=== PATIENT | female | born 1960 | race Two or more races ===

== ENCOUNTER 2025-09-10 16:21 | Inpatient (IN) | payer MEDICAID, OTHER ==
[~2025-09-10] VITALS: Ht 170.2 cm; Wt 126.0 kg
[2025-09-10] MEDS: VANCOMYCIN 1GM/250ML KIT 250 ML IV SCH (01:55)
[2025-09-10] MEDS: SODIUM CHLORIDE 0.9% 1,000 ML IV ONE ×2 (16:45→17:25)
[2025-09-10 16:55] VITALS: PULSE 81; RESP 18; O2SAT 98
--- NOTE | 2025-09-10 17:12 | ED.PDOC ---
Altered Mental Status HPI Comments 64 y/o morbidly obese is F is [place] from private residence for c/c of ALOC. Per EMS personnel report, family called, endorsing on 1-2x day history of patient being altered from her usual baseline, characterized by confusion. She has recent history of proximal, left thigh surgery for cyst and has been bed-bound since. Patient also reported to have fallen out of bed, yesterday. On scene blood glucose of 78. Patient was A&Ox2 and had notable odorous urine smell. Chief Complaint: ALOC Time Seen by MD: 16:30 Reviewed Notes: Nurses Notes, Facilities Clerk Notes, Medications, Allergies Allergies: Coded Allergies: NO KNOWN ALLERGIES (Unverified , 09/10/25) Information Source: Patient, Emergency Med Personnel Mode of Arrival: EMS Severity: Moderate Timing: Hours Duration: Since onset Past Medical History PAST MEDICAL HISTORY: Unknown, Unobtainable Surgical History: Denies all surgeries [employer] History: No Pertinent [employer] History Family History Family History: Unknown Social History Smoker: Non-Smoker Alcohol: Denies ETOH Use Drugs: Denies Drug Use Lives In: Home All Other Systems: Reviewed and Negative (Comprehensive review of systems are negative unless stated in HPI) Physical Exam General Appearance: No Apparent Distress, Normal HEENT: Normal ENT Inspection, Pharynx Normal, TMs Normal Neck: Full Range of Motion, Non-Tender, Normal, Normal Inspection Respiratory: Chest Non-Tender, Lungs Clear, No Accessory Muscle Use, No Respiratory Distress, Normal Breath Sounds Cardiovascular: No Edema, No JVD, No Murmur, No Gallop, Normal Peripheral Pu lses, Regular Rate/Rhythm Breast Exam: Deferred Gastrointestinal: No Organomegaly, Non Tender, No Pulsatile Mass, Normal Bowel Sounds, Soft Genitalia: Deferred Pelvic: Deferred Rectal: Deferred Extremities: No calf tenderness Musculoskeletal : Apperance: Normal Neurologic: Disoriented Cerebellar Function: NOT DONE Reflexes: NOT DONE Skin: Pallor Peripheral Pulses: 3+ Radial (R), 3+ Radial (L) Lymphatic: No Adenopathy Was a procedure done? Was a procedure done?: No Differential Diagnosis (ALOC) Differential Diagnosis: Dehydration, Hypoglycemia, DKA, Encephalopathy, Sepsis, Hypoxemia, Closed Head Injury, CVA, Drug Overdose, ETOH Intoxication, Heart Failure, Renal Failure X-Ray, Labs, Meds, VS Vital Signs Date Time Temp Pulse Resp B/P (MAP) Pulse Ox O2 Delivery O2 Flow Rate FiO2 09/10/25 16:55 81 18 98 Room Air* 0 21 09/10/25 16:51 97.7 84 15 84/37 (53) 96 97.7 09/10/25 16:27 84 09/10/25 16:24 98.7 79 15 90/61 100 98.7 Current Medications Medications (Trade) Dose Ordered Sig/Elissa Route Start Time Stop Time Status Last Admin Cefepime HCl 50 ml @ 12.5 mls/hr ONCE ONCE IV 09/10/25 16:45 09/10/25 20:44 09/10/25 17:25 Sodium Chloride 1,000 ml @ 1,000 mls/hr Q1H ONCE IV 09/10/25 16:45 09/10/25 17:44 09/10/25 17:25 Sodium Chloride 1,000 ml @ 150 mls/hr Q6H40M ONCE IV 09/10/25 16:45 09/10/25 23:24 09/10/25 16:45 Patient confused. Sepsis. Hypotensive. Establish intravenous access. Was given fluids. Sepsis protocol. Saturation pristine on room air. Had a surgical procedure on the left thigh. Possibly infection from the site. Was given cefepime. Was given clindamycin. Continue monitoring. Time of 1ST Reevaluation: 17:00 Reevaluation 1ST: Unchanged Patient Education/Counseling: Diagnosis, Treatment Family Education/Counseling: No Family Present SEPSIS Sepsis Screen Date sepsis recognized/suspect: Sep 10, 2025 Time Sepsis recognized/suspect: 170 Recent Procedure: No On Antibiotic Therapy: No Respiratory Rate >20: Yes Heart Rate >90: Yes Temp<36 C (96.8 F) or >38.3 C: No SBP <90 or MAP <65 mmHG: Yes New Acute Mental Status Change: Yes Is the patient on CPAP, BIPAP,: No Physician Orders Complete Blood Count (09/10/25 16:39) Comprehensive Metabolic Panel (09/10/25 16:39) PTPTT (09/10/25 16:39) Urinalysis (09/10/25 16:39) Chest Portable (09/10/25 16:39) Accucheck (09/10/25 16:39) Blood Culture (09/10/25 16:39) Lactic Acid W/ Reflex Order (09/10/25 18:00) Cefepime 1gm/50ml (Maxipime 1gm/50ml) (09/10/25 16:45) Notify Md If Map <65 Or Bp<90 (09/10/25 16:39) If Map<65 Start Vasopressor (09/10/25 16:39) Sepsis Reassesment After Fluid (09/10/25 17:39) Sodium Chloride 0.9% (09/10/25 16:45) Sodium Chloride 0.9% (09/10/25 16:45) Electrocardigram (09/10/25 16:42) Insert/Manage Urinary Catheter QSHIFT (09/10/25 16:45) Dumont Catheters (09/10/25 ) Urine Bacterial Culture (09/10/25 16:45) Change Picc Dressing Q7 Days QWEEKLY (09/10/25 17:25) Ok To Use Existing Picc (09/10/25 17:25) Vital Signs Date Time Temp Pulse Resp B/P (MAP) Pulse Ox O2 Delivery O2 Flow Rate FiO2 09/10/25 16:55 81 18 98 Room Air* 0 21 09/10/25 16:51 97.7 84 15 84/37 (53) 96 97.7 09/10/25 16:27 84 09/10/25 16:24 98.7 79 15 90/61 100 98.7 Medications Medications Dose Ordered Sig/Elissa Route Start Time Stop Time Status Last Admin Dose Admin Cefepime HCl 50 ml @ 12.5 mls/hr ONCE ONCE IV 09/10/25 16:45 09/10/25 20:44 09/10/25 17:25 Sodium Chloride 1,000 ml @ 150 mls/hr Q6H40M ONCE IV 09/10/25 16:45 09/10/25 23:24 09/10/25 16:45 Sodium Chloride 1,000 ml @ 1,000 mls/hr Q1H ONCE IV 09/10/25 16:45 09/10/25 17:44 09/10/25 17:25 Departure 1 Departure Time of Disposition: 17:42 Impression: Primary Impression: Metabolic encephalopathy Additional Impression: Sepsis, unspecified organism Qualified Codes: A41.9 - Sepsis, unspecified organism Disposition: 09 ADMITTED INPATIENT Admit to: Med Surg Condition: Guarded Critical Care Note Critical Care Time?: Yes (90 min-critical care time only) Stability Stability form required: No Heart Score Heart Score: Heart Score Response (Comments) Value History Slightly Suspicious 0 EKG Normal 0 Age 45-64 1 Risk Factors >3 or Hx ASHD 2 Troponin N/A 0 Total 3 I personally scribed for WALLY ONEIL MD ([email or web address]) on 09/10/25 at 17:12. Electronically submitted by Desmond Sherman [email or web address]). WALLY ONEIL MD Sep 10, 2025 17:12
[2025-09-10] MEDS: CEFEPIME 1GM/50ML 50 ML IV ONE (17:25)
--- NOTE | 2025-09-10 17:27 | DVH ---
CHEST RADIOGRAPH Indication: sob Technique: Single frontal view of the chest was obtained Comparison: None FINDINGS: Lines and Tubes: PICC line in place from the left arm with the tip in the superior vena cava at the level of the aortic knob. Lungs: Prominent bilateral perihilar vascular markings. Pleura: No effusion. No pneumothorax. Cardiomediastinal contours: Mild cardiomegaly Bones: No acute osseous abnormality. IMPRESSION: 1. PICC line from left arm in place with the tip in the superior vena cava at the level of the aortic knob. 2. Findings may represent congestive failure correlate with the clinical setting.
[2025-09-10] MEDS: NOREPINEPHRINE 8 MG/250ML KIT 250 ML IV ONE (17:35)
[2025-09-10 18:02] LABS: Urine Budding Yeast LOADED /hpf (None Seen); Urine Protein, UAD 2+ (Negative); Urine WBC Clumps PRESENT /hpf (None Seen)
[2025-09-10] MEDS: NOREPINEPHRINE 8 MG/250ML KIT 250 ML IV SCH (18:17)
[2025-09-10 18:29] LABS: Hematocrit 22.7 % (36.0-46.0); Mean Corpuscular Hemoglobin 27.4 pg (28.0-32.0); Mean Corpuscular Volume 89.1 fL (80.0-100.0); Nucleated Red Blood Cells % 0.2 %
[2025-09-10 18:30] LABS: Hemoglobin 7.0 g/dL (12.2-16.2)
[2025-09-10 18:36] LABS: INR 0.98 (0.9-1.15); Partial Thromboplastin Time 28.1 SEC (24.5-34.5); Prothrombin Time 10.4 sec (9.3-11.8)
[2025-09-10 18:39] LABS: Alkaline Phosphatase 72 U/L (46-116); Anion Gap 12 (5-15); BUN/Creatinine Ratio 11.2 (10.0-20.0); Sodium 141 mmol/L (136-145)
[2025-09-10 18:42] LABS: Blood Urea Nitrogen 50 mg/dL (9-23); Carbon Dioxide 16 mmol/L (20-31); Chloride 113 mmol/L (98-107); Glucose 63 mg/dL (74-106); Potassium 5.2 mmol/L (3.5-5.1)
[2025-09-10 18:43] LABS: Alanine Aminotransferase < 9 U/L (7-40); Albumin 2.4 g/dL (3.2-4.8); Bilirubin, Total 0.2 mg/dL (0.2-1.0); Calcium 8.5 mg/dL (8.7-10.4); Total Protein 4.9 g/dL (5.7-8.2)
[2025-09-10 19:30] VITALS: PULSE 90; RESP 18; O2SAT 98
[2025-09-10] MEDS: DEXTROSE (50%) 50ML SYRG IV ONE (20:18)
[2025-09-10] MEDS ORDERED: DOCUSATE SOD 100 MG CAP PO PRN (20:30)
--- NOTE | 2025-09-10 20:58 | DVHHP2 ---
History of Present Illness Reason for Visit: Sepsis, unspecified organism History of Present Illness The patient is a 64-year-old female morbidly obese with past medical history of melanoma cancer, currently receiving treatment at [facility], hypothyroidism, hypertension, chronic kidney failure, and diabetes mellitus who presented to [facility] ED for evaluation of altered level of consciousness. As reported by daughter patient was experiencing confusion state, became altered from usual baseline, associated with generalized weakness, getting worse that EMS were called. When EMS arrived on the scene, the patient's blood glucose was 78 mg/dL, oriented x2, EN route to our facility ED. Patient was seen and evaluated in the ED with left thigh open wound from cysts removal, laboratory data shows WBC 9.4, hemoglobin 7.0, hematocrit 22.7, platelets 379, sodium 141, potassium 5.2, BUN 50, creatinine 4.45, GFR 11, glucose 63, calcium 8.5, albumin 2.4, BNP 62.07, blood pressure 79/61 trending up to 106/76, heart rate 90, temperature 98.3 F, O2 saturation 98% on room air. Urinalysis positive for urinary tract infection. Patient was started on IV antibiotic regimen vancomycin, please see medication orders section in the computer. On my assessment, daughter at bedside, patient remains altered, no diaphoresis, shortness of breaths, loss of consciousness, no diarrhea, nausea, vomiting, fever, no chills. Patient was admitted for further evaluation and medical management. Past Medical History Myeloma cancer, Hypothyroidism, HTN, DM, CKF Past Surgical History Proximal left thigh surgery/cyst removal Family History Reviewed, noncontributory to the management of this case. Past Social History The patient lives at home, denies smoking, alcohol or illicit drugs abuse. Review of Systems Constitutional: Yes: Weakness; No: Fever, Chills, Sweats, Malaise, Other Eyes: No: Pain, Vision change, Conjunctivae inflammation, Eyelid inflammation, Other, Redness ENT: No: Ear pain, Ear discharge, Nose pain, Nose discharge, Nose congestion, Mouth pain, Mouth swelling, Throat pain, Throat swelling, Other Respiratory: No: Cough, Dry, Shortness of breath, SOB with excertion, Wheezing, Hemoptysis, Pleuritic Pain, Sputum, Wheezing, Other Cardiovascular: No: Chest Pain, Palpitations, Orthopnea, Paroxysmal Noc. Dyspnea, Edema, Lt Headedness, Other Gastrointestinal: No: Nausea, Vomiting, Abdominal Pain, Diarrhea, Constipation, Melena, Hematochezia, Other Genitourinary: No Dysuria, No Frequency, No Incontinence, No Hematuria, No Retention, No Other Musculoskeletal: No: other, neck pain, shoulder pain, arm pain, back pain, hand pain, leg pain, foot pain Skin: No: Rash, Lesions, Jaundice, Bruising, Other Neurological: Confusion, Other (Altered level of consciousness); No: Weakness, Numbness, Incoordination, Change in speech, Seizures Allergies: Coded Allergies: NO KNOWN ALLERGIES (Unverified , 09/10/25) Medications Current Medications Medications Dose Ordered Sig/Elissa Route Start Time Stop Time Status Last Admin Dose Admin Norepinephrine Bitartrate 250 ml @ 3.75 mls/hr Q24H IV 09/10/25 18:00 09/10/25 18:17 3.75 MLS/HR Ceftriaxone Sodium 50 ml @ 100 mls/hr DAILY@09 IV 09/11/25 09:00 Levothyroxine Sodium 150 mcg QAM@0600 PO 09/11/25 06:00 Atorvastatin Calcium 10 mg HS PO 09/10/25 22:00 Gabapentin 300 mg TID PO 09/10/25 22:00 Acetaminophen/ Hydrocodone Bitart 1 tab Q4HP PRN PO 09/10/25 20:30 Ondansetron HCl 4 mg Q4HP PRN IV 09/10/25 20:30 Docusate Sodium 100 mg BIDPRN PRN PO 09/10/25 20:30 Multivitamins 1 tab DAILY PO 09/11/25 10:00 Acetaminophen 650 mg Q6HP PRN PO 09/10/25 20:30 Aspirin 81 mg DAILY PO 09/11/25 10:00 Exam Vital Signs Vital Signs Date Time Temp Pulse Resp B/P (MAP) Pulse Ox O2 Delivery O2 Flow Rate FiO2 09/10/25 20:15 78 11 109/57 (74) 98 09/10/25 19:30 Room Air* 0 21 09/10/25 19:30 98.3 98.3 General Appearance: Alert, Cooperative, No acute distress, Other (Oriented x2) HEENT: Atraumatic, PERRLA, EOMI, Mucous membr. moist/pink Respiratory: Normal air movement Cardiovascular: Regular rate, Normal S1, Normal S2, No murmurs Abdominal: Normal bowel sounds, Soft, No tenderness, No hepatospenomegaly, No masses Extremities: No clubbing, No cyanosis, No edema, Normal pulses, No t enderness/swelling Skin: No rashes, No significant lesion Neuro: Normal speech, Normal tone, Sensation intact, Cranial nerves 3-12 NL, Reflexes 2+, Other (Generalized weakness) Psych/Mental Status: Mood NL, Other (Altered mental status) Labs/Xrays Labs Test 09/10/25 18:05 09/10/25 17:50 Range/Units White Blood Count 9.4 4.4-10.8 10^3/uL Red Blood Count 2.54 L 4.0-5.20 10^6/uL Hemoglobin 7.0 *L 12.2-16.2 g/dL Hematocrit 22.7 L 36.0-46.0 % Mean Corpuscular Volume 89.1 80.0-100.0 fL Mean Corpuscular Hemoglobin 27.4 L 28.0-32.0 pg Mean Corpuscular Hemoglobin Concent 30.8 L 32.0-36.0 g/dL Red Cell Distribution Width 19.1 H 11.8-14.3 % Platelet Count 379 140-450 10^3/uL Mean Platelet Volume 7.8 6.9-10.8 fL Neutrophils (%) (Auto) 59.9 37.0-80.0 % Lymphocytes (%) (Auto) 27.9 10.0-50.0 % Monocytes (%) (Auto) 9.1 0.0-12.0 % Eosinophils (%) (Auto) 1.9 0.0-7.0 % Basophils (%) (Auto) 1.2 0.0-2.0 % Neutrophils # (Auto) 5.6 1.6-8.6 10 ^3/uL Lymphocytes # (Auto) 2.6 0.4-5.4 10 ^3/uL Monocytes # (Auto) 0.9 0-1.3 10 ^3/uL Eosinophils # (Auto) 0.2 0-0.8 10 ^3/uL Basophils # (Auto) 0.1 0-0.2 10 ^3/uL Nucleated Red Blood Cells 0.2 % Prothrombin Time 10.4 9.3-11.8 sec Prothrombin Time INR 0.98 0.9-1.15 Activated Partial Thromboplast Time 28.1 24.5-34.5 SEC Sodium Level 141 136-145 mmol/L Potassium Level 5.2 H 3.5-5.1 mmol/L Chloride Level 113 H 98-107 mmol/L Carbon Dioxide Level 16 L 20-31 mmol/L Anion Gap 12 5-15 Blood Urea Nitrogen 50 H 9-23 mg/dL Creatinine 4.45 H 0.550-1.02 mg/dL Glomerular Filtration Rate Calc 11 >90 mL/min BUN/Creatinine Ratio 11.2 10.0-20.0 Serum Glucose 63 L 74-106 mg/dL Lactic Acid Level 1.0 0.4-2.0 mmol/L Calcium Level 8.5 L 8.7-10.4 mg/dL Total Bilirubin 0.2 0.2-1.0 mg/dL Aspartate Amino Transferase (AST) 16 13-40 U/L Alanine Aminotransferase (ALT) < 9 7-40 U/L Alkaline Phosphatase 72 46-116 U/L Total Protein 4.9 L 5.7-8.2 g/dL Albumin 2.4 L 3.2-4.8 g/dL Urine Color Light-orange Yellow Urine Clarity Ex.turbid Clear Urine pH 7.5 5.0-9.0 Urine Specific [place] 1.017 1.001-1.035 Urine Protein 2+ H Negative Urine Ketones Negative Negative Urine Blood 1+ H Negative /uL Urine Nitrite Negative Negative Urine Bilirubin Negative Negative Urine Urobilinogen Normal Negative mg/dL Urine Leukocyte Esterase 2+ Negative /uL Urine RBC 202 0 - 4 /hpf Urine WBC Clumps Present None Seen /hpf Urine Microscopic WBC 2425 H 0-5 /HPF Urine Squamous Epithelial Cells Few <5 /hpf Urine Bacteria Mod H None Seen /hpf Urine Hyaline Casts Mod 0 - 2 /lpf Urine Mucus Few None Seen Urine Yeast (Budding) Loaded None Seen /hpf Urine Glucose Normal Normal mg/dL PATIENT: WILFRED INFANTECCT: [id number] UNIT: [id number] : 1960 LOC: ER ROOM / BED: / AGE / SEX: 64 / F ADM STATUS: REG ER SERVICE [id number] ORDERING PHYSICIAN: WALLY ONEIL MD PROCEDURE(s): CXRP - CHEST PORTABLE REASON: sob ORDER NUMBER(s): [id number], ACCESSION NUMBER(s): [id number] CHEST RADIOGRAPH Indication: sob Technique: Single frontal view of the chest was obtained Comparison: None FINDINGS: Lines and Tubes: PICC line in place from the left arm with the tip in the superior vena cava at the level of the aortic knob. Lungs: Prominent bilateral perihilar vascular markings. Pleura: No effusion. No pneumothorax. Cardiomediastinal contours: Mild cardiomegaly Bones: No acute osseous abnormality. IMPRESSION: 1. PICC line from left arm in place with the tip in the superior vena cava at the level of the aortic knob. 2. Findings may represent congestive failure correlate with the clinical setting. SEPSIS Sepsis Screen Date sepsis recognized/suspect: Sep 10, 2025 Time Sepsis recognized/suspect: 1699 Recent Procedure: No On Antibiotic Therapy: No Respiratory Rate >20: Yes Heart Rate >90: Yes Temp<36 C (96.8 F) or >38.3 C: No SBP <90 or MAP <65 mmHG: Yes New Acute Mental Status Change: Yes Is the patient on CPAP, BIPAP,: No Physician Orders Chest Portable (09/10/25 16:39) Accucheck (09/10/25 16:39) Blood Culture (09/10/25 16:39) Notify Md If Map <65 Or Bp<90 (09/10/25 16:39) If Map<65 Start Vasopressor (09/10/25 16:39) Sepsis Reassesment After Fluid (09/10/25 17:39) Sodium Chloride 0.9% (09/10/25 16:45) Electrocardigram (09/10/25 16:42) Insert/Manage Urinary Catheter QSHIFT (09/10/25 16:45) Dumont Catheters (09/10/25 ) Urine Bacterial Culture (09/10/25 16:45) Change Picc Dressing Q7 Days QWEEKLY (09/10/25 17:25) Ok To Use Existing Picc (09/10/25 17:25) Norepinephrine 8 Mg/250ml Kit (Levophed) (09/10/25 18:00) Type And Screen (09/10/25 18:34) Transfuse Blood (09/10/25 ) Obtain Consent For: (09/10/25 18:34) Packedcell-Noactive Bleeding (09/10/25 18:34) Ceftriaxone 1gm/50ml (Rocephin) (09/11/25 09:00) Thyroid Stimulating Hormone (09/10/25 20:20) Levothyroxine Tablet (Synthroid Tablet) (09/11/25 06:00) Atorvastatin (Lipitor) (09/10/25 22:00) *[facility] (09/10/25 20:20) Gabapentin Capsule (Neurontin Capsule) (09/10/25 22:00) Allergies (09/10/25 20:20) Code Status (09/10/25 20:20) Oxygen Per Hour (09/10/25 20:20) Hydrocodone-Acet 5/325mg Tab ([place] (09/10/25 20:30) Ondansetron Hcl (Zofran) (09/10/25 20:30) Docusate Sodium Capsule (Colace Capsule) (09/10/25 20:30) Multiple Vitamin Tablet (Mvi Tab) (09/11/25 10:00) Fall Risk Precautions In Place QSHIFT (09/10/25 20:20) Complete Blood Count (09/11/25 04:00) Comprehensive Metabolic Panel (09/11/25 04:00) Cardiac Diet-2gna,Lofat,Lochol (09/11/25 Breakfast) Condition: Serious (09/10/25 20:20) Acetaminophen Tablet (Tylenol Tablet) (09/10/25 20:30) Maintain Bed Rest (09/10/25 20:20) Sequential Compression Device (09/10/25 ) Hemoglobin A1c (09/10/25 20:20) Aspirin Chewable Tablet (09/11/25 10:00) Vital Signs Date Time Temp Pulse Resp B/P (MAP) Pulse Ox O2 Delivery O2 Flow Rate FiO2 09/10/25 20:15 78 11 109/57 (74) 98 09/10/25 20:00 114/63 09/10/25 20:00 74 12 114/63 (80) 98 09/10/25 19:45 75 14 108/60 (76) 98 09/10/25 19:45 108/60 09/10/25 19:30 90 18 98 Room Air* 0 21 09/10/25 19:30 98.3 90 18 106/76 (86) 98 98.3 09/10/25 19:15 83 15 97/59 (72) 96 09/10/25 19:15 97/59 09/10/25 19:00 82 15 101/72 (82) 96 09/10/25 19:00 101/72 09/10/25 18:45 99/72 09/10/25 18:45 72 15 99/72 (81) 96 09/10/25 18:30 103/62 09/10/25 18:30 77 15 103/62 (76) 96 09/10/25 18:17 99/43 09/10/25 18:15 75 15 97/58 (71) 96 09/10/25 18:00 77 15 99/43 (61) 96 09/10/25 17:45 80 15 90/46 (61) 96 09/10/25 17:30 89 15 59/29 (39) 96 09/10/25 17:15 85 15 79/61 (67) 96 09/10/25 17:00 84 15 87/47 (60) 96 09/10/25 16:55 81 18 98 Room Air* 0 21 09/10/25 16:51 97.7 84 15 84/37 (53) 96 97.7 09/10/25 16:27 84 09/10/25 16:24 98.7 79 15 90/61 100 98.7 Laboratory Tests Test 09/10/25 18:05 Lactic Acid Level 1.0 mmol/L (0.4-2.0) White Blood Count 9.4 10^3/uL (4.4-10.8) Medications Medications Dose Ordered Sig/Elissa Route Start Time Stop Time Status Last Admin Dose Admin Cefepime HCl 50 ml @ 12.5 mls/hr ONCE ONCE IV 09/10/25 16:45 09/10/25 20:44 DC 09/10/25 17:25 12.5 MLS/HR Dextrose 50 ml ONCE ONCE IV 09/10/25 20:15 09/10/25 20:16 DC 09/10/25 20:18 50 ML Norepinephrine Bitartrate 250 ml @ 3.75 mls/hr Q24H IV 09/10/25 18:00 09/10/25 18:17 3.75 MLS/HR Sodium Chloride 1,000 ml @ 150 mls/hr Q6H40M ONCE IV 09/10/25 16:45 09/10/25 23:24 09/10/25 16:45 150 MLS/HR Sodium Chloride 1,000 ml @ 1,000 mls/hr Q1H ONCE IV 09/10/25 16:45 09/10/25 17:44 DC 09/10/25 17:25 1,000 MLS/HR Assessment/Plan Assessment/Plan Sepsis, unspecified organism Metabolic encephalopathy Hypothyroidism Urinary tract infection Electrolyte imbalance Acute on chronic renal failure Symptomatic anemia Open wound of left thigh Generalized weakness Diabetes mellitus with hypoglycemia Plan 1. Admit to intensive care unit 2. Breathing treatment 3. Pain control management 4. IV antibiotic management 5. Management of fluids and electrolytes 6. Consultation for Hematology/Oncology/Nephrology/wound care 7. Diagnostic test chest x-ray 8. DVT prophylaxis-on aspirin 9. Repeat labs CBC, CMP in a.m. 10. Home medication reviewed and reconciled 11. Continue with current medical management 12. Treatment plan discussed with patient/daughter and RN. Patient/daughter verbalized understanding. Plan discussed with: Patient, Daughter (At bedside), Other (RN) My Orders Orders - BELINDA ANDREW DNP Procedure Category Date Status Time Ceftriaxone 1gm/50ml PHA 09/11/25 In Process (Rocephin) 09:00 Thyroid Stimulating LAB 09/10/25 In Process Hormone 20:20 Levothyroxine Tablet PHA 09/11/25 In Process (Synthroid Tablet) 06:00 Atorvastatin (Lipitor) PHA 09/10/25 In Process 22:00 *[facility] CONS 09/10/25 Transmitted -[place] 20:20 Gabapentin Capsule PHA 09/10/25 In Process (Neurontin Capsule) 22:00 Allergies GLORIA 09/10/25 In Process 20:20 Code Status CODE 09/10/25 Transmitted 20:20 Oxygen Per Hour RT 09/10/25 Transmitted 20:20 Hydrocodone-Acet PHA 09/10/25 In Process 5/325mg Tab ([place] 20:30 Ondansetron Hcl PHA 09/10/25 In Process (Zofran) 20:30 Docusate Sodium PHA 09/10/25 In Process Capsule (Colace 20:30 Multiple Vitamin PHA 09/11/25 In Process Tablet (Mvi Tab) 10:00 Fall Risk Precautions GLORIA 09/10/[address] 20:20 Complete Blood Count LAB 09/11/25 Verified 04:00 Comprehensive LAB 09/11/25 Verified Metabolic Panel 04:00 Cardiac DIET 09/11/25 Transmitted Diet-2gna,Lofat,Lochol Breakfast Condition: Serious GLORIA 09/10/25 In Process 20:20 Acetaminophen Tablet PHA 09/10/25 In Process (Tylenol Tablet) 20:30 Maintain Bed Rest GLORIA 09/10/25 In Process 20:20 Sequential GLORIA 09/10/25 In Process Compression Device Hemoglobin A1c LAB 09/10/25 In Process 20:20 Aspirin Chewable PHA 09/11/25 In Process Tablet 10:00 Problem List: (1) Sepsis, unspecified organism (2) Metabolic encephalopathy (3) Hypothyroidism (4) Urinary tract infection (5) Electrolyte imbalance (6) Acute on chronic renal failure (7) Symptomatic anemia (8) Open wound of left thigh (9) Generalized weakness (10) Diabetes mellitus with hypoglycemia Date of Service: Sep 10, 2025 Billing Provider: BELINDA ANDREW DNP Common Visit Codes: 51012-CGYOMRS INP/OBS CARE (HIGH) BELINDA NADREW DNP Sep 10, 2025 20:58
[2025-09-10] MEDS ORDERED: MORPHINE SULFATE INJ 2 MG/ml SYRG IV PRN (21:00)
[2025-09-10] MEDS ORDERED: NITROGLYCERIN 0.4 MG SL TAB SL PRN (21:00)
[2025-09-10] MEDS ORDERED: DEXTROSE (50%) 50ML SYRG IV PRN (22:45)
[2025-09-10] MEDS ORDERED: VANCOMYCIN PER PHARMACY 0 MG IV SCH (22:45)
[2025-09-10] MEDS: ATORVASTATIN 20 MG TAB PO SCH (22:50)
[2025-09-10] MEDS: GABAPENTIN 300 MG CAP PO SCH (22:50)
[2025-09-10] MEDS: SODIUM ZIRCONIUM CYCL 10 GM PAK PO ONE (22:50)
[2025-09-10 23:07] VITALS: BP 97/66; PULSE 79; RESP 18; TEMP 97.1
[2025-09-10 23:30] VITALS: BP 103/56; PULSE 79; RESP 12; TEMP 97.1
[2025-09-11] VITALS (32 sets, daily range): BP systolic 87–111; BP diastolic 50–67; PULSE 70–79; RESP 9–21; TEMP 97.1–98.7; O2SAT 96–100
[2025-09-11 03:31] LABS: Hematocrit 24.3 % (36.0-46.0); Hemoglobin 7.6 g/dL (12.2-16.2); Mean Corpuscular Hemoglobin 28.4 pg (28.0-32.0); Mean Corpuscular Volume 91.5 fL (80.0-100.0); Nucleated Red Blood Cells % 0.2 %
[2025-09-11 03:48] LABS: Alkaline Phosphatase 64 U/L (46-116); Anion Gap 12 (5-15); BUN/Creatinine Ratio 12.3 (10.0-20.0); Potassium 4.6 mmol/L (3.5-5.1)
[2025-09-11 03:49] LABS: Alanine Aminotransferase < 9 U/L (7-40); Albumin 2.1 g/dL (3.2-4.8); Bilirubin, Total 0.4 mg/dL (0.2-1.0); Blood Urea Nitrogen 48 mg/dL (9-23); Calcium 8.1 mg/dL (8.7-10.4); Carbon Dioxide 14 mmol/L (20-31); Chloride 110 mmol/L (98-107); Glucose 211 mg/dL (74-106); Sodium 136 mmol/L (136-145); Total Protein 4.4 g/dL (5.7-8.2)
[2025-09-11] MEDS: LEVOTHYROXINE SODIUM 50 MCG TAB PO SCH (05:46)
[2025-09-11] MEDS: InsuLIN REG 1unit/0.01ml Soln (100units/ml) SC SCH (06:21)
[2025-09-11] MEDS: ACCU-CHEK COMFORT CURVE STRIP VI SCH (06:21)
[2025-09-11] MEDS: MULTIPLE VITAMIN TAB PO SCH (09:47)
--- NOTE | 2025-09-11 10:22 | DVHINCON2 ---
Date of service: Sep 11, 2025 Referring Physician Hospitalist Reason for Consultation Acute kidney injury History of Present Illness 64-year-old morbidly obese female patient is confused and unable to provide history she is irritable refusing to answer questions states she wants to go home. Per nurse at bedside patient was sent in by family due to change in mental state. Her past medical history and medications are unknown She has a Dumont catheter presently that has cloudy urine, in the ER upon evaluation is noted that patient is on Levophed drip due to hypotension Allergies: Coded Allergies: NO KNOWN ALLERGIES (Unverified , 09/10/25) Current Medications Current Medications Medications (Trade) Dose Ordered Sig/Elissa Route PRN Reason Start Time Stop Time Status Last Admin Norepinephrine Bitartrate 250 ml @ 3.75 mls/hr Q24H IV 09/10/25 18:00 09/10/25 18:17 Ceftriaxone Sodium 50 ml @ 100 mls/hr DAILY@09 IV 09/11/25 09:00 09/11/25 09:47 Levothyroxine Sodium (Synthroid Tablet) 150 mcg QAM@0600 PO 09/11/25 06:00 Atorvastatin Calcium (Lipitor) 10 mg HS PO 09/10/25 22:00 Gabapentin (Neurontin Capsule) 300 mg TID PO 09/10/25 22:00 Acetaminophen/ Hydrocodone Bitart ([place] 5/325MG Tab) 1 tab Q4HP PRN PO MODERATE PAIN (4-6 PAIN SCALE) 09/10/25 20:30 Ondansetron HCl (Zofran) 4 mg Q4HP PRN IV NAUSEA / VOMITING 09/10/25 20:30 Docusate Sodium (Colace Capsule) 100 mg BIDPRN PRN PO FOR CONSTIPATION 09/10/25 20:30 Multivitamins (Mvi Tab) 1 tab DAILY PO 09/11/25 10:00 09/11/25 09:47 Acetaminophen (Tylenol Tablet) 650 mg Q6HP PRN PO PAIN SCALE 1-3 OR TEMP>100.4 09/10/25 20:30 Aspirin 81 mg DAILY PO 09/11/25 10:00 09/11/25 09:47 Nitroglycerin (Ntrostat Sublingual) 0.4 mg Q5MINP PRN SL FOR CHEST PAIN 09/10/25 21:00 Morphine Sulfate 2 mg Q30M PRN IV FOR CHEST PAIN 09/10/25 21:00 Diagnostic Test (Pha) (Accu-Chek Comfort Curve T) 1 strip ACHS 09/11/25 07:00 09/11/25 06:21 Insulin Human Regular (InsuLIN R) ACHS SC 09/11/25 07:00 Dextrose 50 ml UD PRN IV Blood Sugar LESS THAN 60 09/10/25 22:45 Vancomycin HCl 250 ml @ 125 mls/hr Q2H IV 09/10/25 23:00 09/11/25 02:59 DC 09/10/25 01:55 Vancomycin HCl 0 ml @ 0 mls/hr PER PHARMACY IV 09/10/25 22:45 Sodium Chloride 1,000 ml @ 100 mls/hr Q10H IV 09/11/25 10:00 Review of Systems Altered mental state H&P Exam Vital Signs/I&O Vital Sign Date Time Temp Pulse Resp B/P (MAP) Pulse Ox O2 Delivery O2 Flow Rate FiO2 09/11/25 09:32 69 09/11/25 07:15 10 105/62 (76) 96 09/11/25 06:00 Room Air* 0 21 09/11/25 04:30 98.7 98.7 Intake and Output 09/10/25 09/11/25 19:00 07:00 Intake Total 1080.00 ml 1255.3125 ml Output Total 300 ml Balance 1080.00 ml 955.3125 ml Intake IV Total 1080.00 ml 355.3125 ml Blood Product 600 ml Other 300 ml Output Urine Total 300 ml # Bowel Movements 1 Physical Exam Disheveled chronically ill morbidly obese white female Multiple bruises on bilateral upper extremities on both arms PICC line left arm No increased JVD abdomen is soft no pitting edema Dumont catheter has cloudy dark yellow urine minimal output Labs/Diagnostic Data Labs/Diagnostic Data Laboratory Tests Test 09/11/25 05:59 09/11/25 03:00 09/10/25 21:12 09/10/25 18:05 Range/Units POC Glucose 72 78 70-106 mg/dl White Blood Count 8.2 9.4 4.4-10.8 10^3/uL Red Blood Count 2.66 L 2.54 L 4.0-5.20 10^6/uL Hemoglobin 7.6 L 7.0 *L 12.2-16.2 g/dL Hematocrit 24.3 L 22.7 L 36.0-46.0 % Mean Corpuscular Volume 91.5 89.1 80.0-100.0 fL Mean Corpuscular Hemoglobin 28.4 27.4 L 28.0-32.0 pg Mean Corpuscular Hemoglobin Concent 31.0 L 30.8 L 32.0-36.0 g/dL Red Cell Distribution Width 18.3 H 19.1 H 11.8-14.3 % Platelet Count 348 379 140-450 10^3/uL Mean Platelet Volume 7.7 7.8 6.9-10.8 fL Neutrophils (%) (Auto) 63.2 59.9 37.0-80.0 % Lymphocytes (%) (Auto) 23.5 27.9 10.0-50.0 % Monocytes (%) (Auto) 10.8 9.1 0.0-12.0 % Eosinophils (%) (Auto) 1.5 1.9 0.0-7.0 % Basophils (%) (Auto) 1.0 1.2 0.0-2.0 % Neutrophils # (Auto) 5.2 5.6 1.6-8.6 10 ^3/uL Lymphocytes # (Auto) 1.9 2.6 0.4-5.4 10 ^3/uL Monocytes # (Auto) 0.9 0.9 0-1.3 10 ^3/uL Eosinophils # (Auto) 0.1 0.2 0-0.8 10 ^3/uL Basophils # (Auto) 0.1 0.1 0-0.2 10 ^3/uL Nucleated Red Blood Cells 0.2 0.2 % Sodium Level 136 # 141 136-145 mmol/L Potassium Level 4.6 5.2 H 3.5-5.1 mmol/L Chloride Level 110 H 113 H 98-107 mmol/L Carbon Dioxide Level 14 L 16 L 20-31 mmol/L Anion Gap 12 12 5-15 Blood Urea Nitrogen 48 H 50 H 9-23 mg/dL Creatinine 3.89 H 4.45 H 0.550-1.02 mg/dL Glomerular Filtration Rate Calc 12 11 >90 mL/min BUN/Creatinine Ratio 12.3 11.2 10.0-20.0 Serum Glucose 211 H 63 L 74-106 mg/dL Calcium Level 8.1 L 8.5 L 8.7-10.4 mg/dL Total Bilirubin 0.4 0.2 0.2-1.0 mg/dL Aspartate Amino Transferase (AST) 12 L 16 13-40 U/L Alanine Aminotransferase (ALT) < 9 < 9 7-40 U/L Alkaline Phosphatase 64 72 46-116 U/L Total Protein 4.4 L 4.9 L 5.7-8.2 g/dL Albumin 2.1 L 2.4 L 3.2-4.8 g/dL Prothrombin Time 10.4 9.3-11.8 sec Prothrombin Time INR 0.98 0.9-1.15 Activated Partial Thromboplast Time 28.1 24.5-34.5 SEC Hemoglobin A1c < 3.8 <5.7 % A1C Lactic Acid Level 1.0 0.4-2.0 mmol/L B-Type Natriuretic Peptide 62.07 0-100 pg/mL Thyroid Stimulating Hormone (TSH) 11.74 H 0.55-4.78 uIU/mL Test 09/10/25 17:50 Range/Units Urine Color Light-orange Yellow Urine Clarity Ex.turbid Clear Urine pH 7.5 5.0-9.0 Urine Specific [place] 1.017 1.001-1.035 Urine Protein 2+ H Negative Urine Ketones Negative Negative Urine Blood 1+ H Negative /uL Urine Nitrite Negative Negative Urine Bilirubin Negative Negative Urine Urobilinogen Normal Negative mg/dL Urine Leukocyte Esterase 2+ Negative /uL Urine RBC 202 0 - 4 /hpf Urine WBC Clumps Present None Seen /hpf Urine Microscopic WBC 2425 H 0-5 /HPF Urine Squamous Epithelial Cells Few <5 /hpf Urine Bacteria Mod H None Seen /hpf Urine Hyaline Casts Mod 0 - 2 /lpf Urine Mucus Few None Seen Urine Yeast (Budding) Loaded None Seen /hpf Urine Glucose Normal Normal mg/dL Assessment Acute kidney injury hemodynamically mediated in the setting of hypotension and sepsis CKD unspecified baseline is unknown Urinary tract infection Altered mental state Anemia IV fluid hydration Strict I&O monitoring urinary output Broad-spectrum antibiotics Currently on Levophed drip maintain mean arterial pressure greater than 65 Blood culture urine culture Anemia panel and recommend PRBC if hemoglobin decreases below 7.0 No indication for emergent dialysis at this time however patient require close renal follow-up Plan discussed with: Patient HOMAR BYRD MD Sep 11, 2025 10:22
[2025-09-11] MEDS: SODIUM CHLORIDE 0.9% 1,000 ML IV SCH (10:46)
--- NOTE | 2025-09-11 17:36 | DVHPNRES ---
Progress Note Date Seen: Sep 11, 2025 Resident Creating Document: AUGUSTA GONZALEZ RESIDENT Has the PT tested + for MRSA If YES, has PT been informed?: No Medical Necessity Reason Pt with a Central, PICC or Fol: Yes The following are medically ne: PICC Line, Dumont Catheter Subjective Review of Systems The patient is a 64-year-old female morbidly obese with past medical history of melanoma cancer, currently receiving treatment at [facility], hypothyroidism, hypertension, chronic kidney failure, and diabetes mellitus who presented to [facility] ED for evaluation of altered level of consciousness. As reported by daughter patient was experiencing confusion state, became altered from usual baseline, associated with generalized weakness, getting worse that EMS were called. When EMS arrived on the scene, the patient's blood glucose was 78 mg/dL, oriented x2, EN route to our facility ED. Patient was seen and evaluated in the ED with left thigh open wound from cysts removal, laboratory data shows WBC 9.4, hemoglobin 7.0, hematocrit 22.7, platelets 379, sodium 141, potassium 5.2, BUN 50, creatinine 4.45, GFR 11, glucose 63, calcium 8.5, albumin 2.4, BNP 62.07, blood pressure 79/61 trending up to 106/76, heart rate 90, temperature 98.3 F, O2 saturation 98% on room air. Urinalysis positive for urinary tract infection. Patient was started on IV antibiotic regimen vancomycin, please see medication orders section in the computer. On my assessment, daughter at bedside, patient remains altered, no diaphoresis, shortness of breaths, loss of consciousness, no diarrhea, nausea, vomiting, fever, no chills. Patient was admitted for further evaluation and medical management. PAST MEDICAL HISTORY * melanoma ([facility]) * Hypothyroidism * Diabetes mellitus type 2 * Chronic kidney disease (baseline unknown) * Hypertension * Morbid obesity * Recent surgical wounds (abdomen + left thigh) * Former smoker (quit Sep 2024) PAST SURGICAL HISTORY * Left abdominal melanoma excision * Left proximal thigh melanoma excision * Prior oncologic resections SOCIAL HISTORY * Quit smoking 2023 * No EtOH/drugs * Lives with family REVIEW OF SYSTEMS (limited due to confusion) * Constitutional: Fatigue, confusion; no fevers/chills overnight * Neuro: Confusion, disorientation; follows commands * Resp: No cough, wheezing, SOB * CV: No chest pain; soft BPs * GI: No abdominal pain, tolerating minimal PO * : Very low urine output * Skin: Drainage from left thigh wound; abdominal wound with jewell * Endo: Known hypothyroidism; glucose fluctuating * MSK: Generalized weakness 09/11/25 The patient is a 64-year-old female with melanoma (status post recent left abdominal and left proximal thigh excisions), morbid obesity, CKD, DM2, hypothyroidism, hypertension, and recent postoperative discharge on Eliquis, oxycodone, and cefadroxil, who remains admitted to the ICU for septic encephalopathy, acute kidney injury on CKD, symptomatic anemia, and open draining postoperative thigh wound. Overnight and Today: * Patient is awake, alert, following commands, but confused and poorly oriented. * Left thigh postoperative wound continues to drain moderately, dressing changed, and wound culture obtained. * Dumont catheter in place; urine output remains very low (UOP 0.11 mL/kg/hr) despite IV fluids. * Still requiring vasopressor support (norepinephrine 6 mcg/min) to maintain MAP > 65. * Hemodynamics stable but soft, BP fluctuating 68189 systolic. * No respiratory distress; oxygen saturation 9698% on room air. * She remains on NS at 100 mL/hr for hemodynamic support. * Nephrology evaluated: No emergent indication for dialysis at this time. * Open abdominal wound with jewell appears intact. * No sedation; remains able to follow simple commands. * Confusion improving slightly but still present. * Thyroid function abnormal requires adjustment. * Postoperative wound continues to drain; wound culture sent; ID coverage continued. * Cefadroxil (home ABX) NOT appropriate for current septic presentation ? continue broad-spectrum IV therapy. * No respiratory failure; stable on room air. * Requires continued ICU-level care. Objective vital signs Vital Sign Date Time Temp Pulse Resp B/P (MAP) Pulse Ox O2 Delivery O2 Flow Rate FiO2 09/11/25 17:15 68 10 99/65 (76) 95 09/11/25 16:00 98.8 98.8 09/11/25 06:00 Room Air* 0 21 Total Intake and Output 09/10/25 09/10/25 09/11/25 15:00 23:00 07:00 Intake Total 1409.0625 ml 926.25 ml Output Total 300 ml Balance 1409.0625 ml 626.25 ml medications Current Medications Medications Dose Ordered Sig/Elissa Route Start Time Stop Time Status Last Admin Dose Admin Norepinephrine Bitartrate 250 ml @ 3.75 mls/hr Q24H IV 09/10/25 18:00 09/10/25 18:17 3.75 MLS/HR Ceftriaxone Sodium 50 ml @ 100 mls/hr DAILY@09 IV 09/11/25 09:00 09/11/25 09:47 100 MLS/HR Levothyroxine Sodium 150 mcg QAM@0600 PO 09/11/25 06:00 Atorvastatin Calcium 10 mg HS PO 09/10/25 22:00 Gabapentin 300 mg TID PO 09/10/25 22:00 09/11/25 14:43 300 MG Acetaminophen/ Hydrocodone Bitart 1 tab Q4HP PRN PO 09/10/25 20:30 Ondansetron HCl 4 mg Q4HP PRN IV 09/10/25 20:30 Docusate Sodium 100 mg BIDPRN PRN PO 09/10/25 20:30 Multivitamins 1 tab DAILY PO 09/11/25 10:00 09/11/25 09:47 1 TAB Acetaminophen 650 mg Q6HP PRN PO 09/10/25 20:30 Aspirin 81 mg DAILY PO 09/11/25 10:00 09/11/25 09:47 81 MG Nitroglycerin 0.4 mg Q5MINP PRN SL 09/10/25 21:00 Morphine Sulfate 2 mg Q30M PRN IV 09/10/25 21:00 Diagnostic Test (Pha) 1 strip ACHS 09/11/25 07:00 09/11/25 16:08 1 STRIP Insulin Human Regular ACHS SC 09/11/25 07:00 Dextrose 50 ml UD PRN IV 09/10/25 22:45 Vancomycin HCl 0 ml @ 0 mls/hr PER PHARMACY IV 09/10/25 22:45 Sodium Chloride 1,000 ml @ 100 mls/hr Q10H IV 09/11/25 10:00 09/11/25 10:46 100 MLS/HR Examination General: Awake, alert, confused; appears ill. Neuro: Follows commands; disoriented 2; no focal deficits. HEENT: Dry mucosa. Pupils reactive. CV: NSR; no murmurs. 2+ pitting edema bilateral LE. Resp: Normal effort; lungs clear; on room air. GI: Soft, non-tender; abdominal surgical wound with jewell. : Dumont present; minimal clear urine. Skin/Wound: Left thigh postop wound draining; dressing saturated; wound culture obtained. Extremities: Pulses palpable; no DVT signs. Psych: Confused but cooperative. laboratory and microbiology Laboratory Tests 09/11/25 03:00 Test 09/11/25 03:00 Range/Units Serum Glucose 211 H 74-106 mg/dL Microbiology Date/Time Source Procedure Growth Status 09/10/25 17:50 Urine - Dumont [place] Urine Culture - Preliminary Resulted Problem List/Assessment/Plan Problem List/Assessment/Plan PLAN SYSTEMWISE 1. Neurology Acute metabolic encephalopathy Multifactorial: sepsis, uremia, hypothyroidism, anemia. * Mental status improving slowly but still confused. * No sedation onboard. * Neuro checks q2h. * Consider CT head if worsening or no improvement. * Treat metabolic contributors (TSH, acidosis, renal failure, infection). 2. Cardiovascular Septic shock CHF on chest X-ray Likely fluid-mediated; not in overt respiratory failure. * Continue norepinephrine drip at 6 mcg/min, titrate to maintain MAP > 65. * Continue NS 100 mL/hr, but reassess fluid given CHF findings. * Trend lactate (currently normal). * Continuous telemetry. * Order echocardiogram (already ordered) to evaluate EF and CHF contribution. 3. Respiratory (NOT mechanically ventilated) * On room air, saturating 9698%. * No respiratory distress. * Incentive spirometry. * Daily CXR PRN for volume status. 4. Gastrointestinal / Nutrition * Soft diet as tolerated once fully oriented. * Monitor albumin; nutritional support as needed. * Bowel regimen PRN. * Monitor abdominal wound with jewell. 5. / Renal (Nephrology following) Acute kidney injury on CKD due to VMN hemodynamically mediated SONDRA due to hypotension. Oliguric renal failure Metabolic acidosis * SONDRA on CKD; no emergent HD indication per nephrology. * Continue strict I/O, daily weights. * Continue IV NS cautiously; avoid fluid overload given CHF changes. * Monitor electrolytes q6h. * If UOP does not improve ? reassess need for dialysis. * Avoid nephrotoxins. * Dumont catheter remains necessary for strict I/O; ensure daily Dumont evaluation. 6. Infectious Disease Septic shock, unspecified organism AMS, hypotension requiring norepinephrine, UTI Complicated Postoperative open wound with significant drainage Possible early cellulitis or surgical site infection. * Continue IV ceftriaxone and vancomycin * Start antifungal therapy (fluconazole) for >100,000 yeast UTI if confirmed Frida. * Follow wound cultures, urine culture, blood cultures. * Wound care nurse to evaluate twice daily. 7. Endocrine Hypothyroidism TSH 11.7 undertreated. Type 2 diabetes with fluctuating glucose Morbid obesity Increases risk for wound complications, sepsis. * Hyper-TSH: Increase levothyroxine dose; * Glucose management with insulin sliding scale; avoid hypoglycemia. * Accu-checks q2h. 8. Hematology / Oncology Symptomatic anemia, acute on chronic * Hgb 7.6 monitor; transfuse PRBC if <7 or symptomatic. * Oncology consult ([facility] coordination). * Hold Eliquis temporarily due to anemia and ongoing wound drainage; reassess daily. 9. Psychiatry * Monitor for delirium; ensure sleepwake cycle. * Reorient frequently. * No antipsychotics unless agitation. 10. Lines / Drips / Devices * PICC line in left arm: tip in SVC, functioning. * Dumont catheter in place for strict I/O. * Norepinephrine drip ongoing. * IV NS at 100 mL/hr. * Limb restrictions on PICC arm. 11. Prophylaxis * DVT prophylaxis: SCD (temporarily hold Eliquis and lovenox due to anemia) * GI prophylaxis: IV pantoprazole daily. * Pressure ulcer prevention: Turn q2h. * Fall precautions: Bed alarm. 12. Nutrition * High-protein diet when safe. * If intake inadequate consider nutrition consult for supplements. 13. Physical / Occupational Therapy * PT/OT evaluation once hemodynamically stable. * Daily mobility as tolerated. 14. Social Work / Care Management * Engage social work for discharge planning and family support. * Provide updates to daughter. CRITICAL CARE TIME 83 minutes of critical care time spent today, excluding all procedures, directly managing hemodynamics, vasopressors, renal failure, encephalopathy, sepsis, and high-risk postoperative wound. CODE STATUS * Full code * Code status discussion >20 minutes conducted with patient and family. * Patient confused but able to express understanding; daughter agrees with full code. FINAL STATEMENT Case discussed in detail with the attending physician , including the clinical presentation, diagnostic workup, and comprehensive management plan. The patient was present for the discussion and demonstrated understanding of her condition and the proposed plan. PROGRESS NOTE. Plan discussed with: Patient, Daughter My Orders My Orders Orders - AUGUSTA GONZALEZ RESIDENT Procedure Category Date Status Time Apply Z-Guard GLORIA 11/30/25 In Process 09:24 * Dietary Consult CONS 09/11/25 Transmitted 17:24 Cleanse Wound With GLORIA 09/11/25 In Process Wound Clean 09:24 Apply: GLORIA 09/11/25 In Process 09:24 Wound Culture W/ Gs CRISTIANA 09/11/25 Logged 17:24 AUGUSTA GONZALEZ RESIDENT Sep 11, 2025 17:36
[2025-09-11] MEDS: HYDROcodone-ACET 5/325MG TAB PO PRN (21:48)
[2025-09-12] VITALS (21 sets, daily range): BP systolic 84–110; BP diastolic 41–89; PULSE 70–84; RESP 9–20; TEMP 98.3; O2SAT 96–100
[2025-09-12 05:12] LABS: Hematocrit 25.2 % (36.0-46.0); Hemoglobin 7.9 g/dL (12.2-16.2); Mean Corpuscular Hemoglobin 27.9 pg (28.0-32.0); Mean Corpuscular Volume 89.0 fL (80.0-100.0); Nucleated Red Blood Cells % 0.2 %
[2025-09-12 05:34] LABS: Iron 13.0 ug/dL (50-170); Total Iron Binding Capacity 161.0 ug/dL (250-425)
[2025-09-12 05:37] LABS: Alkaline Phosphatase 72 U/L (46-116); BUN/Creatinine Ratio 13.6 (10.0-20.0); Magnesium 2.0 mg/dL (1.6-2.6)
[2025-09-12 05:44] LABS: Anion Gap 11 (5-15); Potassium 4.6 mmol/L (3.5-5.1); Sodium 140 mmol/L (136-145)
[2025-09-12 05:45] LABS: Alanine Aminotransferase < 9 U/L (7-40); Albumin 2.4 g/dL (3.2-4.8); Bilirubin, Total 0.2 mg/dL (0.2-1.0); Blood Urea Nitrogen 53 mg/dL (9-23); Calcium 8.2 mg/dL (8.7-10.4); Carbon Dioxide 15 mmol/L (20-31); Chloride 114 mmol/L (98-107); Glucose 72 mg/dL (74-106); Total Protein 4.9 g/dL (5.7-8.2)
--- NOTE | 2025-09-12 06:53 | DVH ---
EXAM: CT HEAD WITHOUT CONTRAST INDICATION: To evaluate for head injury post fall TECHNIQUE: CT of the head without intravenous contrast. Coronal and sagittal reformatted images are submitted. Radiation Dose : 1. Head: CT Dose: CTDI volume is 57.65 mGy. Dose-length product is 1019.1 mGy*cm The dose indicators for CT are the volume Computed Tomography (CT) Dose Index (CTDIvol) and the Dose Length Product (DLP), and are measured in units of mGy and mGy-cm, respectively. These indicators are not patient dose, but values generated from the CT scanner acquisition factors. The report includes radiation exposure data for exposures received during this examination. All CT scans at this medical facility are performed using dose modulation techniques as appropriate to a performed exam including the following: Automated exposure control was utilized; adjustment of the MA and/or KV according to patient size; and use of iterative reconstruction technique. COMPARISON: None FINDINGS: There is no evidence of acute intracranial hemorrhage, extra-axial collection, mass effect, midline shift, herniation or hydrocephalus. The ventricles, sulci and cisterns are age appropriate. The beasley-white differentiation is intact. The visualized paranasal sinuses and mastoid air cells are clear. No depressed calvarial fracture. The surrounding soft tissues are unremarkable. IMPRESSION: 1. No evidence of acute intracranial abnormality.
--- NOTE | 2025-09-12 07:09 | DVH ---
CHEST RADIOGRAPH Indication: CHF Technique: Single frontal view of the chest was obtained Comparison: XY CHEST PORTABLE on DOS: 09/10/25 FINDINGS: Lines and Tubes: There is a left PICC with its tip terminating in the superior vena cava. Lungs: There are bilateral pulmonary opacities noted. Pleura: There is a right pleural effusion. No pneumothorax. Cardiomediastinal contours: Unremarkable Bones: No acute osseous abnormality. IMPRESSION: 1. Bilateral pulmonary opacities which may reflect pulmonary congestion, and right pleural effusion similar to prior study.
--- NOTE | 2025-09-12 07:35 | DVHSR ---
APPROVED REPORT EXAM: Two-dimensional and M-mode echocardiogram with Doppler and color Doppler. Blood Pressure: 105/62 mmHg INDICATION Evaluate for CHF RISK FACTORS Obesity: Height: 5'7", Weight: 239 DIMENSIONS LVDd 4.3 (3.8-5.7cm) LA (2D) 3.7 (1.9-4.0cm) Aortic Root 3.3 (2.0-3.7cm) LVDs 3.0 (2.5-4.0cm) LA (MM) (1.9-4.0cm) Aortic Cusp Exc 1.9 (1.5-2.0cm) EF (%) 60.0 (55-70%) Rt. Atrium 3.7 (1.9-4.0cm) Asc. Aorta cm IVSd 1.4 (0.7-1.1cm) RV (D) 4.6 (1.8-2.4cm) PWd 1.2 (0.7-1.1cm) Mitral Valve Mitral Mitral Stenosis E wave 0.62m/s MV Mean GR. mmHg A wave 0.95m/s MV Peak GR. mmHg E/A ratio 0.7 2D MVA cm2 DECEL Time 255ms PRESS 1/2 Time ms Aortic Valve Aortic Valve Aortic Stenosis V1 1.22m/s AO Mean GR. 6mmHg V2 1.74m/s AO Peak GR. 12mmHg LVOT Diameter 2.0 (1.8-2.4cm) Doppler STEVENSON 2.20cm2 Pulmonic Valve V2 1.04m/s Tricuspid Valve TR Velocity 2.56m/s RVSP 29mmHg Other Information Technically limited study due to body habitus, patient lying towards right side. Conclusion lvef 60% RV enlarged no severe valve abnormalities noted
--- NOTE | 2025-09-12 11:26 | DVHPN2 ---
Progress Note Date Seen: Sep 12, 2025 Has the PT tested + for MRSA If YES, has PT been informed?: No Medical Necessity Reason Pt with a Central, PICC or Fol: Yes The following are medically ne: PICC Line, Dumont Catheter Subjective Patient reports: No new complaints Other Systems: Patient seen and examined by myself today in follow-up Objective vital signs Vital Sign Date Time Temp Pulse Resp B/P (MAP) Pulse Ox O2 Delivery O2 Flow Rate FiO2 09/12/25 08:40 84 11 96 Room Air* 0 21 09/12/25 07:00 101/63 (76) 09/11/25 19:15 98.2 98.2 Total Intake and Output 09/11/25 09/11/25 09/12/25 15:00 23:00 07:00 Intake Total 610.0 ml 1360.0 ml 826.25 ml Output Total 400 ml Balance 610.0 ml 960.0 ml 826.25 ml medications Current Medications Medications Dose Ordered Sig/Elissa Route Start Time Stop Time Status Last Admin Dose Admin Norepinephrine Bitartrate 250 ml @ 3.75 mls/hr Q24H IV 09/10/25 18:00 09/12/25 02:12 3.75 MLS/HR Ceftriaxone Sodium 50 ml @ 100 mls/hr DAILY@09 IV 09/11/25 09:00 09/12/25 08:06 100 MLS/HR Levothyroxine Sodium 150 mcg QAM@0600 PO 09/11/25 06:00 09/12/25 06:52 150 MCG Atorvastatin Calcium 10 mg HS PO 09/10/25 22:00 09/11/25 21:46 10 MG Gabapentin 300 mg TID PO 09/10/25 22:00 09/12/25 06:52 300 MG Acetaminophen/ Hydrocodone Bitart 1 tab Q4HP PRN PO 09/10/25 20:30 09/11/25 21:48 1 TAB Ondansetron HCl 4 mg Q4HP PRN IV 09/10/25 20:30 Docusate Sodium 100 mg BIDPRN PRN PO 09/10/25 20:30 Multivitamins 1 tab DAILY PO 09/11/25 10:00 09/12/25 08:07 1 TAB Acetaminophen 650 mg Q6HP PRN PO 09/10/25 20:30 Aspirin 81 mg DAILY PO 09/11/25 10:00 09/12/25 08:06 81 MG Nitroglycerin 0.4 mg Q5MINP PRN SL 09/10/25 21:00 Morphine Sulfate 2 mg Q30M PRN IV 09/10/25 21:00 Diagnostic Test (Pha) 1 strip ACHS 09/11/25 07:00 09/12/25 07:06 1 STRIP Insulin Human Regular ACHS SC 09/11/25 07:00 Dextrose 50 ml UD PRN IV 09/10/25 22:45 Vancomycin HCl 0 ml @ 0 mls/hr PER PHARMACY IV 09/10/25 22:45 Sodium Chloride 1,000 ml @ 100 mls/hr Q10H IV 09/11/25 10:00 09/12/25 08:13 100 MLS/HR Examination: LUNGS:Normal, CVS:Normal, MSK:Normal laboratory and microbiology Laboratory Tests 09/12/25 04:48 Test 09/12/25 04:48 Range/Units Serum Glucose 72 L 74-106 mg/dL Microbiology Date/Time Source Procedure Growth Status 09/11/25 00:30 Nose MRSA Screen - Final Complete 09/10/25 19:28 Blood Blood Culture - Preliminary NO GROWTH AFTER 24 HOURS OF INCUBATION. Resulted 09/10/25 17:50 Urine - Dumont Port Urine Culture - Preliminary Presumptive Frida albicans Resulted Problem List/Assessment/Plan Problem List/Assessment/Plan Acute kidney injury superimposed Chronic Kidney Disease secondary hemodynamic mediated Vancomycin toxicity Urinary tract infection Metabolic acidosis Encephalopathy Anemia of chronic kidney disease Recommendations Kidney function slightly improving No urine output charted Dumont catheter Strict I&Os IVF D5 1/2 NS with 50 mEq/L sodium bicarb at 100 cc/hour Check urine electrolytes and protein excretion Check kidney ultrasound IV antibiotics Discontinue vancomycin We will continue to follow Plan discussed with: Patient My Orders My Orders Orders - MAURICE GRANGER MD Procedure Category Date Status Time D5w/Sod Chl 0.45% PHA 09/12/25 Verified (... W/Sodium Bicarb 5 11:30 Kidney US 09/12/25 Verified 11:21 Vitamin D, 25-Hydroxy LAB 09/12/25 Verified 11:21 Urine Sodium LAB 09/12/25 Verified 11:21 Urine LAB 09/12/25 Verified Protein/Creatinine Urine Creatinine LAB 09/12/25 Verified 11:21 Urinalysis LAB 09/12/25 Verified 11:21 Phosphorus LAB 09/12/25 Verified 11:21 Parathyroid Hormone LAB 09/12/25 Verified Intact 11:21 Magnesium LAB 09/12/25 Verified 11:21 Dumont Catheters ED NURSING 09/12/25 Verified Strict I&O ED NURSING 09/12/25 Verified MAURICE GRANGER MD Sep 12, 2025 11:26
--- NOTE | 2025-09-12 11:58 | DVH ---
CLINICAL HISTORY: tyler TECHNIQUE: Complete ultrasound exam of the kidneys and bladder was performed. COMPARISON: None FINDINGS: Evaluation is limited due to suboptimal ization of the right kidney due to patient body habitus. The right kidney has increased echogenicity and measures 11.3 cm. There is no focal parenchymal abnormality or evidence for stone. There is no hydronephrosis. The left kidney has normal echogenicity and measures 11.4 cm. There is no focal parenchymal abnormality or evidence for stone. There is no hydronephrosis. The bladder is not seen, likely due to decompression by Dumont catheter. IMPRESSION: Limited exam with echogenic right kidney, most compatible with medical renal disease.
[2025-09-12] MEDS: SODIUM BICARB 50mEq/50ml Vial 50 ML in D5W/SOD CHL 0.45% 1,000 ML IV SCH (12:31)
--- NOTE | 2025-09-12 13:26 | DVHPNRES ---
Progress Note Date Seen: Sep 12, 2025 Resident Creating Document: AUGUSTA GONZALEZ RESIDENT Has the PT tested + for MRSA If YES, has PT been informed?: No Medical Necessity Reason Pt with a Central, PICC or Fol: Yes The following are medically ne: PICC Line, Dumont Catheter Subjective Review of Systems The patient is a 64-year-old female morbidly obese with past medical history of melanoma cancer, currently receiving treatment at [facility], hypothyroidism, hypertension, chronic kidney failure, and diabetes mellitus who presented to [facility] ED for evaluation of altered level of consciousness. As reported by daughter patient was experiencing confusion state, became altered from usual baseline, associated with generalized weakness, getting worse that EMS were called. When EMS arrived on the scene, the patient's blood glucose was 78 mg/dL, oriented x2, EN route to our facility ED. Patient was seen and evaluated in the ED with left thigh open wound from cysts removal, laboratory data shows WBC 9.4, hemoglobin 7.0, hematocrit 22.7, platelets 379, sodium 141, potassium 5.2, BUN 50, creatinine 4.45, GFR 11, glucose 63, calcium 8.5, albumin 2.4, BNP 62.07, blood pressure 79/61 trending up to 106/76, heart rate 90, temperature 98.3 F, O2 saturation 98% on room air. Urinalysis positive for urinary tract infection. Patient was started on IV antibiotic regimen vancomycin, please see medication orders section in the computer. On my assessment, daughter at bedside, patient remains altered, no diaphoresis, shortness of breaths, loss of consciousness, no diarrhea, nausea, vomiting, fever, no chills. Patient was admitted for further evaluation and medical management. PAST MEDICAL HISTORY * * Metastatic melanoma (brain and lung metastases per family([facility]) * Hypothyroidism * Diabetes mellitus type 2 * Chronic kidney disease (baseline unknown) * Hypertension * Morbid obesity * Recent surgical wounds (abdomen + left thigh) * Former smoker (quit Sep 2024) PAST SURGICAL HISTORY * Left abdominal melanoma excision * Left proximal thigh melanoma excision * Prior oncologic resections SOCIAL HISTORY * Quit smoking 2023 * No EtOH/drugs * Lives with family REVIEW OF SYSTEMS (limited due to confusion) * Constitutional: Fatigue, confusion; no fevers/chills overnight * Neuro: Confusion, disorientation; follows commands * Resp: No cough, wheezing, SOB * CV: No chest pain; soft BPs * GI: No abdominal pain, tolerating minimal PO * : Very low urine output * Skin: Drainage from left thigh wound; abdominal wound with jewell * Endo: Known hypothyroidism; glucose fluctuating * MSK: Generalized weakness 09/11/25 The patient is a 64-year-old female with melanoma (status post recent left abdominal and left proximal thigh excisions), morbid obesity, CKD, DM2, hypothyroidism, hypertension, and recent postoperative discharge on Eliquis, oxycodone, and cefadroxil, who remains admitted to the ICU for septic encephalopathy, acute kidney injury on CKD, symptomatic anemia, and open draining postoperative thigh wound. Overnight and Today: * Patient is awake, alert, following commands, but confused and poorly oriented. * Left thigh postoperative wound continues to drain moderately, dressing changed, and wound culture obtained. * Dumont catheter in place; urine output remains very low (UOP 0.11 mL/kg/hr) despite IV fluids. * Still requiring vasopressor support (norepinephrine 6 mcg/min) to maintain MAP > 65. * Hemodynamics stable but soft, BP fluctuating 02710 systolic. * No respiratory distress; oxygen saturation 9698% on room air. * She remains on NS at 100 mL/hr for hemodynamic support. * Nephrology evaluated: No emergent indication for dialysis at this time. * Open abdominal wound with jewell appears intact. * No sedation; remains able to follow simple commands. * Confusion improving slightly but still present. * Thyroid function abnormal requires adjustment. * Postoperative wound continues to drain; wound culture sent; ID coverage continued. * Cefadroxil (home ABX) NOT appropriate for current septic presentation ? continue broad-spectrum IV therapy. * No respiratory failure; stable on room air. * Requires continued ICU-level care. 09/12/25 The patient is a 64-year-old female with metastatic melanoma (recent left abdominal and left proximal thigh resections), history of brain metastasis treated with radiation, possible untreated pulmonary metastases, CKD, DM2, hypothyroidism, hypertension, anemia of chronic disease, and recent sepsis with metabolic encephalopathy. She remains in the ICU for persistent altered mental status, hypotension requiring vasopressors, SONDRA on CKD with oliguria, metabolic acidosis, complicated UTI with yeast, postoperative draining wound, and nutritional decline. Todays Interval Events * Patient remains alert but confused, disoriented, intermittently agitated, weak, with poor appetite. * continues on norepinephrine infusion at 2 mcg/min.UOP 0.15 mL/kg/hr via Dumont. oliguric. * Wound culture: Gram-positive cocci in pairs; gram-negative rods. * Urine culture: >100,000 yeast. * Blood cultures negative. * CT head: no acute findings. * CXR: bilateral pulmonary opacities, pulmonary vascular congestion, stable right pleural effusion. * Echo: LVEF 60%; RV enlarged. * Kidney ultrasound: increased echogenicity consistent with medical renal disease. * Vancomycin discontinued due to SONDRA and toxicity risk. * Started D5 NS + 50 mEq sodium bicarb at 100 mL/hr for metabolic acidosis. * 1 unit PRBC transfused yesterday; Hgb up to 7.9 * Daughter now reports brain metastases previously treated and lung metastases untreated.Records requested. Objective vital signs Vital Sign Date Time Temp Pulse Resp B/P (MAP) Pulse Ox O2 Delivery O2 Flow Rate FiO2 09/12/25 08:40 84 11 96 Room Air* 0 21 09/12/25 07:30 98.1 106/53 (70) 98.1 Total Intake and Output 09/11/25 09/11/25 09/12/25 15:00 23:00 07:00 Intake Total 610.0 ml 1360.0 ml 826.25 ml Output Total 400 ml Balance 610.0 ml 960.0 ml 826.25 ml medications Current Medications Medications Dose Ordered Sig/Elissa Route Start Time Stop Time Status Last Admin Dose Admin Norepinephrine Bitartrate 250 ml @ 3.75 mls/hr Q24H IV 09/10/25 18:00 09/12/25 02:12 3.75 MLS/HR Ceftriaxone Sodium 50 ml @ 100 mls/hr DAILY@09 IV 09/11/25 09:00 09/12/25 08:06 100 MLS/HR Levothyroxine Sodium 150 mcg QAM@0600 PO 09/11/25 06:00 09/12/25 06:52 150 MCG Atorvastatin Calcium 10 mg HS PO 09/10/25 22:00 09/11/25 21:46 10 MG Gabapentin 300 mg TID PO 09/10/25 22:00 09/12/25 06:52 300 MG Acetaminophen/ Hydrocodone Bitart 1 tab Q4HP PRN PO 09/10/25 20:30 09/11/25 21:48 1 TAB Ondansetron HCl 4 mg Q4HP PRN IV 09/10/25 20:30 Docusate Sodium 100 mg BIDPRN PRN PO 09/10/25 20:30 Multivitamins 1 tab DAILY PO 09/11/25 10:00 09/12/25 08:07 1 TAB Acetaminophen 650 mg Q6HP PRN PO 09/10/25 20:30 Aspirin 81 mg DAILY PO 09/11/25 10:00 09/12/25 08:06 81 MG Nitroglycerin 0.4 mg Q5MINP PRN SL 09/10/25 21:00 Morphine Sulfate 2 mg Q30M PRN IV 09/10/25 21:00 Diagnostic Test (Pha) 1 strip ACHS 09/11/25 07:00 09/12/25 12:32 1 STRIP Insulin Human Regular ACHS SC 09/11/25 07:00 Dextrose 50 ml UD PRN IV 09/10/25 22:45 Vancomycin HCl 0 ml @ 0 mls/hr PER PHARMACY IV 09/10/25 22:45 Sodium Bicarbonate 50 ml/ Dextrose/Sodium Chloride 1,050 ml @ 100 mls/hr [id number] IV 09/12/25 11:30 09/12/25 12:31 100 MLS/HR Fluconazole 200 mg DAILY PO 09/12/25 13:15 09/25/25 13:15 Examination General: Awake, alert, confused; appears ill. Neuro: Follows commands; disoriented 2; no focal deficits. HEENT: Dry mucosa. Pupils reactive. CV: NSR; no murmurs. 2+ pitting edema bilateral LE. Resp: Normal effort; lungs clear; on room air. GI: Soft, non-tender; abdominal surgical wound with jewell. : Dumont present; minimal clear urine. Skin/Wound: Left thigh postop wound draining; dressing saturated; wound culture obtained. Extremities: Pulses palpable; no DVT signs. Psych: Confused but cooperative. laboratory and microbiology Laboratory Tests 09/12/25 04:48 Test 09/12/25 04:48 Range/Units Serum Glucose 72 L 74-106 mg/dL Microbiology Date/Time Source Procedure Growth Status 09/11/25 19:11 Abdomen Gram Stain - Final Resulted 09/11/25 19:11 Abdomen Wound Culture - Preliminary Resulted 09/10/25 19:28 Blood Blood Culture - Preliminary NO GROWTH AFTER 24 HOURS OF INCUBATION. Resulted 09/10/25 17:50 Urine - Dumont Port Urine Culture - Preliminary Presumptive Frida albicans Resulted Problem List/Assessment/Plan Problem List/Assessment/Plan PLAN SYSTEMWISE 1. Neurology Acute metabolic encephalopathy Multifactorial: sepsis, uremia, hypothyroidism, anemia. * Mental status improving slowly but still confused. * No sedation onboard. * Neuro checks q2h. * * CT head negative. * Treat metabolic contributors (TSH, acidosis, renal failure, infection). 2. Cardiovascular Septic shock CHF on chest X-ray Likely fluid-mediated; not in overt respiratory failure. * Continue norepinephrine drip at 6 mcg/min, titrate to maintain MAP > 65. Avoid excess fluids due to CHF on CXR. * ECHO: LVEF 60%, RV enlarged. monitor for RV failure. * Continuous telemetry. * Order echocardiogram (already ordered) to evaluate EF and CHF contribution. 3. Respiratory (NOT mechanically ventilated) * On room air, saturating 9698%. * No respiratory distress. * Incentive spirometry. * Daily CXR PRN for volume status. 4. Gastrointestinal / Nutrition * Soft diet as tolerated once fully oriented. * Monitor albumin; nutritional support as needed. * Bowel regimen PRN. * Monitor abdominal wound with jewell. 5. / Renal (Nephrology following) Acute kidney injury on CKD due to VMN hemodynamically mediated SONDRA due to hypotension. Oliguric renal failure Metabolic acidosis Complicated UTI with Yeast >100,000 * SONDRA on CKD; no emergent HD indication per nephrology. * Continue strict I/O, daily weights. * Continue D5 NS + 50 mEq NaHCO3 at 100 mL/hr. * Nephrology following * Monitor electrolytes q6h. * If UOP does not improve reassess need for dialysis. * Avoid nephrotoxins. * Dumont catheter remains necessary for strict I/O; ensure daily Dumont evaluation. 6. Infectious Disease Septic shock, unspecified organism AMS, hypotension requiring norepinephrine, Complicated UTI with Yeast >100,000 Postoperative open wound with significant drainage Possible early cellulitis or surgical site infection. * Continue IV ceftriaxone * Follow wound cultures, urine culture, blood cultures. * Wound care nurse to evaluate twice daily. * Wound culture: gram-positive cocci in pairs (likely Strep), gram-negative rods (likely Enterobacterales). * MRSA screen NEGATIVE. * Urine culture: >100,000 yeast (Frida species likely). * Blood cultures: negative. Because wound infection shows mixed gram-positive + gram-negative organisms, and UTI shows yeast, coverage must include: . Ceftriaxone 1g daily Good for gram-negative rods and many streptococci. Add Metronidazole 500 mg IV q8h For anaerobic coverage (postoperative wound, thigh area). Add Fluconazole 200 mg IV daily Treats Frida UTI (>100,000 yeast). NO VANCOMYCIN MRSA negative + SONDRA avoid. Consider piperacillintazobactam if patient deteriorates (Zosyn preferred if worsening sepsis or polymicrobial infection suspected). 7. Endocrine Hypothyroidism TSH 11.7 undertreated. Type 2 diabetes with fluctuating glucose Morbid obesity Increases risk for wound complications, sepsis. * Hyper-TSH: Increase levothyroxine dose; * Glucose management with insulin sliding scale; avoid hypoglycemia. * Accu-checks q2h. 8. Hematology / Oncology Symptomatic anemia, acute on chronic Iron deficiency Anemia of chronic disease + acute blood loss monitor; transfuse PRBC if Hgb<7 or symptomatic. * Iron deficiency: patient is NPO intermittently, poor PO intake * IV iron sucrose 200 mg daily 3 doses. * Oncology consult needed (brain mets, lung mets). * Hold Eliquis temporarily due to anemia and ongoing wound drainage; reassess daily. 9. Psychiatry * Monitor for delirium; ensure sleepwake cycle. * Reorient frequently. * No antipsychotics unless agitation. 10. Lines / Drips / Devices * PICC line in left arm: tip in SVC, functioning. * Dumont catheter in place for strict I/O. * Limb restrictions on PICC arm. 11. Prophylaxis * DVT prophylaxis: SCD (temporarily hold Eliquis and lovenox due to anemia) * GI prophylaxis: IV pantoprazole daily. * Pressure ulcer prevention: Turn q2h. * Fall precautions: Bed alarm. 12. Nutrition Malnutrition/Hypoalbuminemia * High-protein diet when safe. * If intake inadequate consider nutrition consult for supplements. 13. Physical / Occupational Therapy * PT/OT evaluation once hemodynamically stable. * Daily mobility as tolerated. 14. Social Work / Care Management * Engage social work for discharge planning and family support. * Provide updates to daughter. CRITICAL CARE TIME 83 minutes of critical care time spent today, excluding all procedures, directly managing hemodynamics, vasopressors, renal failure, encephalopathy, sepsis, and high-risk postoperative wound. CODE STATUS * Full code * Code status discussion >20 minutes conducted with patient and family. * Patient confused but able to express understanding; daughter agrees with full code. FINAL STATEMENT Case discussed in detail with the attending physician , including the clinical presentation, diagnostic workup, and comprehensive management plan. The patient was present for the discussion and demonstrated understanding of her condition and the proposed plan. PROGRESS NOTE. Plan discussed with: Daughter, Other (RN) My Orders My Orders Orders - AUGUSTA GONZALEZ RESIDENT Procedure Category Date Status Time Apply Z-Guard GLORIA 09/11/25 In Process 09:24 * Dietary Consult CONS 09/11/25 Transmitted 17:24 Cleanse Wound With GLORIA 09/11/25 In Process Wound Clean 09:24 Apply: GLORIA 09/11/25 In Process 09:24 Wound Culture W/ Gs CRISTIANA 09/11/25 In Process 17:24 Strict I & O GLORIA 09/11/25 In Process 17:36 Daily Weight [facility] 09/11/25 In Process 17:36 Chest Xray 1 View XY 09/12/25 Resulted 04:00 Obtain Mr From Other ORDERS 09/11/25 Transmitted Facility 22:39 Stool Occult Blood LAB 09/12/25 Logged 04:[address] 09/12/25 Resulted 07:00 Parathyroid Hormone LAB 09/12/25 In Process Intact 12:55 Fluconazole Tablet PHA 09/12/25 In Process (Diflucan Tablet) 13:15 AUGUSTA GONZALEZ RESIDENT Sep 12, 2025 13:26
[2025-09-12 13:36] LABS: Magnesium 1.9 mg/dL (1.6-2.6)
[2025-09-12 14:20] LABS: Urine Budding Yeast MANY /hpf (None Seen); Urine Protein, UAD 2+ (Negative); Urine WBC Clumps PRESENT /hpf (None Seen)
[2025-09-12 14:28] LABS: Protein, Urine 353.5 mg/dL (1-14)
[2025-09-12] MEDS: FLUCONAZOLE 100 MG TAB PO SCH (15:07)
[2025-09-13] VITALS (92 sets, daily range): BP systolic 76–128; BP diastolic 37–82; PULSE 53–83; RESP 8–19; TEMP 97.9–98.2; O2SAT 94–100
[2025-09-13 03:06] LABS: Nucleated Red Blood Cells % 0.2 %
[2025-09-13 03:08] LABS: Hematocrit 26.4 % (36.0-46.0); Hemoglobin 8.1 g/dL (12.2-16.2); Mean Corpuscular Hemoglobin 27.5 pg (28.0-32.0); Mean Corpuscular Volume 89.6 fL (80.0-100.0)
[2025-09-13 03:23] LABS: Alkaline Phosphatase 76 U/L (46-116); Anion Gap 10 (5-15); BUN/Creatinine Ratio 12.2 (10.0-20.0); Glucose 89 mg/dL (74-106); Magnesium 1.8 mg/dL (1.6-2.6); Potassium 4.5 mmol/L (3.5-5.1); Sodium 138 mmol/L (136-145)
[2025-09-13 03:38] LABS: Alanine Aminotransferase < 9 U/L (7-40); Albumin 2.3 g/dL (3.2-4.8); Bilirubin, Total 0.2 mg/dL (0.2-1.0); Blood Urea Nitrogen 46 mg/dL (9-23); Calcium 8.2 mg/dL (8.7-10.4); Carbon Dioxide 15 mmol/L (20-31); Chloride 113 mmol/L (98-107); Total Protein 5.0 g/dL (5.7-8.2)
[2025-09-13] MEDS: NOREPINEPHRINE 8 MG/250ML KIT 250 ML IV ONE (05:33)
[2025-09-13] MEDS ORDERED: FLUCONAZOLE 200MG/100ML 100 ML IV SCH (10:00)
[2025-09-13] MEDS ORDERED: FLUCONAZOLE 200 MG/100 ML IV SCH (10:33)
[2025-09-13] MEDS: FLUCONAZOLE 200MG/100ML 100 ML IV SCH (10:44)
[2025-09-13 10:47] LABS: Base Excess -9.6 mmol/L (-2.0-3.0)
[2025-09-13] MEDS: D5 IV SCH (11:30)
[2025-09-13] MEDS: SOD CHL IV SCH (11:30)
[2025-09-13] MEDS: SODIUM BICARB IV SCH (11:30)
--- NOTE | 2025-09-13 11:48 | DVH ---
CHEST RADIOGRAPH Indication: Evaluate for pneumonia Technique: Single frontal view of the chest was obtained Comparison: XY CHEST XRAY 1 VIEW on DOS: 09/12/25, XY CHEST PORTABLE on DOS: 09/10/25, XY CHEST XRAY 1 VIEW on DOS: 09/12/25 FINDINGS: Lines and Tubes: There is a left PICC with its tip terminating in the superior vena cava. Lungs: There are bilateral pulmonary opacities noted. Pleura: There is a right pleural effusion. No pneumothorax. Cardiomediastinal contours: Unremarkable Bones: No acute osseous abnormality. IMPRESSION: 1. Bilateral pulmonary opacities which may reflect pulmonary congestion, and right pleural effusion similar to prior study.
[2025-09-13] MEDS: IRON SUCROSE COMPLEX 110 ML IV SCH (11:54)
--- NOTE | 2025-09-13 12:14 | DVHPN2 ---
Progress Note Date Seen: Sep 13, 2025 Has the PT tested + for MRSA If YES, has PT been informed?: No Medical Necessity Reason Pt with a Central, PICC or Fol: Yes The following are medically ne: PICC Line, Dumont Catheter Subjective Other Systems: Patient seen and examined by myself today in follow-up Objective vital signs Vital Sign Date Time Temp Pulse Resp B/P (MAP) Pulse Ox O2 Delivery O2 Flow Rate FiO2 09/13/25 10:45 67 12 107/71 (83) 98 09/13/25 08:01 98.2 98.2 09/13/25 08:00 Room Air* 0 21 Total Intake and Output 09/12/25 09/12/25 09/13/25 15:00 23:00 07:00 Intake Total 806.25 ml 1690.00 ml 952.50 ml Output Total 200 ml 125 ml Balance 806.25 ml 1490.00 ml 827.50 ml medications Current Medications Medications Dose Ordered Sig/Elissa Route Start Time Stop Time Status Last Admin Dose Admin Norepinephrine Bitartrate 250 ml @ 3.75 mls/hr Q24H IV 09/10/25 18:00 09/13/25 05:33 3.75 MLS/HR Ceftriaxone Sodium 50 ml @ 100 mls/hr DAILY@09 IV 09/11/25 09:00 09/13/25 09:35 100 MLS/HR Levothyroxine Sodium 150 mcg QAM@0600 PO 09/11/25 06:00 09/13/25 05:33 150 MCG Atorvastatin Calcium 10 mg HS PO 09/10/25 22:00 09/11/25 21:46 10 MG Gabapentin 300 mg TID PO 09/10/25 22:00 09/13/25 05:33 300 MG Acetaminophen/ Hydrocodone Bitart 1 tab Q4HP PRN PO 09/10/25 20:30 09/11/25 21:48 1 TAB Ondansetron HCl 4 mg Q4HP PRN IV 09/10/25 20:30 Docusate Sodium 100 mg BIDPRN PRN PO 09/10/25 20:30 Multivitamins 1 tab DAILY PO 09/11/25 10:00 09/13/25 10:43 1 TAB Acetaminophen 650 mg Q6HP PRN PO 09/10/25 20:30 Aspirin 81 mg DAILY PO 09/11/25 10:00 12/2/25 10:43 81 MG Nitroglycerin 0.4 mg Q5MINP PRN SL 09/10/25 21:00 Morphine Sulfate 2 mg Q30M PRN IV 09/10/25 21:00 Diagnostic Test (Pha) 1 strip ACHS 09/11/25 07:00 09/13/25 11:44 1 STRIP Insulin Human Regular ACHS SC 09/11/25 07:00 Dextrose 50 ml UD PRN IV 09/10/25 22:45 Metronidazole 100 ml @ 100 mls/hr Q8HR IV 09/12/25 22:00 09/13/25 05:30 100 MLS/HR Iron Sucrose 110 ml @ 110 mls/hr DAILY@1200 IV 09/13/25 12:00 09/17/25 11:59 09/13/25 11:54 110 MLS/HR Furosemide 40 mg BIDD IV 09/13/25 18:00 Hydrocortisone Sodium Succinate 100 mg Q8HR IV 09/13/25 14:00 Fluconazole 100 ml @ 100 mls/hr DAILY IV 09/13/25 10:35 09/13/25 10:44 100 MLS/HR Sodium Bicarbonate 100 ml/Dextrose/ Sodium Chloride 1,100 ml @ 100 mls/hr Q11H IV 09/13/25 11:30 Examination: LUNGS:Normal, CVS:Normal, MSK:Abnormal laboratory and microbiology Laboratory Tests 09/13/25 02:46 Test 09/13/25 02:46 Range/Units Serum Glucose 89 74-106 mg/dL Microbiology Date/Time Source Procedure Growth Status 09/11/25 19:11 Abdomen Gram Stain - Final Resulted 09/11/25 19:11 Abdomen Wound Culture - Preliminary Resulted 09/10/25 19:28 Blood Blood Culture - Preliminary NO GROWTH AFTER 48 HOURS OF INCUBATION. Resulted 09/10/25 17:50 Urine - Dumont Port Urine Culture - Final Presumptive Frida albicans Complete Problem List/Assessment/Plan Problem List/Assessment/Plan Acute kidney injury superimposed Chronic Kidney Disease secondary hemodynamic mediated, FeNa < 1% Vancomycin toxicity Urinary tract infection Metabolic acidosis Encephalopathy Anemia of chronic kidney disease Recommendations Kidney function slightly improving No urine output charted Dumont catheter Strict I&Os IVF D5 1/2 NS with 50 mEq/L sodium bicarb at 100 cc/hour I agree with diuresis. Low-dose dopamine kidney ultrasound reported echogenic kidney IV antibiotics Discontinue vancomycin We will continue to follow Plan discussed with: Patient My Orders My Orders Orders - MAURICE GRANGER MD Procedure Category Date Status Time Furosemide Injection PHA 09/13/25 In Process (Lasix Injection) 18:00 Fluconazole PHA 09/13/25 In Process 200mg/100ml (Diflucan 10:35 D5w/Sod Chl 0.45% PHA 09/13/25 In Process (... W/Sodium Bicarb 5 11:30 Dietary Evaluation Review Comments: Nutrition Recommendation: 1) Avinash 1 pk daily, Nephro-issac 1 tab daily 2) Discontinue MVI 3) Ergocalciferol 50,000IU weekly 4) Monitor PO intake, lab values, weight trend, and I/O Expected Outcomes/Goals: Wound to improve Intake to meet >75% estimated needs Lab values to improve FU 3-5 days MAURICE GRANGER MD Sep 13, 2025 12:14
--- NOTE | 2025-09-13 12:36 | DVHPNRES ---
Progress Note Date Seen: Sep 13, 2025 Resident Creating Document: MARITZA MAYO RESIDENT Has the PT tested + for MRSA If YES, has PT been informed?: No Medical Necessity Reason Pt with a Central, PICC or Fol: Yes The following are medically ne: PICC Line, Dumont Catheter Subjective Review of Systems The patient is a 64-year-old female morbidly obese with past medical history of melanoma cancer, currently receiving treatment at [facility], hypothyroidism, hypertension, chronic kidney failure, and diabetes mellitus who presented to [facility] ED for evaluation of altered level of consciousness. As reported by daughter patient was experiencing confusion state, became altered from usual baseline, associated with generalized weakness, getting worse that EMS were called. When EMS arrived on the scene, the patient's blood glucose was 78 mg/dL, oriented x2, EN route to our facility ED. Patient was seen and evaluated in the ED with left thigh open wound from cysts removal, laboratory data shows WBC 9.4, hemoglobin 7.0, hematocrit 22.7, platelets 379, sodium 141, potassium 5.2, BUN 50, creatinine 4.45, GFR 11, glucose 63, calcium 8.5, albumin 2.4, BNP 62.07, blood pressure 79/61 trending up to 106/76, heart rate 90, temperature 98.3 F, O2 saturation 98% on room air. Urinalysis positive for urinary tract infection. Patient was started on IV antibiotic regimen vancomycin, please see medication orders section in the computer. On my assessment, daughter at bedside, patient remains altered, no diaphoresis, shortness of breaths, loss of consciousness, no diarrhea, nausea, vomiting, fever, no chills. Patient was admitted for further evaluation and medical management. PAST MEDICAL HISTORY * * Metastatic melanoma (brain and lung metastases per family([facility]) * Hypothyroidism * Diabetes mellitus type 2 * Chronic kidney disease (baseline unknown) * Hypertension * Morbid obesity * Recent surgical wounds (abdomen + left thigh) * Former smoker (quit Sep 2024) PAST SURGICAL HISTORY * Left abdominal melanoma excision * Left proximal thigh melanoma excision * Prior oncologic resections SOCIAL HISTORY * Quit smoking 2023 * No EtOH/drugs * Lives with family REVIEW OF SYSTEMS (limited due to confusion) * Constitutional: Fatigue, confusion; no fevers/chills overnight * Neuro: Confusion, disorientation; follows commands * Resp: No cough, wheezing, SOB * CV: No chest pain; soft BPs * GI: No abdominal pain, tolerating minimal PO * : Very low urine output * Skin: Drainage from left thigh wound; abdominal wound with jewell * Endo: Known hypothyroidism; glucose fluctuating * MSK: Generalized weakness 09/11/25 The patient is a 64-year-old female with melanoma (status post recent left abdominal and left proximal thigh excisions), morbid obesity, CKD, DM2, hypothyroidism, hypertension, and recent postoperative discharge on Eliquis, oxycodone, and cefadroxil, who remains admitted to the ICU for septic encephalopathy, acute kidney injury on CKD, symptomatic anemia, and open draining postoperative thigh wound. Overnight and Today: * Patient is awake, alert, following commands, but confused and poorly oriented. * Left thigh postoperative wound continues to drain moderately, dressing changed, and wound culture obtained. * Dumont catheter in place; urine output remains very low (UOP 0.11 mL/kg/hr) despite IV fluids. * Still requiring vasopressor support (norepinephrine 6 mcg/min) to maintain MAP > 65. * Hemodynamics stable but soft, BP fluctuating 78370 systolic. * No respiratory distress; oxygen saturation 9698% on room air. * She remains on NS at 100 mL/hr for hemodynamic support. * Nephrology evaluated: No emergent indication for dialysis at this time. * Open abdominal wound with jewell appears intact. * No sedation; remains able to follow simple commands. * Confusion improving slightly but still present. * Thyroid function abnormal requires adjustment. * Postoperative wound continues to drain; wound culture sent; ID coverage continued. * Cefadroxil (home ABX) NOT appropriate for current septic presentation ? continue broad-spectrum IV therapy. * No respiratory failure; stable on room air. * Requires continued ICU-level care. 09/12/25 The patient is a 64-year-old female with metastatic melanoma (recent left abdominal and left proximal thigh resections), history of brain metastasis treated with radiation, possible untreated pulmonary metastases, CKD, DM2, hypothyroidism, hypertension, anemia of chronic disease, and recent sepsis with metabolic encephalopathy. She remains in the ICU for persistent altered mental status, hypotension requiring vasopressors, SONDRA on CKD with oliguria, metabolic acidosis, complicated UTI with yeast, postoperative draining wound, and nutritional decline. Todays Interval Events * Patient remains alert but confused, disoriented, intermittently agitated, weak, with poor appetite. * continues on norepinephrine infusion at 2 mcg/min.UOP 0.15 mL/kg/hr via Dumont. oliguric. * Wound culture: Gram-positive cocci in pairs; gram-negative rods. * Urine culture: >100,000 yeast. * Blood cultures negative. * CT head: no acute findings. * CXR: bilateral pulmonary opacities, pulmonary vascular congestion, stable right pleural effusion. * Echo: LVEF 60%; RV enlarged. * Kidney ultrasound: increased echogenicity consistent with medical renal disease. * Vancomycin discontinued due to SONDRA and toxicity risk. * Started D5 NS + 50 mEq sodium bicarb at 100 mL/hr for metabolic acidosis. * 1 unit PRBC transfused yesterday; Hgb up to 7.9 * Daughter now reports brain metastases previously treated and lung metastases untreated.Records requested. 09/12/25: Patient seen and examined at bedside, patient was on Levophed drip 10 mcg/min, nephrology on board, started bicarbonate drip, we ordered chest CT without contrast, reviewed chest x-ray. Objective vital signs Vital Sign Date Time Temp Pulse Resp B/P (MAP) Pulse Ox O2 Delivery O2 Flow Rate FiO2 09/13/25 12:16 98.2 59 12 106/62 (77) 99 98.2 09/13/25 08:00 Room Air* 0 21 Total Intake and Output 09/12/25 09/12/25 09/13/25 15:00 23:00 07:00 Intake Total 806.25 ml 1690.00 ml 952.50 ml Output Total 200 ml 125 ml Balance 806.25 ml 1490.00 ml 827.50 ml medications Current Medications Medications Dose Ordered Sig/Elissa Route Start Time Stop Time Status Last Admin Dose Admin Norepinephrine Bitartrate 250 ml @ 3.75 mls/hr Q24H IV 09/10/25 18:00 09/13/25 05:33 3.75 MLS/HR Ceftriaxone Sodium 50 ml @ 100 mls/hr DAILY@09 IV 09/11/25 09:00 09/13/25 09:35 100 MLS/HR Levothyroxine Sodium 150 mcg QAM@0600 PO 09/11/25 06:00 09/13/25 05:33 150 MCG Atorvastatin Calcium 10 mg HS PO 09/10/25 22:00 09/11/25 21:46 10 MG Gabapentin 300 mg TID PO 09/10/25 22:00 09/13/25 05:33 300 MG Acetaminophen/ Hydrocodone Bitart 1 tab Q4HP PRN PO 09/10/25 20:30 09/11/25 21:48 1 TAB Ondansetron HCl 4 mg Q4HP PRN IV 09/10/25 20:30 Docusate Sodium 100 mg BIDPRN PRN PO 09/10/25 20:30 Multivitamins 1 tab DAILY PO 09/11/25 10:00 09/13/25 10:43 1 TAB Acetaminophen 650 mg Q6HP PRN PO 09/10/25 20:30 Aspirin 81 mg DAILY PO 09/11/25 10:00 09/13/25 10:43 81 MG Nitroglycerin 0.4 mg Q5MINP PRN SL 09/10/25 21:00 Morphine Sulfate 2 mg Q30M PRN IV 09/10/25 21:00 Diagnostic Test (Pha) 1 strip ACHS 09/11/25 07:00 09/13/25 11:44 1 STRIP Insulin Human Regular ACHS SC 09/11/25 07:00 Dextrose 50 ml UD PRN IV 09/10/25 22:45 Metronidazole 100 ml @ 100 mls/hr Q8HR IV 09/12/25 22:00 09/13/25 05:30 100 MLS/HR Iron Sucrose 110 ml @ 110 mls/hr DAILY@1200 IV 09/13/25 12:00 09/17/25 11:59 09/13/25 11:54 110 MLS/HR Furosemide 40 mg BIDD IV 09/13/25 18:00 Hydrocortisone Sodium Succinate 100 mg Q8HR IV 09/13/25 14:00 Fluconazole 100 ml @ 100 mls/hr DAILY IV 09/13/25 10:35 09/13/25 10:44 100 MLS/HR Sodium Bicarbonate 100 ml/Dextrose/ Sodium Chloride 1,100 ml @ 100 mls/hr Q11H IV 09/13/25 11:30 Dopamine HCl/ Dextrose 250 ml @ 8.738 mls/ hr Q24H IV 09/13/25 12:15 UNV Examination 1. Neurology Acute metabolic encephalopathy Multifactorial: sepsis, uremia, hypothyroidism, anemia. * Mental status improving slowly but still confused. * No sedation onboard. * Neuro checks q2h. * * CT head negative. 2. Cardiovascular Septic shock CHF on chest X-ray Likely fluid-mediated; not in overt respiratory failure. * Continue norepinephrine drip at 6 mcg/min, titrate to maintain MAP > 65. Avoid excess fluids due to CHF on CXR. * ECHO: LVEF 60%, RV enlarged. monitor for RV failure. * Continuous telemetry. EF: 3. Respiratory (NOT mechanically ventilated) * On room air, saturating 9698%. * No respiratory distress. * Incentive spirometry. * Daily CXR PRN for volume status. 4. Gastrointestinal / Nutrition * Soft diet as tolerated once fully oriented. * Monitor albumin; nutritional support as needed. * Bowel regimen PRN. * Monitor abdominal wound with jewell. 5. / Renal (Nephrology following) Acute kidney injury on CKD due to VMN hemodynamically mediated SONDRA due to hypotension. Oliguric renal failure Metabolic acidosis Complicated UTI with Yeast >100,000 * SONDRA on CKD; no emergent HD indication per nephrology. * Continue strict I/O, daily weights. * Continue D5 NS + 50 mEq NaHCO3 at 100 mL/hr. * Nephrology following * Monitor electrolytes q6h. * If UOP does not improve reassess need for dialysis. * Avoid nephrotoxins. * Dumont catheter remains necessary for strict I/O; ensure daily Dumont evaluation. 6. Infectious Disease Septic shock, unspecified organism AMS, hypotension requiring norepinephrine, Complicated UTI with Yeast >100,000 Postoperative open wound with significant drainage Possible early cellulitis or surgical site infection. * Continue IV ceftriaxone * Follow wound cultures, urine culture, blood cultures. * Wound care nurse to evaluate twice daily. * Wound culture: gram-positive cocci in pairs (likely Strep), gram-negative rods (likely Enterobacterales). * MRSA screen NEGATIVE. * Urine culture: >100,000 yeast (Frida species likely). * Blood cultures: negative. Because wound infection shows mixed gram-positive + gram-negative organisms, and UTI shows yeast, coverage must include: . Ceftriaxone 1g daily Good for gram-negative rods and many streptococci. Add Metronidazole 500 mg IV q8h For anaerobic coverage (postoperative wound, thigh area). Add Fluconazole 200 mg IV daily Treats Frida UTI (>100,000 yeast). NO VANCOMYCIN MRSA negative + SONDRA avoid. Consider piperacillintazobactam if patient deteriorates (Zosyn preferred if worsening sepsis or polymicrobial infection suspected). 7. Endocrine Hypothyroidism TSH 11.7 undertreated. Type 2 diabetes with fluctuating glucose Morbid obesity Increases risk for wound complications, sepsis. * Hyper-TSH: Increase levothyroxine dose; * Glucose management with insulin sliding scale; avoid hypoglycemia. * Accu-checks q2h. 8. Hematology / Oncology Symptomatic anemia, acute on chronic Iron deficiency Anemia of chronic disease + acute blood loss monitor; transfuse PRBC if Hgb<7 or symptomatic. * Iron deficiency: patient is NPO intermittently, poor PO intake * IV iron sucrose 200 mg daily 3 doses. * Oncology consult needed (brain mets, lung mets). * Hold Eliquis temporarily due to anemia and ongoing wound drainage; reassess daily. 9. Psychiatry * Monitor for delirium; ensure sleepwake cycle. * Reorient frequently. * No antipsychotics unless agitation. 10. Lines / Drips / Devices * PICC line in left arm: tip in SVC, functioning. * Dumont catheter in place for strict I/O. * Limb restrictions on PICC arm. 11. Prophylaxis * DVT prophylaxis: SCD (temporarily hold Eliquis and lovenox due to anemia) * GI prophylaxis: IV pantoprazole daily. * Pressure ulcer prevention: Turn q2h. * Fall precautions: Bed alarm. 12. Nutrition Malnutrition/Hypoalbuminemia * High-protein diet when safe. * If intake inadequate consider nutrition consult for supplements. 13. Physical / Occupational Therapy * PT/OT evaluation once hemodynamically stable. * Daily mobility as tolerated. 14. Social Work / Care Management * Engage social work for discharge planning and family support. * Provide updates to daughter. CODE STATUS * Full code Critical Care time spent 41 minutes including patient care, chart review and updating family, excluding procedure. Plan discussed with Dr. Menjivar laboratory and microbiology Laboratory Tests 09/13/25 02:46 Test 09/13/25 02:46 Range/Units Serum Glucose 89 74-106 mg/dL Microbiology Date/Time Source Procedure Growth Status 09/11/25 19:11 Abdomen Gram Stain - Final Resulted 09/11/25 19:11 Abdomen Wound Culture - Preliminary Resulted 09/10/25 19:28 Blood Blood Culture - Preliminary NO GROWTH AFTER 48 HOURS OF INCUBATION. Resulted 09/10/25 17:50 Urine - Dumont [place] Urine Culture - Final Presumptive Frida albicans Complete Problem List/Assessment/Plan Problem List/Assessment/Plan 1. Neurology Acute metabolic encephalopathy Multifactorial: sepsis, uremia, hypothyroidism, anemia. * Mental status improving slowly but still confused. * No sedation onboard. * Neuro checks q2h. * * CT head negative. * Treat metabolic contributors (TSH, acidosis, renal failure, infection). 2. Cardiovascular Septic shock CHF on chest X-ray Likely fluid-mediated; not in overt respiratory failure. * Continue norepinephrine drip at 6 mcg/min, titrate to maintain MAP > 65. Avoid excess fluids due to CHF on CXR. * ECHO: LVEF 60%, RV enlarged. monitor for RV failure. * Continuous telemetry. * Order echocardiogram (already ordered) to evaluate EF and CHF contribution. 3. Respiratory (NOT mechanically ventilated) * On room air, saturating 9698%. * No respiratory distress. * Incentive spirometry. * Daily CXR PRN for volume status. 4. Gastrointestinal / Nutrition * Soft diet as tolerated once fully oriented. * Monitor albumin; nutritional support as needed. * Bowel regimen PRN. * Monitor abdominal wound with jewell. 5. / Renal (Nephrology following) Acute kidney injury on CKD due to VMN hemodynamically mediated SONDRA due to hypotension. Oliguric renal failure Metabolic acidosis Complicated UTI with Yeast >100,000 * SONDRA on CKD; no emergent HD indication per nephrology. * Continue strict I/O, daily weights. * Continue D5 NS + 50 mEq NaHCO3 at 100 mL/hr. * Nephrology following * Monitor electrolytes q6h. * If UOP does not improve reassess need for dialysis. * Avoid nephrotoxins. * Dumont catheter remains necessary for strict I/O; ensure daily Dumont evaluation. 6. Infectious Disease Septic shock, unspecified organism AMS, hypotension requiring norepinephrine, Complicated UTI with Yeast >100,000 Postoperative open wound with significant drainage Possible early cellulitis or surgical site infection. * Continue IV ceftriaxone * Follow wound cultures, urine culture, blood cultures. * Wound care nurse to evaluate twice daily. * Wound culture: gram-positive cocci in pairs (likely Strep), gram-negative rods (likely Enterobacterales). * MRSA screen NEGATIVE. * Urine culture: >100,000 yeast (Frida species likely). * Blood cultures: negative. Because wound infection shows mixed gram-positive + gram-negative organisms, and UTI shows yeast, coverage must include: . Ceftriaxone 1g daily Good for gram-negative rods and many streptococci. Add Metronidazole 500 mg IV q8h For anaerobic coverage (postoperative wound, thigh area). Add Fluconazole 200 mg IV daily Treats Frida UTI (>100,000 yeast). NO VANCOMYCIN MRSA negative + SONDRA avoid. Consider piperacillintazobactam if patient deteriorates (Zosyn preferred if worsening sepsis or polymicrobial infection suspected). 7. Endocrine Hypothyroidism TSH 11.7 undertreated. Type 2 diabetes with fluctuating glucose Morbid obesity Increases risk for wound complications, sepsis. * Hyper-TSH: Increase levothyroxine dose; * Glucose management with insulin sliding scale; avoid hypoglycemia. * Accu-checks q2h. 8. Hematology / Oncology Symptomatic anemia, acute on chronic Iron deficiency Anemia of chronic disease + acute blood loss monitor; transfuse PRBC if Hgb<7 or symptomatic. * Iron deficiency: patient is NPO intermittently, poor PO intake * IV iron sucrose 200 mg daily 3 doses. * Oncology consult needed (brain mets, lung mets). * Hold Eliquis temporarily due to anemia and ongoing wound drainage; reassess daily. 9. Psychiatry * Monitor for delirium; ensure sleepwake cycle. * Reorient frequently. * No antipsychotics unless agitation. 10. Lines / Drips / Devices * PICC line in left arm: tip in SVC, functioning. * Dumont catheter in place for strict I/O. * Limb restrictions on PICC arm. 11. Prophylaxis * DVT prophylaxis: SCD (temporarily hold Eliquis and lovenox due to anemia) * GI prophylaxis: IV pantoprazole daily. * Pressure ulcer prevention: Turn q2h. * Fall precautions: Bed alarm. 12. Nutrition Malnutrition/Hypoalbuminemia * High-protein diet when safe. * If intake inadequate consider nutrition consult for supplements. 13. Physical / Occupational Therapy * PT/OT evaluation once hemodynamically stable. * Daily mobility as tolerated. 14. Social Work / Care Management * Engage social work for discharge planning and family support. * Provide updates to daughter. CODE STATUS * Full code Critical Care time spent 41 minutes including patient care, chart review and updating family, excluding procedure. Plan discussed with Dr. Menjivar Plan discussed with: Patient, Other (RN) Dietary Evaluation Review Comments: Nutrition Recommendation: 1) Avinash 1 pk daily, Nephro-issac 1 tab daily 2) Discontinue MVI 3) Ergocalciferol 50,000IU weekly 4) Monitor PO intake, lab values, weight trend, and I/O Expected Outcomes/Goals: Wound to improve Intake to meet >75% estimated needs Lab values to improve FU 3-5 days MARITZA MAYO RESIDENT Sep 13, 2025 12:36
--- NOTE | 2025-09-13 12:40 | DVH ---
EXAM: CT CHEST WITHOUT CONTRAST INDICATION: Evalute for mestasis and pulmonary nodules TECHNIQUE: Noncontrast axial images of the chest have been obtained along with coronal and sagittal reformatted images. All CT scans at this facility use dose modulation, iterative reconstruction, and/or weight based dosing when appropriate to reduce radiation dose to as low as reasonably achievable. COMPARISON: XY CHEST XRAY 1 VIEW on DOS: 09/13/25 FINDINGS: LOWER NECK: Peripherally calcified nodule in the thyroid lobe LYMPH NODES/MEDIASTINUM: No abnormal lymph nodes by CT size criteria CARDIOVASCULAR: Normal cardiac size. No pericardial effusion. No aneurysmal dilatation of the great vessels. Coronary artery calcifications. UPPER ABDOMEN: Significant peritoneal carcinomatosis with the areas of nodularity primarily overlying the perihepatic space. Small right adrenal gland mass/ nodule measuring 1.7 cm likely compatible with metastatic disease. Trace possible sliding hiatal hernia. MUSCULOSKELETAL: Prior healed fractures of the right anterolateral ribcage. Multilevel degenerative change of the visualized spine. CHEST WALL: Unremarkable. LUNG PARENCHYMA/PLEURAL SPACE: Small to medium right-sided pleural effusion. Multiple oval-shaped cannonball lesions with primarily lower lobe / inferior thoracic distribution compatible with metastatic disease. Index cannonball lesions located within the left lower lobe of the left hemidiaphragm measures up to 2.7 cm and right middle lobe measuring 2 cm. IMPRESSION: 1. Multiple oval-shaped cannonball lesions with primarily lower lobe / inferior thoracic distribution compatible with metastatic disease. 2. Small to medium right-sided pleural effusion. 3. Significant peritoneal carcinomatosis with the areas of nodularity primarily overlying the perihepatic space. 4. Small right adrenal gland mass/ nodule measuring 1.7 cm likely compatible with metastatic disease.
[2025-09-13] MEDS: HYDROCORTISONE SOD SUCC 100 MG/2ML INJ VIAL IV SCH (14:19)
[2025-09-13] MEDS: DOPamine 1600MCG/ML D5W 250 ML IV SCH (14:20)
[2025-09-13] MEDS: FUROSEMIDE 40 MG/4 ML VIAL IV SCH (18:01)
[2025-09-14] VITALS (97 sets, daily range): BP systolic 82–138; BP diastolic 29–86; PULSE 48–75; RESP 7–21; TEMP 97.4–97.7; O2SAT 94–100
[2025-09-14 04:00] LABS: Hematocrit 25.9 % (36.0-46.0); Hemoglobin 8.3 g/dL (12.2-16.2)
[2025-09-14 04:03] LABS: Mean Corpuscular Hemoglobin 27.6 pg (28.0-32.0); Mean Corpuscular Volume 85.7 fL (80.0-100.0); Nucleated Red Blood Cells % 0.0 %
[2025-09-14 04:23] LABS: Alkaline Phosphatase 79 U/L (46-116); Anion Gap 11 (5-15); BUN/Creatinine Ratio 15.5 (10.0-20.0); Potassium 4.1 mmol/L (3.5-5.1); Sodium 138 mmol/L (136-145)
[2025-09-14 04:27] LABS: Alanine Aminotransferase < 9 U/L (7-40); Albumin 2.3 g/dL (3.2-4.8); Bilirubin, Total 0.2 mg/dL (0.2-1.0); Blood Urea Nitrogen 52 mg/dL (9-23); Calcium 8.3 mg/dL (8.7-10.4); Carbon Dioxide 17 mmol/L (20-31); Chloride 110 mmol/L (98-107); Glucose 159 mg/dL (74-106); Total Protein 5.0 g/dL (5.7-8.2)
--- NOTE | 2025-09-14 08:45 | DVHPNRES ---
Progress Note Date Seen: Sep 14, 2025 Resident Creating Document: MARITZA MAYO RESIDENT Has the PT tested + for MRSA If YES, has PT been informed?: No Medical Necessity Reason Pt with a Central, PICC or Fol: Yes The following are medically ne: PICC Line, Dumont Catheter Subjective Review of Systems The patient is a 64-year-old female morbidly obese with past medical history of melanoma cancer, currently receiving treatment at [facility], hypothyroidism, hypertension, chronic kidney failure, and diabetes mellitus who presented to [facility] ED for evaluation of altered level of consciousness. As reported by daughter patient was experiencing confusion state, became altered from usual baseline, associated with generalized weakness, getting worse that EMS were called. When EMS arrived on the scene, the patient's blood glucose was 78 mg/dL, oriented x2, EN route to our facility ED. Patient was seen and evaluated in the ED with left thigh open wound from cysts removal, laboratory data shows WBC 9.4, hemoglobin 7.0, hematocrit 22.7, platelets 379, sodium 141, potassium 5.2, BUN 50, creatinine 4.45, GFR 11, glucose 63, calcium 8.5, albumin 2.4, BNP 62.07, blood pressure 79/61 trending up to 106/76, heart rate 90, temperature 98.3 F, O2 saturation 98% on room air. Urinalysis positive for urinary tract infection. Patient was started on IV antibiotic regimen vancomycin, please see medication orders section in the computer. On my assessment, daughter at bedside, patient remains altered, no diaphoresis, shortness of breaths, loss of consciousness, no diarrhea, nausea, vomiting, fever, no chills. Patient was admitted for further evaluation and medical management. PAST MEDICAL HISTORY * * Metastatic melanoma (brain and lung metastases per family([facility]) * Hypothyroidism * Diabetes mellitus type 2 * Chronic kidney disease (baseline unknown) * Hypertension * Morbid obesity * Recent surgical wounds (abdomen + left thigh) * Former smoker (quit Sep 2024) PAST SURGICAL HISTORY * Left abdominal melanoma excision * Left proximal thigh melanoma excision * Prior oncologic resections SOCIAL HISTORY * Quit smoking 2023 * No EtOH/drugs * Lives with family REVIEW OF SYSTEMS (limited due to confusion) * Constitutional: Fatigue, confusion; no fevers/chills overnight * Neuro: Confusion, disorientation; follows commands * Resp: No cough, wheezing, SOB * CV: No chest pain; soft BPs * GI: No abdominal pain, tolerating minimal PO * : Very low urine output * Skin: Drainage from left thigh wound; abdominal wound with jewell * Endo: Known hypothyroidism; glucose fluctuating * MSK: Generalized weakness 09/11/25 * Patient is awake, alert, following commands, but confused and poorly oriented. * Left thigh postoperative wound continues to drain moderately, dressing changed, and wound culture obtained. * Dumont catheter in place; urine output remains very low (UOP 0.11 mL/kg/hr) despite IV fluids. * Still requiring vasopressor support (norepinephrine 6 mcg/min) to maintain MAP > 65. * Hemodynamics stable but soft, BP fluctuating 24187 systolic. * No respiratory distress; oxygen saturation 9698% on room air. * She remains on NS at 100 mL/hr for hemodynamic support. * Nephrology evaluated: No emergent indication for dialysis at this time. * Open abdominal wound with jewell appears intact. * No sedation; remains able to follow simple commands. * Confusion improving slightly but still present. * Thyroid function abnormal requires adjustment. * Postoperative wound continues to drain; wound culture sent; ID coverage continued. * Cefadroxil (home ABX) NOT appropriate for current septic presentation ? continue broad-spectrum IV therapy. * No respiratory failure; stable on room air. * Requires continued ICU-level care. 09/12/25 * Patient remains alert but confused, disoriented, intermittently agitated, weak, with poor appetite. * continues on norepinephrine infusion at 2 mcg/min.UOP 0.15 mL/kg/hr via Dumont. oliguric. * Wound culture: Gram-positive cocci in pairs; gram-negative rods. * Urine culture: >100,000 yeast. * Blood cultures negative. * CT head: no acute findings. * CXR: bilateral pulmonary opacities, pulmonary vascular congestion, stable right pleural effusion. * Echo: LVEF 60%; RV enlarged. * Kidney ultrasound: increased echogenicity consistent with medical renal disease. * Vancomycin discontinued due to SONDRA and toxicity risk. * Started D5 NS + 50 mEq sodium bicarb at 100 mL/hr for metabolic acidosis. * 1 unit PRBC transfused yesterday; Hgb up to 7.9 * Daughter now reports brain metastases previously treated and lung metastases untreated.Records requested. 09/12/25: Patient seen and examined at bedside, patient was on Levophed drip 10 mcg/min, nephrology on board, started bicarbonate drip, we ordered chest CT without contrast, reviewed chest x-ray. 09/13/25: Patient seen and examined at bedside, patient was on Levophed drip 10 mcg/min, nephrology on board, started Lasix 40 mg IV b.i.d., dopamine, changed antibiotic to fluconazole. Patient has started to metronidazole and hydrocortisone. 09/14/25: Patient seen and examined at bedside, patient was on Levophed drip 10 mcg/min, nephrology on board, started Lasix 40 mg IV b.i.d., dopamine, changed antibiotic to fluconazole. Patient has started to metronidazole and hydrocortisone. Objective vital signs Vital Sign Date Time Temp Pulse Resp B/P (MAP) Pulse Ox O2 Delivery O2 Flow Rate FiO2 09/14/25 06:45 54 14 109/67 (81) 99 09/14/25 06:00 Room Air* 0 21 09/14/25 04:01 97.7 97.7 Total Intake and Output 09/13/25 09/13/25 09/14/25 15:00 23:00 07:00 Intake Total 718.8738 ml 672.404 ml 1658.654 ml Output Total 60 ml 500 ml Balance 718.8738 ml 612.404 ml 1158.654 ml medications Current Medications Medications Dose Ordered Sig/Elissa Route Start Time Stop Time Status Last Admin Dose Admin Norepinephrine Bitartrate 250 ml @ 3.75 mls/hr Q24H IV 09/10/25 18:00 09/13/25 20:02 18.75 MLS/HR Ceftriaxone Sodium 50 ml @ 100 mls/hr DAILY@09 IV 09/11/25 09:00 09/13/25 09:35 100 MLS/HR Levothyroxine Sodium 150 mcg QAM@0600 PO 09/11/25 06:00 09/14/25 05:55 150 MCG Atorvastatin Calcium 10 mg HS PO 09/10/25 22:00 09/13/25 22:05 10 MG Gabapentin 300 mg TID PO 09/10/25 22:00 09/14/25 05:55 300 MG Acetaminophen/ Hydrocodone Bitart 1 tab Q4HP PRN PO 09/10/25 20:30 09/11/25 21:48 1 TAB Ondansetron HCl 4 mg Q4HP PRN IV 09/10/25 20:30 Docusate Sodium 100 mg BIDPRN PRN PO 09/10/25 20:30 Multivitamins 1 tab DAILY PO 09/11/25 10:00 09/13/25 10:43 1 TAB Acetaminophen 650 mg Q6HP PRN PO 09/10/25 20:30 Aspirin 81 mg DAILY PO 09/11/25 10:00 09/13/25 10:43 81 MG Nitroglycerin 0.4 mg Q5MINP PRN SL 09/10/25 21:00 Morphine Sulfate 2 mg Q30M PRN IV 09/10/25 21:00 Diagnostic Test (Pha) 1 strip ACHS 09/11/25 07:00 09/14/25 05:57 1 STRIP Insulin Human Regular ACHS SC 09/11/25 07:00 09/14/25 05:59 2 UNITS Dextrose 50 ml UD PRN IV 09/10/25 22:45 Metronidazole 100 ml @ 100 mls/hr Q8HR IV 09/12/25 22:00 09/14/25 05:54 100 MLS/HR Iron Sucrose 110 ml @ 110 mls/hr DAILY@1200 IV 09/13/25 12:00 09/17/25 11:59 09/13/25 11:54 110 MLS/HR Furosemide 40 mg BIDD IV 09/13/25 18:00 09/14/25 05:54 40 MG Hydrocortisone Sodium Succinate 100 mg Q8HR IV 09/13/25 14:00 09/14/25 05:54 100 MG Fluconazole 100 ml @ 100 mls/hr DAILY IV 09/13/25 10:35 09/13/25 10:44 100 MLS/HR Sodium Bicarbonate 100 ml/Dextrose/ Sodium Chloride 1,100 ml @ 100 mls/hr Q11H IV 09/13/25 11:30 09/14/25 07:34 100 MLS/HR Dopamine HCl/ Dextrose 250 ml @ 8.738 mls/ hr Q24H IV 09/13/25 12:15 09/13/25 14:20 8.738 MLS/HR Examination General: Awake, alert, confused; appears ill. Neuro: Follows commands; disoriented 2; no focal deficits. HEENT: Dry mucosa. Pupils reactive. CV: NSR; no murmurs. 2+ pitting edema bilateral LE. Resp: Normal effort; lungs clear; on room air. GI: Soft, non-tender; abdominal surgical wound with jewell. : Dumont present; minimal clear urine. Skin/Wound: Left thigh postop wound draining; dressing saturated; wound culture obtained. Extremities: Pulses palpable; no DVT signs. Psych: Confused but cooperative. laboratory and microbiology Laboratory Tests 09/14/25 03:45 Test 09/14/25 03:45 Range/Units Serum Glucose 159 H 74-106 mg/dL Microbiology Date/Time Source Procedure Growth Status 09/11/25 19:11 Abdomen Gram Stain - Final Resulted 09/11/25 19:11 Abdomen Wound Culture - Preliminary Resulted 09/10/25 19:28 Blood Blood Culture - Preliminary NO GROWTH AFTER 72 HOURS OF INCUBATION. Resulted 09/10/25 17:50 Urine - Dumont Port Urine Culture - Final Presumptive Firda albicans Complete Problem List/Assessment/Plan Problem List/Assessment/Plan 1. Neurology Acute metabolic encephalopathy Multifactorial: sepsis, uremia, hypothyroidism, anemia. * Mental status improving slowly but still confused. * No sedation onboard. * Neuro checks q2h. * * CT head negative. * Treat metabolic contributors (TSH, acidosis, renal failure, infection). 2. Cardiovascular Septic shock CHF on chest X-ray Likely fluid-mediated; not in overt respiratory failure. * Continue norepinephrine drip at 6 mcg/min, titrate to maintain MAP > 65. Avoid excess fluids due to CHF on CXR. * ECHO: LVEF 60%, RV enlarged. monitor for RV failure. * Continuous telemetry. * Order echocardiogram (already ordered) to evaluate EF and CHF contribution. 3. Respiratory (NOT mechanically ventilated) * On room air, saturating 9698%. * No respiratory distress. * Incentive spirometry. * Daily CXR PRN for volume status. 4. Gastrointestinal / Nutrition * Soft diet as tolerated once fully oriented. * Monitor albumin; nutritional support as needed. * Bowel regimen PRN. * Monitor abdominal wound with jewell. 5. / Renal (Nephrology following) Acute kidney injury on CKD due to VMN hemodynamically mediated SONDRA due to hypotension. Oliguric renal failure Metabolic acidosis Complicated UTI with Yeast >100,000 * SONDRA on CKD; no emergent HD indication per nephrology. * Continue strict I/O, daily weights. * Nephrology following * Avoid nephrotoxins. 6. Infectious Disease Septic shock, unspecified organism AMS, hypotension requiring norepinephrine, Complicated UTI Postoperative open wound with significant drainage Possible early cellulitis or surgical site infection. * Continue IV ceftriaxone * Follow wound cultures, urine culture, blood cultures. * Wound care nurse to evaluate twice daily. * Wound culture: gram-positive cocci in pairs (likely Strep), gram-negative rods (likely Enterobacterales). * MRSA screen NEGATIVE. * Urine culture: >100,000 yeast (Frida species likely). * Blood cultures: negative. Because wound infection shows mixed gram-positive + gram-negative organisms, and UTI shows yeast, coverage must include: . Ceftriaxone 1g daily Good for gram-negative rods and many streptococci. Add Metronidazole 500 mg IV q8h For anaerobic coverage (postoperative wound, thigh area). Add Fluconazole 200 mg IV daily Treats Frida UTI (>100,000 yeast). NO VANCOMYCIN MRSA negative + SONDRA avoid. Consider piperacillintazobactam if patient deteriorates (Zosyn preferred if worsening sepsis or polymicrobial infection suspected). 7. Endocrine Hypothyroidism TSH 11.7 undertreated. Type 2 diabetes with fluctuating glucose Morbid obesity Increases risk for wound complications, sepsis. * Hyper-TSH: Increase levothyroxine dose; * Glucose management with insulin sliding scale; avoid hypoglycemia. * Accu-checks q2h. 8. Hematology / Oncology Symptomatic anemia, acute on chronic Iron deficiency Anemia of chronic disease + acute blood loss monitor; transfuse PRBC if Hgb<7 or symptomatic. * Iron deficiency: patient is NPO intermittently, poor PO intake * IV iron sucrose 200 mg daily 3 doses. * Oncology consult needed (brain mets, lung mets). * Hold Eliquis temporarily due to anemia and ongoing wound drainage; reassess daily. 9. Psychiatry * Monitor for delirium; ensure sleepwake cycle. * Reorient frequently. * No antipsychotics unless agitation. 10. Lines / Drips / Devices * PICC line in left arm: tip in SVC, functioning. * Dumont catheter in place for strict I/O. * Limb restrictions on PICC arm. 11. Prophylaxis * DVT prophylaxis: SCD (temporarily hold Eliquis and lovenox due to anemia) * GI prophylaxis: IV pantoprazole daily. * Pressure ulcer prevention: Turn q2h. * Fall precautions: Bed alarm. 12. Nutrition Malnutrition/Hypoalbuminemia * High-protein diet when safe. * If intake inadequate consider nutrition consult for supplements. 13. Physical / Occupational Therapy * PT/OT evaluation once hemodynamically stable. * Daily mobility as tolerated. 14. Social Work / Care Management * Engage social work for discharge planning and family support. * Provide updates to daughter. CODE STATUS * Full code Critical Care time spent 41 minutes including patient care, chart review and updating family, excluding procedure. Plan discussed with Dr. Menjivar Plan discussed with: Patient Dietary Evaluation Review Comments: Nutrition Recommendation: 1) Avinash 1 pk daily, Nephro-issac 1 tab daily 2) Discontinue MVI 3) Ergocalciferol 50,000IU weekly 4) Monitor PO intake, lab values, weight trend, and I/O Expected Outcomes/Goals: Wound to improve Intake to meet >75% estimated needs Lab values to improve FU 3-5 days MARITZA MAYO RESIDENT Sep 14, 2025 08:45
--- NOTE | 2025-09-14 12:03 | ECG ---
[facility] Test Date: 2025-09-10 Test Time: 16:27:20 Pat Name: CANDI INFANTE Department: [facility] ED Patient ID: [facility]-[id number] Room: 0263 A Gender: F [employer] Up: bobby : 1960 Requested By: WALLY ONEIL Order Number: [id number] Reading MD: Kurtis Vuong Measurements Intervals Castine Rate: 84 P: 0 PA: 60 QRS: -33 QRSD: 99 T: 59 QT: 356 QTc: 421 Interpretive Statements Sinus rhythm Short PA interval Left axis deviation Anteroseptal infarct, age indeterminate Baseline wander in lead(s) III Electronically Signed On 09-15-2025 16:55:11 PST by Kurtis Vuong Please click the below link to view image of tracing.
--- NOTE | 2025-09-14 13:24 | DVHPN2 ---
Progress Note Date Seen: Sep 14, 2025 Has the PT tested + for MRSA If YES, has PT been informed?: No Medical Necessity Reason Pt with a Central, PICC or Fol: Yes The following are medically ne: PICC Line, Dumont Catheter Subjective Patient reports: No new complaints Other Systems: Patient seen and examined by myself today in follow-up Objective vital signs Vital Sign Date Time Temp Pulse Resp B/P (MAP) Pulse Ox O2 Delivery O2 Flow Rate FiO2 09/14/25 12:31 56 11 98/60 (73) 98 09/14/25 12:01 97.6 97.6 09/14/25 10:00 Room Air* 0 21 Total Intake and Output 09/13/25 09/13/25 09/14/25 15:00 23:00 07:00 Intake Total 718.8738 ml 672.404 ml 1658.654 ml Output Total 60 ml 500 ml Balance 718.8738 ml 612.404 ml 1158.654 ml medications Current Medications Medications Dose Ordered Sig/Elissa Route Start Time Stop Time Status Last Admin Dose Admin Norepinephrine Bitartrate 250 ml @ 3.75 mls/hr Q24H IV 09/10/25 18:00 09/13/25 20:02 18.75 MLS/HR Ceftriaxone Sodium 50 ml @ 100 mls/hr DAILY@09 IV 09/11/25 09:00 09/14/25 09:51 100 MLS/HR Levothyroxine Sodium 150 mcg QAM@0600 PO 09/11/25 06:00 09/14/25 05:55 150 MCG Atorvastatin Calcium 10 mg HS PO 09/10/25 22:00 09/13/25 22:05 10 MG Gabapentin 300 mg TID PO 09/10/25 22:00 09/14/25 05:55 300 MG Acetaminophen/ Hydrocodone Bitart 1 tab Q4HP PRN PO 09/10/25 20:30 09/11/25 21:48 1 TAB Ondansetron HCl 4 mg Q4HP PRN IV 09/10/25 20:30 Docusate Sodium 100 mg BIDPRN PRN PO 09/10/25 20:30 Multivitamins 1 tab DAILY PO 09/11/25 10:00 09/14/25 09:51 1 TAB Acetaminophen 650 mg Q6HP PRN PO 09/10/25 20:30 Aspirin 81 mg DAILY PO 09/11/25 10:00 09/14/25 09:51 81 MG Nitroglycerin 0.4 mg Q5MINP PRN SL 09/10/25 21:00 Morphine Sulfate 2 mg Q30M PRN IV 09/10/25 21:00 Diagnostic Test (Pha) 1 strip ACHS 09/11/25 07:00 09/14/25 11:55 1 STRIP Insulin Human Regular ACHS SC 09/11/25 07:00 09/14/25 11:56 2 UNITS Dextrose 50 ml UD PRN IV 09/10/25 22:45 Metronidazole 100 ml @ 100 mls/hr Q8HR IV 09/12/25 22:00 09/14/25 05:54 100 MLS/HR Iron Sucrose 110 ml @ 110 mls/hr DAILY@1200 IV 09/13/25 12:00 09/17/25 11:59 09/14/25 11:59 110 MLS/HR Furosemide 40 mg BIDD IV 09/13/25 18:00 09/14/25 05:54 40 MG Hydrocortisone Sodium Succinate 100 mg Q8HR IV 09/13/25 14:00 09/14/25 05:54 100 MG Fluconazole 100 ml @ 100 mls/hr DAILY IV 09/13/25 10:35 09/14/25 10:35 100 MLS/HR Sodium Bicarbonate 100 ml/Dextrose/ Sodium Chloride 1,100 ml @ 100 mls/hr Q11H IV 09/13/25 11:30 09/14/25 07:34 100 MLS/HR Dopamine HCl/ Dextrose 250 ml @ 8.738 mls/ hr Q24H IV 09/13/25 12:15 09/13/25 14:20 8.738 MLS/HR Examination: LUNGS:Normal, CVS:Normal, MSK:Normal laboratory and microbiology Laboratory Tests 09/14/25 03:45 Test 09/14/25 03:45 Range/Units Serum Glucose 159 H 74-106 mg/dL Microbiology Date/Time Source Procedure Growth Status 09/11/25 19:11 Abdomen Gram Stain - Final Complete 09/11/25 19:11 Wound Culture - Final Acinetobacter baumannii Proteus mirabilis Complete 09/10/25 19:28 Blood Blood Culture - Preliminary NO GROWTH AFTER 72 HOURS OF INCUBATION. Resulted 11/29/25 17:50 Urine - Dumont Port Urine Culture - Final Presumptive Frida albicans Complete Problem List/Assessment/Plan Problem List/Assessment/Plan Acute kidney injury superimposed Chronic Kidney Disease secondary hemodynamic mediated, FeNa < 1% Vancomycin toxicity Urinary tract infection Metabolic acidosis Encephalopathy Anemia of chronic kidney disease Recommendations Kidney function slightly improving No urine output charted Dumont catheter Strict I&Os IVF D5 1/2 NS with 100 mEq/L sodium bicarb at 120 cc/hour KCL replacement Low-dose dopamine kidney ultrasound reported echogenic kidney IV antibiotics Discontinue vancomycin We will continue to follow Plan discussed with: Patient Dietary Evaluation Review Comments: Nutrition Recommendation: 1) Avinash 1 pk daily, Nephro-issac 1 tab daily 2) Discontinue MVI 3) Ergocalciferol 50,000IU weekly 4) Monitor PO intake, lab values, weight trend, and I/O Expected Outcomes/Goals: Wound to improve Intake to meet >75% estimated needs Lab values to improve FU 3-5 days MAURICE GRANGER MD Sep 14, 2025 13:24
[2025-09-14] MEDS: SOD CHL IV SCH (18:04)
[2025-09-14] MEDS: SODIUM BICARB IV SCH (18:04)
[2025-09-14] MEDS: D5 IV SCH (18:04)
[2025-09-15] VITALS (86 sets, daily range): BP systolic 85–145; BP diastolic 37–74; PULSE 45–76; RESP 7–26; TEMP 97.6–98.2; O2SAT 92–100
[2025-09-15 04:24] LABS: Alkaline Phosphatase 75 U/L (46-116); Anion Gap 12 (5-15); BUN/Creatinine Ratio 14.7 (10.0-20.0); Potassium 4.0 mmol/L (3.5-5.1); Sodium 138 mmol/L (136-145)
[2025-09-15 04:34] LABS: Alanine Aminotransferase < 9 U/L (7-40); Albumin 2.3 g/dL (3.2-4.8); Bilirubin, Total < 0.2 mg/dL (0.2-1.0); Blood Urea Nitrogen 50 mg/dL (9-23); Calcium 8.1 mg/dL (8.7-10.4); Carbon Dioxide 19 mmol/L (20-31); Chloride 107 mmol/L (98-107); Glucose 132 mg/dL (74-106); Total Protein 4.8 g/dL (5.7-8.2)
[2025-09-15 04:52] LABS: Mean Corpuscular Volume 87.2 fL (80.0-100.0); Nucleated Red Blood Cells % 0.1 %
[2025-09-15 04:53] LABS: Hematocrit 25.7 % (36.0-46.0); Hemoglobin 8.0 g/dL (12.2-16.2); Mean Corpuscular Hemoglobin 27.2 pg (28.0-32.0)
--- NOTE | 2025-09-15 09:33 | MEDREC ---
[facility] Intervention Section I [facility] Intervention: Review courses of therapy (RECOMMEND ADD MEROPENEM TO COVER ACINETOBACTER IN WOUND CX) BALTA CERON PHARMACIST Sep 15, 2025 09:33
--- NOTE | 2025-09-15 10:17 | DVHPN2 ---
Progress Note Date Seen: Sep 15, 2025 Has the PT tested + for MRSA If YES, has PT been informed?: No Medical Necessity Reason Pt with a Central, PICC or Fol: Yes The following are medically ne: PICC Line, Dumont Catheter Subjective Patient reports: No new complaints Other Systems: Patient seen and examined by myself today in f/u Objective vital signs Vital Sign Date Time Temp Pulse Resp B/P (MAP) Pulse Ox O2 Delivery O2 Flow Rate FiO2 09/15/25 08:46 61 14 96/69 (78) 98 09/15/25 08:01 97.6 97.6 09/15/25 08:00 Room Air* 0 21 Total Intake and Output 09/14/25 09/14/25 09/15/25 15:00 23:00 07:00 Intake Total 1306.154 ml 1014.904 ml 989.904 ml Output Total 400 ml 390 ml Balance 1306.154 ml 614.904 ml 599.904 ml medications Current Medications Medications Dose Ordered Sig/Elissa Route Start Time Stop Time Status Last Admin Dose Admin Norepinephrine Bitartrate 250 ml @ 3.75 mls/hr Q24H IV 09/10/25 18:00 09/14/25 21:32 3.75 MLS/HR Levothyroxine Sodium 150 mcg QAM@0600 PO 09/11/25 06:00 09/15/25 06:19 150 MCG Atorvastatin Calcium 10 mg HS PO 09/10/25 22:00 09/14/25 21:33 10 MG Gabapentin 300 mg TID PO 09/10/25 22:00 09/15/25 06:19 300 MG Acetaminophen/ Hydrocodone Bitart 1 tab Q4HP PRN PO 09/10/25 20:30 09/11/25 21:48 1 TAB Ondansetron HCl 4 mg Q4HP PRN IV 09/10/25 20:30 Docusate Sodium 100 mg BIDPRN PRN PO 09/10/25 20:30 Multivitamins 1 tab DAILY PO 09/11/25 10:00 09/14/25 09:51 1 TAB Acetaminophen 650 mg Q6HP PRN PO 09/10/25 20:30 Aspirin 81 mg DAILY PO 09/11/25 10:00 09/14/25 09:51 81 MG Nitroglycerin 0.4 mg Q5MINP PRN SL 09/10/25 21:00 Morphine Sulfate 2 mg Q30M PRN IV 09/10/25 21:00 Diagnostic Test (Pha) 1 strip ACHS 09/11/25 07:00 09/15/25 06:20 1 STRIP Insulin Human Regular ACHS SC 09/11/25 07:00 09/14/25 11:56 2 UNITS Dextrose 50 ml UD PRN IV 09/10/25 22:45 Iron Sucrose 110 ml @ 110 mls/hr DAILY@1200 IV 09/13/25 12:00 09/17/25 11:59 09/14/25 11:59 110 MLS/HR Furosemide 40 mg BIDD IV 09/13/25 18:00 09/15/25 06:19 40 MG Hydrocortisone Sodium Succinate 100 mg Q8HR IV 09/13/25 14:00 09/15/25 06:19 100 MG Fluconazole 100 ml @ 100 mls/hr DAILY IV 09/13/25 10:35 09/14/25 10:35 100 MLS/HR Dopamine HCl/ Dextrose 250 ml @ 8.738 mls/ hr Q24H IV 09/13/25 12:15 09/14/25 14:37 8.738 MLS/HR Sodium Bicarbonate 100 ml/Dextrose/ Sodium Chloride 1,100 ml @ 120 mls/hr Q9H10M IV 09/14/25 13:30 09/15/25 03:05 120 MLS/HR Meropenem 50 ml @ 17 mls/hr Q8HR IV 09/15/25 14:00 UNV Examination: LUNGS:Normal, CVS:Normal, MSK:Abnormal laboratory and microbiology Laboratory Tests 09/15/25 04:15 09/15/25 02:52 Test 09/15/25 02:52 Range/Units Serum Glucose 132 H 74-106 mg/dL Microbiology Date/Time Source Procedure Growth Status 09/11/25 19:11 Abdomen Gram Stain - Final Complete 09/11/25 19:11 Wound Culture - Final Acinetobacter baumannii Proteus mirabilis Complete 09/10/25 19:28 Blood Blood Culture - Preliminary NO GROWTH AFTER 72 HOURS OF INCUBATION. Resulted 09/10/25 17:50 Urine - Dumont Port Urine Culture - Final Presumptive Frida albicans Complete Problem List/Assessment/Plan Problem List/Assessment/Plan Acute kidney injury superimposed Chronic Kidney Disease secondary hemodynamic mediated, FeNa < 1% Bsaeline creatinine is unknown Vancomycin toxicity Urinary tract infection Metabolic acidosis Encephalopathy h/o melanoma on treatment at [facility] Anemia of chronic kidney disease Vitamin D deficiency Recommendations Kidney function stable CKD 5 Increase UOP Dumont catheter Strict I&Os IVF D5 1/2 NS with 100 mEq/L sodium bicarb at 120 cc/hour KCL replacement Low-dose dopamine Ergocalciferol 50,000 po q week kidney ultrasound reported echogenic kidney IV antibiotics Discontinue vancomycin We will continue to follow Plan discussed with: Patient My Orders My Orders Orders - MAURICE GRANGER MD Procedure Category Date Status Time D5w/Sod Chl 0.45% PHA 09/14/25 In Process (... W/Sodium Bicarb 5 13:30 Dietary Evaluation Review Comments: Nutrition Recommendation: 1) Avinash 1 pk daily, Nephro-issac 1 tab daily 2) Discontinue MVI 3) Ergocalciferol 50,000IU weekly 4) Monitor PO intake, lab values, weight trend, and I/O Expected Outcomes/Goals: Wound to improve Intake to meet >75% estimated needs Lab values to improve FU 3-5 days MAURICE GRANGER MD Sep 15, 2025 10:17
[2025-09-15] MEDS: ACETAMINOPHEN 325 MG TAB PO PRN (11:29)
[2025-09-15] MEDS: ONDANSETRON HCL 4 MG/2 ML VIAL IV PRN (11:30)
[2025-09-15] MEDS: ERGOCALCIFEROL 50,000 UNIT(1.25MG) CAP PO SCH (11:30)
--- NOTE | 2025-09-15 12:52 | DVHPNRES ---
Progress Note Date Seen: Sep 15, 2025 Resident Creating Document: MARITZA MAYO RESIDENT Has the PT tested + for MRSA If YES, has PT been informed?: No Medical Necessity Reason Pt with a Central, PICC or Fol: Yes The following are medically ne: PICC Line, Dumont Catheter Subjective Review of Systems The patient is a 64-year-old female morbidly obese with past medical history of melanoma cancer, currently receiving treatment at [facility] [place], hypothyroidism, hypertension, chronic kidney failure, and diabetes mellitus who presented to [facility] ED for evaluation of altered level of consciousness. As reported by daughter patient was experiencing confusion state, became altered from usual baseline, associated with generalized weakness, getting worse that EMS were called. When EMS arrived on the scene, the patient's blood glucose was 78 mg/dL, oriented x2, EN route to our facility ED. Patient was seen and evaluated in the ED with left thigh open wound from cysts removal, laboratory data shows WBC 9.4, hemoglobin 7.0, hematocrit 22.7, platelets 379, sodium 141, potassium 5.2, BUN 50, creatinine 4.45, GFR 11, glucose 63, calcium 8.5, albumin 2.4, BNP 62.07, blood pressure 79/61 trending up to 106/76, heart rate 90, temperature 98.3 F, O2 saturation 98% on room air. Urinalysis positive for urinary tract infection. Patient was started on IV antibiotic regimen vancomycin, please see medication orders section in the computer. On my assessment, daughter at bedside, patient remains altered, no diaphoresis, shortness of breaths, loss of consciousness, no diarrhea, nausea, vomiting, fever, no chills. Patient was admitted for further evaluation and medical management. PAST MEDICAL HISTORY * * Metastatic melanoma (brain and lung metastases per family([facility] [place]) * Hypothyroidism * Diabetes mellitus type 2 * Chronic kidney disease (baseline unknown) * Hypertension * Morbid obesity * Recent surgical wounds (abdomen + left thigh) * Former smoker (quit Sep 2024) PAST SURGICAL HISTORY * Left abdominal melanoma excision * Left proximal thigh melanoma excision * Prior oncologic resections SOCIAL HISTORY * Quit smoking 2023 * No EtOH/drugs * Lives with family REVIEW OF SYSTEMS (limited due to confusion) * Constitutional: Fatigue, confusion; no fevers/chills overnight * Neuro: Confusion, disorientation; follows commands * Resp: No cough, wheezing, SOB * CV: No chest pain; soft BPs * GI: No abdominal pain, tolerating minimal PO * : Very low urine output * Skin: Drainage from left thigh wound; abdominal wound with jewell * Endo: Known hypothyroidism; glucose fluctuating * MSK: Generalized weakness 09/11/25 * Patient is awake, alert, following commands, but confused and poorly oriented. * Left thigh postoperative wound continues to drain moderately, dressing changed, and wound culture obtained. * Dumont catheter in place; urine output remains very low (UOP 0.11 mL/kg/hr) despite IV fluids. * Still requiring vasopressor support (norepinephrine 6 mcg/min) to maintain MAP > 65. * Hemodynamics stable but soft, BP fluctuating 53113 systolic. * No respiratory distress; oxygen saturation 9698% on room air. * She remains on NS at 100 mL/hr for hemodynamic support. * Nephrology evaluated: No emergent indication for dialysis at this time. * Open abdominal wound with jewell appears intact. * No sedation; remains able to follow simple commands. * Confusion improving slightly but still present. * Thyroid function abnormal requires adjustment. * Postoperative wound continues to drain; wound culture sent; ID coverage continued. * Cefadroxil (home ABX) NOT appropriate for current septic presentation ? continue broad-spectrum IV therapy. * No respiratory failure; stable on room air. * Requires continued ICU-level care. 09/12/25 * Patient remains alert but confused, disoriented, intermittently agitated, weak, with poor appetite. * continues on norepinephrine infusion at 2 mcg/min.UOP 0.15 mL/kg/hr via Dumont. oliguric. * Wound culture: Gram-positive cocci in pairs; gram-negative rods. * Urine culture: >100,000 yeast. * Blood cultures negative. * CT head: no acute findings. * CXR: bilateral pulmonary opacities, pulmonary vascular congestion, stable right pleural effusion. * Echo: LVEF 60%; RV enlarged. * Kidney ultrasound: increased echogenicity consistent with medical renal disease. * Vancomycin discontinued due to SONDRA and toxicity risk. * Started D5 NS + 50 mEq sodium bicarb at 100 mL/hr for metabolic acidosis. * 1 unit PRBC transfused yesterday; Hgb up to 7.9 * Daughter now reports brain metastases previously treated and lung metastases untreated.Records requested. 09/12/25: Patient seen and examined at bedside, patient was on Levophed drip 10 mcg/min, nephrology on board, started bicarbonate drip, we ordered chest CT without contrast, reviewed chest x-ray. 09/13/25: Patient seen and examined at bedside, patient was on Levophed drip 10 mcg/min, nephrology on board, started Lasix 40 mg IV b.i.d., dopamine, changed antibiotic to fluconazole. Patient has started to metronidazole and hydrocortisone. 09/14/25: Patient seen and examined at bedside, patient was on Levophed drip 10 mcg/min, nephrology on board, started Lasix 40 mg IV b.i.d., dopamine, changed antibiotic to fluconazole. Patient has started to metronidazole and hydrocortisone. 09/15/25: Patient seen and examined at bedside, patient was on Levophed drip 10 mcg/min, nephrology on board, cont. Lasix 40 mg IV b.i.d., dopamine, continue fluconazole and start Meropenem as wound culture is Positive for Acinebacter Baumanni and Proteous Mirabilis Patient has started to metronidazole and hydrocortisone. Objective vital signs Vital Sign Date Time Temp Pulse Resp B/P (MAP) Pulse Ox O2 Delivery O2 Flow Rate FiO2 09/15/25 08:46 61 14 96/69 (78) 98 09/15/25 08:01 97.6 97.6 09/15/25 08:00 Room Air* 0 21 Total Intake and Output 09/14/25 09/14/25 09/15/25 15:00 23:00 07:00 Intake Total 1306.154 ml 1014.904 ml 989.904 ml Output Total 400 ml 390 ml Balance 1306.154 ml 614.904 ml 599.904 ml medications Current Medications Medications Dose Ordered Sig/Elissa Route Start Time Stop Time Status Last Admin Dose Admin Norepinephrine Bitartrate 250 ml @ 3.75 mls/hr Q24H IV 09/10/25 18:00 09/14/25 21:32 3.75 MLS/HR Levothyroxine Sodium 150 mcg QAM@0600 PO 09/11/25 06:00 09/15/25 06:19 150 MCG Atorvastatin Calcium 10 mg HS PO 09/10/25 22:00 09/14/25 21:33 10 MG Gabapentin 300 mg TID PO 09/10/25 22:00 09/15/25 06:19 300 MG Acetaminophen/ Hydrocodone Bitart 1 tab Q4HP PRN PO 09/10/25 20:30 09/11/25 21:48 1 TAB Ondansetron HCl 4 mg Q4HP PRN IV 09/10/25 20:30 09/15/25 11:30 4 MG Docusate Sodium 100 mg BIDPRN PRN PO 09/10/25 20:30 Multivitamins 1 tab DAILY PO 09/11/25 10:00 09/15/25 10:19 1 TAB Acetaminophen 650 mg Q6HP PRN PO 09/10/25 20:30 09/15/25 11:29 650 MG Aspirin 81 mg DAILY PO 09/11/25 10:00 09/15/25 10:20 81 MG Nitroglycerin 0.4 mg Q5MINP PRN SL 09/10/25 21:00 Morphine Sulfate 2 mg Q30M PRN IV 09/10/25 21:00 Diagnostic Test (Pha) 1 strip ACHS 09/11/25 07:00 09/15/25 11:30 1 STRIP Insulin Human Regular ACHS SC 09/11/25 07:00 09/14/25 11:56 2 UNITS Dextrose 50 ml UD PRN IV 09/10/25 22:45 Iron Sucrose 110 ml @ 110 mls/hr DAILY@1200 IV 09/13/25 12:00 09/17/25 11:59 09/15/25 11:42 110 MLS/HR Furosemide 40 mg BIDD IV 09/13/25 18:00 09/15/25 06:19 40 MG Hydrocortisone Sodium Succinate 100 mg Q8HR IV 09/13/25 14:00 09/15/25 06:19 100 MG Fluconazole 100 ml @ 100 mls/hr DAILY IV 09/13/25 10:35 09/15/25 10:18 100 MLS/HR Dopamine HCl/ Dextrose 250 ml @ 8.738 mls/ hr Q24H IV 09/13/25 12:15 09/14/25 14:37 8.738 MLS/HR Sodium Bicarbonate 100 ml/Dextrose/ Sodium Chloride 1,100 ml @ 120 mls/hr Q9H10M IV 09/14/25 13:30 09/15/25 11:30 120 MLS/HR Meropenem 50 ml @ 17 mls/hr Q8H IV 09/15/25 14:00 Ergocalciferol 50,000 unit Q7D PO 09/15/25 10:15 09/15/25 11:30 50,000 UNIT Examination General: Awake, alert, confused; appears ill. Neuro: Follows commands; disoriented 2; no focal deficits. HEENT: Dry mucosa. Pupils reactive. CV: NSR; no murmurs. 2+ pitting edema bilateral LE. Resp: Normal effort; lungs clear; on room air. GI: Soft, non-tender; abdominal surgical wound with jewell. : Dumont present; minimal clear urine. Skin/Wound: Left thigh postop wound draining; dressing saturated; wound culture obtained. Extremities: Pulses palpable; no DVT signs. Psych: Confused but cooperative. laboratory and microbiology Laboratory Tests 09/15/25 04:15 09/15/25 02:52 Test 09/15/25 02:52 Range/Units Serum Glucose 132 H 74-106 mg/dL Microbiology Date/Time Source Procedure Growth Status 09/11/25 19:11 Abdomen Gram Stain - Final Complete 09/11/25 19:11 Wound Culture - Final Acinetobacter baumannii Proteus mirabilis Complete 09/10/25 19:28 Blood Blood Culture - Preliminary NO GROWTH AFTER 72 HOURS OF INCUBATION. Resulted 09/10/25 17:50 Urine - Dumont Port Urine Culture - Final Presumptive Frida albicans Complete Problem List/Assessment/Plan Problem List/Assessment/Plan 1. Neurology Acute metabolic encephalopathy Multifactorial: sepsis, uremia, hypothyroidism, anemia. * Mental status improving slowly but still confused. * No sedation onboard. * Neuro checks q2h. * * CT head negative. * Treat metabolic contributors (TSH, acidosis, renal failure, infection). 2. Cardiovascular Septic shock CHF on chest X-ray Likely fluid-mediated; not in overt respiratory failure. * Continue norepinephrine drip at 6 mcg/min, titrate to maintain MAP > 65. Avoid excess fluids due to CHF on CXR. * ECHO: LVEF 60%, RV enlarged. monitor for RV failure. * Continuous telemetry. * Order echocardiogram (already ordered) to evaluate EF and CHF contribution. 3. Respiratory (NOT mechanically ventilated) * On room air, saturating 96% - 98%. * No respiratory distress. * Incentive spirometry. * Daily CXR PRN for volume status. 4. Gastrointestinal / Nutrition * Soft diet as tolerated once fully oriented. * Monitor albumin; nutritional support as needed. * Bowel regimen PRN. * Monitor abdominal wound with jewell. 5. / Renal (Nephrology following) Acute kidney injury on CKD due to VMN hemodynamically mediated SONDRA due to hypotension. Oliguric renal failure Metabolic acidosis Complicated UTI with Yeast >100,000 * SONDRA on CKD; no emergent HD indication per nephrology. * Continue strict I/O, daily weights. * Nephrology following * Avoid nephrotoxins. 6. Infectious Disease Septic shock, unspecified organism AMS, hypotension requiring norepinephrine, Complicated UTI Postoperative open wound with significant drainage Possible early cellulitis or surgical site infection. Wound Infection * Continue IV ceftriaxone * Follow wound cultures, urine culture, blood cultures. * Wound care nurse to evaluate twice daily. * Wound culture: Positive for Acinebacter Baumanni and Proteous Mirabilis * MRSA screen NEGATIVE. * Urine culture: >100,000 yeast (Frida species likely). * Blood cultures: negative. * Start Meropenem 7. Endocrine Hypothyroidism TSH 11.7 undertreated. Type 2 diabetes with fluctuating glucose Morbid obesity Increases risk for wound complications, sepsis. * Hyper-TSH: Increase levothyroxine dose; * Glucose management with insulin sliding scale; avoid hypoglycemia. * Accu-checks q2h. 8. Hematology / Oncology Symptomatic anemia, acute on chronic Iron deficiency Anemia of chronic disease + acute blood loss monitor; transfuse PRBC if Hgb<7 or symptomatic. * Iron deficiency: patient is NPO intermittently, poor PO intake * IV iron sucrose 200 mg daily 3 doses. * Oncology consult needed (brain mets, lung mets). * Hold Eliquis temporarily due to anemia and ongoing wound drainage; reassess daily. 9. Psychiatry * Monitor for delirium; ensure sleepwake cycle. * Reorient frequently. * No antipsychotics unless agitation. 10. Lines / Drips / Devices * PICC line in left arm: tip in SVC, functioning. * Dumont catheter in place for strict I/O. * Limb restrictions on PICC arm. 11. Prophylaxis * DVT prophylaxis: SCD (temporarily hold Eliquis and lovenox due to anemia) * GI prophylaxis: IV pantoprazole daily. * Pressure ulcer prevention: Turn q2h. * Fall precautions: Bed alarm. 12. Nutrition Malnutrition/Hypoalbuminemia * High-protein diet when safe. * If intake inadequate consider nutrition consult for supplements. 13. Physical / Occupational Therapy * PT/OT evaluation once hemodynamically stable. * Daily mobility as tolerated. 14. Social Work / Care Management * Engage social work for discharge planning and family support. * Provide updates to daughter. CODE STATUS * Full code Critical Care time spent 47 minutes including patient care, chart review and updating family, excluding procedure. Plan discussed with Dr. Raman Plan discussed with: Patient My Orders My Orders Orders - MARITZA MAYO RESIDENT Procedure Category Date Status Time Meropenem 1gm Ivpb PHA 09/15/25 In Process (Merrem 1gm/50ml) 14:00 Dietary Evaluation Review Comments: Nutrition Recommendation: 1) Avinash 1 pk daily, Nephro-issac 1 tab daily 2) Discontinue MVI 3) Ergocalciferol 50,000IU weekly 4) Monitor PO intake, lab values, weight trend, and I/O Expected Outcomes/Goals: Wound to improve Intake to meet >75% estimated needs Lab values to improve FU 3-5 days MARITZA MAYO RESIDENT Sep 15, 2025 12:52
[2025-09-15] MEDS: MEROPENEM 1GM IVPB 50 ML IV SCH (14:15)
--- NOTE | 2025-09-15 20:57 | DVHPN2 ---
Subjective DOS: 09/15/2025 Patient seen and examined at bedside. Breathing comfortably on room air. Overnight events reviewed. Changes from previous H/P or p: No Changes Eyes: No Pain, No Vision change, No Conjunctivae inflammation, No Eyelid inflammation, No Other, No Redness ENT: No Ear pain, No Ear discharge, No Nose pain, No Nose discharge, No Nose congestion, No Mouth pain, No Mouth swelling, No Throat pain, No Throat swelling, No Other Cardiovascular: No Chest Pain, No Palpitations, No Orthopnea, No Paroxysmal Noc. Dyspnea, No Edema, No Lt Headedness, No Other Respiratory: No Cough, No Dry, No Shortness of breath, No SOB with excertion, No Wheezing, No Hemoptysis, No Pleuritic Pain, No Sputum, No Other Gastrointestinal: No Nausea, No Vomiting, No Abdominal Pain, No Diarrhea, No Constipation, No Melena, No Hematochezia, No Other Genitourinary: No Dysuria, No Frequency, No Incontinence, No Hematuria, No Retention, No Other Musculoskeletal: No other, No neck pain, No shoulder pain, No arm pain, No back pain, No hand pain, No leg pain, No foot pain Skin: No Rash, No Lesions, No Jaundice, No Bruising, No Other Objective Vitals Vital Signs Date Time Temp Pulse Resp B/P (MAP) Pulse Ox O2 Delivery O2 Flow Rate FiO2 09/15/25 19:01 65 13 98/59 (72) 95 09/15/25 18:00 Room Air* 0 21 09/15/25 16:00 97.9 97.9 Intake/Output Intake and Output 09/15/25 06:59 Intake Total 3430.950 ml Output Total 790 ml Balance 2640.950 ml Intake Oral 430 ml IV Total 3000.950 ml Output Urine Total 790 ml # Bowel Movements 1 Exam Gen.: Patient lying in bed in no apparent distress. Breathing on room air. Head: Normocephalic, atraumatic. Eyes: EOMI/PERRLA. Ears: Normal hearing. Normal anatomy. Neck/trachea: Trachea midline, supple. Nose: Normal external anatomy. Mouth: Moist mucous membranes. Chest: Decreased air entry bilaterally. No wheezing or rhonchi. Cardiovascular: Positive S1, positive S2. Regular rate and rhythm. Abdomen: Positive bowel sounds in all 4 quadrants. Soft, non-tender, non- distended. : Deferred. Rectal: Deferred. Skin: Warm, dry. Intact. Extremities: 2+ radial pulses bilaterally. No lower extremity edema. Neuro: Awake, alert, oriented x3. No gross motor or sensory deficits. Cranial nerves II through XII intact. Gait not assessed. Medications Current Medications Medications Dose Ordered Sig/Elissa Route Start Time Stop Time Status Last Admin Dose Admin Norepinephrine Bitartrate 250 ml @ 3.75 mls/hr Q24H IV 09/10/25 18:00 09/14/25 21:32 3.75 MLS/HR Levothyroxine Sodium 150 mcg QAM@0600 PO 09/11/25 06:00 09/15/25 06:19 150 MCG Atorvastatin Calcium 10 mg HS PO 09/10/25 22:00 09/14/25 21:33 10 MG Gabapentin 300 mg TID PO 09/10/25 22:00 09/15/25 14:15 300 MG Acetaminophen/ Hydrocodone Bitart 1 tab Q4HP PRN PO 09/10/25 20:30 09/11/25 21:48 1 TAB Ondansetron HCl 4 mg Q4HP PRN IV 09/10/25 20:30 09/15/25 18:58 4 MG Docusate Sodium 100 mg BIDPRN PRN PO 09/10/25 20:30 Multivitamins 1 tab DAILY PO 09/11/25 10:00 09/15/25 10:19 1 TAB Acetaminophen 650 mg Q6HP PRN PO 09/10/25 20:30 09/15/25 11:29 650 MG Aspirin 81 mg DAILY PO 09/11/25 10:00 09/15/25 10:20 81 MG Nitroglycerin 0.4 mg Q5MINP PRN SL 09/10/25 21:00 Morphine Sulfate 2 mg Q30M PRN IV 09/10/25 21:00 Diagnostic Test (Pha) 1 strip ACHS 09/11/25 07:00 09/15/25 17:07 1 STRIP Insulin Human Regular ACHS SC 09/11/25 07:00 09/14/25 11:56 2 UNITS Dextrose 50 ml UD PRN IV 09/10/25 22:45 Iron Sucrose 110 ml @ 110 mls/hr DAILY@1200 IV 09/13/25 12:00 09/17/25 11:59 09/15/25 11:42 110 MLS/HR Furosemide 40 mg BIDD IV 09/13/25 18:00 09/15/25 18:48 40 MG Hydrocortisone Sodium Succinate 100 mg Q8HR IV 09/13/25 14:00 09/15/25 14:14 100 MG Fluconazole 100 ml @ 100 mls/hr DAILY IV 09/13/25 10:35 09/15/25 10:18 100 MLS/HR Dopamine HCl/ Dextrose 250 ml @ 8.738 mls/ hr Q24H IV 09/13/25 12:15 09/15/25 16:00 8.738 MLS/HR Sodium Bicarbonate 100 ml/Dextrose/ Sodium Chloride 1,100 ml @ 120 mls/hr Q9H10M IV 09/14/25 13:30 09/15/25 11:30 120 MLS/HR Meropenem 50 ml @ 17 mls/hr Q8H IV 09/15/25 14:00 09/15/25 14:15 17 MLS/HR Ergocalciferol 50,000 unit Q7D PO 09/15/25 10:15 09/15/25 11:30 50,000 UNIT Laboratory Results Laboratory Tests 09/15/25 02:52 09/15/25 04:15 Chemistry Test 09/15/25 02:52 Albumin 2.3 g/dL (3.2-4.8) L Calcium Level 8.1 mg/dL (8.7-10.4) L Total Protein 4.8 g/dL (5.7-8.2) L LFT Test 09/15/25 02:52 Alanine Aminotransferase (ALT) < 9 U/L (7-40) Alkaline Phosphatase 75 U/L (46-116) Aspartate Amino Transferase (AST) 13 U/L (13-40) Total Bilirubin < 0.2 mg/dL (0.2-1.0) L Urinalysis Test 09/10/25 17:50 09/12/25 11:47 Urine Hyaline Casts Mod /lpf (0 - 2) Urine Mucus Few (None Seen) Urine Color Light-orange (Yellow) Urine Clarity Ex.turbid (Clear) Urine pH 7.0 (5.0-9.0) Urine Specific Bowie 1.019 (1.001-1.035) Urine Protein 2+ (Negative) H Urine Ketones Negative (Negative) Urine Blood 1+ /uL (Negative) H Urine Nitrite Negative (Negative) Urine Bilirubin Negative (Negative) Urine Urobilinogen Normal mg/dL (Negative) Urine Leukocyte Esterase 3+ /uL (Negative) Urine RBC 68 /hpf (0 - 4) Urine WBC Clumps Present /hpf (None Seen) Urine Microscopic WBC 2862 /HPF (0-5) H Urine Squamous Epithelial Cells Few /hpf (<5) Urine Transitional Epithelial Cells Mod /hpf (<2) Urine Bacteria Mod /hpf (None Seen) H Urine Yeast (Budding) Many /hpf (None Seen) Urine Creatinine 228.66 mg/dL (30.0-125.0) H Urine Protein/Creatinine Ratio 1.55 Urine Sodium 17 mmol/L (40-220) L Urine Glucose Normal mg/dL (Normal) Urine Total Protein 353.5 mg/dL (1-14) H Microbiology Microbiology Date/Time Source Procedure Growth Status 09/11/25 19:11 Abdomen Gram Stain - Final Complete 09/11/25 19:11 Wound Culture - Final Acinetobacter baumannii Proteus mirabilis Complete 09/10/25 19:28 Blood Blood Culture - Final NO GROWTH AFTER 5 DAYS OF INCUBATION. Complete 09/10/25 17:50 Urine - Dumont Port Urine Culture - Final Presumptive Frida albicans Complete Assessment/Plan Assessment/Plan Impression: Acute metabolic encephalopathy Septic shock Acute kidney injury on chronic kidney disease Complicated UTI Anemia Morbid obesity Plan: Supplemental oxygen PRN Titrate to keep O2 sats above 92%. Off Levophed, hemodynamically stable. Continue antibiotics -started meropenem after culture review. Incentive spirometry Stress dose steroids - taper to hydrocortisone 50 mg q.8 hours. Monitor renal function. Monitor electrolytes. Supplement as necessary. Monitor ins and outs. Monitor hemoglobin Transfuse if less than 7.0 g/dL. Wound care Recommend diet and lifestyle modifications for weight reduction Obesity complicates all care DVT prophylaxis. Prognosis: Poor given patient's multiple co-morbidities. Condition: Critical Rest of plan per hospitalist and other consultants. A total of 35 minutes of critical care time was spent reviewing the patient record, examining the patient, making a diagnostic and therapeutic plan, discussing this plan with the medical personnel, following up on diagnostic studies and following the patient for clinical stability excluding any and all procedures. At least 50% of this time was spent in direct, [id number] contact. Thank you, Dr. Stewart, for allowing me to participate in this patient's care. Further recommendations will depend on the patient's clinical course. Please do not hesitate to contact me if you have any questions or concerns. This medical document was created using an electronic medical record system with [employer] dictation system. Although these documentations are being carefully reviewed, there may still be some phonetic and typographical changes. The errors are purely typographical, due to imperfection on the software program, and do not reflect any compromise in the patient's medical care. Plan discussed with: Other (GUERA Love) Visit Coding Pulmonary Billing Provider: AYSE MARTE MD Date of Service if different f: Sep 15, 2025 Common Visit Codes: 86642-[id number] INP/OBS CARE(HIGH), 30085-[id number] CARE 30-74 MIN AYSE MARTE MD Sep 15, 2025 20:57
[2025-09-16] VITALS (100 sets, daily range): BP systolic 75–118; BP diastolic 33–76; PULSE 48–99; RESP 7–18; TEMP 97.4–98.8; O2SAT 90–98
[2025-09-16] MEDS: SODIUM BICARB 8.4% 50Meq/50ml SYR INJ ONE (00:01)
[2025-09-16 03:29] LABS: Hematocrit 26.1 % (36.0-46.0); Hemoglobin 8.4 g/dL (12.2-16.2); Mean Corpuscular Hemoglobin 27.3 pg (28.0-32.0); Mean Corpuscular Volume 85.4 fL (80.0-100.0); Nucleated Red Blood Cells % 0.1 %
[2025-09-16 03:42] LABS: Alkaline Phosphatase 69 U/L (46-116); Anion Gap 12 (5-15); BUN/Creatinine Ratio 17.0 (10.0-20.0); Carbon Dioxide 21 mmol/L (20-31); Chloride 105 mmol/L (98-107); Potassium 3.9 mmol/L (3.5-5.1); Sodium 138 mmol/L (136-145)
[2025-09-16 03:58] LABS: Alanine Aminotransferase < 9 U/L (7-40); Albumin 2.1 g/dL (3.2-4.8); Bilirubin, Total < 0.2 mg/dL (0.2-1.0); Blood Urea Nitrogen 55 mg/dL (9-23); Calcium 8.0 mg/dL (8.7-10.4); Glucose 108 mg/dL (74-106); Total Protein 4.2 g/dL (5.7-8.2)
[2025-09-16] MEDS: LACTULOSE 20Gm/30ML SOLN PO ONE (05:31)
--- NOTE | 2025-09-16 09:01 | DVHPNRES ---
Progress Note Date Seen: Sep 16, 2025 Resident Creating Document: AMRITZA MAYO RESIDENT Has the PT tested + for MRSA If YES, has PT been informed?: No Medical Necessity Reason Pt with a Central, PICC or Fol: Yes The following are medically ne: PICC Line, Dumont Catheter Subjective Review of Systems The patient is a 64-year-old female morbidly obese with past medical history of melanoma cancer, currently receiving treatment at [facility], hypothyroidism, hypertension, chronic kidney failure, and diabetes mellitus who presented to [facility] ED for evaluation of altered level of consciousness. As reported by daughter patient was experiencing confusion state, became altered from usual baseline, associated with generalized weakness, getting worse that EMS were called. When EMS arrived on the scene, the patient's blood glucose was 78 mg/dL, oriented x2, EN route to our facility ED. Patient was seen and evaluated in the ED with left thigh open wound from cysts removal, laboratory data shows WBC 9.4, hemoglobin 7.0, hematocrit 22.7, platelets 379, sodium 141, potassium 5.2, BUN 50, creatinine 4.45, GFR 11, glucose 63, calcium 8.5, albumin 2.4, BNP 62.07, blood pressure 79/61 trending up to 106/76, heart rate 90, temperature 98.3 F, O2 saturation 98% on room air. Urinalysis positive for urinary tract infection. Patient was started on IV antibiotic regimen vancomycin, please see medication orders section in the computer. On my assessment, daughter at bedside, patient remains altered, no diaphoresis, shortness of breaths, loss of consciousness, no diarrhea, nausea, vomiting, fever, no chills. Patient was admitted for further evaluation and medical management. PAST MEDICAL HISTORY * * Metastatic melanoma (brain and lung metastases per family([facility]) * Hypothyroidism * Diabetes mellitus type 2 * Chronic kidney disease (baseline unknown) * Hypertension * Morbid obesity * Recent surgical wounds (abdomen + left thigh) * Former smoker (quit Sep 2024) PAST SURGICAL HISTORY * Left abdominal melanoma excision * Left proximal thigh melanoma excision * Prior oncologic resections SOCIAL HISTORY * Quit smoking 2023 * No EtOH/drugs * Lives with family REVIEW OF SYSTEMS (limited due to confusion) * Constitutional: Fatigue, confusion; no fevers/chills overnight * Neuro: Confusion, disorientation; follows commands * Resp: No cough, wheezing, SOB * CV: No chest pain; soft BPs * GI: No abdominal pain, tolerating minimal PO * : Very low urine output * Skin: Drainage from left thigh wound; abdominal wound with jewell * Endo: Known hypothyroidism; glucose fluctuating * MSK: Generalized weakness 09/11/25 * Patient is awake, alert, following commands, but confused and poorly oriented. * Left thigh postoperative wound continues to drain moderately, dressing changed, and wound culture obtained. * Dumont catheter in place; urine output remains very low (UOP 0.11 mL/kg/hr) despite IV fluids. * Still requiring vasopressor support (norepinephrine 6 mcg/min) to maintain MAP > 65. * Hemodynamics stable but soft, BP fluctuating 60874 systolic. * No respiratory distress; oxygen saturation 9698% on room air. * She remains on NS at 100 mL/hr for hemodynamic support. * Nephrology evaluated: No emergent indication for dialysis at this time. * Open abdominal wound with jewell appears intact. * No sedation; remains able to follow simple commands. * Confusion improving slightly but still present. * Thyroid function abnormal requires adjustment. * Postoperative wound continues to drain; wound culture sent; ID coverage continued. * Cefadroxil (home ABX) NOT appropriate for current septic presentation ? continue broad-spectrum IV therapy. * No respiratory failure; stable on room air. * Requires continued ICU-level care. 09/12/25 * Patient remains alert but confused, disoriented, intermittently agitated, weak, with poor appetite. * continues on norepinephrine infusion at 2 mcg/min.UOP 0.15 mL/kg/hr via Dumont. oliguric. * Wound culture: Gram-positive cocci in pairs; gram-negative rods. * Urine culture: >100,000 yeast. * Blood cultures negative. * CT head: no acute findings. * CXR: bilateral pulmonary opacities, pulmonary vascular congestion, stable right pleural effusion. * Echo: LVEF 60%; RV enlarged. * Kidney ultrasound: increased echogenicity consistent with medical renal disease. * Vancomycin discontinued due to SONDRA and toxicity risk. * Started D5 NS + 50 mEq sodium bicarb at 100 mL/hr for metabolic acidosis. * 1 unit PRBC transfused yesterday; Hgb up to 7.9 * Daughter now reports brain metastases previously treated and lung metastases untreated.Records requested. 09/12/25: Patient seen and examined at bedside, patient was on Levophed drip 10 mcg/min, nephrology on board, started bicarbonate drip, we ordered chest CT without contrast, reviewed chest x-ray. 09/13/25: Patient seen and examined at bedside, patient was on Levophed drip 10 mcg/min, nephrology on board, started Lasix 40 mg IV b.i.d., dopamine, changed antibiotic to fluconazole. Patient has started to metronidazole and hydrocortisone. 09/14/25: Patient seen and examined at bedside, patient was on Levophed drip 10 mcg/min, nephrology on board, started Lasix 40 mg IV b.i.d., dopamine, changed antibiotic to fluconazole. Patient has started to metronidazole and hydrocortisone. 09/15/25: Patient seen and examined at bedside, patient was on Levophed drip 10 mcg/min, nephrology on board, cont. Lasix 40 mg IV b.i.d., dopamine, continue fluconazole and start Meropenem as wound culture is Positive for Acinebacter Baumanni and Proteous Mirabilis Patient has started to metronidazole and hydrocortisone. 09/16/25: Patient seen and examined at bedside, patient was on Levophed drip 10 mcg/min, nephrology on board, cont. Lasix 40 mg IV b.i.d., dopamine, continue fluconazole and start Meropenem as wound culture is Positive for Acinebacter Baumanni and Proteous Mirabilis Patient has started to metronidazole and hydrocortisone - Decrease Hydrocortison to 50 mg BID. Objective vital signs Vital Sign Date Time Temp Pulse Resp B/P (MAP) Pulse Ox O2 Delivery O2 Flow Rate FiO2 09/16/25 08:15 58 9 95/59 (71) 96 09/16/25 08:00 Room Air* 0 21 09/16/25 06:00 97.4 97.4 Total Intake and Output 09/15/25 09/15/25 09/16/25 15:00 23:00 07:00 Intake Total 1404.904 ml 1345.166 ml 1316.404 ml Output Total 250 ml 200 ml Balance 1404.904 ml 1095.166 ml 1116.404 ml medications Current Medications Medications Dose Ordered Sig/Elissa Route Start Time Stop Time Status Last Admin Dose Admin Norepinephrine Bitartrate 250 ml @ 3.75 mls/hr Q24H IV 09/10/25 18:00 09/14/25 21:32 3.75 MLS/HR Levothyroxine Sodium 150 mcg QAM@0600 PO 09/11/25 06:00 09/16/25 05:29 150 MCG Atorvastatin Calcium 10 mg HS PO 09/10/25 22:00 09/15/25 21:58 10 MG Gabapentin 300 mg TID PO 09/10/25 22:00 09/16/25 05:29 300 MG Acetaminophen/ Hydrocodone Bitart 1 tab Q4HP PRN PO 09/10/25 20:30 09/11/25 21:48 1 TAB Ondansetron HCl 4 mg Q4HP PRN IV 09/10/25 20:30 09/15/25 18:58 4 MG Docusate Sodium 100 mg BIDPRN PRN PO 09/10/25 20:30 Multivitamins 1 tab DAILY PO 09/11/25 10:00 09/16/25 07:59 1 TAB Acetaminophen 650 mg Q6HP PRN PO 09/10/25 20:30 09/15/25 11:29 650 MG Aspirin 81 mg DAILY PO 09/11/25 10:00 09/16/25 07:59 81 MG Nitroglycerin 0.4 mg Q5MINP PRN SL 09/10/25 21:00 Morphine Sulfate 2 mg Q30M PRN IV 09/10/25 21:00 Diagnostic Test (Pha) 1 strip ACHS 09/11/25 07:00 09/16/25 07:00 1 STRIP Insulin Human Regular ACHS SC 09/11/25 07:00 09/15/25 22:00 2 UNITS Dextrose 50 ml UD PRN IV 09/10/25 22:45 Iron Sucrose 110 ml @ 110 mls/hr DAILY@1200 IV 09/13/25 12:00 09/17/25 11:59 09/15/25 11:42 110 MLS/HR Furosemide 40 mg BIDD IV 09/13/25 18:00 09/16/25 05:29 40 MG Hydrocortisone Sodium Succinate 100 mg Q8HR IV 09/13/25 14:00 09/16/25 05:29 100 MG Fluconazole 100 ml @ 100 mls/hr DAILY IV 09/13/25 10:35 09/16/25 07:59 100 MLS/HR Dopamine HCl/ Dextrose 250 ml @ 8.738 mls/ hr Q24H IV 09/13/25 12:15 09/15/25 16:00 8.738 MLS/HR Sodium Bicarbonate 100 ml/Dextrose/ Sodium Chloride 1,100 ml @ 120 mls/hr Q9H10M IV 09/14/25 13:30 09/16/25 08:48 120 MLS/HR Meropenem 50 ml @ 17 mls/hr Q8H IV 09/15/25 14:00 09/16/25 05:28 17 MLS/HR Ergocalciferol 50,000 unit Q7D PO 09/15/25 10:15 09/15/25 11:30 50,000 UNIT Lactulose 15 ml DAILY PO 09/17/25 10:00 Examination General: Awake, alert, confused; appears ill. Neuro: Follows commands; disoriented 2; no focal deficits. HEENT: Dry mucosa. Pupils reactive. CV: NSR; no murmurs. 2+ pitting edema bilateral LE. Resp: Normal effort; lungs clear; on room air. GI: Soft, non-tender; abdominal surgical wound with jewell. : Dumont present; minimal clear urine. Skin/Wound: Left thigh postop wound draining; dressing saturated; wound culture obtained. Extremities: Pulses palpable; no DVT signs. Psych: Confused but cooperative. laboratory and microbiology Laboratory Tests 09/16/25 02:51 Test 09/16/25 02:51 Range/Units Serum Glucose 108 H 74-106 mg/dL Microbiology Date/Time Source Procedure Growth Status 09/11/25 19:11 Abdomen Gram Stain - Final Complete 09/11/25 19:11 Wound Culture - Final Acinetobacter baumannii Proteus mirabilis Complete 09/10/25 19:28 Blood Blood Culture - Final NO GROWTH AFTER 5 DAYS OF INCUBATION. Complete 09/10/25 17:50 Urine - Dumont Port Urine Culture - Final Presumptive Frida albicans Complete Problem List/Assessment/Plan Problem List/Assessment/Plan 1. Neurology Acute metabolic encephalopathy Multifactorial: sepsis, uremia, hypothyroidism, anemia. * Mental status improving slowly but still confused. * No sedation onboard. * Neuro checks q2h. * * CT head negative. * Treat metabolic contributors (TSH, acidosis, renal failure, infection). 2. Cardiovascular Septic shock CHF on chest X-ray Likely fluid-mediated; not in overt respiratory failure. * Continue norepinephrine drip at 6 mcg/min, titrate to maintain MAP > 65. Avoid excess fluids due to CHF on CXR. * ECHO: LVEF 60%, RV enlarged. monitor for RV failure. * Continuous telemetry. * Order echocardiogram (already ordered) to evaluate EF and CHF contribution. 3. Respiratory (NOT mechanically ventilated) * On room air, saturating 96% - 98%. * No respiratory distress. * Incentive spirometry. * Daily CXR PRN for volume status. 4. Gastrointestinal / Nutrition * Soft diet as tolerated once fully oriented. * Monitor albumin; nutritional support as needed. * Bowel regimen PRN. * Monitor abdominal wound with jewell. 5. / Renal (Nephrology following) Acute kidney injury on CKD due to VMN hemodynamically mediated SONDRA due to hypotension. Oliguric renal failure Metabolic acidosis Complicated UTI with Yeast >100,000 * SONDRA on CKD; no emergent HD indication per nephrology. * Continue strict I/O, daily weights. * Nephrology following * Avoid nephrotoxins. 6. Infectious Disease Septic shock, unspecified organism AMS, hypotension requiring norepinephrine, Complicated UTI Postoperative open wound with significant drainage Possible early cellulitis or surgical site infection. Wound Infection * Continue IV ceftriaxone * Follow wound cultures, urine culture, blood cultures. * Wound care nurse to evaluate twice daily. * Wound culture: Positive for Acinebacter Baumanni and Proteous Mirabilis * MRSA screen NEGATIVE. * Urine culture: >100,000 yeast (Frida species likely). * Blood cultures: negative. * Start Meropenem 7. Endocrine Hypothyroidism TSH 11.7 undertreated. Type 2 diabetes with fluctuating glucose Morbid obesity Increases risk for wound complications, sepsis. * Hyper-TSH: Increase levothyroxine dose; * Glucose management with insulin sliding scale; avoid hypoglycemia. * Accu-checks q2h. 8. Hematology / Oncology Symptomatic anemia, acute on chronic Iron deficiency Anemia of chronic disease + acute blood loss monitor; transfuse PRBC if Hgb<7 or symptomatic. * Iron deficiency: patient is NPO intermittently, poor PO intake * IV iron sucrose 200 mg daily 3 doses. * Oncology consult needed (brain mets, lung mets). * Hold Eliquis temporarily due to anemia and ongoing wound drainage; reassess daily. 9. Psychiatry * Monitor for delirium; ensure sleepwake cycle. * Reorient frequently. * No antipsychotics unless agitation. 10. Lines / Drips / Devices * PICC line in left arm: tip in SVC, functioning. * Dumont catheter in place for strict I/O. * Limb restrictions on PICC arm. 11. Prophylaxis * DVT prophylaxis: SCD (temporarily hold Eliquis and lovenox due to anemia) * GI prophylaxis: IV pantoprazole daily. * Pressure ulcer prevention: Turn q2h. * Fall precautions: Bed alarm. 12. Nutrition Malnutrition/Hypoalbuminemia * High-protein diet when safe. * If intake inadequate consider nutrition consult for supplements. 13. Physical / Occupational Therapy * PT/OT evaluation once hemodynamically stable. * Daily mobility as tolerated. 14. Social Work / Care Management * Engage social work for discharge planning and family support. * Provide updates to daughter. CODE STATUS * Full code Critical Care time spent 47 minutes including patient care, chart review and updating family, excluding procedure. Plan discussed with Dr. Raman Plan discussed with: Patient My Orders My Orders Orders - MARITZA MAYO RESIDENT Procedure Category Date Status Time Meropenem 1gm Ivpb PHA 09/15/25 In Process (Merrem 1gm/50ml) 14:00 Dietary Evaluation Review Comments: Nutrition Recommendation: 1) Avinash 1 pk daily, Nephro-issac 1 tab daily 2) Discontinue MVI 3) Ergocalciferol 50,000IU weekly 4) Monitor PO intake, lab values, weight trend, and I/O Expected Outcomes/Goals: Wound to improve Intake to meet >75% estimated needs Lab values to improve FU 3-5 days MARITZA MAYO RESIDENT Sep 16, 2025 09:01
--- NOTE | 2025-09-16 11:03 | DVHPN2 ---
Progress Note Date Seen: Sep 16, 2025 Has the PT tested + for MRSA If YES, has PT been informed?: No Medical Necessity Reason Pt with a Central, PICC or Fol: Yes The following are medically ne: PICC Line, Dumont Catheter Subjective Patient reports: No new complaints Other Systems: Patient seen and examined by myself today in follow-up Objective vital signs Vital Sign Date Time Temp Pulse Resp B/P (MAP) Pulse Ox O2 Delivery O2 Flow Rate FiO2 09/16/25 10:15 83/44 09/16/25 10:00 78 17 96 09/16/25 09:41 Room Air* 0 21 09/16/25 09:00 98.5 98.5 Total Intake and Output 09/15/25 09/15/25 09/16/25 14:59 22:59 06:59 Intake Total 1408.654 ml 1328.166 ml 1329.654 ml Output Total 250 ml 200 ml Balance 1408.654 ml 1078.166 ml 1129.654 ml medications Current Medications Medications Dose Ordered Sig/Elissa Route Start Time Stop Time Status Last Admin Dose Admin Norepinephrine Bitartrate 250 ml @ 3.75 mls/hr Q24H IV 09/10/25 18:00 09/14/25 21:32 3.75 MLS/HR Levothyroxine Sodium 150 mcg QAM@0600 PO 09/11/25 06:00 09/16/25 05:29 150 MCG Atorvastatin Calcium 10 mg HS PO 09/10/25 22:00 09/15/25 21:58 10 MG Gabapentin 300 mg TID PO 09/10/25 22:00 09/16/25 05:29 300 MG Acetaminophen/ Hydrocodone Bitart 1 tab Q4HP PRN PO 09/10/25 20:30 09/11/25 21:48 1 TAB Ondansetron HCl 4 mg Q4HP PRN IV 09/10/25 20:30 09/15/25 18:58 4 MG Docusate Sodium 100 mg BIDPRN PRN PO 09/10/25 20:30 Multivitamins 1 tab DAILY PO 09/11/25 10:00 09/16/25 07:59 1 TAB Acetaminophen 650 mg Q6HP PRN PO 09/10/25 20:30 09/15/25 11:29 650 MG Aspirin 81 mg DAILY PO 09/11/25 10:00 12/5/25 07:59 81 MG Nitroglycerin 0.4 mg Q5MINP PRN SL 09/10/25 21:00 Morphine Sulfate 2 mg Q30M PRN IV 09/10/25 21:00 Diagnostic Test (Pha) 1 strip ACHS 09/11/25 07:00 09/16/25 10:53 1 STRIP Insulin Human Regular ACHS SC 09/11/25 07:00 09/15/25 22:00 2 UNITS Dextrose 50 ml UD PRN IV 09/10/25 22:45 Iron Sucrose 110 ml @ 110 mls/hr DAILY@1200 IV 09/13/25 12:00 09/17/25 11:59 09/16/25 10:57 110 MLS/HR Furosemide 40 mg BIDD IV 09/13/25 18:00 09/16/25 05:29 40 MG Hydrocortisone Sodium Succinate 100 mg Q8HR IV 09/13/25 14:00 09/16/25 05:29 100 MG Fluconazole 100 ml @ 100 mls/hr DAILY IV 09/13/25 10:35 09/16/25 07:59 100 MLS/HR Dopamine HCl/ Dextrose 250 ml @ 8.738 mls/ hr Q24H IV 09/13/25 12:15 09/15/25 16:00 8.738 MLS/HR Sodium Bicarbonate 100 ml/Dextrose/ Sodium Chloride 1,100 ml @ 120 mls/hr Q9H10M IV 09/14/25 13:30 09/16/25 08:48 120 MLS/HR Meropenem 50 ml @ 17 mls/hr Q8H IV 09/15/25 14:00 09/16/25 05:28 17 MLS/HR Ergocalciferol 50,000 unit Q7D PO 09/15/25 10:15 09/15/25 11:30 50,000 UNIT Lactulose 15 ml DAILY PO 09/17/25 10:00 Examination: LUNGS:Normal, CVS:Normal, MSK:Normal laboratory and microbiology Laboratory Tests 09/16/25 02:51 Test 09/16/25 02:51 Range/Units Serum Glucose 108 H 74-106 mg/dL Microbiology Date/Time Source Procedure Growth Status 09/11/25 19:11 Abdomen Gram Stain - Final Complete 09/11/25 19:11 Wound Culture - Final Acinetobacter baumannii Proteus mirabilis Complete 09/10/25 19:28 Blood Blood Culture - Final NO GROWTH AFTER 5 DAYS OF INCUBATION. Complete 09/10/25 17:50 Urine - Dumont Port Urine Culture - Final Presumptive Frida albicans Complete Problem List/Assessment/Plan Problem List/Assessment/Plan Acute kidney injury superimposed Chronic Kidney Disease secondary hemodynamic mediated, FeNa < 1% Baselined creatinine is unknown Vancomycin toxicity Urinary tract infection Metabolic acidosis Encephalopathy h/o melanoma on treatment at [facility] Anemia of chronic kidney disease Vitamin D deficiency Hypoalbuminemia Recommendations Kidney function slightly improving Patient remained oliguric Dumont catheter Strict I&Os IVF D5 1/2 NS with 100 mEq/L sodium bicarb at 100 cc/hour KCL replacement Low-dose dopamine Furosemide 80 mg IV b.i.d. Albumin 25% IV piggyback Ergocalciferol 50,000 po q week kidney ultrasound reported echogenic kidney IV antibiotics Discontinue vancomycin We will continue to follow Plan discussed with: Patient Dietary Evaluation Review Comments: Nutrition Recommendation: 1) Avinash 1 pk daily, Nephro-issac 1 tab daily 2) Discontinue MVI 3) Ergocalciferol 50,000IU weekly 4) Monitor PO intake, lab values, weight trend, and I/O Expected Outcomes/Goals: Wound to improve Intake to meet >75% estimated needs Lab values to improve FU 3-5 days MAURICE GRANGER MD Sep 16, 2025 11:03
[2025-09-16] MEDS: FUROSEMIDE 40 MG/4 ML VIAL IV ONE (12:24)
[2025-09-16] MEDS: SOD CHL IV SCH (12:24)
[2025-09-16] MEDS: ALBUMIN 25% 100 ML IV SCH (12:24)
[2025-09-16] MEDS: D5 IV SCH (12:24)
[2025-09-16] MEDS: SODIUM BICARB IV SCH (12:24)
[2025-09-16] MEDS: HYDROCORTISONE SOD SUCC 100 MG/2ML INJ VIAL IV SCH (12:25)
[2025-09-16] MEDS: MIDODRINE HCL 10 MG TAB PO SCH (17:06)
[2025-09-16] MEDS: FUROSEMIDE 40 MG/4 ML VIAL IV SCH (17:06)
--- NOTE | 2025-09-16 23:16 | DVHPN2 ---
Subjective DOS: 09/16/2025 Patient seen and examined at bedside. Breathing comfortably on room air. Overnight events reviewed. Changes from previous H/P or p: No Changes Eyes: No Pain, No Vision change, No Conjunctivae inflammation, No Eyelid inflammation, No Other, No Redness ENT: No Ear pain, No Ear discharge, No Nose pain, No Nose discharge, No Nose congestion, No Mouth pain, No Mouth swelling, No Throat pain, No Throat swelling, No Other Cardiovascular: No Chest Pain, No Palpitations, No Orthopnea, No Paroxysmal Noc. Dyspnea, No Edema, No Lt Headedness, No Other Respiratory: No Cough, No Dry, No Shortness of breath, No SOB with excertion, No Wheezing, No Hemoptysis, No Pleuritic Pain, No Sputum, No Other Gastrointestinal: No Nausea, No Vomiting, No Abdominal Pain, No Diarrhea, No Constipation, No Melena, No Hematochezia, No Other Genitourinary: No Dysuria, No Frequency, No Incontinence, No Hematuria, No Retention, No Other Musculoskeletal: No other, No neck pain, No shoulder pain, No arm pain, No back pain, No hand pain, No leg pain, No foot pain Skin: No Rash, No Lesions, No Jaundice, No Bruising, No Other Objective Vitals Vital Signs Date Time Temp Pulse Resp B/P (MAP) Pulse Ox O2 Delivery O2 Flow Rate FiO2 09/16/25 22:26 100/47 09/16/25 19:00 55 12 92 09/16/25 17:43 Room Air* 0 21 09/16/25 15:45 98.8 98.8 Intake/Output Intake and Output 09/16/25 07:00 Intake Total 4066.474 ml Output Total 450 ml Balance 3616.474 ml Intake Oral 440 ml IV Total 3626.474 ml Output Urine Total 450 ml Exam Gen.: Patient lying in bed in no apparent distress. Breathing on room air. Head: Normocephalic, atraumatic. Eyes: EOMI/PERRLA. Ears: Normal hearing. Normal anatomy. Neck/trachea: Trachea midline, supple. Nose: Normal external anatomy. Mouth: Moist mucous membranes. Chest: Decreased air entry bilaterally. No wheezing or rhonchi. Cardiovascular: Positive S1, positive S2. Regular rate and rhythm. Abdomen: Positive bowel sounds in all 4 quadrants. Soft, non-tender, non- distended. : Deferred. Rectal: Deferred. Skin: Warm, dry. Intact. Extremities: 2+ radial pulses bilaterally. No lower extremity edema. Neuro: Awake, alert, oriented x3. No gross motor or sensory deficits. Cranial nerves II through XII intact. Gait not assessed. Medications Current Medications Medications Dose Ordered Sig/Elissa Route Start Time Stop Time Status Last Admin Dose Admin Norepinephrine Bitartrate 250 ml @ 3.75 mls/hr Q24H IV 09/10/25 18:00 09/14/25 21:32 3.75 MLS/HR Levothyroxine Sodium 150 mcg QAM@0600 PO 09/11/25 06:00 09/16/25 05:29 150 MCG Atorvastatin Calcium 10 mg HS PO 09/10/25 22:00 09/16/25 21:49 10 MG Gabapentin 300 mg TID PO 09/10/25 22:00 09/16/25 21:49 300 MG Acetaminophen/ Hydrocodone Bitart 1 tab Q4HP PRN PO 09/10/25 20:30 09/16/25 21:50 1 TAB Ondansetron HCl 4 mg Q4HP PRN IV 09/10/25 20:30 09/15/25 18:58 4 MG Docusate Sodium 100 mg BIDPRN PRN PO 09/10/25 20:30 Multivitamins 1 tab DAILY PO 09/11/25 10:00 09/16/25 07:59 1 TAB Acetaminophen 650 mg Q6HP PRN PO 09/10/25 20:30 09/15/25 11:29 650 MG Aspirin 81 mg DAILY PO 09/11/25 10:00 09/16/25 07:59 81 MG Nitroglycerin 0.4 mg Q5MINP PRN SL 09/10/25 21:00 Diagnostic Test (Pha) 1 strip ACHS 09/11/25 07:00 09/16/25 21:50 1 STRIP Insulin Human Regular ACHS SC 09/11/25 07:00 09/15/25 22:00 2 UNITS Dextrose 50 ml UD PRN IV 09/10/25 22:45 Iron Sucrose 110 ml @ 110 mls/hr DAILY@1200 IV 09/13/25 12:00 09/17/25 11:59 09/16/25 10:57 110 MLS/HR Fluconazole 100 ml @ 100 mls/hr DAILY IV 09/13/25 10:35 09/16/25 07:59 100 MLS/HR Dopamine HCl/ Dextrose 250 ml @ 8.738 mls/ hr Q24H IV 09/13/25 12:15 09/16/25 22:02 8.738 MLS/HR Meropenem 50 ml @ 17 mls/hr Q8H IV 09/15/25 14:00 09/16/25 21:48 17 MLS/HR Ergocalciferol 50,000 unit Q7D PO 09/15/25 10:15 09/15/25 11:30 50,000 UNIT Lactulose 15 ml DAILY PO 09/17/25 10:00 Sodium Bicarbonate 100 ml/Dextrose/ Sodium Chloride 1,100 ml @ 100 mls/hr Q11H IV 09/16/25 11:00 09/16/25 21:48 100 MLS/HR Furosemide 80 mg BIDD IV 09/16/25 18:00 09/16/25 17:06 80 MG Albumin Human 100 ml @ 100 mls/hr Q8H IV 09/16/25 11:00 09/17/25 03:59 09/16/25 17:06 100 MLS/HR Hydrocortisone Sodium Succinate 50 mg Q8HR IV 09/16/25 14:00 09/16/25 21:48 50 MG Midodrine 10 mg TID@0600,1200,1800 PO 09/16/25 18:00 09/16/25 17:06 10 MG Morphine Sulfate 2 mg Q30M PRN IV 09/16/25 12:45 Laboratory Results Laboratory Tests 09/16/25 02:51 Chemistry Test 09/16/25 02:51 Albumin 2.1 g/dL (3.2-4.8) L Calcium Level 8.0 mg/dL (8.7-10.4) L Total Protein 4.2 g/dL (5.7-8.2) L LFT Test 09/16/25 02:51 Alanine Aminotransferase (ALT) < 9 U/L (7-40) Alkaline Phosphatase 69 U/L (46-116) Aspartate Amino Transferase (AST) 13 U/L (13-40) Total Bilirubin < 0.2 mg/dL (0.2-1.0) L Urinalysis Test 09/10/25 17:50 09/12/25 11:47 Urine Hyaline Casts Mod /lpf (0 - 2) Urine Mucus Few (None Seen) Urine Color Light-orange (Yellow) Urine Clarity Ex.turbid (Clear) Urine pH 7.0 (5.0-9.0) Urine Specific [place] 1.019 (1.001-1.035) Urine Protein 2+ (Negative) H Urine Ketones Negative (Negative) Urine Blood 1+ /uL (Negative) H Urine Nitrite Negative (Negative) Urine Bilirubin Negative (Negative) Urine Urobilinogen Normal mg/dL (Negative) Urine Leukocyte Esterase 3+ /uL (Negative) Urine RBC 68 /hpf (0 - 4) Urine WBC Clumps Present /hpf (None Seen) Urine Microscopic WBC 2862 /HPF (0-5) H Urine Squamous Epithelial Cells Few /hpf (<5) Urine Transitional Epithelial Cells Mod /hpf (<2) Urine Bacteria Mod /hpf (None Seen) H Urine Yeast (Budding) Many /hpf (None Seen) Urine Creatinine 228.66 mg/dL (30.0-125.0) H Urine Protein/Creatinine Ratio 1.55 Urine Sodium 17 mmol/L (40-220) L Urine Glucose Normal mg/dL (Normal) Urine Total Protein 353.5 mg/dL (1-14) H Microbiology Microbiology Date/Time Source Procedure Growth Status 09/11/25 19:11 Abdomen Gram Stain - Final Complete 09/11/25 19:11 Wound Culture - Final Acinetobacter baumannii Proteus mirabilis Complete 09/10/25 19:28 Blood Blood Culture - Final NO GROWTH AFTER 5 DAYS OF INCUBATION. Complete 09/10/25 17:50 Urine - [place] Urine Culture - Final Presumptive Frida albicans Complete Assessment/Plan Assessment/Plan Impression: Acute metabolic encephalopathy Septic shock Acute kidney injury on chronic kidney disease Complicated UTI Anemia Morbid obesity Events: Remains on room air No distress. Supplemental oxygen PRN Pressors for hemodynamic support Levophed 2 mcg/min Titrate to keep mean arterial pressure greater than 65 mmHg Patient received albumin. Tapered hydrocortisone Start midodrine for BP support Continue antibiotics Lactulose was started due to constipation. On Bicarbonate drip. Nephrology recs appreciated Labs and imaging reviewed. Rest of plan as noted below. Plan: Supplemental oxygen PRN Titrate to keep O2 sats above 92%. Pressors for hemodynamic support Titrate to keep mean arterial pressure greater than 65 mmHg Continue antibiotics -started meropenem after culture review. Incentive spirometry Stress dose steroids - tapered. Monitor renal function. Monitor electrolytes. Supplement as necessary. Monitor ins and outs. Monitor hemoglobin Transfuse if less than 7.0 g/dL. Wound care Recommend diet and lifestyle modifications for weight reduction Obesity complicates all care DVT prophylaxis. Prognosis: Poor given patient's multiple co-morbidities. Condition: Critical Rest of plan per hospitalist and other consultants. A total of 35 minutes of critical care time was spent reviewing the patient record, examining the patient, making a diagnostic and therapeutic plan, discussing this plan with the medical personnel, following up on diagnostic studies and following the patient for clinical stability excluding any and all procedures. At least 50% of this time was spent in direct, [id number] contact. Thank you, Dr. Stewart, for allowing me to participate in this patient's care. Further recommendations will depend on the patient's clinical course. Please do not hesitate to contact me if you have any questions or concerns. This medical document was created using an electronic medical record system with [employer] dictation system. Although these documentations are being carefully reviewed, there may still be some phonetic and typographical changes. The errors are purely typographical, due to imperfection on the software program, and do not reflect any compromise in the patient's medical care. Plan discussed with: Other (GUERA Crouch) My Orders Orders - AYSE MARTE MD Procedure Category Date Status Time Magnesium LAB 09/17/25 Verified 04:00 Phosphorus LAB 09/17/25 Verified 04:00 Visit Coding Pulmonary Billing Provider: AYSE MARTE MD Date of Service if different f: Sep 16, 2025 Common Visit Codes: [id number] INP/OBS CARE(HIGH), 39806-[id number] CARE 30-74 MIN AYSE MARTE MD Sep 16, 2025 23:16
[2025-09-17] VITALS (97 sets, daily range): BP systolic 78–128; BP diastolic 36–69; PULSE 48–71; RESP 6–17; TEMP 97.7–98.9; O2SAT 93–98
[2025-09-17 02:55] LABS: Hematocrit 23.1 % (36.0-46.0); Hemoglobin 7.6 g/dL (12.2-16.2); Mean Corpuscular Hemoglobin 27.6 pg (28.0-32.0); Mean Corpuscular Volume 84.2 fL (80.0-100.0); Nucleated Red Blood Cells % 0.1 %
[2025-09-17 03:14] LABS: Alkaline Phosphatase 55 U/L (46-116); Anion Gap 12 (5-15); BUN/Creatinine Ratio 18.2 (10.0-20.0); Carbon Dioxide 23 mmol/L (20-31); Chloride 104 mmol/L (98-107); Glucose 101 mg/dL (74-106); Sodium 139 mmol/L (136-145)
[2025-09-17 03:21] LABS: Alanine Aminotransferase < 9 U/L (7-40); Albumin 2.5 g/dL (3.2-4.8); Bilirubin, Total 0.2 mg/dL (0.2-1.0); Blood Urea Nitrogen 52 mg/dL (9-23); Calcium 8.3 mg/dL (8.7-10.4); Magnesium 1.4 mg/dL (1.6-2.6); Potassium 3.2 mmol/L (3.5-5.1); Total Protein 4.5 g/dL (5.7-8.2)
[2025-09-17] MEDS: MAGNESIUM SULFATE 1GM/100ML 100 ML IV SCH (06:42)
[2025-09-17] MEDS: POTASSIUM EFFERVESENT TAB 25 MEQ GT ONE (06:42)
[2025-09-17] MEDS: LACTULOSE 20Gm/30ML SOLN PO SCH (07:32)
[2025-09-17] MEDS: SOD CHL 0.45% 1,000 ML IV SCH (10:00)
--- NOTE | 2025-09-17 10:01 | DVHPN2 ---
Progress Note Date Seen: Sep 17, 2025 Has the PT tested + for MRSA If YES, has PT been informed?: No Medical Necessity Reason Pt with a Central, PICC or Fol: Yes The following are medically ne: PICC Line, [place] Catheter Subjective Review of Systems: RESPIRATORY:Abnormal Other Systems: Patient seen and examined by myself today in follow-up Objective vital signs Vital Sign Date Time Temp Pulse Resp B/P (MAP) Pulse Ox O2 Delivery O2 Flow Rate FiO2 09/17/25 09:36 13 97 Room Air* 0 21 09/17/25 09:36 60 09/17/25 09:00 91/60 09/17/25 08:00 97.9 97.9 Total Intake and Output 09/16/25 09/16/25 09/17/25 15:00 23:00 07:00 Intake Total 975.654 ml 1333.904 ml 1289.666 ml Output Total 350 ml 750 ml Balance 975.654 ml 983.904 ml 539.666 ml medications Current Medications Medications Dose Ordered Sig/Elissa Route Start Time Stop Time Status Last Admin Dose Admin Norepinephrine Bitartrate 250 ml @ 3.75 mls/hr Q24H IV 09/10/25 18:00 09/17/25 05:36 7.5 MLS/HR Levothyroxine Sodium 150 mcg QAM@0600 PO 09/11/25 06:00 09/17/25 05:37 150 MCG Atorvastatin Calcium 10 mg HS PO 09/10/25 22:00 09/16/25 21:49 10 MG Gabapentin 300 mg TID PO 09/10/25 22:00 09/17/25 05:37 300 MG Acetaminophen/ Hydrocodone Bitart 1 tab Q4HP PRN PO 09/10/25 20:30 09/17/25 02:07 1 TAB Ondansetron HCl 4 mg Q4HP PRN IV 09/10/25 20:30 09/15/25 18:58 4 MG Docusate Sodium 100 mg BIDPRN PRN PO 09/10/25 20:30 Multivitamins 1 tab DAILY PO 09/11/25 10:00 09/17/25 07:32 1 TAB Acetaminophen 650 mg Q6HP PRN PO 09/10/25 20:30 09/15/25 11:29 650 MG Aspirin 81 mg DAILY PO 09/11/25 10:00 09/17/25 07:32 81 MG Nitroglycerin 0.4 mg Q5MINP PRN SL 09/10/25 21:00 Diagnostic Test (Pha) 1 strip ACHS 09/11/25 07:00 09/17/25 05:37 1 STRIP Insulin Human Regular ACHS SC 09/11/25 07:00 09/15/25 22:00 2 UNITS Dextrose 50 ml UD PRN IV 09/10/25 22:45 Iron Sucrose 110 ml @ 110 mls/hr DAILY@1200 IV 09/13/25 12:00 09/17/25 11:59 09/16/25 10:57 110 MLS/HR Fluconazole 100 ml @ 100 mls/hr DAILY IV 09/13/25 10:35 09/17/25 07:32 100 MLS/HR Dopamine HCl/ Dextrose 250 ml @ 8.738 mls/ hr Q24H IV 09/13/25 12:15 09/16/25 22:02 8.738 MLS/HR Meropenem 50 ml @ 17 mls/hr Q8H IV 09/15/25 14:00 09/17/25 05:37 17 MLS/HR Ergocalciferol 50,000 unit Q7D PO 09/15/25 10:15 09/15/25 11:30 50,000 UNIT Lactulose 15 ml DAILY PO 09/17/25 10:00 09/17/25 07:32 15 ML Sodium Bicarbonate 100 ml/Dextrose/ Sodium Chloride 1,100 ml @ 100 mls/hr Q11H IV 09/16/25 11:00 09/16/25 21:48 100 MLS/HR Furosemide 80 mg BIDD IV 09/16/25 18:00 09/17/25 05:36 80 MG Hydrocortisone Sodium Succinate 50 mg Q8HR IV 09/16/25 14:00 09/17/25 05:36 50 MG Midodrine 10 mg TID@0600,1200,1800 PO 09/16/25 18:00 09/17/25 05:37 10 MG Morphine Sulfate 2 mg Q30M PRN IV 09/16/25 12:45 Examination: LUNGS:Abnormal, CVS:Normal, MSK:Normal laboratory and microbiology Laboratory Tests 09/17/25 02:31 Test 09/17/25 02:31 Range/Units Serum Glucose 101 74-106 mg/dL Microbiology Date/Time Source Procedure Growth Status 09/11/25 19:11 Abdomen Gram Stain - Final Complete 09/11/25 19:11 Wound Culture - Final Acinetobacter baumannii Proteus mirabilis Complete 09/10/25 19:28 Blood Blood Culture - Final NO GROWTH AFTER 5 DAYS OF INCUBATION. Complete 09/10/25 17:50 Urine - [place] Urine Culture - Final Presumptive Frida albicans Complete Problem List/Assessment/Plan Problem List/Assessment/Plan Acute kidney injury superimposed Chronic Kidney Disease secondary hemodynamic mediated, FeNa < 1% Baselined creatinine is unknown Vancomycin toxicity Urinary tract infection Metabolic acidosis Encephalopathy h/o melanoma on treatment at [facility] Anemia of chronic kidney disease Vitamin D deficiency Hypoalbuminemia Hypokalemia Recommendations Kidney function continues to improve Increased urine output [place] catheter Strict I&Os IVF 1/2 NS at 100 cc/hour KCL replacement Low-dose dopamine Furosemide 80 mg IV b.i.d. Albumin 25% IV piggyback Ergocalciferol 50,000 po q week kidney ultrasound reported echogenic kidney IV antibiotics Discontinue vancomycin We will continue to follow Plan discussed with: Patient My Orders My Orders Orders - MAURICE GRANGER MD Procedure Category Date Status Time D5w/Sod Chl 0.45% PHA 09/16/25 In Process (... W/Sodium Bicarb 5 11:00 Furosemide Injection PHA 09/16/25 In Process (Lasix Injection) 18:00 Dietary Evaluation Review Comments: Nutrition Recommendation: 1) Avinash 1 pk daily, Nephro-issac 1 tab daily 2) Discontinue MVI 3) Ergocalciferol 50,000IU weekly 4) Monitor PO intake, lab values, weight trend, and I/O Expected Outcomes/Goals: Wound to improve Intake to meet >75% estimated needs Lab values to improve FU 3-5 days MAURICE GRANGER MD Sep 17, 2025 10:01
--- NOTE | 2025-09-17 14:15 | DVHPNRES ---
Progress Note Date Seen: Sep 17, 2025 Resident Creating Document: MARITZA MAYO RESIDENT Has the PT tested + for MRSA If YES, has PT been informed?: No Medical Necessity Reason Pt with a Central, PICC or Fol: Yes The following are medically ne: PICC Line, Dumont Catheter Subjective Review of Systems The patient is a 64-year-old female morbidly obese with past medical history of melanoma cancer, currently receiving treatment at [facility], hypothyroidism, hypertension, chronic kidney failure, and diabetes mellitus who presented to [facility] ED for evaluation of altered level of consciousness. As reported by daughter patient was experiencing confusion state, became altered from usual baseline, associated with generalized weakness, getting worse that EMS were called. When EMS arrived on the scene, the patient's blood glucose was 78 mg/dL, oriented x2, EN route to our facility ED. Patient was seen and evaluated in the ED with left thigh open wound from cysts removal, laboratory data shows WBC 9.4, hemoglobin 7.0, hematocrit 22.7, platelets 379, sodium 141, potassium 5.2, BUN 50, creatinine 4.45, GFR 11, glucose 63, calcium 8.5, albumin 2.4, BNP 62.07, blood pressure 79/61 trending up to 106/76, heart rate 90, temperature 98.3 F, O2 saturation 98% on room air. Urinalysis positive for urinary tract infection. Patient was started on IV antibiotic regimen vancomycin, please see medication orders section in the computer. On my assessment, daughter at bedside, patient remains altered, no diaphoresis, shortness of breaths, loss of consciousness, no diarrhea, nausea, vomiting, fever, no chills. Patient was admitted for further evaluation and medical management. PAST MEDICAL HISTORY * * Metastatic melanoma (brain and lung metastases per family([facility]) * Hypothyroidism * Diabetes mellitus type 2 * Chronic kidney disease (baseline unknown) * Hypertension * Morbid obesity * Recent surgical wounds (abdomen + left thigh) * Former smoker (quit Sep 2024) PAST SURGICAL HISTORY * Left abdominal melanoma excision * Left proximal thigh melanoma excision * Prior oncologic resections SOCIAL HISTORY * Quit smoking 2023 * No EtOH/drugs * Lives with family REVIEW OF SYSTEMS (limited due to confusion) * Constitutional: Fatigue, confusion; no fevers/chills overnight * Neuro: Confusion, disorientation; follows commands * Resp: No cough, wheezing, SOB * CV: No chest pain; soft BPs * GI: No abdominal pain, tolerating minimal PO * : Very low urine output * Skin: Drainage from left thigh wound; abdominal wound with jewell * Endo: Known hypothyroidism; glucose fluctuating * MSK: Generalized weakness 09/11/25 * Patient is awake, alert, following commands, but confused and poorly oriented. * Left thigh postoperative wound continues to drain moderately, dressing changed, and wound culture obtained. * Dumont catheter in place; urine output remains very low (UOP 0.11 mL/kg/hr) despite IV fluids. * Still requiring vasopressor support (norepinephrine 6 mcg/min) to maintain MAP > 65. * Hemodynamics stable but soft, BP fluctuating 96518 systolic. * No respiratory distress; oxygen saturation 9698% on room air. * She remains on NS at 100 mL/hr for hemodynamic support. * Nephrology evaluated: No emergent indication for dialysis at this time. * Open abdominal wound with jewell appears intact. * No sedation; remains able to follow simple commands. * Confusion improving slightly but still present. * Thyroid function abnormal requires adjustment. * Postoperative wound continues to drain; wound culture sent; ID coverage continued. * Cefadroxil (home ABX) NOT appropriate for current septic presentation ? continue broad-spectrum IV therapy. * No respiratory failure; stable on room air. * Requires continued ICU-level care. 09/12/25 * Patient remains alert but confused, disoriented, intermittently agitated, weak, with poor appetite. * continues on norepinephrine infusion at 2 mcg/min.UOP 0.15 mL/kg/hr via Dumont. oliguric. * Wound culture: Gram-positive cocci in pairs; gram-negative rods. * Urine culture: >100,000 yeast. * Blood cultures negative. * CT head: no acute findings. * CXR: bilateral pulmonary opacities, pulmonary vascular congestion, stable right pleural effusion. * Echo: LVEF 60%; RV enlarged. * Kidney ultrasound: increased echogenicity consistent with medical renal disease. * Vancomycin discontinued due to SONDRA and toxicity risk. * Started D5 NS + 50 mEq sodium bicarb at 100 mL/hr for metabolic acidosis. * 1 unit PRBC transfused yesterday; Hgb up to 7.9 * Daughter now reports brain metastases previously treated and lung metastases untreated.Records requested. 09/12/25: Patient seen and examined at bedside, patient was on Levophed drip 10 mcg/min, nephrology on board, started bicarbonate drip, we ordered chest CT without contrast, reviewed chest x-ray. 09/13/25: Patient seen and examined at bedside, patient was on Levophed drip 10 mcg/min, nephrology on board, started Lasix 40 mg IV b.i.d., dopamine, changed antibiotic to fluconazole. Patient has started to metronidazole and hydrocortisone. 09/14/25: Patient seen and examined at bedside, patient was on Levophed drip 10 mcg/min, nephrology on board, started Lasix 40 mg IV b.i.d., dopamine, changed antibiotic to fluconazole. Patient has started to metronidazole and hydrocortisone. 09/15/25: Patient seen and examined at bedside, patient was on Levophed drip 10 mcg/min, nephrology on board, cont. Lasix 40 mg IV b.i.d., dopamine, continue fluconazole and start Meropenem as wound culture is Positive for Acinebacter Baumanni and Proteous Mirabilis Patient has started to metronidazole and hydrocortisone. 09/16/25: Patient seen and examined at bedside, patient was on Levophed drip 10 mcg/min, nephrology on board, cont. Lasix 40 mg IV b.i.d., dopamine, continue fluconazole and start Meropenem as wound culture is Positive for Acinebacter Baumanni and Proteous Mirabilis Patient has started to metronidazole and hydrocortisone - Decrease Hydrocortison to 50 mg BID. 09/17/25: Patient seen and examined at bedside, patient was on Levophed drip 10 mcg/min, nephrology on board, cont. Lasix 40 mg IV b.i.d., dopamine, continue fluconazole and start Meropenem as wound culture is Positive for Acinebacter Baumanni and Proteous Mirabilis. Objective vital signs Vital Sign Date Time Temp Pulse Resp B/P (MAP) Pulse Ox O2 Delivery O2 Flow Rate FiO2 09/17/25 13:44 54 09/17/25 13:44 8 95 Room Air* 0 21 09/17/25 13:15 78/36 (50) 09/17/25 12:00 98.3 98.3 Total Intake and Output 09/16/25 09/16/25 09/17/25 15:00 23:00 07:00 Intake Total 975.654 ml 1333.904 ml 1289.666 ml Output Total 350 ml 750 ml Balance 975.654 ml 983.904 ml 539.666 ml medications Current Medications Medications Dose Ordered Sig/Elissa Route Start Time Stop Time Status Last Admin Dose Admin Norepinephrine Bitartrate 250 ml @ 3.75 mls/hr Q24H IV 09/10/25 18:00 09/17/25 05:36 7.5 MLS/HR Levothyroxine Sodium 150 mcg QAM@0600 PO 09/11/25 06:00 09/17/25 05:37 150 MCG Atorvastatin Calcium 10 mg HS PO 09/10/25 22:00 09/16/25 21:49 10 MG Gabapentin 300 mg TID PO 09/10/25 22:00 09/17/25 12:13 300 MG Acetaminophen/ Hydrocodone Bitart 1 tab Q4HP PRN PO 09/10/25 20:30 09/17/25 02:07 1 TAB Ondansetron HCl 4 mg Q4HP PRN IV 09/10/25 20:30 09/15/25 18:58 4 MG Docusate Sodium 100 mg BIDPRN PRN PO 09/10/25 20:30 Multivitamins 1 tab DAILY PO 09/11/25 10:00 09/17/25 07:32 1 TAB Acetaminophen 650 mg Q6HP PRN PO 09/10/25 20:30 09/15/25 11:29 650 MG Aspirin 81 mg DAILY PO 09/11/25 10:00 09/17/25 07:32 81 MG Nitroglycerin 0.4 mg Q5MINP PRN SL 09/10/25 21:00 Diagnostic Test (Pha) 1 strip ACHS 09/11/25 07:00 09/17/25 10:32 1 STRIP Insulin Human Regular ACHS SC 09/11/25 07:00 09/15/25 22:00 2 UNITS Dextrose 50 ml UD PRN IV 09/10/25 22:45 Fluconazole 100 ml @ 100 mls/hr DAILY IV 09/13/25 10:35 09/17/25 07:32 100 MLS/HR Dopamine HCl/ Dextrose 250 ml @ 8.738 mls/ hr Q24H IV 09/13/25 12:15 09/16/25 22:02 8.738 MLS/HR Meropenem 50 ml @ 17 mls/hr Q8H IV 09/15/25 14:00 09/17/25 12:13 17 MLS/HR Ergocalciferol 50,000 unit Q7D PO 09/15/25 10:15 09/15/25 11:30 50,000 UNIT Lactulose 15 ml DAILY PO 09/17/25 10:00 09/17/25 07:32 15 ML Furosemide 80 mg BIDD IV 09/16/25 18:00 09/17/25 05:36 80 MG Hydrocortisone Sodium Succinate 50 mg Q8HR IV 09/16/25 14:00 09/17/25 12:12 50 MG Midodrine 10 mg TID@0600,1200,1800 PO 09/16/25 18:00 09/17/25 12:13 10 MG Morphine Sulfate 2 mg Q30M PRN IV 09/16/25 12:45 Sodium Chloride 1,000 ml @ 100 mls/hr Q10H IV 09/17/25 10:00 09/17/25 10:00 100 MLS/HR Examination General: Awake, alert, confused; appears ill. Neuro: Follows commands; disoriented 2; no focal deficits. HEENT: Dry mucosa. Pupils reactive. CV: NSR; no murmurs. 2+ pitting edema bilateral LE. Resp: Normal effort; lungs clear; on room air. GI: Soft, non-tender; abdominal surgical wound with jewell. : Dumont present; minimal clear urine. Skin/Wound: Left thigh postop wound draining; dressing saturated; wound culture obtained. Extremities: Pulses palpable; no DVT signs. Psych: Confused but cooperative. laboratory and microbiology Laboratory Tests 09/17/25 02:31 Test 09/17/25 02:31 Range/Units Serum Glucose 101 74-106 mg/dL Microbiology Date/Time Source Procedure Growth Status 09/11/25 19:11 Abdomen Gram Stain - Final Complete 09/11/25 19:11 Wound Culture - Final Acinetobacter baumannii Proteus mirabilis Complete 09/10/25 19:28 Blood Blood Culture - Final NO GROWTH AFTER 5 DAYS OF INCUBATION. Complete 09/10/25 17:50 Urine - Dumont Port Urine Culture - Final Presumptive Frida albicans Complete Problem List/Assessment/Plan Problem List/Assessment/Plan 1. Neurology Acute metabolic encephalopathy Multifactorial: sepsis, uremia, hypothyroidism, anemia. * Mental status improving slowly but still confused. * No sedation onboard. * Neuro checks q2h. * * CT head negative. * Treat metabolic contributors (TSH, acidosis, renal failure, infection). 2. Cardiovascular Septic shock CHF on chest X-ray Likely fluid-mediated; not in overt respiratory failure. * Continue norepinephrine drip at 6 mcg/min, titrate to maintain MAP > 65. Avoid excess fluids due to CHF on CXR. * ECHO: LVEF 60%, RV enlarged. monitor for RV failure. * Continuous telemetry. * Order echocardiogram (already ordered) to evaluate EF and CHF contribution. 3. Respiratory (NOT mechanically ventilated) * On room air, saturating 96% - 98%. * No respiratory distress. * Incentive spirometry. * Daily CXR PRN for volume status. 4. Gastrointestinal / Nutrition * Soft diet as tolerated once fully oriented. * Monitor albumin; nutritional support as needed. * Bowel regimen PRN. * Monitor abdominal wound with jewell. 5. / Renal (Nephrology following) Acute kidney injury on CKD due to VMN hemodynamically mediated SONDRA due to hypotension. Oliguric renal failure Metabolic acidosis Complicated UTI with Yeast >100,000 * SONDRA on CKD; no emergent HD indication per nephrology. * Continue strict I/O, daily weights. * Nephrology following * Avoid nephrotoxins. 6. Infectious Disease Septic shock, unspecified organism AMS, hypotension requiring norepinephrine, Complicated UTI Postoperative open wound with significant drainage Possible early cellulitis or surgical site infection. Wound Infection * Continue IV ceftriaxone * Follow wound cultures, urine culture, blood cultures. * Wound care nurse to evaluate twice daily. * Wound culture: Positive for Acinebacter Baumanni and Proteous Mirabilis * MRSA screen NEGATIVE. * Urine culture: >100,000 yeast (Frida species likely). * Blood cultures: negative. * Start Meropenem 7. Endocrine Hypothyroidism TSH 11.7 undertreated. Type 2 diabetes with fluctuating glucose Morbid obesity Increases risk for wound complications, sepsis. * Hyper-TSH: Increase levothyroxine dose; * Glucose management with insulin sliding scale; avoid hypoglycemia. * Accu-checks q2h. 8. Hematology / Oncology Symptomatic anemia, acute on chronic Iron deficiency Anemia of chronic disease + acute blood loss monitor; transfuse PRBC if Hgb<7 or symptomatic. * Iron deficiency: patient is NPO intermittently, poor PO intake * IV iron sucrose 200 mg daily 3 doses. * Oncology consult needed (brain mets, lung mets). * Hold Eliquis temporarily due to anemia and ongoing wound drainage; reassess daily. 9. Psychiatry * Monitor for delirium; ensure sleepwake cycle. * Reorient frequently. * No antipsychotics unless agitation. 10. Lines / Drips / Devices * PICC line in left arm: tip in SVC, functioning. * Dumont catheter in place for strict I/O. * Limb restrictions on PICC arm. 11. Prophylaxis * DVT prophylaxis: SCD (temporarily hold Eliquis and lovenox due to anemia) * GI prophylaxis: IV pantoprazole daily. * Pressure ulcer prevention: Turn q2h. * Fall precautions: Bed alarm. 12. Nutrition Malnutrition/Hypoalbuminemia * High-protein diet when safe. * If intake inadequate consider nutrition consult for supplements. 13. Physical / Occupational Therapy * PT/OT evaluation once hemodynamically stable. * Daily mobility as tolerated. 14. Social Work / Care Management * Engage social work for discharge planning and family support. * Provide updates to daughter. Patient is off pressor from this morning, plan to downgrade [place]. CODE STATUS * Full code Critical Care time spent 47 minutes including patient care, chart review and updating family, excluding procedure. Plan discussed with Dr. Raman Plan discussed with: Patient Dietary Evaluation Review Comments: Nutrition Recommendation: 1) Avinash 1 pk daily, Nephro-issac 1 tab daily 2) Discontinue MVI 3) Ergocalciferol 50,000IU weekly 4) Monitor PO intake, lab values, weight trend, and I/O Expected Outcomes/Goals: Wound to improve Intake to meet >75% estimated needs Lab values to improve FU 3-5 days MARITZA MAYO RESIDENT Sep 17, 2025 14:15
[2025-09-17] MEDS: MEROPENEM 1GM IVPB 50 ML IV SCH (21:03)
--- NOTE | 2025-09-17 23:55 | DVHPN2 ---
Subjective DOS: 09/17/2025 Patient seen and examined at bedside. Breathing comfortably on room air. Overnight events reviewed. Changes from previous H/P or p: No Changes Eyes: No Pain, No Vision change, No Conjunctivae inflammation, No Eyelid inflammation, No Other, No Redness ENT: No Ear pain, No Ear discharge, No Nose pain, No Nose discharge, No Nose congestion, No Mouth pain, No Mouth swelling, No Throat pain, No Throat swelling, No Other Cardiovascular: No Chest Pain, No Palpitations, No Orthopnea, No Paroxysmal Noc. Dyspnea, No Edema, No Lt Headedness, No Other Respiratory: No Cough, No Dry, No Shortness of breath, No SOB with excertion, No Wheezing, No Hemoptysis, No Pleuritic Pain, No Sputum, No Other Gastrointestinal: No Nausea, No Vomiting, No Abdominal Pain, No Diarrhea, No Constipation, No Melena, No Hematochezia, No Other Genitourinary: No Dysuria, No Frequency, No Incontinence, No Hematuria, No Retention, No Other Musculoskeletal: No other, No neck pain, No shoulder pain, No arm pain, No back pain, No hand pain, No leg pain, No foot pain Skin: No Rash, No Lesions, No Jaundice, No Bruising, No Other Objective Vitals Vital Signs Date Time Temp Pulse Resp B/P (MAP) Pulse Ox O2 Delivery O2 Flow Rate FiO2 09/17/25 23:46 59 8 92/46 (61) 94 09/17/25 22:00 Room Air* 0 21 09/17/25 20:00 98.9 98.9 Intake/Output Intake and Output 09/17/25 07:00 Intake Total 3599.224 ml Output Total 1100 ml Balance 2499.224 ml Intake Oral 725 ml IV Total 2874.224 ml Output Urine Total 1100 ml # Bowel Movements 1 Exam Gen.: Patient lying in bed in no apparent distress. Breathing on room air. Head: Normocephalic, atraumatic. Eyes: EOMI/PERRLA. Ears: Normal hearing. Normal anatomy. Neck/trachea: Trachea midline, supple. Nose: Normal external anatomy. Mouth: Moist mucous membranes. Chest: Decreased air entry bilaterally. No wheezing or rhonchi. Cardiovascular: Positive S1, positive S2. Regular rate and rhythm. Abdomen: Positive bowel sounds in all 4 quadrants. Soft, non-tender, non- distended. : Deferred. Rectal: Deferred. Skin: Warm, dry. Intact. Extremities: 2+ radial pulses bilaterally. No lower extremity edema. Neuro: Awake, alert, oriented x3. No gross motor or sensory deficits. Cranial nerves II through XII intact. Gait not assessed. Medications Current Medications Medications Dose Ordered Sig/Elissa Route Start Time Stop Time Status Last Admin Dose Admin Norepinephrine Bitartrate 250 ml @ 3.75 mls/hr Q24H IV 09/10/25 18:00 09/17/25 21:26 3.75 MLS/HR Levothyroxine Sodium 150 mcg QAM@0600 PO 09/11/25 06:00 09/17/25 05:37 150 MCG Atorvastatin Calcium 10 mg HS PO 09/10/25 22:00 09/17/25 21:03 10 MG Gabapentin 300 mg TID PO 09/10/25 22:00 09/17/25 21:03 300 MG Acetaminophen/ Hydrocodone Bitart 1 tab Q4HP PRN PO 09/10/25 20:30 09/17/25 21:03 1 TAB Ondansetron HCl 4 mg Q4HP PRN IV 09/10/25 20:30 09/15/25 18:58 4 MG Docusate Sodium 100 mg BIDPRN PRN PO 09/10/25 20:30 Multivitamins 1 tab DAILY PO 09/11/25 10:00 09/17/25 07:32 1 TAB Acetaminophen 650 mg Q6HP PRN PO 09/10/25 20:30 09/15/25 11:29 650 MG Aspirin 81 mg DAILY PO 09/11/25 10:00 09/17/25 07:32 81 MG Nitroglycerin 0.4 mg Q5MINP PRN SL 09/10/25 21:00 Diagnostic Test (Pha) 1 strip ACHS 09/11/25 07:00 09/17/25 21:04 1 STRIP Insulin Human Regular ACHS SC 09/11/25 07:00 09/15/25 22:00 2 UNITS Dextrose 50 ml UD PRN IV 09/10/25 22:45 Fluconazole 100 ml @ 100 mls/hr DAILY IV 09/13/25 10:35 09/17/25 07:32 100 MLS/HR Dopamine HCl/ Dextrose 250 ml @ 8.738 mls/ hr Q24H IV 09/13/25 12:15 09/16/25 22:02 8.738 MLS/HR Ergocalciferol 50,000 unit Q7D PO 09/15/25 10:15 09/15/25 11:30 50,000 UNIT Lactulose 15 ml DAILY PO 09/17/25 10:00 09/17/25 07:32 15 ML Furosemide 80 mg BIDD IV 09/16/25 18:00 09/17/25 16:39 80 MG Hydrocortisone Sodium Succinate 50 mg Q8HR IV 09/16/25 14:00 09/17/25 21:02 50 MG Midodrine 10 mg TID@0600,1200,1800 PO 09/16/25 18:00 09/17/25 16:39 10 MG Morphine Sulfate 2 mg Q30M PRN IV 09/16/25 12:45 Sodium Chloride 1,000 ml @ 100 mls/hr Q10H IV 09/17/25 10:00 09/17/25 21:02 100 MLS/HR Meropenem 50 ml @ 17 mls/hr Q12HR IV 09/17/25 22:00 09/17/25 21:03 17 MLS/HR Laboratory Results Laboratory Tests 09/17/25 02:31 Chemistry Test 09/17/25 02:31 Albumin 2.5 g/dL (3.2-4.8) L Calcium Level 8.3 mg/dL (8.7-10.4) L Magnesium Level 1.4 mg/dL (1.6-2.6) L Phosphorus Level 3.6 mg/dL (2.4-5.1) Total Protein 4.5 g/dL (5.7-8.2) L LFT Test 09/17/25 02:31 Alanine Aminotransferase (ALT) < 9 U/L (7-40) Alkaline Phosphatase 55 U/L (46-116) Aspartate Amino Transferase (AST) 9 U/L (13-40) L Total Bilirubin 0.2 mg/dL (0.2-1.0) Urinalysis Test 09/10/25 17:50 09/12/25 11:47 Urine Hyaline Casts Mod /lpf (0 - 2) Urine Mucus Few (None Seen) Urine Color Light-orange (Yellow) Urine Clarity Ex.turbid (Clear) Urine pH 7.0 (5.0-9.0) Urine Specific [place] 1.019 (1.001-1.035) Urine Protein 2+ (Negative) H Urine Ketones Negative (Negative) Urine Blood 1+ /uL (Negative) H Urine Nitrite Negative (Negative) Urine Bilirubin Negative (Negative) Urine Urobilinogen Normal mg/dL (Negative) Urine Leukocyte Esterase 3+ /uL (Negative) Urine RBC 68 /hpf (0 - 4) Urine WBC Clumps Present /hpf (None Seen) Urine Microscopic WBC 2862 /HPF (0-5) H Urine Squamous Epithelial Cells Few /hpf (<5) Urine Transitional Epithelial Cells Mod /hpf (<2) Urine Bacteria Mod /hpf (None Seen) H Urine Yeast (Budding) Many /hpf (None Seen) Urine Creatinine 228.66 mg/dL (30.0-125.0) H Urine Protein/Creatinine Ratio 1.55 Urine Sodium 17 mmol/L (40-220) L Urine Glucose Normal mg/dL (Normal) Urine Total Protein 353.5 mg/dL (1-14) H Microbiology Microbiology Date/Time Source Procedure Growth Status 09/11/25 19:11 Abdomen Gram Stain - Final Complete 09/11/25 19:11 Wound Culture - Final Acinetobacter baumannii Proteus mirabilis Complete 09/10/25 19:28 Blood Blood Culture - Final NO GROWTH AFTER 5 DAYS OF INCUBATION. Complete 09/10/25 17:50 Urine - Dumont Port Urine Culture - Final Presumptive Frida albicans Complete Assessment/Plan Assessment/Plan Impression: Acute metabolic encephalopathy Septic shock Acute kidney injury on chronic kidney disease Complicated UTI Anemia Morbid obesity Events: Remains on room air No distress. Supplemental oxygen PRN Off Levophed since 9 AM Monitor hemodynamics On dopamine 2 mcg/min Midodrine for BP support Continue antibiotics Lactulose for constipation. Off Bicarbonate drip. Nephrology recs appreciated Monitor renal function. Monitor electrolytes. Supplement as necessary. K, mag supplementation Labs and imaging reviewed. Rest of plan as noted below. Plan: Supplemental oxygen PRN Titrate to keep O2 sats above 92%. Pressors as necessary for hemodynamic support Titrate to keep mean arterial pressure greater than 65 mmHg Continue antibiotics -started meropenem after culture review. Incentive spirometry Stress dose steroids - tapered. Monitor renal function. Monitor electrolytes. Supplement as necessary. Monitor ins and outs. Monitor hemoglobin Transfuse if less than 7.0 g/dL. Wound care Recommend diet and lifestyle modifications for weight reduction Obesity complicates all care DVT prophylaxis. Prognosis: Poor given patient's multiple co-morbidities. Condition: Critical Rest of plan per hospitalist and other consultants. A total of 35 minutes of critical care time was spent reviewing the patient record, examining the patient, making a diagnostic and therapeutic plan, discussing this plan with the medical personnel, following up on diagnostic studies and following the patient for clinical stability excluding any and all procedures. At least 50% of this time was spent in direct, [id number] contact. Thank you, Dr. Stewart, for allowing me to participate in this patient's care. Further recommendations will depend on the patient's clinical course. Please do not hesitate to contact me if you have any questions or concerns. This medical document was created using an electronic medical record system with [employer] dictation system. Although these documentations are being carefully reviewed, there may still be some phonetic and typographical changes. The errors are purely typographical, due to imperfection on the software program, and do not reflect any compromise in the patient's medical care. Plan discussed with: Patient, Other (GUERA Crouch) Visit Coding Pulmonary Billing Provider: AYSE MARTE MD Date of Service if different f: Sep 17, 2025 Common Visit Codes: [id number] INP/OBS CARE(HIGH), [id number] CARE 30-74 MIN AYSE MARTE MD Sep 17, 2025 23:55
[2025-09-18] VITALS (97 sets, daily range): BP systolic 78–124; BP diastolic 38–73; PULSE 56–112; RESP 7–22; TEMP 97.5–98.8; O2SAT 91–97
[2025-09-18 04:09] LABS: Hematocrit 23.6 % (36.0-46.0); Nucleated Red Blood Cells % 0.0 %
[2025-09-18 04:12] LABS: Hemoglobin 7.5 g/dL (12.2-16.2); Mean Corpuscular Hemoglobin 27.0 pg (28.0-32.0); Mean Corpuscular Volume 84.5 fL (80.0-100.0)
[2025-09-18 04:27] LABS: Alkaline Phosphatase 56 U/L (46-116); Anion Gap 12 (5-15); BUN/Creatinine Ratio 21.1 (10.0-20.0); Carbon Dioxide 25 mmol/L (20-31); Chloride 102 mmol/L (98-107); Glucose 81 mg/dL (74-106); Sodium 139 mmol/L (136-145)
[2025-09-18 05:07] LABS: Alanine Aminotransferase < 9 U/L (7-40); Albumin 2.5 g/dL (3.2-4.8); Bilirubin, Total 0.2 mg/dL (0.2-1.0); Blood Urea Nitrogen 52 mg/dL (9-23); Calcium 8.2 mg/dL (8.7-10.4); Magnesium 1.6 mg/dL (1.6-2.6); Potassium 3.2 mmol/L (3.5-5.1); Total Protein 4.3 g/dL (5.7-8.2)
[2025-09-18] MEDS: POTASSIUM CHL 20MEQ/100ML 100 ML IV ONE (06:04)
--- NOTE | 2025-09-18 11:16 | DVHPN2 ---
Progress Note Date Seen: Sep 18, 2025 Has the PT tested + for MRSA If YES, has PT been informed?: No Medical Necessity Reason Pt with a Central, PICC or Fol: Yes The following are medically ne: PICC Line, Dumont Catheter Subjective Patient reports: No new complaints Other Systems: Patient seen and examined by myself today in follow-up Objective vital signs Vital Sign Date Time Temp Pulse Resp B/P (MAP) Pulse Ox O2 Delivery O2 Flow Rate FiO2 09/18/25 10:45 64 9 109/63 (78) 93 09/18/25 10:00 Room Air* 0 21 09/18/25 08:00 98.0 98.0 Total Intake and Output 09/17/25 09/17/25 09/18/25 15:00 23:00 07:00 Intake Total 1007.654 ml 1115.154 ml 1076.904 ml Output Total 650 ml 500 ml Balance 1007.654 ml 465.154 ml 576.904 ml medications Current Medications Medications Dose Ordered Sig/Elissa Route Start Time Stop Time Status Last Admin Dose Admin Norepinephrine Bitartrate 250 ml @ 3.75 mls/hr Q24H IV 09/10/25 18:00 09/17/25 21:26 3.75 MLS/HR Levothyroxine Sodium 150 mcg QAM@0600 PO 09/11/25 06:00 09/18/25 06:03 150 MCG Atorvastatin Calcium 10 mg HS PO 09/10/25 22:00 09/17/25 21:03 10 MG Gabapentin 300 mg TID PO 09/10/25 22:00 09/18/25 06:03 300 MG Acetaminophen/ Hydrocodone Bitart 1 tab Q4HP PRN PO 09/10/25 20:30 09/17/25 21:03 1 TAB Ondansetron HCl 4 mg Q4HP PRN IV 09/10/25 20:30 09/15/25 18:58 4 MG Docusate Sodium 100 mg BIDPRN PRN PO 09/10/25 20:30 Multivitamins 1 tab DAILY PO 09/11/25 10:00 09/18/25 10:31 1 TAB Acetaminophen 650 mg Q6HP PRN PO 09/10/25 20:30 09/15/25 11:29 650 MG Aspirin 81 mg DAILY PO 09/11/25 10:00 09/18/25 10:31 81 MG Nitroglycerin 0.4 mg Q5MINP PRN SL 09/10/25 21:00 Diagnostic Test (Pha) 1 strip ACHS 09/11/25 07:00 09/18/25 06:04 1 STRIP Insulin Human Regular ACHS SC 09/11/25 07:00 09/15/25 22:00 2 UNITS Dextrose 50 ml UD PRN IV 09/10/25 22:45 Fluconazole 100 ml @ 100 mls/hr DAILY IV 09/13/25 10:35 09/18/25 10:30 100 MLS/HR Dopamine HCl/ Dextrose 250 ml @ 8.738 mls/ hr Q24H IV 09/13/25 12:15 09/18/25 02:04 8.738 MLS/HR Ergocalciferol 50,000 unit Q7D PO 09/15/25 10:15 09/15/25 11:30 50,000 UNIT Lactulose 15 ml DAILY PO 09/17/25 10:00 09/18/25 10:31 15 ML Furosemide 80 mg BIDD IV 09/16/25 18:00 09/18/25 06:04 80 MG Hydrocortisone Sodium Succinate 50 mg Q8HR IV 09/16/25 14:00 09/18/25 06:03 50 MG Midodrine 10 mg TID@0600,1200,1800 PO 09/16/25 18:00 09/18/25 06:03 10 MG Morphine Sulfate 2 mg Q30M PRN IV 09/16/25 12:45 Sodium Chloride 1,000 ml @ 100 mls/hr Q10H IV 09/17/25 10:00 09/18/25 06:10 100 MLS/HR Meropenem 50 ml @ 17 mls/hr Q12HR IV 09/17/25 22:00 09/17/25 21:03 17 MLS/HR laboratory and microbiology Laboratory Tests 09/18/25 03:35 Test 09/18/25 03:35 Range/Units Serum Glucose 81 74-106 mg/dL Microbiology Date/Time Source Procedure Growth Status 09/11/25 19:11 Abdomen Gram Stain - Final Complete 09/11/25 19:11 Wound Culture - Final Acinetobacter baumannii Proteus mirabilis Complete 09/10/25 19:28 Blood Blood Culture - Final NO GROWTH AFTER 5 DAYS OF INCUBATION. Complete 09/10/25 17:50 Urine - Dumont [place] Urine Culture - Final Presumptive Frida albicans Complete Problem List/Assessment/Plan Problem List/Assessment/Plan Acute kidney injury superimposed Chronic Kidney Disease secondary hemodynamic mediated, FeNa < 1% Baselined creatinine is unknown Vancomycin toxicity Urinary tract infection Metabolic acidosis Encephalopathy h/o melanoma on treatment at [facility] Anemia of chronic kidney disease Vitamin D deficiency Hypoalbuminemia Hypokalemia Recommendations Kidney function continues to improve Increased urine output Dumont catheter Strict I&Os IVF 1/2 NS at 100 cc/hour KCL replacement d/c Low-dose dopamine Albumin 25% IV piggyback Ergocalciferol 50,000 po q week kidney ultrasound reported echogenic kidney IV antibiotics Discontinue vancomycin We will continue to follow Plan discussed with: Patient Dietary Evaluation Review Comments: Nutrition Recommendation: 1) Avinash 1 pk daily, Nephro-issac 1 tab daily 2) Discontinue MVI 3) Ergocalciferol 50,000IU weekly 4) Monitor PO intake, lab values, weight trend, and I/O Expected Outcomes/Goals: Wound to improve Intake to meet >75% estimated needs Lab values to improve FU 3-5 days MAURICE GRANGER MD Sep 18, 2025 11:16
[2025-09-18] MEDS: POTASSIUM CHL 20MEQ/100ML 100 ML IV SCH (11:45)
[2025-09-18] MEDS: MAGNESIUM SULFATE 1GM/100ML 100 ML IV SCH (11:46)
--- NOTE | 2025-09-18 13:00 | DVHPNRES ---
Progress Note Date Seen: Sep 18, 2025 Resident Creating Document: KETAN KERR RESIDENT Has the PT tested + for MRSA If YES, has PT been informed?: No Medical Necessity Reason Pt with a Central, PICC or Fol: Yes The following are medically ne: PICC Line, Dumont Catheter Subjective Review of Systems The patient is a 64-year-old female morbidly obese with past medical history of melanoma cancer, currently receiving treatment at [facility], hypothyroidism, hypertension, chronic kidney failure, and diabetes mellitus who presented to [facility] ED for evaluation of altered level of consciousness. As reported by daughter patient was experiencing confusion state, became altered from usual baseline, associated with generalized weakness, getting worse that EMS were called. When EMS arrived on the scene, the patient's blood glucose was 78 mg/dL, oriented x2, EN route to our facility ED. Patient was seen and evaluated in the ED with left thigh open wound from cysts removal, laboratory data shows WBC 9.4, hemoglobin 7.0, hematocrit 22.7, platelets 379, sodium 141, potassium 5.2, BUN 50, creatinine 4.45, GFR 11, glucose 63, calcium 8.5, albumin 2.4, BNP 62.07, blood pressure 79/61 trending up to 106/76, heart rate 90, temperature 98.3 F, O2 saturation 98% on room air. Urinalysis positive for urinary tract infection. Patient was started on IV antibiotic regimen vancomycin, please see medication orders section in the computer. On my assessment, daughter at bedside, patient remains altered, no diaphoresis, shortness of breaths, loss of consciousness, no diarrhea, nausea, vomiting, fever, no chills. Patient was admitted for further evaluation and medical management. PAST MEDICAL HISTORY * * Metastatic melanoma (brain and lung metastases per family([facility]) * Hypothyroidism * Diabetes mellitus type 2 * Chronic kidney disease (baseline unknown) * Hypertension * Morbid obesity * Recent surgical wounds (abdomen + left thigh) * Former smoker (quit Sep 2024) PAST SURGICAL HISTORY * Left abdominal melanoma excision * Left proximal thigh melanoma excision * Prior oncologic resections SOCIAL HISTORY * Quit smoking 2023 * No EtOH/drugs * Lives with family REVIEW OF SYSTEMS (limited due to confusion) * Constitutional: Patient is oriented in self, when asked further questions to determine mentation she replies she just wanted to be with her family * Neuro: Confusion, ; follows commands * Resp: No cough, wheezing, SOB * CV: No chest pain; soft BPs * GI: No abdominal pain, tolerating minimal PO * : Very low urine output * Skin: Denies any symptoms * Endo: Denies symptoms * MSK: States she feels weak 09/11/25 * Patient is awake, alert, following commands, but confused and poorly oriented. * Left thigh postoperative wound continues to drain moderately, dressing changed, and wound culture obtained. * Dumont catheter in place; urine output remains very low (UOP 0.11 mL/kg/hr) despite IV fluids. * Still requiring vasopressor support (norepinephrine 6 mcg/min) to maintain MAP > 65. * Hemodynamics stable but soft, BP fluctuating 68992 systolic. * No respiratory distress; oxygen saturation 9698% on room air. * She remains on NS at 100 mL/hr for hemodynamic support. * Nephrology evaluated: No emergent indication for dialysis at this time. * Open abdominal wound with jewell appears intact. * No sedation; remains able to follow simple commands. * Confusion improving slightly but still present. * Thyroid function abnormal requires adjustment. * Postoperative wound continues to drain; wound culture sent; ID coverage continued. * Cefadroxil (home ABX) NOT appropriate for current septic presentation ? continue broad-spectrum IV therapy. * No respiratory failure; stable on room air. * Requires continued ICU-level care. 09/12/25 * Patient remains alert but confused, disoriented, intermittently agitated, weak, with poor appetite. * continues on norepinephrine infusion at 2 mcg/min.UOP 0.15 mL/kg/hr via Dumont. oliguric. * Wound culture: Gram-positive cocci in pairs; gram-negative rods. * Urine culture: >100,000 yeast. * Blood cultures negative. * CT head: no acute findings. * CXR: bilateral pulmonary opacities, pulmonary vascular congestion, stable right pleural effusion. * Echo: LVEF 60%; RV enlarged. * Kidney ultrasound: increased echogenicity consistent with medical renal disease. * Vancomycin discontinued due to SONDRA and toxicity risk. * Started D5 NS + 50 mEq sodium bicarb at 100 mL/hr for metabolic acidosis. * 1 unit PRBC transfused yesterday; Hgb up to 7.9 * Daughter now reports brain metastases previously treated and lung metastases untreated.Records requested. 09/12/25: Patient seen and examined at bedside, patient was on Levophed drip 10 mcg/min, nephrology on board, started bicarbonate drip, we ordered chest CT without contrast, reviewed chest x-ray. 09/13/25: Patient seen and examined at bedside, patient was on Levophed drip 10 mcg/min, nephrology on board, started Lasix 40 mg IV b.i.d., dopamine, changed antibiotic to fluconazole. Patient has started to metronidazole and hydrocortisone. 09/14/25: Patient seen and examined at bedside, patient was on Levophed drip 10 mcg/min, nephrology on board, started Lasix 40 mg IV b.i.d., dopamine, changed antibiotic to fluconazole. Patient has started to metronidazole and hydrocortisone. 09/15/25: Patient seen and examined at bedside, patient was on Levophed drip 10 mcg/min, nephrology on board, cont. Lasix 40 mg IV b.i.d., dopamine, continue fluconazole and start Meropenem as wound culture is Positive for Acinebacter Baumanni and Proteous Mirabilis Patient has started to metronidazole and hydrocortisone. 09/16/25: Patient seen and examined at bedside, patient was on Levophed drip 10 mcg/min, nephrology on board, cont. Lasix 40 mg IV b.i.d., dopamine, continue fluconazole and start Meropenem as wound culture is Positive for Acinebacter Baumanni and Proteous Mirabilis Patient has started to metronidazole and hydrocortisone - Decrease Hydrocortison to 50 mg BID. 09/17/25: Patient seen and examined at bedside, patient was on Levophed drip 10 mcg/min, nephrology on board, cont. Lasix 40 mg IV b.i.d., dopamine, continue fluconazole and start Meropenem as wound culture is Positive for Acinebacter Baumanni and Proteous Mirabilis. 09/18/2025: Patient seen in the ICU, patient is currently off vasopressors, nephrology is on board and recommending continuation of dopamine. Labs show an increase in WBCs, renal function with minor improvement. Patient will continue on meropenem and fluconazole due to results of cultures. Due to progressively decrease Hb, stool occult blood test has been ordered. Objective vital signs Vital Sign Date Time Temp Pulse Resp B/P (MAP) Pulse Ox O2 Delivery O2 Flow Rate FiO2 09/18/25 10:45 64 9 109/63 (78) 93 09/18/25 10:00 Room Air* 0 21 09/18/25 08:00 98.0 98.0 Total Intake and Output 09/17/25 09/17/25 09/18/25 15:00 23:00 07:00 Intake Total 1007.654 ml 1115.154 ml 1076.904 ml Output Total 650 ml 500 ml Balance 1007.654 ml 465.154 ml 576.904 ml medications Current Medications Medications Dose Ordered Sig/Elissa Route Start Time Stop Time Status Last Admin Dose Admin Norepinephrine Bitartrate 250 ml @ 3.75 mls/hr Q24H IV 09/10/25 18:00 09/17/25 21:26 3.75 MLS/HR Levothyroxine Sodium 150 mcg QAM@0600 PO 09/11/25 06:00 09/18/25 06:03 150 MCG Atorvastatin Calcium 10 mg HS PO 09/10/25 22:00 09/17/25 21:03 10 MG Gabapentin 300 mg TID PO 09/10/25 22:00 09/18/25 06:03 300 MG Acetaminophen/ Hydrocodone Bitart 1 tab Q4HP PRN PO 09/10/25 20:30 09/17/25 21:03 1 TAB Ondansetron HCl 4 mg Q4HP PRN IV 09/10/25 20:30 09/15/25 18:58 4 MG Docusate Sodium 100 mg BIDPRN PRN PO 09/10/25 20:30 Multivitamins 1 tab DAILY PO 09/11/25 10:00 09/18/25 10:31 1 TAB Acetaminophen 650 mg Q6HP PRN PO 09/10/25 20:30 09/15/25 11:29 650 MG Aspirin 81 mg DAILY PO 09/11/25 10:00 09/18/25 10:31 81 MG Nitroglycerin 0.4 mg Q5MINP PRN SL 09/10/25 21:00 Diagnostic Test (Pha) 1 strip ACHS 09/11/25 07:00 09/18/25 11:29 1 STRIP Insulin Human Regular ACHS SC 09/11/25 07:00 09/15/25 22:00 2 UNITS Dextrose 50 ml UD PRN IV 09/10/25 22:45 Fluconazole 100 ml @ 100 mls/hr DAILY IV 09/13/25 10:35 09/18/25 10:30 100 MLS/HR Ergocalciferol 50,000 unit Q7D PO 09/15/25 10:15 09/15/25 11:30 50,000 UNIT Lactulose 15 ml DAILY PO 09/17/25 10:00 09/18/25 10:31 15 ML Furosemide 80 mg BIDD IV 09/16/25 18:00 09/18/25 06:04 80 MG Hydrocortisone Sodium Succinate 50 mg Q8HR IV 09/16/25 14:00 09/18/25 06:03 50 MG Midodrine 10 mg TID@0600,1200,1800 PO 09/16/25 18:00 09/18/25 11:29 10 MG Morphine Sulfate 2 mg Q30M PRN IV 09/16/25 12:45 Sodium Chloride 1,000 ml @ 100 mls/hr Q10H IV 09/17/25 10:00 09/18/25 06:10 100 MLS/HR Meropenem 50 ml @ 17 mls/hr Q12HR IV 09/17/25 22:00 09/18/25 11:28 17 MLS/HR Magnesium Sulfate/ Dextrose 100 ml @ 100 mls/hr Q1HR IV 09/18/25 12:00 09/18/25 13:59 09/18/25 11:46 100 MLS/HR Potassium Chloride 100 ml @ 50 mls/hr Q2H IV 09/18/25 11:15 09/18/25 15:14 09/18/25 11:45 50 MLS/HR Examination General: The patient awake, follows commands, only respond her name when asked and otherwise states she wants to be with her family. Patient following commands HEENT: Normocephalic, atraumatic, normal reactive pupils, EOM intact, pink conjunctiva, pink moist mucous membrane Respiratory/pulmonary: Bilateral chest expansion, no pain on palpation of chest wall, clear lungs bilaterally, vesicular murmurs present in almost all lung lynn, no associated crackles or wheezes. Cardiovascular: Normal RRR, normal S1 and S2, no murmurs, pitting edema 2+ mainly in left ankle region Abdomen: Abdomen nondistended, normal bowel sounds, soft, there is no pain to palpation in any of the abdominal quadrants, no palpable masses. Extremities: No deformities, there is no peripheral edema present at the lower extremities, normal pulses Skin: No rashes or pruritus, there is no sacral edema present at this time. Neurological: Intact cranial nerves with no focal neurologic deficits laboratory and microbiology Laboratory Tests 09/18/25 03:35 Test 09/18/25 03:35 Range/Units Serum Glucose 81 74-106 mg/dL Microbiology Date/Time Source Procedure Growth Status 09/11/25 19:11 Abdomen Gram Stain - Final Complete 09/11/25 19:11 Wound Culture - Final Acinetobacter baumannii Proteus mirabilis Complete 09/10/25 19:28 Blood Blood Culture - Final NO GROWTH AFTER 5 DAYS OF INCUBATION. Complete 09/10/25 17:50 Urine - [place] Urine Culture - Final Presumptive Frida albicans Complete Problem List/Assessment/Plan Problem List/Assessment/Plan 1. Neurology Acute metabolic encephalopathy Multifactorial: sepsis, uremia, hypothyroidism, anemia. * Mental status improving slowly but still confused. * No sedation onboard. * Neuro checks q2h. * * CT head negative. * Treat metabolic contributors (TSH, acidosis, renal failure, infection). 2. Cardiovascular Septic shock CHF on chest X-ray Likely fluid-mediated; not in overt respiratory failure. * Continue norepinephrine drip at 6 mcg/min, titrate to maintain MAP > 65. Avoid excess fluids due to CHF on CXR. * ECHO: LVEF 60%, RV enlarged. monitor for RV failure. * Continuous telemetry. * Order echocardiogram (already ordered) to evaluate EF and CHF contribution. 3. Respiratory (NOT mechanically ventilated) * On room air, saturating 96% - 98%. * No respiratory distress. * Incentive spirometry. * Daily CXR PRN for volume status. 4. Gastrointestinal / Nutrition * Soft diet as tolerated once fully oriented. * Monitor albumin; nutritional support as needed. * Bowel regimen PRN. * Monitor abdominal wound with jewell. 5. / Renal (Nephrology following) Acute kidney injury on CKD due to VMN hemodynamically mediated SONDRA due to hypotension. Oliguric renal failure Metabolic acidosis Complicated UTI with Yeast >100,000 * SONDRA on CKD; no emergent HD indication per nephrology. * Continue strict I/O, daily weights. * Nephrology following * Avoid nephrotoxins. 6. Infectious Disease Septic shock, unspecified organism AMS, hypotension requiring norepinephrine, Complicated UTI Postoperative open wound with significant drainage Possible early cellulitis or surgical site infection. Wound Infection * Continue IV ceftriaxone * Follow wound cultures, urine culture, blood cultures. * Wound care nurse to evaluate twice daily. * Wound culture: Positive for Acinebacter Baumanni and Proteous Mirabilis * MRSA screen NEGATIVE. * Urine culture: >100,000 yeast (Frida species likely). * Blood cultures: negative. * Start Meropenem 7. Endocrine Hypothyroidism TSH 11.7 undertreated. Type 2 diabetes with fluctuating glucose Morbid obesity Increases risk for wound complications, sepsis. * Hyper-TSH: Increase levothyroxine dose; * Glucose management with insulin sliding scale; avoid hypoglycemia. * Accu-checks q2h. 8. Hematology / Oncology Symptomatic anemia, acute on chronic Iron deficiency Anemia of chronic disease + acute blood loss monitor; transfuse PRBC if Hgb<7 or symptomatic. * Iron deficiency: patient is NPO intermittently, poor PO intake * IV iron sucrose 200 mg daily 3 doses. * Oncology consult needed (brain mets, lung mets). * Hold Eliquis temporarily due to anemia and ongoing wound drainage; reassess daily. 9. Psychiatry * Monitor for delirium; ensure sleepwake cycle. * Reorient frequently. * No antipsychotics unless agitation. 10. Lines / Drips / Devices * PICC line in left arm: tip in SVC, functioning. * Dumont catheter in place for strict I/O. * Limb restrictions on PICC arm. 11. Prophylaxis * DVT prophylaxis: SCD (temporarily hold Eliquis and lovenox due to anemia) * GI prophylaxis: IV pantoprazole daily. * Pressure ulcer prevention: Turn q2h. * Fall precautions: Bed alarm. 12. Nutrition Malnutrition/Hypoalbuminemia * High-protein diet when safe. * If intake inadequate consider nutrition consult for supplements. 13. Physical / Occupational Therapy * PT/OT evaluation once hemodynamically stable. * Daily mobility as tolerated. 14. Social Work / Care Management * Engage social work for discharge planning and family support. * Provide updates to daughter. CODE STATUS * Full code Critical Care time spent 54 minutes including patient care, chart review and updating family, excluding procedure. Plan discussed with Dr. Raman Plan discussed with: Patient, Other (Nurse (Johnna)) Dietary Evaluation Review Comments: Nutrition Recommendation: 1) Avinash 1 pk daily, Nephro-issac 1 tab daily 2) Discontinue MVI 3) Ergocalciferol 50,000IU weekly 4) Monitor PO intake, lab values, weight trend, and I/O Expected Outcomes/Goals: Wound to improve Intake to meet >75% estimated needs Lab values to improve FU 3-5 days Visit Coding STANDARD RES Billing Provider: AYSE RAMAN MD Date of Service if different f: Sep 18, 2025 KETAN KERR RESIDENT Sep 18, 2025 13:00
--- NOTE | 2025-09-18 23:39 | DVHPN2 ---
Subjective DOS: 09/18/2025 Patient seen and examined at bedside. Breathing comfortably on room air. Overnight events reviewed. Changes from previous H/P or p: No Changes Eyes: No Pain, No Vision change, No Conjunctivae inflammation, No Eyelid inflammation, No Other, No Redness ENT: No Ear pain, No Ear discharge, No Nose pain, No Nose discharge, No Nose congestion, No Mouth pain, No Mouth swelling, No Throat pain, No Throat swelling, No Other Cardiovascular: No Chest Pain, No Palpitations, No Orthopnea, No Paroxysmal Noc. Dyspnea, No Edema, No Lt Headedness, No Other Respiratory: No Cough, No Dry, No Shortness of breath, No SOB with excertion, No Wheezing, No Hemoptysis, No Pleuritic Pain, No Sputum, No Other Gastrointestinal: No Nausea, No Vomiting, No Abdominal Pain, No Diarrhea, No Constipation, No Melena, No Hematochezia, No Other Genitourinary: No Dysuria, No Frequency, No Incontinence, No Hematuria, No Retention, No Other Musculoskeletal: No other, No neck pain, No shoulder pain, No arm pain, No back pain, No hand pain, No leg pain, No foot pain Skin: No Rash, No Lesions, No Jaundice, No Bruising, No Other Objective Vitals Vital Signs Date Time Temp Pulse Resp B/P (MAP) Pulse Ox O2 Delivery O2 Flow Rate FiO2 09/18/25 18:45 58 9 113/51 (71) 94 09/18/25 18:00 Room Air* 0 21 09/18/25 16:00 98.0 98.0 Intake/Output Intake and Output 09/18/25 07:00 Intake Total 3199.712 ml Output Total 1150 ml Balance 2049.712 ml Intake Oral 280 ml IV Total 2919.712 ml Output Urine Total 1150 ml # Bowel Movements 2 Exam Gen.: Patient lying in bed in no apparent distress. Breathing on room air. Head: Normocephalic, atraumatic. Eyes: EOMI/PERRLA. Ears: Normal hearing. Normal anatomy. Neck/trachea: Trachea midline, supple. Nose: Normal external anatomy. Mouth: Moist mucous membranes. Chest: Decreased air entry bilaterally. No wheezing or rhonchi. Cardiovascular: Positive S1, positive S2. Regular rate and rhythm. Abdomen: Positive bowel sounds in all 4 quadrants. Soft, non-tender, non- distended. : Deferred. Rectal: Deferred. Skin: Warm, dry. Intact. Extremities: 2+ radial pulses bilaterally. No lower extremity edema. Neuro: Awake, alert, oriented x3. No gross motor or sensory deficits. Cranial nerves II through XII intact. Gait not assessed. Medications Current Medications Medications Dose Ordered Sig/Elissa Route Start Time Stop Time Status Last Admin Dose Admin Norepinephrine Bitartrate 250 ml @ 3.75 mls/hr Q24H IV 09/10/25 18:00 09/17/25 21:26 3.75 MLS/HR Levothyroxine Sodium 150 mcg QAM@0600 PO 09/11/25 06:00 09/18/25 06:03 150 MCG Atorvastatin Calcium 10 mg HS PO 09/10/25 22:00 09/18/25 21:53 10 MG Gabapentin 300 mg TID PO 09/10/25 22:00 09/18/25 21:53 300 MG Acetaminophen/ Hydrocodone Bitart 1 tab Q4HP PRN PO 09/10/25 20:30 09/17/25 21:03 1 TAB Ondansetron HCl 4 mg Q4HP PRN IV 09/10/25 20:30 09/15/25 18:58 4 MG Docusate Sodium 100 mg BIDPRN PRN PO 09/10/25 20:30 Multivitamins 1 tab DAILY PO 09/11/25 10:00 09/18/25 10:31 1 TAB Acetaminophen 650 mg Q6HP PRN PO 09/10/25 20:30 09/15/25 11:29 650 MG Aspirin 81 mg DAILY PO 09/11/25 10:00 09/18/25 10:31 81 MG Nitroglycerin 0.4 mg Q5MINP PRN SL 09/10/25 21:00 Diagnostic Test (Pha) 1 strip ACHS 09/11/25 07:00 09/18/25 21:54 1 STRIP Insulin Human Regular ACHS SC 09/11/25 07:00 09/15/25 22:00 2 UNITS Dextrose 50 ml UD PRN IV 09/10/25 22:45 Fluconazole 100 ml @ 100 mls/hr DAILY IV 09/13/25 10:35 09/18/25 10:30 100 MLS/HR Ergocalciferol 50,000 unit Q7D PO 09/15/25 10:15 09/15/25 11:30 50,000 UNIT Lactulose 15 ml DAILY PO 09/17/25 10:00 09/18/25 10:31 15 ML Furosemide 80 mg BIDD IV 09/16/25 18:00 09/18/25 17:31 80 MG Hydrocortisone Sodium Succinate 50 mg Q8HR IV 09/16/25 14:00 09/18/25 21:53 50 MG Midodrine 10 mg TID@0600,1200,1800 PO 09/16/25 18:00 09/18/25 17:30 10 MG Morphine Sulfate 2 mg Q30M PRN IV 09/16/25 12:45 Sodium Chloride 1,000 ml @ 100 mls/hr Q10H IV 09/17/25 10:00 09/18/25 17:35 100 MLS/HR Meropenem 50 ml @ 17 mls/hr Q12HR IV 09/17/25 22:00 09/18/25 21:54 17 MLS/HR Laboratory Results Laboratory Tests 09/18/25 03:35 Chemistry Test 09/18/25 03:35 Albumin 2.5 g/dL (3.2-4.8) L Calcium Level 8.2 mg/dL (8.7-10.4) L Magnesium Level 1.6 mg/dL (1.6-2.6) Total Protein 4.3 g/dL (5.7-8.2) L LFT Test 09/18/25 03:35 Alanine Aminotransferase (ALT) < 9 U/L (7-40) Alkaline Phosphatase 56 U/L (46-116) Aspartate Amino Transferase (AST) 11 U/L (13-40) L Total Bilirubin 0.2 mg/dL (0.2-1.0) Urinalysis Test 09/10/25 17:50 09/12/25 11:47 Urine Hyaline Casts Mod /lpf (0 - 2) Urine Mucus Few (None Seen) Urine Color Light-orange (Yellow) Urine Clarity Ex.turbid (Clear) Urine pH 7.0 (5.0-9.0) Urine Specific [place] 1.019 (1.001-1.035) Urine Protein 2+ (Negative) H Urine Ketones Negative (Negative) Urine Blood 1+ /uL (Negative) H Urine Nitrite Negative (Negative) Urine Bilirubin Negative (Negative) Urine Urobilinogen Normal mg/dL (Negative) Urine Leukocyte Esterase 3+ /uL (Negative) Urine RBC 68 /hpf (0 - 4) Urine WBC Clumps Present /hpf (None Seen) Urine Microscopic WBC 2862 /HPF (0-5) H Urine Squamous Epithelial Cells Few /hpf (<5) Urine Transitional Epithelial Cells Mod /hpf (<2) Urine Bacteria Mod /hpf (None Seen) H Urine Yeast (Budding) Many /hpf (None Seen) Urine Creatinine 228.66 mg/dL (30.0-125.0) H Urine Protein/Creatinine Ratio 1.55 Urine Sodium 17 mmol/L (40-220) L Urine Glucose Normal mg/dL (Normal) Urine Total Protein 353.5 mg/dL (1-14) H Microbiology Microbiology Date/Time Source Procedure Growth Status 09/11/25 19:11 Abdomen Gram Stain - Final Complete 09/11/25 19:11 Wound Culture - Final Acinetobacter baumannii Proteus mirabilis Complete 09/10/25 19:28 Blood Blood Culture - Final NO GROWTH AFTER 5 DAYS OF INCUBATION. Complete 09/10/25 17:50 Urine - [place] Urine Culture - Final Presumptive Frida albicans Complete Assessment/Plan Assessment/Plan Impression: Acute metabolic encephalopathy Septic shock Acute kidney injury on chronic kidney disease Complicated UTI Anemia Morbid obesity Events: Remains on room air No distress. Supplemental oxygen PRN Patient is awake, alert. Off Levophed since AM Monitor hemodynamics On dopamine 2 mcg/min Midodrine for BP support Continue antibiotics Steroids - taper hydrocortisone 25 mg IVP q.8 hours Continue antifungal Incentive spirometry Lactulose for constipation. Nephrology recs appreciated Diurese with Lasix BID Monitor renal function. Monitor electrolytes. Supplement as necessary. Potassium supplementation Wound care Labs and imaging reviewed. Rest of plan as noted below. Plan: Supplemental oxygen PRN Titrate to keep O2 sats above 92%. Pressors as necessary for hemodynamic support Titrate to keep mean arterial pressure greater than 65 mmHg Continue antibiotics -started meropenem after culture review. Incentive spirometry Stress dose steroids - tapered. Monitor renal function. Monitor electrolytes. Supplement as necessary. Monitor ins and outs. Monitor hemoglobin Transfuse if less than 7.0 g/dL. Wound care Recommend diet and lifestyle modifications for weight reduction Obesity complicates all care DVT prophylaxis. Prognosis: Poor given patient's multiple co-morbidities. Condition: Critical Rest of plan per hospitalist and other consultants. A total of 35 minutes of critical care time was spent reviewing the patient record, examining the patient, making a diagnostic and therapeutic plan, discussing this plan with the medical personnel, following up on diagnostic studies and following the patient for clinical stability excluding any and all procedures. At least 50% of this time was spent in direct, [id number] contact. Thank you, Dr. Stewart, for allowing me to participate in this patient's care. Further recommendations will depend on the patient's clinical course. Please do not hesitate to contact me if you have any questions or concerns. This medical document was created using an electronic medical record system with [employer] dictation system. Although these documentations are being carefully reviewed, there may still be some phonetic and typographical changes. The errors are purely typographical, due to imperfection on the software program, and do not reflect any compromise in the patient's medical care. Plan discussed with: Patient, Other (GUERA Oropeza) Visit Coding Pulmonary Billing Provider: AYSE MARTE MD Date of Service if different f: Sep 18, 2025 Common Visit Codes: [id number] INP/OBS CARE(HIGH), [id number] CARE 30-74 MIN AYSE MARTE MD Sep 18, 2025 23:39
[2025-09-19] VITALS (77 sets, daily range): BP systolic 79–130; BP diastolic 39–69; PULSE 58–100; RESP 8–25; TEMP 97.4–98.3; O2SAT 92–98
[2025-09-19 03:44] LABS: Hemoglobin 7.4 g/dL (12.2-16.2)
[2025-09-19 03:48] LABS: Chloride 102 mmol/L (98-107); Hematocrit 22.9 % (36.0-46.0); Mean Corpuscular Hemoglobin 27.7 pg (28.0-32.0); Mean Corpuscular Volume 85.8 fL (80.0-100.0); Nucleated Red Blood Cells % 0.1 %; Potassium 3.8 mmol/L (3.5-5.1); Sodium 138 mmol/L (136-145)
[2025-09-19 03:49] LABS: Anion Gap 11 (5-15); Carbon Dioxide 25 mmol/L (20-31)
[2025-09-19 03:54] LABS: BUN/Creatinine Ratio 22.4 (10.0-20.0)
[2025-09-19 03:55] LABS: Magnesium 1.8 mg/dL (1.6-2.6)
[2025-09-19 04:01] LABS: Blood Urea Nitrogen 51 mg/dL (9-23); Calcium 8.1 mg/dL (8.7-10.4); Glucose 64 mg/dL (74-106)
[2025-09-19] MEDS: D5W/SOD CHL 0.45% 1,000 ML IV SCH ×2 (05:12→17:32)
--- NOTE | 2025-09-19 09:30 | DVHPNRES ---
Progress Note Date Seen: Sep 19, 2025 Resident Creating Document: MARITZA MAYO RESIDENT Has the PT tested + for MRSA If YES, has PT been informed?: No Medical Necessity Reason Pt with a Central, PICC or Fol: Yes The following are medically ne: PICC Line, Dumont Catheter Subjective Review of Systems The patient is a 64-year-old female morbidly obese with past medical history of melanoma cancer, currently receiving treatment at [facility], hypothyroidism, hypertension, chronic kidney failure, and diabetes mellitus who presented to [facility] ED for evaluation of altered level of consciousness. As reported by daughter patient was experiencing confusion state, became altered from usual baseline, associated with generalized weakness, getting worse that EMS were called. When EMS arrived on the scene, the patient's blood glucose was 78 mg/dL, oriented x2, EN route to our facility ED. Patient was seen and evaluated in the ED with left thigh open wound from cysts removal, laboratory data shows WBC 9.4, hemoglobin 7.0, hematocrit 22.7, platelets 379, sodium 141, potassium 5.2, BUN 50, creatinine 4.45, GFR 11, glucose 63, calcium 8.5, albumin 2.4, BNP 62.07, blood pressure 79/61 trending up to 106/76, heart rate 90, temperature 98.3 F, O2 saturation 98% on room air. Urinalysis positive for urinary tract infection. Patient was started on IV antibiotic regimen vancomycin, please see medication orders section in the computer. On my assessment, daughter at bedside, patient remains altered, no diaphoresis, shortness of breaths, loss of consciousness, no diarrhea, nausea, vomiting, fever, no chills. Patient was admitted for further evaluation and medical management. PAST MEDICAL HISTORY * * Metastatic melanoma (brain and lung metastases per family([facility]) * Hypothyroidism * Diabetes mellitus type 2 * Chronic kidney disease (baseline unknown) * Hypertension * Morbid obesity * Recent surgical wounds (abdomen + left thigh) * Former smoker (quit Sep 2024) PAST SURGICAL HISTORY * Left abdominal melanoma excision * Left proximal thigh melanoma excision * Prior oncologic resections SOCIAL HISTORY * Quit smoking 2023 * No EtOH/drugs * Lives with family REVIEW OF SYSTEMS (limited due to confusion) * Constitutional: Patient is oriented in self, when asked further questions to determine mentation she replies she just wanted to be with her family * Neuro: Confusion, ; follows commands * Resp: No cough, wheezing, SOB * CV: No chest pain; soft BPs * GI: No abdominal pain, tolerating minimal PO * : Very low urine output * Skin: Denies any symptoms * Endo: Denies symptoms * MSK: States she feels weak 09/11/25 * Patient is awake, alert, following commands, but confused and poorly oriented. * Left thigh postoperative wound continues to drain moderately, dressing changed, and wound culture obtained. * Dumont catheter in place; urine output remains very low (UOP 0.11 mL/kg/hr) despite IV fluids. * Still requiring vasopressor support (norepinephrine 6 mcg/min) to maintain MAP > 65. * Hemodynamics stable but soft, BP fluctuating 08515 systolic. * No respiratory distress; oxygen saturation 9698% on room air. * She remains on NS at 100 mL/hr for hemodynamic support. * Nephrology evaluated: No emergent indication for dialysis at this time. * Open abdominal wound with jewell appears intact. * No sedation; remains able to follow simple commands. * Confusion improving slightly but still present. * Thyroid function abnormal requires adjustment. * Postoperative wound continues to drain; wound culture sent; ID coverage continued. * Cefadroxil (home ABX) NOT appropriate for current septic presentation ? continue broad-spectrum IV therapy. * No respiratory failure; stable on room air. * Requires continued ICU-level care. 09/12/25 * Patient remains alert but confused, disoriented, intermittently agitated, weak, with poor appetite. * continues on norepinephrine infusion at 2 mcg/min.UOP 0.15 mL/kg/hr via Dumont. oliguric. * Wound culture: Gram-positive cocci in pairs; gram-negative rods. * Urine culture: >100,000 yeast. * Blood cultures negative. * CT head: no acute findings. * CXR: bilateral pulmonary opacities, pulmonary vascular congestion, stable right pleural effusion. * Echo: LVEF 60%; RV enlarged. * Kidney ultrasound: increased echogenicity consistent with medical renal disease. * Vancomycin discontinued due to SONDRA and toxicity risk. * Started D5 NS + 50 mEq sodium bicarb at 100 mL/hr for metabolic acidosis. * 1 unit PRBC transfused yesterday; Hgb up to 7.9 * Daughter now reports brain metastases previously treated and lung metastases untreated.Records requested. 09/12/25: Patient seen and examined at bedside, patient was on Levophed drip 10 mcg/min, nephrology on board, started bicarbonate drip, we ordered chest CT without contrast, reviewed chest x-ray. 09/13/25: Patient seen and examined at bedside, patient was on Levophed drip 10 mcg/min, nephrology on board, started Lasix 40 mg IV b.i.d., dopamine, changed antibiotic to fluconazole. Patient has started to metronidazole and hydrocortisone. 09/14/25: Patient seen and examined at bedside, patient was on Levophed drip 10 mcg/min, nephrology on board, started Lasix 40 mg IV b.i.d., dopamine, changed antibiotic to fluconazole. Patient has started to metronidazole and hydrocortisone. 09/15/25: Patient seen and examined at bedside, patient was on Levophed drip 10 mcg/min, nephrology on board, cont. Lasix 40 mg IV b.i.d., dopamine, continue fluconazole and start Meropenem as wound culture is Positive for Acinebacter Baumanni and Proteous Mirabilis Patient has started to metronidazole and hydrocortisone. 09/16/25: Patient seen and examined at bedside, patient was on Levophed drip 10 mcg/min, nephrology on board, cont. Lasix 40 mg IV b.i.d., dopamine, continue fluconazole and start Meropenem as wound culture is Positive for Acinebacter Baumanni and Proteous Mirabilis Patient has started to metronidazole and hydrocortisone - Decrease Hydrocortison to 50 mg BID. 09/17/25: Patient seen and examined at bedside, patient was on Levophed drip 10 mcg/min, nephrology on board, cont. Lasix 40 mg IV b.i.d., dopamine, continue fluconazole and start Meropenem as wound culture is Positive for Acinebacter Baumanni and Proteous Mirabilis. 09/18/2025: Patient seen in the ICU, patient is currently off vasopressors, nephrology is on board and recommending continuation of dopamine. Labs show an increase in WBCs, renal function with minor improvement. Patient will continue on meropenem and fluconazole due to results of cultures. Due to progressively decrease Hb, stool occult blood test has been ordered. Objective vital signs Vital Sign Date Time Temp Pulse Resp B/P (MAP) Pulse Ox O2 Delivery O2 Flow Rate FiO2 09/19/25 07:00 68 11 103/64 (77) 94 09/19/25 06:00 Room Air* 0 21 09/19/25 04:00 98.3 98.3 Total Intake and Output 09/18/25 09/18/25 09/19/25 15:00 23:00 07:00 Intake Total 1138.702 ml 920 ml 910 ml Output Total 325 ml 300 ml Balance 1138.702 ml 595 ml 610 ml medications Current Medications Medications Dose Ordered Sig/Elissa Route Start Time Stop Time Status Last Admin Dose Admin Norepinephrine Bitartrate 250 ml @ 3.75 mls/hr Q24H IV 09/10/25 18:00 09/17/25 21:26 3.75 MLS/HR Levothyroxine Sodium 150 mcg QAM@0600 PO 09/11/25 06:00 09/19/25 06:02 150 MCG Atorvastatin Calcium 10 mg HS PO 09/10/25 22:00 09/18/25 21:53 10 MG Gabapentin 300 mg TID PO 09/10/25 22:00 09/19/25 06:02 300 MG Acetaminophen/ Hydrocodone Bitart 1 tab Q4HP PRN PO 09/10/25 20:30 09/17/25 21:03 1 TAB Ondansetron HCl 4 mg Q4HP PRN IV 09/10/25 20:30 09/19/25 09:25 4 MG Docusate Sodium 100 mg BIDPRN PRN PO 09/10/25 20:30 Multivitamins 1 tab DAILY PO 09/11/25 10:00 09/19/25 09:13 1 TAB Acetaminophen 650 mg Q6HP PRN PO 09/10/25 20:30 09/19/25 06:05 650 MG Aspirin 81 mg DAILY PO 09/11/25 10:00 09/19/25 09:13 81 MG Nitroglycerin 0.4 mg Q5MINP PRN SL 09/10/25 21:00 Diagnostic Test (Pha) 1 strip ACHS 09/11/25 07:00 09/19/25 06:02 1 STRIP Insulin Human Regular ACHS SC 09/11/25 07:00 09/15/25 22:00 2 UNITS Dextrose 50 ml UD PRN IV 09/10/25 22:45 Fluconazole 100 ml @ 100 mls/hr DAILY IV 09/13/25 10:35 09/19/25 09:12 100 MLS/HR Ergocalciferol 50,000 unit Q7D PO 09/15/25 10:15 09/15/25 11:30 50,000 UNIT Lactulose 15 ml DAILY PO 09/17/25 10:00 09/18/25 10:31 15 ML Furosemide 80 mg BIDD IV 09/16/25 18:00 09/19/25 06:01 80 MG Hydrocortisone Sodium Succinate 50 mg Q8HR IV 09/16/25 14:00 09/19/25 06:01 50 MG Midodrine 10 mg TID@0600,1200,1800 PO 09/16/25 18:00 09/19/25 06:01 10 MG Morphine Sulfate 2 mg Q30M PRN IV 09/16/25 12:45 Meropenem 50 ml @ 17 mls/hr Q12HR IV 09/17/25 22:00 09/18/25 21:54 17 MLS/HR Dextrose/Sodium Chloride 1,000 ml @ 100 mls/hr Q10H IV 09/19/25 05:00 09/19/25 05:12 100 MLS/HR Sodium Chloride 1,000 ml @ 100 mls/hr Q10H IV 09/19/25 15:00 Examination General: The patient awake, follows commands, only respond her name when asked and otherwise states she wants to be with her family. Patient following commands HEENT: Normocephalic, atraumatic, normal reactive pupils, EOM intact, pink conjunctiva, pink moist mucous membrane Respiratory/pulmonary: Bilateral chest expansion, no pain on palpation of chest wall, clear lungs bilaterally, vesicular murmurs present in almost all lung lynn, no associated crackles or wheezes. Cardiovascular: Normal RRR, normal S1 and S2, no murmurs, pitting edema 2+ mainly in left ankle region Abdomen: Abdomen nondistended, normal bowel sounds, soft, there is no pain to palpation in any of the abdominal quadrants, no palpable masses. Extremities: No deformities, there is no peripheral edema present at the lower extremities, normal pulses Skin: No rashes or pruritus, there is no sacral edema present at this time. Neurological: Intact cranial nerves with no focal neurologic deficits laboratory and microbiology Laboratory Tests 09/19/25 03:19 Test 09/19/25 03:19 Range/Units Serum Glucose 64 L 74-106 mg/dL Microbiology Date/Time Source Procedure Growth Status 09/11/25 19:11 Abdomen Gram Stain - Final Complete 09/11/25 19:11 Wound Culture - Final Acinetobacter baumannii Proteus mirabilis Complete 09/10/25 19:28 Blood Blood Culture - Final NO GROWTH AFTER 5 DAYS OF INCUBATION. Complete 09/10/25 17:50 Urine - [place] Urine Culture - Final Presumptive Frida albicans Complete Problem List/Assessment/Plan Problem List/Assessment/Plan Neurology # Acute metabolic encephalopathy secondary to sepsis # Metastasis CA to Brain - ordered MRI brain - Mental status improving slowly but still confused. - Neuro checks q2h. - CT head negative. Cardiovascular # Septic shock due to UTI and Wound Infection # HFpEF, EF 60 % - Continue norepinephrine drip , titrate to maintain MAP > 65. - Avoid excess fluids due to CHF on CXR. -ECHO: LVEF 60%, RV enlarged. monitor for RV failure. Respiratory - On room air, saturating 96% - 98%. - No respiratory distress. - Incentive spirometry. Gastrointestinal # Post sx Abdomina Wound - Monitor albumin; nutritional support as needed. - Bowel regimen PRN. - Monitor abdominal wound with jewell. # Complicated UTI # Acute kidney injury on CKD due to VMN hemodynamically mediated SONDRA due to hypotension. # Oliguric renal failure due to septic shock # Metabolic acidosis due to sepsis/septic shock # Complicated UTI with Yeast >100,000 - no emergent HD indication per nephrology. - Continue strict I/O, daily weights. - Nephrology following - Avoid nephrotoxins. # Infectious Disease - Septic shock, - AMS, hypotension requiring norepinephrine, - Complicated UTI - Postoperative open wound with significant drainage - Possible early cellulitis or surgical site infection. - Wound Infection - Continue IV Meropenem - Wound care - Wound culture: Positive for Acinebacter Baumanni and Proteous Mirabilis - MRSA screen NEGATIVE. - Urine culture: >100,000 yeast (Frida species likely). - started micafungin - Blood cultures: negative. Endocrine # Hypothyroidism - TSH 11.7 undertreated. # Type 2 diabetes with fluctuating glucose # Morbid obesity - Increases risk for wound complications, sepsis. - Hyper-TSH: Increase levothyroxine dose; - Glucose management with insulin sliding scale; avoid hypoglycemia. Hematology / Oncology # Metastatic melanoma lungs, adrenal gland and brain., peritoneum # Symptomatic anemia, acute on chronic # Iron deficiency # Anemia of chronic disease + acute blood loss - monitor; transfuse PRBC if Hgb<7 or symptomatic. - Iron deficiency: patient is NPO intermittently, poor PO intake - IV iron sucrose 200 mg daily 3 doses. - Hold Eliquis temporarily due to anemia and ongoing wound drainage; reassess daily. 10. Lines / Drips / Devices * PICC line in left arm Prophylaxis * DVT prophylaxis: SCD * GI prophylaxis: IV pantoprazole daily. * Pressure ulcer prevention: Turn q2h. Nutrition # Malnutrition/Hypoalbuminemia * High-protein diet when safe. 14. Social Work / Care Management * Engage social work for discharge planning and family support. CODE STATUS * Full code Critical Care time spent 54 minutes including patient care, chart review and updating family, excluding procedure. Plan discussed with Dr. Ahmadi Plan discussed with: Patient, RN Plan discussed with: Patient Dietary Evaluation Review Comments: Nutrition Recommendation: 1) Avinash 1 pk daily, Nephro-issac 1 tab daily 2) Discontinue MVI 3) Ergocalciferol 50,000IU weekly 4) Monitor PO intake, lab values, weight trend, and I/O Expected Outcomes/Goals: Wound to improve Intake to meet >75% estimated needs Lab values to improve FU 3-5 days Date of Service: Sep 19, 2025 Billing Provider: JESU AHMADI MD Common Visit Codes: [id number] CARE 30-74 MIN MARITZA MAYO RESIDENT Sep 19, 2025 09:30 JESU AHMADI MD Sep 20, 2025 12:48
[2025-09-19] MEDS ORDERED: D5W/SOD CHL 0.45% 1,000 ML IV SCH (10:45)
[2025-09-19] MEDS: MAGNESIUM SULFATE 1GM/100ML 100 ML IV ONE (12:15)
--- NOTE | 2025-09-19 13:52 | DVHINCON2 ---
GI Consult Consult Note GI consult note Date of Consultation: 09/19/2025 Chief Complaint: Positive stool occult, nausea, vomiting Referring Physician: Dr. Stewart H&P: 64-year-old female with past medical history of melanoma with Mets to brain and lung per chart, receiving treatment at [facility], hypothyroidism, hypertension, chronic kidney disease, diabetes mellitus admitted with altered level of consciousness. Patient is awake but not a good historian. History from chart and RN. Patient has left thigh open wound Patient is complaining of generalized abdominal pain. Also has complains of nausea and vomiting, but mostly is only spitting up. No hematochezia. Patient having multiple episodes of loose stool which is black in color. Patient was on lactulose which is being held at this time Patient has poor appetite and is refusing to have even clear liquid diet per RN Past Medical History: * * Metastatic melanoma (brain and lung metastases per family([facility]) * Hypothyroidism * Diabetes mellitus type 2 * Chronic kidney disease (baseline unknown) * Hypertension * Morbid obesity * Recent surgical wounds (abdomen + left thigh) * Former smoker (quit Sep 2024) Past Surgical History: * Left abdominal melanoma excision * Left proximal thigh melanoma excision * Prior oncologic resections Social History: * Quit smoking 2023 * No EtOH/drugs * Lives with family Family History: Noncontributory Review of Systems: As above Physical exam: General: Patient is awake, and mildly agitated Chest: lung lynn clear to auscultation Heart: RRR, no murmur Abdomen: Mild generalized abdominal tenderness to palpation, +BS Labs: Labs Test 09/19/25 11:14 09/19/25 03:19 09/18/25 23:05 09/18/25 03:35 Range/Units POC Glucose 84 70-106 mg/dl White Blood Count 17.4 H 4.4-10.8 10^3/uL Red Blood Count 2.66 L 4.0-5.20 10^6/uL Hemoglobin 7.4 L 12.2-16.2 g/dL Hematocrit 22.9 L 36.0-46.0 % Mean Corpuscular Volume 85.8 80.0-100.0 fL Mean Corpuscular Hemoglobin 27.7 L 28.0-32.0 pg Mean Corpuscular Hemoglobin Concent 32.2 32.0-36.0 g/dL Red Cell Distribution Width 17.9 H 11.8-14.3 % Platelet Count 356 140-450 10^3/uL Mean Platelet Volume 7.8 6.9-10.8 fL Neutrophils (%) (Auto) 89.7 H 37.0-80.0 % Lymphocytes (%) (Auto) 7.6 L 10.0-50.0 % Monocytes (%) (Auto) 2.6 0.0-12.0 % Eosinophils (%) (Auto) 0.0 0.0-7.0 % Basophils (%) (Auto) 0.1 0.0-2.0 % Neutrophils # (Auto) 15.6 H 1.6-8.6 10 ^3/uL Lymphocytes # (Auto) 1.3 0.4-5.4 10 ^3/uL Monocytes # (Auto) 0.5 0-1.3 10 ^3/uL Eosinophils # (Auto) 0 0-0.8 10 ^3/uL Basophils # (Auto) 0 0-0.2 10 ^3/uL Nucleated Red Blood Cells 0.1 % Sodium Level 138 136-145 mmol/L Potassium Level 3.8 3.5-5.1 mmol/L Chloride Level 102 98-107 mmol/L Carbon Dioxide Level 25 20-31 mmol/L Anion Gap 11 5-15 Blood Urea Nitrogen 51 H 9-23 mg/dL Creatinine 2.28 H 0.550-1.02 mg/dL Glomerular Filtration Rate Calc 24 >90 mL/min BUN/Creatinine Ratio 22.4 H 10.0-20.0 Serum Glucose 64 L 74-106 mg/dL Calcium Level 8.1 L 8.7-10.4 mg/dL Magnesium Level 1.8 1.6-2.6 mg/dL Stool Occult Blood Positive Negative Stool Occult Blood Sample #3 Negative Total Bilirubin 0.2 0.2-1.0 mg/dL Aspartate Amino Transferase (AST) 11 L 13-40 U/L Alanine Aminotransferase (ALT) < 9 7-40 U/L Alkaline Phosphatase 56 46-116 U/L Ammonia 29 11-32 umol/L Total Protein 4.3 L 5.7-8.2 g/dL Albumin 2.5 L 3.2-4.8 g/dL Test 09/17/25 02:31 09/13/25 10:37 09/12/25 12:23 09/12/25 11:47 Range/Units Phosphorus Level 3.6 2.4-5.1 mg/dL Blood Gas Specimen Type Arterial Blood Gas Sample Site Left radial Blood Gas Patient Temperature 37.0 Arterial Blood Date Drawn Arterial Blood pH 7.397 7.350-7.450 Arterial Blood Partial Pressure CO2 23.0 L 32.0-45.0 mmHg Arterial Blood Partial Pressure O2 82.9 L 83.0-108.0 mmHg Arterial Blood HCO3 13.8 L 21.0-28.0 mmol/L Arterial Blood Oxygen Saturation 95.6 94.0-98.0 % Arterial Blood Base Excess -9.6 L -2.0-3.0 mmol/L Arterial Blood Oxyhemoglobin 94.5 94.0-98.0 % Arterial Blood Carboxyhemoglobin 0.4 L 0.5-1.5 % Arterial Blood Methemoglobin 0.8 0.0-1.5 % Arterial Blood Deoxyhemoglobin 4.3 0.0-5.0 % Juan Jose Test Yes Blood Gas Total Hemoglobin 9.10 L 12.0-16.0 g/dL Blood Gas Liter Flow 0.00 Blood Gas Modality Room air FiO2 % 21.0 Parathyroid Hormone (Intact) 57.0 18.4-80.1 pg/mL Urine Color Light-orange Yellow Urine Clarity Ex.turbid Clear Urine pH 7.0 5.0-9.0 Urine Specific [place] 1.019 1.001-1.035 Urine Protein 2+ H Negative Urine Ketones Negative Negative Urine Blood 1+ H Negative /uL Urine Nitrite Negative Negative Urine Bilirubin Negative Negative Urine Urobilinogen Normal Negative mg/dL Urine Leukocyte Esterase 3+ Negative /uL Urine RBC 68 0 - 4 /hpf Urine WBC Clumps Present None Seen /hpf Urine Microscopic WBC 2862 H 0-5 /HPF Urine Squamous Epithelial Cells Few <5 /hpf Urine Transitional Epithelial Cells Mod <2 /hpf Urine Bacteria Mod H None Seen /hpf Urine Yeast (Budding) Many None Seen /hpf Urine Creatinine 228.66 H 30.0-125.0 mg/dL Urine Protein/Creatinine Ratio 1.55 Urine Sodium 17 L 40-220 mmol/L Urine Glucose Normal Normal mg/dL Urine Total Protein 353.5 H 1-14 mg/dL Test 09/12/25 04:48 09/10/25 18:05 09/10/25 17:50 Range/Units Iron Level 13 L 50-170 ug/dL Total Iron Binding Capacity 161 L 250-425 ug/dL Percent Iron Saturation 8.1 L 15-50 % Ferritin 89.7 10-291 ng/mL Vitamin D 25-Hydroxy 17.0 L 30.0-100 ng/mL Random Vancomycin Level 23.0 H 5-10 ug/mL Prothrombin Time 10.4 9.3-11.8 sec Prothrombin Time INR 0.98 0.9-1.15 Activated Partial Thromboplast Time 28.1 24.5-34.5 SEC Hemoglobin A1c < 3.8 <5.7 % A1C Lactic Acid Level 1.0 0.4-2.0 mmol/L B-Type Natriuretic Peptide 62.07 0-100 pg/mL Thyroid Stimulating Hormone (TSH) 11.74 H 0.55-4.78 uIU/mL Urine Hyaline Casts Mod 0 - 2 /lpf Urine Mucus Few None Seen Microbiology Date/Time Source Procedure Growth Status 09/11/25 19:11 Abdomen Gram Stain - Final Complete 09/11/25 19:11 Wound Culture - Final Acinetobacter baumannii Proteus mirabilis Complete 09/10/25 19:28 Blood Blood Culture - Final NO GROWTH AFTER 5 DAYS OF INCUBATION. Complete 09/10/25 17:50 Urine - [place] Urine Culture - Final Presumptive Frida albicans Complete Imaging: Assessment: Possible GI bleed Anemia Metabolic encephalopathy Metastatic melanoma Abdominal pain Persistent nausea vomiting Plan: Discussed with Dr. Kem Choudhury - Pt will be scheduled for an EGD with biopsy for 09/20/2025 if patient is stable for procedure. Zofran and Protonix Monitor lab NPO after midnight Discussed plan with RN Thank you for this consult Date of Service: Sep 19, 2025 Billing Provider: RYAN NI Common Visit Codes: CONSULT ONLY Consultation Codes: [id number] CONSULT <60MIN RYAN NI Sep 19, 2025 13:52
[2025-09-19] MEDS: MORPHINE SULFATE INJ 2 MG/ml SYRG IV PRN (14:21)
[2025-09-19] MEDS ORDERED: SOD CHL 0.45% 1,000 ML IV SCH (15:00)
[2025-09-19] MEDS: PANTOPRAZOLE 40 MG/10 ML VIAL INJ IV SCH (23:41)
[2025-09-20] VITALS (79 sets, daily range): BP systolic 99–132; BP diastolic 46–70; PULSE 59–94; RESP 8–22; TEMP 97.5–98.1; O2SAT 90–98
--- NOTE | 2025-09-20 05:03 | DVH ---
CHEST RADIOGRAPH Indication: PNA Technique: Single frontal view of the chest was obtained COMPARISON: XY CHEST XRAY 1 VIEW on DOS: 09/13/25, XY CHEST XRAY 1 VIEW on DOS: 09/12/25, XY CHEST PORTABLE on DOS: 09/10/25 FINDINGS: Lines and Tubes: None Lungs: Clear Pleura: No effusion. No pneumothorax. Cardiomediastinal contours: Unremarkable Bones: Unremarkable IMPRESSION: 1. No acute disease.
--- NOTE | 2025-09-20 06:57 | DVHPN2 ---
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 vital signs Vital Sign Date Time Temp Pulse Resp B/P (MAP) Pulse Ox O2 Delivery O2 Flow Rate FiO2 09/20/25 04:00 75 09/20/25 04:00 12 95 Room Air* 0 21 09/20/25 00:12 103/55 09/19/25 20:00 97.6 97.6 Total Intake and Output 09/19/25 09/19/25 09/20/25 15:00 23:00 07:00 Intake Total 1050 ml 275 ml Output Total 50 ml Balance 1050 ml 225 ml medications Current Medications Medications Dose Ordered Sig/Elissa Route Start Time Stop Time Status Last Admin Dose Admin Norepinephrine Bitartrate 250 ml @ 3.75 mls/hr Q24H IV 09/10/25 18:00 09/17/25 21:26 3.75 MLS/HR Levothyroxine Sodium 150 mcg QAM@0600 PO 09/11/25 06:00 09/19/25 06:02 150 MCG Ondansetron HCl 4 mg Q4HP PRN IV 09/10/25 20:30 09/19/25 09:25 4 MG Docusate Sodium 100 mg BIDPRN PRN PO 09/10/25 20:30 Acetaminophen 650 mg Q6HP PRN PO 09/10/25 20:30 09/19/25 06:05 650 MG Nitroglycerin 0.4 mg Q5MINP PRN SL 09/10/25 21:00 Diagnostic Test (Pha) 1 strip ACHS 09/11/25 07:00 09/19/25 23:43 1 STRIP Insulin Human Regular ACHS SC 09/11/25 07:00 09/15/25 22:00 2 UNITS Dextrose 50 ml UD PRN IV 09/10/25 22:45 Lactulose 15 ml DAILY PO 09/17/25 10:00 09/18/25 10:31 15 ML Furosemide 80 mg BIDD IV 09/16/25 18:00 09/19/25 17:32 80 MG Morphine Sulfate 2 mg Q30M PRN IV 09/16/25 12:45 Meropenem 50 ml @ 17 mls/hr Q12HR IV 09/17/25 22:00 09/19/25 23:43 17 MLS/HR Dextrose/Sodium Chloride 1,000 ml @ 100 mls/hr Q10H IV 09/19/25 10:45 Cancel Pantoprazole Sodium 40 mg BID IV 09/19/25 22:00 09/19/25 23:41 40 MG Morphine Sulfate 2 mg Q6HPRN PRN IV 09/19/25 14:00 09/19/25 23:42 2 MG Dextrose/Sodium Chloride 1,000 ml @ 75 mls/hr [id number] IV 09/19/25 16:45 09/20/25 06:05 75 MLS/HR Dexamethasone Sodium Phosphate 4 mg Q8HR IV 09/19/25 22:00 09/19/25 23:42 4 MG Micafungin Sodium 100 mg/Sodium Chloride 100 ml @ 100 mls/hr DAILY IV 09/20/25 10:00 objective Gen: nad heent: nc/at, mmm lungs: cta anteriorly cvs: no rub abd: soft, bowel sounds audible ext: no edema skin: no rash neuro: alert and oriented laboratory and microbiology Laboratory Tests 09/19/25 03:19 Test 09/19/25 03:19 Range/Units Serum Glucose 64 L 74-106 mg/dL Assessment/Plan Problem List/Assessment/Plan Acute kidney injury superimposed Chronic Kidney Disease secondary hemodynamic mediated, FeNa < 1% - improving Baselined creatinine is unknown Vancomycin toxicity Urinary tract infection Metabolic acidosis Encephalopathy h/o melanoma on treatment at [facility] Anemia of chronic kidney disease Vitamin D deficiency Hypoalbuminemia Hypokalemia Recommendations: - IV fluids at maintenance - electrolyte repletion as needed - we will continue to follow, SONDRA improving Dietary Evaluation Review Comments: Nutrition Recommendation: 1) Avinash 1 pk daily, Nephro-issac 1 tab daily 2) Discontinue MVI 3) Ergocalciferol 50,000IU weekly 4) Monitor PO intake, lab values, weight trend, and I/O Expected Outcomes/Goals: Wound to improve Intake to meet >75% estimated needs Lab values to improve FU 3-5 days Plan discussed with: Other VICTORIANO SCHWARTZ MD Sep 20, 2025 06:57
[2025-09-20 07:37] LABS: Hemoglobin 7.5 g/dL (12.2-16.2); Mean Corpuscular Hemoglobin 27.8 pg (28.0-32.0); Nucleated Red Blood Cells % 0.1 %
[2025-09-20 07:40] LABS: Hematocrit 24.1 % (36.0-46.0); Mean Corpuscular Volume 89.4 fL (80.0-100.0)
[2025-09-20 07:53] LABS: Alkaline Phosphatase 64 U/L (46-116); Anion Gap 10 (5-15); BUN/Creatinine Ratio 16.7 (10.0-20.0); Carbon Dioxide 22 mmol/L (20-31); Chloride 102 mmol/L (98-107); Glucose 86 mg/dL (74-106); Potassium 4.1 mmol/L (3.5-5.1)
[2025-09-20 07:58] LABS: Alanine Aminotransferase < 9 U/L (7-40); Albumin 2.3 g/dL (3.2-4.8); Bilirubin, Total 0.2 mg/dL (0.2-1.0); Blood Urea Nitrogen 44 mg/dL (9-23); Calcium 8.3 mg/dL (8.7-10.4); Sodium 134 mmol/L (136-145); Total Protein 4.2 g/dL (5.7-8.2)
[2025-09-20] MEDS ORDERED: diphenhydrAMINE HCL 50 MG/1 ML VL ONE (09:08)
[2025-09-20] MEDS ORDERED: LIDOCAINE VISCOUS 2% 15ML UD ONE (09:08)
[2025-09-20] MEDS ORDERED: SODIUM CHLORIDE LOCK 10 ML ONE (09:08)
[2025-09-20] MEDS ORDERED: MIDAZOLAM HCL 5 MG/ML-1ML VIAL ONE (09:08)
[2025-09-20] MEDS ORDERED: fentaNYL CITRATE 100 MCG/2 ML VL ONE (09:09)
[2025-09-20] MEDS: MICAFUNGIN SODIUM 100 MG in SODIUM CHL 0.9% 100 ML IV SCH (09:42)
[2025-09-20] MEDS ORDERED: KETOROLAC TROMETH 30 MG/ML 1ML VIAL IV ONE (10:15)
--- NOTE | 2025-09-20 10:19 | DVHPNRES ---
Progress Note Date Seen: Sep 20, 2025 Resident Creating Document: MARITZA MAYO RESIDENT Has the PT tested + for MRSA If YES, has PT been informed?: No Medical Necessity Reason Pt with a Central, PICC or Fol: Yes The following are medically ne: PICC Line, Dumont Catheter Subjective Review of Systems The patient is a 64-year-old female morbidly obese with past medical history of melanoma cancer, currently receiving treatment at [facility], hypothyroidism, hypertension, chronic kidney failure, and diabetes mellitus who presented to [facility] ED for evaluation of altered level of consciousness. As reported by daughter patient was experiencing confusion state, became altered from usual baseline, associated with generalized weakness, getting worse that EMS were called. When EMS arrived on the scene, the patient's blood glucose was 78 mg/dL, oriented x2, EN route to our facility ED. Patient was seen and evaluated in the ED with left thigh open wound from cysts removal, laboratory data shows WBC 9.4, hemoglobin 7.0, hematocrit 22.7, platelets 379, sodium 141, potassium 5.2, BUN 50, creatinine 4.45, GFR 11, glucose 63, calcium 8.5, albumin 2.4, BNP 62.07, blood pressure 79/61 trending up to 106/76, heart rate 90, temperature 98.3 F, O2 saturation 98% on room air. Urinalysis positive for urinary tract infection. Patient was started on IV antibiotic regimen vancomycin, please see medication orders section in the computer. On my assessment, daughter at bedside, patient remains altered, no diaphoresis, shortness of breaths, loss of consciousness, no diarrhea, nausea, vomiting, fever, no chills. Patient was admitted for further evaluation and medical management. PAST MEDICAL HISTORY * * Metastatic melanoma (brain and lung metastases per family([facility]) * Hypothyroidism * Diabetes mellitus type 2 * Chronic kidney disease (baseline unknown) * Hypertension * Morbid obesity * Recent surgical wounds (abdomen + left thigh) * Former smoker (quit Sep 2024) PAST SURGICAL HISTORY * Left abdominal melanoma excision * Left proximal thigh melanoma excision * Prior oncologic resections SOCIAL HISTORY * Quit smoking 2023 * No EtOH/drugs * Lives with family REVIEW OF SYSTEMS (limited due to confusion) * Constitutional: Patient is oriented in self, when asked further questions to determine mentation she replies she just wanted to be with her family * Neuro: Confusion, ; follows commands * Resp: No cough, wheezing, SOB * CV: No chest pain; soft BPs * GI: No abdominal pain, tolerating minimal PO * : Very low urine output * Skin: Denies any symptoms * Endo: Denies symptoms * MSK: States she feels weak 09/11/25 * Patient is awake, alert, following commands, but confused and poorly oriented. * Left thigh postoperative wound continues to drain moderately, dressing changed, and wound culture obtained. * Dumont catheter in place; urine output remains very low (UOP 0.11 mL/kg/hr) despite IV fluids. * Still requiring vasopressor support (norepinephrine 6 mcg/min) to maintain MAP > 65. * Hemodynamics stable but soft, BP fluctuating 64176 systolic. * No respiratory distress; oxygen saturation 9698% on room air. * She remains on NS at 100 mL/hr for hemodynamic support. * Nephrology evaluated: No emergent indication for dialysis at this time. * Open abdominal wound with jewell appears intact. * No sedation; remains able to follow simple commands. * Confusion improving slightly but still present. * Thyroid function abnormal requires adjustment. * Postoperative wound continues to drain; wound culture sent; ID coverage continued. * Cefadroxil (home ABX) NOT appropriate for current septic presentation ? continue broad-spectrum IV therapy. * No respiratory failure; stable on room air. * Requires continued ICU-level care. 09/12/25 * Patient remains alert but confused, disoriented, intermittently agitated, weak, with poor appetite. * continues on norepinephrine infusion at 2 mcg/min.UOP 0.15 mL/kg/hr via Dumont. oliguric. * Wound culture: Gram-positive cocci in pairs; gram-negative rods. * Urine culture: >100,000 yeast. * Blood cultures negative. * CT head: no acute findings. * CXR: bilateral pulmonary opacities, pulmonary vascular congestion, stable right pleural effusion. * Echo: LVEF 60%; RV enlarged. * Kidney ultrasound: increased echogenicity consistent with medical renal disease. * Vancomycin discontinued due to SONDRA and toxicity risk. * Started D5 NS + 50 mEq sodium bicarb at 100 mL/hr for metabolic acidosis. * 1 unit PRBC transfused yesterday; Hgb up to 7.9 * Daughter now reports brain metastases previously treated and lung metastases untreated.Records requested. 09/12/25: Patient seen and examined at bedside, patient was on Levophed drip 10 mcg/min, nephrology on board, started bicarbonate drip, we ordered chest CT without contrast, reviewed chest x-ray. 09/13/25: Patient seen and examined at bedside, patient was on Levophed drip 10 mcg/min, nephrology on board, started Lasix 40 mg IV b.i.d., dopamine, changed antibiotic to fluconazole. Patient has started to metronidazole and hydrocortisone. 09/14/25: Patient seen and examined at bedside, patient was on Levophed drip 10 mcg/min, nephrology on board, started Lasix 40 mg IV b.i.d., dopamine, changed antibiotic to fluconazole. Patient has started to metronidazole and hydrocortisone. 09/15/25: Patient seen and examined at bedside, patient was on Levophed drip 10 mcg/min, nephrology on board, cont. Lasix 40 mg IV b.i.d., dopamine, continue fluconazole and start Meropenem as wound culture is Positive for Acinebacter Baumanni and Proteous Mirabilis Patient has started to metronidazole and hydrocortisone. 09/16/25: Patient seen and examined at bedside, patient was on Levophed drip 10 mcg/min, nephrology on board, cont. Lasix 40 mg IV b.i.d., dopamine, continue fluconazole and start Meropenem as wound culture is Positive for Acinebacter Baumanni and Proteous Mirabilis Patient has started to metronidazole and hydrocortisone - Decrease Hydrocortison to 50 mg BID. 09/17/25: Patient seen and examined at bedside, patient was on Levophed drip 10 mcg/min, nephrology on board, cont. Lasix 40 mg IV b.i.d., dopamine, continue fluconazole and start Meropenem as wound culture is Positive for Acinebacter Baumanni and Proteous Mirabilis. 09/18/2025: Patient seen in the ICU, patient is currently off vasopressors, nephrology is on board and recommending continuation of dopamine. Labs show an increase in WBCs, renal function with minor improvement. Patient will continue on meropenem and fluconazole due to results of cultures. Due to progressively decrease Hb, stool occult blood test has been ordered. 09/20/25: Patient seen and examined at bedside, patient has no new complaint, Dr. Patient's niece and daughter, patient's daughter is decision maker. Updated her about patient's condition and prognosis. Objective vital signs Vital Sign Date Time Temp Pulse Resp B/P (MAP) Pulse Ox O2 Delivery O2 Flow Rate FiO2 09/20/25 08:00 12 95 Room Air* 0 21 09/20/25 08:00 69 09/20/25 07:30 112/68 (83) 09/19/25 20:00 97.6 97.6 Total Intake and Output 09/19/25 09/19/25 09/20/25 15:00 23:00 07:00 Intake Total 1050 ml 650 ml 525 ml Output Total 50 ml 40 ml Balance 1050 ml 600 ml 485 ml medications Current Medications Medications Dose Ordered Sig/Elissa Route Start Time Stop Time Status Last Admin Dose Admin Norepinephrine Bitartrate 250 ml @ 3.75 mls/hr Q24H IV 09/10/25 18:00 09/17/25 21:26 3.75 MLS/HR Levothyroxine Sodium 150 mcg QAM@0600 PO 09/11/25 06:00 09/19/25 06:02 150 MCG Ondansetron HCl 4 mg Q4HP PRN IV 09/10/25 20:30 09/19/25 09:25 4 MG Docusate Sodium 100 mg BIDPRN PRN PO 09/10/25 20:30 Acetaminophen 650 mg Q6HP PRN PO 09/10/25 20:30 09/19/25 06:05 650 MG Nitroglycerin 0.4 mg Q5MINP PRN SL 09/10/25 21:00 Diagnostic Test (Pha) 1 strip ACHS 09/11/25 07:00 09/20/25 07:09 1 STRIP Insulin Human Regular ACHS SC 09/11/25 07:00 09/15/25 22:00 2 UNITS Dextrose 50 ml UD PRN IV 09/10/25 22:45 Lactulose 15 ml DAILY PO 09/17/25 10:00 09/18/25 10:31 15 ML Furosemide 80 mg BIDD IV 09/16/25 18:00 09/20/25 06:00 80 MG Morphine Sulfate 2 mg Q30M PRN IV 09/16/25 12:45 Meropenem 50 ml @ 17 mls/hr Q12HR IV 09/17/25 22:00 09/19/25 23:43 17 MLS/HR Dextrose/Sodium Chloride 1,000 ml @ 100 mls/hr Q10H IV 09/19/25 10:45 Cancel Pantoprazole Sodium 40 mg BID IV 09/19/25 22:00 09/19/25 23:41 40 MG Morphine Sulfate 2 mg Q6HPRN PRN IV 09/19/25 14:00 09/19/25 23:42 2 MG Dextrose/Sodium Chloride 1,000 ml @ 75 mls/hr [id number] IV 09/19/25 16:45 09/20/25 06:05 75 MLS/HR Dexamethasone Sodium Phosphate 4 mg Q8HR IV 09/19/25 22:00 09/20/25 06:00 4 MG Micafungin Sodium 100 mg/Sodium Chloride 100 ml @ 100 mls/hr DAILY IV 09/20/25 10:00 09/20/25 09:42 100 MLS/HR Examination General: The patient awake, follows commands, only respond her name when asked and otherwise states she wants to be with her family. Patient following commands HEENT: Normocephalic, atraumatic, normal reactive pupils, EOM intact, pink conjunctiva, pink moist mucous membrane Respiratory/pulmonary: Bilateral chest expansion, no pain on palpation of chest wall, clear lungs bilaterally, vesicular murmurs present in almost all lung lynn, no associated crackles or wheezes. Cardiovascular: Normal RRR, normal S1 and S2, no murmurs, pitting edema 2+ mainly in left ankle region Abdomen: Abdomen nondistended, normal bowel sounds, soft, there is no pain to palpation in any of the abdominal quadrants, no palpable masses. Extremities: No deformities, there is no peripheral edema present at the lower extremities, normal pulses Skin: No rashes or pruritus, there is no sacral edema present at this time. Neurological: Intact cranial nerves with no focal neurologic deficits laboratory and microbiology. laboratory and microbiology Laboratory Tests 09/20/25 06:57 Test 09/20/25 06:57 Range/Units Serum Glucose 86 74-106 mg/dL Microbiology Date/Time Source Procedure Growth Status 09/11/25 19:11 Abdomen Gram Stain - Final Complete 09/11/25 19:11 Wound Culture - Final Acinetobacter baumannii Proteus mirabilis Complete 09/10/25 19:28 Blood Blood Culture - Final NO GROWTH AFTER 5 DAYS OF INCUBATION. Complete 09/10/25 17:50 Urine - Dumont Port Urine Culture - Final Presumptive Frida albicans Complete Problem List/Assessment/Plan Problem List/Assessment/Plan Neurology # Acute metabolic encephalopathy secondary to sepsis # Metastasis CA to Brain - MRI brain: Nondiagnostic evaluation for intracranial metastases on this noncontrast MRI brain. Recommend brain MRI with and without contrast for further evaluation. - Mental status improving slowly but still confused. - Neuro checks q2h. - CT head negative. Cardiovascular # Septic shock due to UTI and Wound Infection # HFpEF, EF 60 % - Continue norepinephrine drip , titrate to maintain MAP > 65. - Avoid excess fluids due to CHF on CXR. -ECHO: LVEF 60%, RV enlarged. monitor for RV failure. Respiratory - On room air, saturating 96% - 98%. - No respiratory distress. - Incentive spirometry. Gastrointestinal # Post sx Abdomina Wound - Monitor albumin; nutritional support as needed. - Bowel regimen PRN. - Monitor abdominal wound with jewell. # Complicated UTI # Acute kidney injury on CKD due to VMN hemodynamically mediated SONDRA due to hypotension. # Oliguric renal failure due to septic shock # Metabolic acidosis due to sepsis/septic shock # Complicated UTI with Yeast >100,000 - Continue micafungin - no emergent HD indication per nephrology. - Continue strict I/O, daily weights. - Nephrology following - Avoid nephrotoxins. # Infectious Disease - Septic shock, - AMS, hypotension requiring norepinephrine, - Complicated UTI - Postoperative open wound with significant drainage - Possible early cellulitis or surgical site infection. - Wound Infection - Continue IV Meropenem - Wound care - Wound culture: Positive for Acinebacter Baumanni and Proteous Mirabilis - MRSA screen NEGATIVE. - Urine culture: >100,000 yeast (Frida species likely). - Continue micafungin - Blood cultures: negative. Endocrine # Hypothyroidism - TSH 11.7 undertreated. # Type 2 diabetes with fluctuating glucose # Morbid obesity - Increases risk for wound complications, sepsis. - Hyper-TSH: Increase levothyroxine dose; - Glucose management with insulin sliding scale; avoid hypoglycemia. Hematology / Oncology # Metastatic melanoma lungs, adrenal gland, brain and peritoneum. # Symptomatic anemia, acute on chronic # Iron deficiency # Anemia of chronic disease + acute blood loss - monitor; transfuse PRBC if Hgb<7 or symptomatic. - Iron deficiency: patient is NPO intermittently, poor PO intake - IV iron sucrose 200 mg daily 3 doses. - Hold Eliquis temporarily due to anemia and ongoing wound drainage; reassess daily. 10. Lines / Drips / Devices * PICC line in left arm Prophylaxis * DVT prophylaxis: SCD * GI prophylaxis: IV pantoprazole daily. * Pressure ulcer prevention: Turn q2h. Nutrition # Malnutrition/Hypoalbuminemia * High-protein diet when safe. 14. Social Work / Care Management * Engage social work for discharge planning and family support. * Talked to DrSincere Patient's niece and daughter, patient's daughter is decision maker. Updated her about patient's condition and prognosis. * had a long discussion about goals of care, Pt's sister and Daughter wants to follow up with [facility] for Mets melanoma. CODE STATUS * Full code Critical Care time spent 64 minutes including patient care, chart review and updating family, excluding procedure. Plan discussed with Dr. Ahmadi Plan discussed with: Patient, RN Plan discussed with: Patient, Daughter, Other (Niece, RN) My Orders My Orders Orders - MARITZA MAYO RESIDENT Procedure Category Date Status Time * Gi Dvh Felt Checker CONS 09/19/25 Transmitted 10:39 Morphine Sulfate PHA 09/19/25 In Process Injection 14:00 Dexamethasone PHA 09/19/25 In Process Injection (Decadron 22:00 Micafungin Sodium PHA 09/20/25 In Process (Mycamine) 10:00 Brain Head Wo Contrast MRI 09/19/25 Logged 17:36 Chest Xray 1 View XY 09/20/25 Resulted 04:00 Dietary Evaluation Review Comments: Nutrition Recommendation: 1) Avinash 1 pk daily, Nephro-issac 1 tab daily 2) Discontinue MVI 3) Ergocalciferol 50,000IU weekly 4) Monitor PO intake, lab values, weight trend, and I/O Expected Outcomes/Goals: Wound to improve Intake to meet >75% estimated needs Lab values to improve FU 3-5 days Date of Service: Sep 20, 2025 Billing Provider: JESU AHMADI MD Common Visit Codes: [id number]-[id number] CARE 30-74 MIN MARITZA MAYO Sep 20, 2025 10:19 JESU AHMADI MD Sep 21, 2025 16:39
--- NOTE | 2025-09-20 13:23 | DVHPN2 ---
Subjective Patient admits to slight improvement of abdominal pain Daughter also present at bedside No nausea or vomiting but patient has been NPO No bowel movements today Tarry stool reported yesterday Changes from previous H/P or p: No Changes Objective Vitals Vital Signs Date Time Temp Pulse Resp B/P (MAP) Pulse Ox O2 Delivery O2 Flow Rate FiO2 09/20/25 12:00 98.1 69 11 114/60 (78) 96 98.1 09/20/25 12:00 Room Air* 0 21 Intake/Output Intake and Output 09/20/25 07:00 Intake Total 2300 ml Output Total 90 ml Balance 2210 ml Intake Oral 0 ml IV Total 2300 ml Output Urine Total 90 ml # Bowel Movements 2 Exam General: Patient is awake Chest: lung lynn clear to auscultation Heart: RRR, no murmur Abdomen: Mild generalized abdominal tenderness to palpation, +BS Medications Current Medications Medications Dose Ordered Sig/Elissa Route Start Time Stop Time Status Last Admin Dose Admin Norepinephrine Bitartrate 250 ml @ 3.75 mls/hr Q24H IV 09/10/25 18:00 09/17/25 21:26 3.75 MLS/HR Levothyroxine Sodium 150 mcg QAM@0600 PO 09/11/25 06:00 09/19/25 06:02 150 MCG Ondansetron HCl 4 mg Q4HP PRN IV 09/10/25 20:30 09/19/25 09:25 4 MG Docusate Sodium 100 mg BIDPRN PRN PO 09/10/25 20:30 Acetaminophen 650 mg Q6HP PRN PO 09/10/25 20:30 09/19/25 06:05 650 MG Nitroglycerin 0.4 mg Q5MINP PRN SL 09/10/25 21:00 Diagnostic Test (Pha) 1 strip ACHS 09/11/25 07:00 09/20/25 10:59 1 STRIP Insulin Human Regular ACHS SC 09/11/25 07:00 09/15/25 22:00 2 UNITS Dextrose 50 ml UD PRN IV 09/10/25 22:45 Furosemide 80 mg BIDD IV 09/16/25 18:00 09/20/25 06:00 80 MG Morphine Sulfate 2 mg Q30M PRN IV 09/16/25 12:45 Meropenem 50 ml @ 17 mls/hr Q12HR IV 09/17/25 22:00 09/20/25 10:53 17 MLS/HR Dextrose/Sodium Chloride 1,000 ml @ 100 mls/hr Q10H IV 09/19/25 10:45 Cancel Pantoprazole Sodium 40 mg BID IV 09/19/25 22:00 09/20/25 10:53 40 MG Morphine Sulfate 2 mg Q6HPRN PRN IV 09/19/25 14:00 09/19/25 23:42 2 MG Dextrose/Sodium Chloride 1,000 ml @ 75 mls/hr [id number] IV 09/19/25 16:45 09/20/25 06:05 75 MLS/HR Dexamethasone Sodium Phosphate 4 mg Q8HR IV 09/19/25 22:00 09/20/25 06:00 4 MG Micafungin Sodium 100 mg/Sodium Chloride 100 ml @ 100 mls/hr DAILY IV 09/20/25 10:00 09/20/25 09:42 100 MLS/HR Laboratory Results Laboratory Tests 09/20/25 06:57 Chemistry Test 09/20/25 06:57 Albumin 2.3 g/dL (3.2-4.8) L Calcium Level 8.3 mg/dL (8.7-10.4) L Total Protein 4.2 g/dL (5.7-8.2) L LFT Test 09/20/25 06:57 Alanine Aminotransferase (ALT) < 9 U/L (7-40) Alkaline Phosphatase 64 U/L (46-116) Aspartate Amino Transferase (AST) 15 U/L (13-40) Total Bilirubin 0.2 mg/dL (0.2-1.0) Urinalysis Test 09/10/25 17:50 09/12/25 11:47 Urine Hyaline Casts Mod /lpf (0 - 2) Urine Mucus Few (None Seen) Urine Color Light-orange (Yellow) Urine Clarity Ex.turbid (Clear) Urine pH 7.0 (5.0-9.0) Urine Specific [place] 1.019 (1.001-1.035) Urine Protein 2+ (Negative) H Urine Ketones Negative (Negative) Urine Blood 1+ /uL (Negative) H Urine Nitrite Negative (Negative) Urine Bilirubin Negative (Negative) Urine Urobilinogen Normal mg/dL (Negative) Urine Leukocyte Esterase 3+ /uL (Negative) Urine RBC 68 /hpf (0 - 4) Urine WBC Clumps Present /hpf (None Seen) Urine Microscopic WBC 2862 /HPF (0-5) H Urine Squamous Epithelial Cells Few /hpf (<5) Urine Transitional Epithelial Cells Mod /hpf (<2) Urine Bacteria Mod /hpf (None Seen) H Urine Yeast (Budding) Many /hpf (None Seen) Urine Creatinine 228.66 mg/dL (30.0-125.0) H Urine Protein/Creatinine Ratio 1.55 Urine Sodium 17 mmol/L (40-220) L Urine Glucose Normal mg/dL (Normal) Urine Total Protein 353.5 mg/dL (1-14) H Microbiology Microbiology Date/Time Source Procedure Growth Status 09/11/25 19:11 Abdomen Gram Stain - Final Complete 09/11/25 19:11 Wound Culture - Final Acinetobacter baumannii Proteus mirabilis Complete 09/10/25 19:28 Blood Blood Culture - Final NO GROWTH AFTER 5 DAYS OF INCUBATION. Complete 09/10/25 17:50 Urine - Dumont Port Urine Culture - Final Presumptive Frida albicans Complete Labs and/or images reviewed: Labs reviewed by me, Image(s) reviewed by me Assessment/Plan Assessment/Plan Possible GI bleed Anemia Metabolic encephalopathy Metastatic melanoma Abdominal pain Persistent nausea vomiting Plan: Discussed with Dr. Kem Choudhury At this time patient does not have any signs of active bleeding, we will recommend conservative treatment Clear liquid diet Monitor labs in a.m. Repeat GI services if any signs of active bleeding Plan discussed with: Patient, Daughter, Other (RN) My Orders Orders - RYAN NI Procedure Category Date Status Time Pantoprazole PHA 09/19/25 In Process (Protonix) 22:00 Npo After Midnight GLORIA 09/19/25 In Process 13:43 Clear Liq Diet DIET 09/20/25 Transmitted Lunch Date of Service: Sep 20, 2025 Billing Provider: RYAN NI Common Visit Codes: [id number] INP/OBS CARE(HIGH) RYAN NI Sep 20, 2025 13:23
[2025-09-20] MEDS: MORPHINE SULFATE 4 MG/ML SYR/VIAL IV PRN ×2 (14:52→23:58)
--- NOTE | 2025-09-20 16:23 | DVH ---
MRI BRAIN WITHOUT CONTRAST HISTORY: Brain metastasis COMPARISON: CT HEAD WITHOUT CONTRAST on DOS: 09/12/25 TECHNIQUE: Multi-sequence, multiplanar magnetic resonance images of the brain are reviewed. FINDINGS: No acute hemorrhage or infarct is seen. Scattered T2/FLAIR hyperintense foci in the periventricular and subcortical white matter, suggestive of chronic microvascular disease. The ventricles and sulci are mildly enlarged, compatible with generalized parenchymal volume loss. There is no evidence of mass or mass effect. There are no abnormal extra-axial fluid collections. The major intracranial blood vessels retain normal flow voids consistent with their patency. Essentially clear paranasal sinuses. Mastoid air cells are clear.. IMPRESSION: No evidence of acute infarct or intracranial hemorrhage. Nondiagnostic evaluation for intracranial metastases on this noncontrast MRI brain. Recommend brain MRI with and without contrast for further evaluation.
[2025-09-20] MEDS: MORPHINE SULFATE INJ 2 MG/ml SYRG IV ONE (16:45)
[2025-09-21] VITALS (81 sets, daily range): BP systolic 88–121; BP diastolic 49–71; PULSE 72–113; RESP 7–18; TEMP 79.9–98.1; O2SAT 89–99
[2025-09-21 03:28] LABS: Hematocrit 24.9 % (36.0-46.0); Nucleated Red Blood Cells % 0.1 %
[2025-09-21 03:30] LABS: Hemoglobin 7.6 g/dL (12.2-16.2); Mean Corpuscular Hemoglobin 28.1 pg (28.0-32.0); Mean Corpuscular Volume 91.8 fL (80.0-100.0)
[2025-09-21 03:42] LABS: Alkaline Phosphatase 64 U/L (46-116); Anion Gap 12 (5-15); BUN/Creatinine Ratio 17.1 (10.0-20.0); Carbon Dioxide 21 mmol/L (20-31); Chloride 102 mmol/L (98-107); Glucose 96 mg/dL (74-106); Potassium 4.0 mmol/L (3.5-5.1)
[2025-09-21 03:47] LABS: Alanine Aminotransferase < 9 U/L (7-40); Albumin 2.4 g/dL (3.2-4.8); Bilirubin, Total 0.2 mg/dL (0.2-1.0); Blood Urea Nitrogen 51 mg/dL (9-23); Calcium 8.3 mg/dL (8.7-10.4); Sodium 135 mmol/L (136-145); Total Protein 4.2 g/dL (5.7-8.2)
--- NOTE | 2025-09-21 10:14 | DVHPNRES ---
Progress Note Date Seen: Sep 21, 2025 Resident Creating Document: MARITZA MAYO RESIDENT Has the PT tested + for MRSA If YES, has PT been informed?: No Medical Necessity Reason Pt with a Central, PICC or Fol: Yes The following are medically ne: PICC Line, Dumont Catheter Subjective Review of Systems The patient is a 64-year-old female morbidly obese with past medical history of melanoma cancer, currently receiving treatment at [facility], hypothyroidism, hypertension, chronic kidney failure, and diabetes mellitus who presented to [facility] ED for evaluation of altered level of consciousness. As reported by daughter patient was experiencing confusion state, became altered from usual baseline, associated with generalized weakness, getting worse that EMS were called. When EMS arrived on the scene, the patient's blood glucose was 78 mg/dL, oriented x2, EN route to our facility ED. Patient was seen and evaluated in the ED with left thigh open wound from cysts removal, laboratory data shows WBC 9.4, hemoglobin 7.0, hematocrit 22.7, platelets 379, sodium 141, potassium 5.2, BUN 50, creatinine 4.45, GFR 11, glucose 63, calcium 8.5, albumin 2.4, BNP 62.07, blood pressure 79/61 trending up to 106/76, heart rate 90, temperature 98.3 F, O2 saturation 98% on room air. Urinalysis positive for urinary tract infection. Patient was started on IV antibiotic regimen vancomycin, please see medication orders section in the computer. On my assessment, daughter at bedside, patient remains altered, no diaphoresis, shortness of breaths, loss of consciousness, no diarrhea, nausea, vomiting, fever, no chills. Patient was admitted for further evaluation and medical management. PAST MEDICAL HISTORY * * Metastatic melanoma (brain and lung metastases per family([facility]) * Hypothyroidism * Diabetes mellitus type 2 * Chronic kidney disease (baseline unknown) * Hypertension * Morbid obesity * Recent surgical wounds (abdomen + left thigh) * Former smoker (quit Sep 2024) PAST SURGICAL HISTORY * Left abdominal melanoma excision * Left proximal thigh melanoma excision * Prior oncologic resections SOCIAL HISTORY * Quit smoking 2023 * No EtOH/drugs * Lives with family REVIEW OF SYSTEMS (limited due to confusion) * Constitutional: Patient is oriented in self, when asked further questions to determine mentation she replies she just wanted to be with her family * Neuro: Confusion, ; follows commands * Resp: No cough, wheezing, SOB * CV: No chest pain; soft BPs * GI: No abdominal pain, tolerating minimal PO * : Very low urine output * Skin: Denies any symptoms * Endo: Denies symptoms * MSK: States she feels weak 09/11/25 * Patient is awake, alert, following commands, but confused and poorly oriented. * Left thigh postoperative wound continues to drain moderately, dressing changed, and wound culture obtained. * Dumont catheter in place; urine output remains very low (UOP 0.11 mL/kg/hr) despite IV fluids. * Still requiring vasopressor support (norepinephrine 6 mcg/min) to maintain MAP > 65. * Hemodynamics stable but soft, BP fluctuating 44833 systolic. * No respiratory distress; oxygen saturation 9698% on room air. * She remains on NS at 100 mL/hr for hemodynamic support. * Nephrology evaluated: No emergent indication for dialysis at this time. * Open abdominal wound with jewell appears intact. * No sedation; remains able to follow simple commands. * Confusion improving slightly but still present. * Thyroid function abnormal requires adjustment. * Postoperative wound continues to drain; wound culture sent; ID coverage continued. * Cefadroxil (home ABX) NOT appropriate for current septic presentation ? continue broad-spectrum IV therapy. * No respiratory failure; stable on room air. * Requires continued ICU-level care. 09/12/25 * Patient remains alert but confused, disoriented, intermittently agitated, weak, with poor appetite. * continues on norepinephrine infusion at 2 mcg/min.UOP 0.15 mL/kg/hr via Dumont. oliguric. * Wound culture: Gram-positive cocci in pairs; gram-negative rods. * Urine culture: >100,000 yeast. * Blood cultures negative. * CT head: no acute findings. * CXR: bilateral pulmonary opacities, pulmonary vascular congestion, stable right pleural effusion. * Echo: LVEF 60%; RV enlarged. * Kidney ultrasound: increased echogenicity consistent with medical renal disease. * Vancomycin discontinued due to SONDRA and toxicity risk. * Started D5 NS + 50 mEq sodium bicarb at 100 mL/hr for metabolic acidosis. * 1 unit PRBC transfused yesterday; Hgb up to 7.9 * Daughter now reports brain metastases previously treated and lung metastases untreated.Records requested. 09/12/25: Patient seen and examined at bedside, patient was on Levophed drip 10 mcg/min, nephrology on board, started bicarbonate drip, we ordered chest CT without contrast, reviewed chest x-ray. 09/13/25: Patient seen and examined at bedside, patient was on Levophed drip 10 mcg/min, nephrology on board, started Lasix 40 mg IV b.i.d., dopamine, changed antibiotic to fluconazole. Patient has started to metronidazole and hydrocortisone. 09/14/25: Patient seen and examined at bedside, patient was on Levophed drip 10 mcg/min, nephrology on board, started Lasix 40 mg IV b.i.d., dopamine, changed antibiotic to fluconazole. Patient has started to metronidazole and hydrocortisone. 09/15/25: Patient seen and examined at bedside, patient was on Levophed drip 10 mcg/min, nephrology on board, cont. Lasix 40 mg IV b.i.d., dopamine, continue fluconazole and start Meropenem as wound culture is Positive for Acinebacter Baumanni and Proteous Mirabilis Patient has started to metronidazole and hydrocortisone. 09/16/25: Patient seen and examined at bedside, patient was on Levophed drip 10 mcg/min, nephrology on board, cont. Lasix 40 mg IV b.i.d., dopamine, continue fluconazole and start Meropenem as wound culture is Positive for Acinebacter Baumanni and Proteous Mirabilis Patient has started to metronidazole and hydrocortisone - Decrease Hydrocortison to 50 mg BID. 09/17/25: Patient seen and examined at bedside, patient was on Levophed drip 10 mcg/min, nephrology on board, cont. Lasix 40 mg IV b.i.d., dopamine, continue fluconazole and start Meropenem as wound culture is Positive for Acinebacter Baumanni and Proteous Mirabilis. 09/18/2025: Patient seen in the ICU, patient is currently off vasopressors, nephrology is on board and recommending continuation of dopamine. Labs show an increase in WBCs, renal function with minor improvement. Patient will continue on meropenem and fluconazole due to results of cultures. Due to progressively decrease Hb, stool occult blood test has been ordered. 09/20/25: Patient seen and examined at bedside, patient has no new complaint, Dr. Patient's niece and daughter, patient's daughter is decision maker. Updated her about patient's condition and prognosis. 09/20/25: Patient seen and examined at bedside, switched Decadron IV 8 mg b.i.d. to Decadron 2 mg p.o. b.i.d. plan to discharge home with home health for IV antibiotic meropenem 1 gm b.i.d. patient is still edematous and urine output significantly decreased. Objective vital signs Vital Sign Date Time Temp Pulse Resp B/P (MAP) Pulse Ox O2 Delivery O2 Flow Rate FiO2 09/21/25 07:00 76 11 113/62 (79) 96 09/21/25 06:09 Room Air* 0 21 09/21/25 05:30 97.3 97.3 Total Intake and Output 09/20/25 09/20/25 09/21/25 15:00 23:00 07:00 Intake Total 750 ml 390 ml 595 ml Output Total 50 ml 25 ml Balance 750 ml 340 ml 570 ml medications Current Medications Medications Dose Ordered Sig/Elissa Route Start Time Stop Time Status Last Admin Dose Admin Norepinephrine Bitartrate 250 ml @ 3.75 mls/hr Q24H IV 09/10/25 18:00 09/17/25 21:26 3.75 MLS/HR Levothyroxine Sodium 150 mcg QAM@0600 PO 09/11/25 06:00 09/19/25 06:02 150 MCG Ondansetron HCl 4 mg Q4HP PRN IV 09/10/25 20:30 09/19/25 09:25 4 MG Docusate Sodium 100 mg BIDPRN PRN PO 09/10/25 20:30 Acetaminophen 650 mg Q6HP PRN PO 09/10/25 20:30 09/19/25 06:05 650 MG Nitroglycerin 0.4 mg Q5MINP PRN SL 09/10/25 21:00 Diagnostic Test (Pha) 1 strip ACHS 09/11/25 07:00 09/21/25 06:54 1 STRIP Insulin Human Regular ACHS SC 09/11/25 07:00 09/15/25 22:00 2 UNITS Dextrose 50 ml UD PRN IV 09/10/25 22:45 Furosemide 80 mg BIDD IV 09/16/25 18:00 09/21/25 06:00 80 MG Morphine Sulfate 2 mg Q30M PRN IV 09/16/25 12:45 Meropenem 50 ml @ 17 mls/hr Q12HR IV 09/17/25 22:00 09/20/25 22:11 17 MLS/HR Dextrose/Sodium Chloride 1,000 ml @ 100 mls/hr Q10H IV 09/19/25 10:45 Cancel Pantoprazole Sodium 40 mg BID IV 09/19/25 22:00 09/20/25 22:11 40 MG Dextrose/Sodium Chloride 1,000 ml @ 75 mls/hr [id number] IV 09/19/25 16:45 09/20/25 22:12 75 MLS/HR Dexamethasone Sodium Phosphate 4 mg Q8HR IV 09/19/25 22:00 09/21/25 06:00 4 MG Micafungin Sodium 100 mg/Sodium Chloride 100 ml @ 100 mls/hr DAILY IV 09/20/25 10:00 09/20/25 09:42 100 MLS/HR Iron Sucrose 110 ml @ 110 mls/hr DAILY@1200 IV 09/21/25 12:00 09/25/25 11:59 Morphine Sulfate 2 mg Q6HPRN PRN IV 09/20/25 17:30 09/20/25 23:58 2 MG Examination General: The patient awake, follows commands, only respond her name when asked and otherwise states she wants to be with her family. Patient following commands HEENT: Normocephalic, atraumatic, normal reactive pupils, EOM intact, pink conjunctiva, pink moist mucous membrane Respiratory/pulmonary: Bilateral chest expansion, no pain on palpation of chest wall, clear lungs bilaterally, vesicular murmurs present in almost all lung lynn, no associated crackles or wheezes. Cardiovascular: Normal RRR, normal S1 and S2, no murmurs, pitting edema 2+ mainly in left ankle region Abdomen: Abdomen nondistended, normal bowel sounds, soft, there is no pain to palpation in any of the abdominal quadrants, no palpable masses. Extremities: No deformities, there is no peripheral edema present at the lower extremities, normal pulses Skin: No rashes or pruritus, there is no sacral edema present at this time. Neurological: Intact cranial nerves with no focal neurologic deficits laboratory and microbiology Laboratory Tests 09/21/25 02:58 Test 09/21/25 02:58 Range/Units Serum Glucose 96 74-106 mg/dL Microbiology Date/Time Source Procedure Growth Status 09/11/25 19:11 Abdomen Gram Stain - Final Complete 09/11/25 19:11 Wound Culture - Final Acinetobacter baumannii Proteus mirabilis Complete 09/10/25 19:28 Blood Blood Culture - Final NO GROWTH AFTER 5 DAYS OF INCUBATION. Complete 09/10/25 17:50 Urine - Dumont Port Urine Culture - Final Presumptive Frida albicans Complete Problem List/Assessment/Plan Problem List/Assessment/Plan Neurology # Acute metabolic encephalopathy secondary to sepsis # Metastasis CA to Brain - MRI brain: Nondiagnostic evaluation for intracranial metastases on this noncontrast MRI brain. Recommend brain MRI with and without contrast for further evaluation. - Mental status improving slowly but still confused. - Neuro checks q2h. - CT head negative. Cardiovascular # Septic shock due to UTI and Wound Infection # HFpEF, EF 60 % - Continue norepinephrine drip , titrate to maintain MAP > 65. - Avoid excess fluids due to CHF on CXR. -ECHO: LVEF 60%, RV enlarged. monitor for RV failure. Respiratory - On room air, saturating 96% - 98%. - No respiratory distress. - Incentive spirometry. Gastrointestinal # Post sx Abdomina Wound - Monitor albumin; nutritional support as needed. - Bowel regimen PRN. - Monitor abdominal wound with jewell. # Complicated UTI # Acute kidney injury on CKD due to VMN hemodynamically mediated SONDRA due to hypotension. # Oliguric renal failure due to septic shock # Metabolic acidosis due to sepsis/septic shock # Complicated UTI with Yeast >100,000 - Continue micafungin - no emergent HD indication per nephrology. - Continue strict I/O, daily weights. - Nephrology following - Avoid nephrotoxins. # Infectious Disease - Septic shock, - AMS, hypotension requiring norepinephrine, - Complicated UTI - Postoperative open wound with significant drainage - Possible early cellulitis or surgical site infection. - Wound Infection - Continue IV Meropenem - Wound care - Wound culture: Positive for Acinebacter Baumanni and Proteous Mirabilis - MRSA screen NEGATIVE. - Urine culture: >100,000 yeast (Frida species likely). - Continue micafungin - Blood cultures: negative. Endocrine # Hypothyroidism - TSH 11.7 undertreated. # Type 2 diabetes with fluctuating glucose # Morbid obesity - Increases risk for wound complications, sepsis. - Hyper-TSH: Increase levothyroxine dose; - Glucose management with insulin sliding scale; avoid hypoglycemia. Hematology / Oncology # Metastatic melanoma lungs, adrenal gland, brain and peritoneum. # Symptomatic anemia, acute on chronic # Iron deficiency # Anemia of chronic disease + acute blood loss - monitor; transfuse PRBC if Hgb<7 or symptomatic. - Iron deficiency: patient is NPO intermittently, poor PO intake - IV iron sucrose 200 mg daily 3 doses. - Hold Eliquis temporarily due to anemia and ongoing wound drainage; reassess daily. 10. Lines / Drips / Devices * PICC line in left arm Prophylaxis * DVT prophylaxis: SCD * GI prophylaxis: IV pantoprazole daily. * Pressure ulcer prevention: Turn q2h. Nutrition # Malnutrition/Hypoalbuminemia * High-protein diet when safe. 14. Social Work / Care Management * Engage social work for discharge planning and family support. * Talked to Patient's niece and daughter, patient's daughter is decision maker. Updated her about patient's condition and prognosis. * had a long discussion about goals of care, Pt's sister and Daughter wants to follow up with [facility] for Mets melanoma. - switched Decadron IV 8 mg b.i.d. to Decadron 2 mg p.o. b.i.d. plan to discharge home with home health for IV antibiotic meropenem 1 gm b.i.d. patient is still edematous and urine output significantly decreased. CODE STATUS * Full code Critical Care time spent 57 minutes including patient care, chart review and updating family, excluding procedure. Plan discussed with Dr. Ahmadi Plan discussed with: Patient, RN Plan discussed with: Other (RN) My Orders My Orders Orders - MARITZA MAYO RESIDENT Procedure Category Date Status Time Morphine Sulfate PHA 09/20/25 In Process Injection 17:30 Dietary Evaluation Review Comments: Nutrition Recommendation: 1) Avinash 1 pk daily, Nephro-issac 1 tab daily 2) Discontinue MVI 3) Ergocalciferol 50,000IU weekly 4) Monitor PO intake, lab values, weight trend, and I/O Expected Outcomes/Goals: Wound to improve Intake to meet >75% estimated needs Lab values to improve FU 3-5 days Date of Service: Sep 21, 2025 Billing Provider: JESU AHMADI MD Common Visit Codes: [id number] CARE 30-74 MIN MARITZA MAYO RESIDENT Sep 21, 2025 10:14 JESU AHMADI MD Sep 22, 2025 11:54
[2025-09-21] MEDS: IRON SUCROSE COMPLEX 110 ML IV SCH (13:06)
--- NOTE | 2025-09-21 14:08 | DVHPN2 ---
Subjective History from RN and charge Patient refused her clear liquid diet this morning Having only small smears of bowel movements which is tarry in color Changes from previous H/P or p: No Changes Objective Vitals Vital Signs Date Time Temp Pulse Resp B/P (MAP) Pulse Ox O2 Delivery O2 Flow Rate FiO2 09/21/25 11:17 76 9 102/51 09/21/25 07:00 96 09/21/25 06:09 Room Air* 0 21 09/21/25 05:30 97.3 97.3 Intake/Output Intake and Output 09/21/25 07:00 Intake Total 1735 ml Output Total 75 ml Balance 1660 ml Intake Oral 35 ml IV Total 1700 ml Output Urine Total 75 ml Exam General: Patient is awake Chest: lung lynn clear to auscultation Heart: RRR, no murmur Abdomen: Mild generalized abdominal tenderness to palpation, +BS Medications Current Medications Medications Dose Ordered Sig/Elissa Route Start Time Stop Time Status Last Admin Dose Admin Norepinephrine Bitartrate 250 ml @ 3.75 mls/hr Q24H IV 09/10/25 18:00 09/17/25 21:26 3.75 MLS/HR Levothyroxine Sodium 150 mcg QAM@0600 PO 09/11/25 06:00 09/19/25 06:02 150 MCG Ondansetron HCl 4 mg Q4HP PRN IV 09/10/25 20:30 09/19/25 09:25 4 MG Docusate Sodium 100 mg BIDPRN PRN PO 09/10/25 20:30 Acetaminophen 650 mg Q6HP PRN PO 09/10/25 20:30 09/19/25 06:05 650 MG Nitroglycerin 0.4 mg Q5MINP PRN SL 09/10/25 21:00 Diagnostic Test (Pha) 1 strip ACHS 09/11/25 07:00 09/21/25 11:33 1 STRIP Insulin Human Regular ACHS SC 09/11/25 07:00 09/15/25 22:00 2 UNITS Dextrose 50 ml UD PRN IV 09/10/25 22:45 Furosemide 80 mg BIDD IV 09/16/25 18:00 09/21/25 06:00 80 MG Morphine Sulfate 2 mg Q30M PRN IV 09/16/25 12:45 09/21/25 10:47 2 MG Meropenem 50 ml @ 17 mls/hr Q12HR IV 09/17/25 22:00 09/21/25 10:49 17 MLS/HR Dextrose/Sodium Chloride 1,000 ml @ 100 mls/hr Q10H IV 09/19/25 10:45 Cancel Pantoprazole Sodium 40 mg BID IV 09/19/25 22:00 09/21/25 10:48 40 MG Dextrose/Sodium Chloride 1,000 ml @ 75 mls/hr [id number] IV 09/19/25 16:45 09/21/25 13:06 75 MLS/HR Dexamethasone Sodium Phosphate 4 mg Q8HR IV 09/19/25 22:00 09/21/25 06:00 4 MG Micafungin Sodium 100 mg/Sodium Chloride 100 ml @ 100 mls/hr DAILY IV 09/20/25 10:00 09/21/25 10:49 100 MLS/HR Iron Sucrose 110 ml @ 110 mls/hr DAILY@1200 IV 09/21/25 12:00 09/25/25 11:59 09/21/25 13:06 110 MLS/HR Morphine Sulfate 2 mg Q6HPRN PRN IV 09/20/25 17:30 09/20/25 23:58 2 MG Laboratory Results Laboratory Tests 09/21/25 02:58 Chemistry Test 09/21/25 02:58 Albumin 2.4 g/dL (3.2-4.8) L Calcium Level 8.3 mg/dL (8.7-10.4) L Total Protein 4.2 g/dL (5.7-8.2) L LFT Test 09/21/25 02:58 Alanine Aminotransferase (ALT) < 9 U/L (7-40) Alkaline Phosphatase 64 U/L (46-116) Aspartate Amino Transferase (AST) 16 U/L (13-40) Total Bilirubin 0.2 mg/dL (0.2-1.0) Urinalysis Test 09/10/25 17:50 09/12/25 11:47 Urine Hyaline Casts Mod /lpf (0 - 2) Urine Mucus Few (None Seen) Urine Color Light-orange (Yellow) Urine Clarity Ex.turbid (Clear) Urine pH 7.0 (5.0-9.0) Urine Specific [place] 1.019 (1.001-1.035) Urine Protein 2+ (Negative) H Urine Ketones Negative (Negative) Urine Blood 1+ /uL (Negative) H Urine Nitrite Negative (Negative) Urine Bilirubin Negative (Negative) Urine Urobilinogen Normal mg/dL (Negative) Urine Leukocyte Esterase 3+ /uL (Negative) Urine RBC 68 /hpf (0 - 4) Urine WBC Clumps Present /hpf (None Seen) Urine Microscopic WBC 2862 /HPF (0-5) H Urine Squamous Epithelial Cells Few /hpf (<5) Urine Transitional Epithelial Cells Mod /hpf (<2) Urine Bacteria Mod /hpf (None Seen) H Urine Yeast (Budding) Many /hpf (None Seen) Urine Creatinine 228.66 mg/dL (30.0-125.0) H Urine Protein/Creatinine Ratio 1.55 Urine Sodium 17 mmol/L (40-220) L Urine Glucose Normal mg/dL (Normal) Urine Total Protein 353.5 mg/dL (1-14) H Microbiology Microbiology Date/Time Source Procedure Growth Status 09/11/25 19:11 Abdomen Gram Stain - Final Complete 09/11/25 19:11 Wound Culture - Final Acinetobacter baumannii Proteus mirabilis Complete 09/10/25 19:28 Blood Blood Culture - Final NO GROWTH AFTER 5 DAYS OF INCUBATION. Complete 09/10/25 17:50 Urine - Dumont Port Urine Culture - Final Presumptive Frida albicans Complete Assessment/Plan Assessment/Plan Possible GI bleed Anemia Metabolic encephalopathy Metastatic melanoma Abdominal pain Persistent nausea vomiting Plan: Discussed with Dr. Kem Choudhury At this time patient does not have any signs of active bleeding, we will recommend conservative treatment Clear liquid diet Possible consideration for tube feeding or IV Clinimix recommended Patient family debating for higher level of care versus hospice care We will continue to monitor patient Plan discussed with: Other (RN) Date of Service: Sep 21, 2025 Billing Provider: RYAN NI Common Visit Codes: [id number] INP/OBS CARE(HIGH) RYAN NI Sep 21, 2025 14:07
--- NOTE | 2025-09-21 18:39 | DVHPN2 ---
Progress Note - Dictate Date Seen: Sep 21, 2025 Has the PT tested + for MRSA If YES, has PT been informed?: No Medical Necessity Reason Pt with a Central, PICC or Fol: Yes The following are medically ne: PICC Line, Dumont Catheter Subjective Urine output diminished significantly, oliguric vital signs Vital Sign Date Time Temp Pulse Resp B/P (MAP) Pulse Ox O2 Delivery O2 Flow Rate FiO2 09/21/25 16:02 79 15 102/58 09/21/25 16:00 97 Nasal Cannula* 2 28 09/21/25 12:15 98.1 98.1 Total Intake and Output 09/20/25 09/20/25 09/21/25 15:00 23:00 07:00 Intake Total 750 ml 390 ml 670 ml Output Total 50 ml 25 ml Balance 750 ml 340 ml 645 ml medications Current Medications Medications Dose Ordered Sig/Elissa Route Start Time Stop Time Status Last Admin Dose Admin Levothyroxine Sodium 150 mcg QAM@0600 PO 09/11/25 06:00 09/19/25 06:02 150 MCG Ondansetron HCl 4 mg Q4HP PRN IV 09/10/25 20:30 09/19/25 09:25 4 MG Docusate Sodium 100 mg BIDPRN PRN PO 09/10/25 20:30 Acetaminophen 650 mg Q6HP PRN PO 09/10/25 20:30 09/19/25 06:05 650 MG Nitroglycerin 0.4 mg Q5MINP PRN SL 09/10/25 21:00 Diagnostic Test (Pha) 1 strip ACHS 09/11/25 07:00 09/21/25 11:33 1 STRIP Insulin Human Regular ACHS SC 09/11/25 07:00 09/15/25 22:00 2 UNITS Dextrose 50 ml UD PRN IV 09/10/25 22:45 Furosemide 80 mg BIDD IV 09/16/25 18:00 09/21/25 06:00 80 MG Morphine Sulfate 2 mg Q30M PRN IV 09/16/25 12:45 09/21/25 10:47 2 MG Meropenem 50 ml @ 17 mls/hr Q12HR IV 09/17/25 22:00 09/21/25 10:49 17 MLS/HR Dextrose/Sodium Chloride 1,000 ml @ 100 mls/hr Q10H IV 09/19/25 10:45 Cancel Pantoprazole Sodium 40 mg BID IV 09/19/25 22:00 09/21/25 10:48 40 MG Dextrose/Sodium Chloride 1,000 ml @ 75 mls/hr [id number] IV 09/19/25 16:45 09/21/25 13:06 75 MLS/HR Dexamethasone Sodium Phosphate 4 mg Q8HR IV 09/19/25 22:00 09/21/25 14:00 4 MG Micafungin Sodium 100 mg/Sodium Chloride 100 ml @ 100 mls/hr DAILY IV 09/20/25 10:00 09/21/25 10:49 100 MLS/HR Iron Sucrose 110 ml @ 110 mls/hr DAILY@1200 IV 09/21/25 12:00 09/25/25 11:59 09/21/25 13:06 110 MLS/HR Morphine Sulfate 2 mg Q6HPRN PRN IV 09/20/25 17:30 09/21/25 16:02 2 MG objective Gen: nad heent: nc/at, mmm lungs: cta anteriorly cvs: no rub abd: soft, bowel sounds audible ext: no edema skin: no rash laboratory and microbiology Laboratory Tests 09/21/25 02:58 Test 09/21/25 02:58 Range/Units Serum Glucose 96 74-106 mg/dL Assessment/Plan Problem List/Assessment/Plan Acute kidney injury superimposed Chronic Kidney Disease secondary hemodynamic mediated Baselined creatinine is unknown Vancomycin toxicity Urinary tract infection Metabolic acidosis Encephalopathy h/o melanoma on treatment at [facility] Anemia of chronic kidney disease Vitamin D deficiency Hypoalbuminemia Hypokalemia Recommendations: - noted oliguria, slight worsening kidney function - we will repeat urine sodium and reassess FENA - agree with current plan of care. Dietary Evaluation Review Comments: Nutrition Recommendation: 1) Avinash 1 pk daily, Nephro-issac 1 tab daily 2) Discontinue MVI 3) Ergocalciferol 50,000IU weekly 4) Monitor PO intake, lab values, weight trend, and I/O Expected Outcomes/Goals: Wound to improve Intake to meet >75% estimated needs Lab values to improve FU 3-5 days Plan discussed with: VICTORIANO Maddox MD Sep 21, 2025 18:39
[2025-09-22] VITALS (49 sets, daily range): BP systolic 91–122; BP diastolic 45–71; PULSE 72–105; RESP 8–19; TEMP 97.3–98.1; O2SAT 89–99
[2025-09-22 04:32] LABS: Nucleated Red Blood Cells % 0.5 %
[2025-09-22 04:34] LABS: Hematocrit 25.6 % (36.0-46.0); Hemoglobin 7.3 g/dL (12.2-16.2); Mean Corpuscular Hemoglobin 27.7 pg (28.0-32.0); Mean Corpuscular Volume 97.1 fL (80.0-100.0)
[2025-09-22 04:40] LABS: Alkaline Phosphatase 65 U/L (46-116); Anion Gap 12 (5-15); BUN/Creatinine Ratio 19.9 (10.0-20.0); Carbon Dioxide 21 mmol/L (20-31); Chloride 102 mmol/L (98-107); Glucose 95 mg/dL (74-106); Potassium 4.0 mmol/L (3.5-5.1)
[2025-09-22 04:50] LABS: Alanine Aminotransferase < 9 U/L (7-40); Albumin 2.2 g/dL (3.2-4.8); Bilirubin, Total 0.3 mg/dL (0.2-1.0); Blood Urea Nitrogen 65 mg/dL (9-23); Calcium 8.3 mg/dL (8.7-10.4); Sodium 135 mmol/L (136-145); Total Protein 3.9 g/dL (5.7-8.2)
--- NOTE | 2025-09-22 07:22 | DVHPNRES ---
Progress Note Date Seen: Sep 22, 2025 Resident Creating Document: MARITZA MAYO RESIDENT Has the PT tested + for MRSA If YES, has PT been informed?: No Medical Necessity Reason Pt with a Central, PICC or Fol: Yes The following are medically ne: PICC Line, Dumont Catheter Subjective Review of Systems The patient is a 64-year-old female morbidly obese with past medical history of melanoma cancer, currently receiving treatment at [facility], hypothyroidism, hypertension, chronic kidney failure, and diabetes mellitus who presented to [facility] ED for evaluation of altered level of consciousness. As reported by daughter patient was experiencing confusion state, became altered from usual baseline, associated with generalized weakness, getting worse that EMS were called. When EMS arrived on the scene, the patient's blood glucose was 78 mg/dL, oriented x2, EN route to our facility ED. Patient was seen and evaluated in the ED with left thigh open wound from cysts removal, laboratory data shows WBC 9.4, hemoglobin 7.0, hematocrit 22.7, platelets 379, sodium 141, potassium 5.2, BUN 50, creatinine 4.45, GFR 11, glucose 63, calcium 8.5, albumin 2.4, BNP 62.07, blood pressure 79/61 trending up to 106/76, heart rate 90, temperature 98.3 F, O2 saturation 98% on room air. Urinalysis positive for urinary tract infection. Patient was started on IV antibiotic regimen vancomycin, please see medication orders section in the computer. On my assessment, daughter at bedside, patient remains altered, no diaphoresis, shortness of breaths, loss of consciousness, no diarrhea, nausea, vomiting, fever, no chills. Patient was admitted for further evaluation and medical management. PAST MEDICAL HISTORY * * Metastatic melanoma (brain and lung metastases per family([facility]) * Hypothyroidism * Diabetes mellitus type 2 * Chronic kidney disease (baseline unknown) * Hypertension * Morbid obesity * Recent surgical wounds (abdomen + left thigh) * Former smoker (quit Sep 2024) PAST SURGICAL HISTORY * Left abdominal melanoma excision * Left proximal thigh melanoma excision * Prior oncologic resections SOCIAL HISTORY * Quit smoking 2023 * No EtOH/drugs * Lives with family REVIEW OF SYSTEMS (limited due to confusion) * Constitutional: Patient is oriented in self, when asked further questions to determine mentation she replies she just wanted to be with her family * Neuro: Confusion, ; follows commands * Resp: No cough, wheezing, SOB * CV: No chest pain; soft BPs * GI: No abdominal pain, tolerating minimal PO * : Very low urine output * Skin: Denies any symptoms * Endo: Denies symptoms * MSK: States she feels weak 09/11/25 * Patient is awake, alert, following commands, but confused and poorly oriented. * Left thigh postoperative wound continues to drain moderately, dressing changed, and wound culture obtained. * Dumont catheter in place; urine output remains very low (UOP 0.11 mL/kg/hr) despite IV fluids. * Still requiring vasopressor support (norepinephrine 6 mcg/min) to maintain MAP > 65. * Hemodynamics stable but soft, BP fluctuating 71814 systolic. * No respiratory distress; oxygen saturation 9698% on room air. * She remains on NS at 100 mL/hr for hemodynamic support. * Nephrology evaluated: No emergent indication for dialysis at this time. * Open abdominal wound with jewell appears intact. * No sedation; remains able to follow simple commands. * Confusion improving slightly but still present. * Thyroid function abnormal requires adjustment. * Postoperative wound continues to drain; wound culture sent; ID coverage continued. * Cefadroxil (home ABX) NOT appropriate for current septic presentation ? continue broad-spectrum IV therapy. * No respiratory failure; stable on room air. * Requires continued ICU-level care. 09/12/25 * Patient remains alert but confused, disoriented, intermittently agitated, weak, with poor appetite. * continues on norepinephrine infusion at 2 mcg/min.UOP 0.15 mL/kg/hr via Dumont. oliguric. * Wound culture: Gram-positive cocci in pairs; gram-negative rods. * Urine culture: >100,000 yeast. * Blood cultures negative. * CT head: no acute findings. * CXR: bilateral pulmonary opacities, pulmonary vascular congestion, stable right pleural effusion. * Echo: LVEF 60%; RV enlarged. * Kidney ultrasound: increased echogenicity consistent with medical renal disease. * Vancomycin discontinued due to SONDRA and toxicity risk. * Started D5 NS + 50 mEq sodium bicarb at 100 mL/hr for metabolic acidosis. * 1 unit PRBC transfused yesterday; Hgb up to 7.9 * Daughter now reports brain metastases previously treated and lung metastases untreated.Records requested. 09/12/25: Patient seen and examined at bedside, patient was on Levophed drip 10 mcg/min, nephrology on board, started bicarbonate drip, we ordered chest CT without contrast, reviewed chest x-ray. 09/13/25: Patient seen and examined at bedside, patient was on Levophed drip 10 mcg/min, nephrology on board, started Lasix 40 mg IV b.i.d., dopamine, changed antibiotic to fluconazole. Patient has started to metronidazole and hydrocortisone. 09/14/25: Patient seen and examined at bedside, patient was on Levophed drip 10 mcg/min, nephrology on board, started Lasix 40 mg IV b.i.d., dopamine, changed antibiotic to fluconazole. Patient has started to metronidazole and hydrocortisone. 09/15/25: Patient seen and examined at bedside, patient was on Levophed drip 10 mcg/min, nephrology on board, cont. Lasix 40 mg IV b.i.d., dopamine, continue fluconazole and start Meropenem as wound culture is Positive for Acinebacter Baumanni and Proteous Mirabilis Patient has started to metronidazole and hydrocortisone. 09/16/25: Patient seen and examined at bedside, patient was on Levophed drip 10 mcg/min, nephrology on board, cont. Lasix 40 mg IV b.i.d., dopamine, continue fluconazole and start Meropenem as wound culture is Positive for Acinebacter Baumanni and Proteous Mirabilis Patient has started to metronidazole and hydrocortisone - Decrease Hydrocortison to 50 mg BID. 09/17/25: Patient seen and examined at bedside, patient was on Levophed drip 10 mcg/min, nephrology on board, cont. Lasix 40 mg IV b.i.d., dopamine, continue fluconazole and start Meropenem as wound culture is Positive for Acinebacter Baumanni and Proteous Mirabilis. 09/18/2025: Patient seen in the ICU, patient is currently off vasopressors, nephrology is on board and recommending continuation of dopamine. Labs show an increase in WBCs, renal function with minor improvement. Patient will continue on meropenem and fluconazole due to results of cultures. Due to progressively decrease Hb, stool occult blood test has been ordered. 09/20/25: Patient seen and examined at bedside, patient has no new complaint, Dr. Patient's niece and daughter, patient's daughter is decision maker. Updated her about patient's condition and prognosis. 09/20/25: Patient seen and examined at bedside, switched Decadron IV 8 mg b.i.d. to Decadron 2 mg p.o. b.i.d. plan to discharge home with home health for IV antibiotic meropenem 1 gm b.i.d. patient is still edematous and urine output significantly decreased. Objective vital signs Vital Sign Date Time Temp Pulse Resp B/P (MAP) Pulse Ox O2 Delivery O2 Flow Rate FiO2 09/22/25 06:45 105 15 122/67 (85) 97 09/22/25 06:00 Nasal Cannula* 2 28 09/22/25 04:00 97.3 97.3 Total Intake and Output 09/21/25 09/21/25 09/22/25 15:00 23:00 07:00 Intake Total 860 ml 600 ml 585 ml Output Total 20 ml 30 ml Balance 860 ml 580 ml 555 ml medications Current Medications Medications Dose Ordered Sig/Elissa Route Start Time Stop Time Status Last Admin Dose Admin Levothyroxine Sodium 150 mcg QAM@0600 PO 09/11/25 06:00 09/19/25 06:02 150 MCG Ondansetron HCl 4 mg Q4HP PRN IV 09/10/25 20:30 09/19/25 09:25 4 MG Docusate Sodium 100 mg BIDPRN PRN PO 09/10/25 20:30 Acetaminophen 650 mg Q6HP PRN PO 09/10/25 20:30 09/19/25 06:05 650 MG Nitroglycerin 0.4 mg Q5MINP PRN SL 09/10/25 21:00 Diagnostic Test (Pha) 1 strip ACHS 09/11/25 07:00 09/22/25 06:31 1 STRIP Insulin Human Regular ACHS SC 09/11/25 07:00 09/15/25 22:00 2 UNITS Dextrose 50 ml UD PRN IV 09/10/25 22:45 Furosemide 80 mg BIDD IV 09/16/25 18:00 09/22/25 06:00 80 MG Morphine Sulfate 2 mg Q30M PRN IV 09/16/25 12:45 09/21/25 10:47 2 MG Meropenem 50 ml @ 17 mls/hr Q12HR IV 09/17/25 22:00 12/10/25 22:53 17 MLS/HR Dextrose/Sodium Chloride 1,000 ml @ 100 mls/hr Q10H IV 09/19/25 10:45 Cancel Pantoprazole Sodium 40 mg BID IV 09/19/25 22:00 09/21/25 22:54 40 MG Dextrose/Sodium Chloride 1,000 ml @ 75 mls/hr [id number] IV 09/19/25 16:45 09/21/25 22:05 75 MLS/HR Micafungin Sodium 100 mg/Sodium Chloride 100 ml @ 100 mls/hr DAILY IV 09/20/25 10:00 09/21/25 10:49 100 MLS/HR Iron Sucrose 110 ml @ 110 mls/hr DAILY@1200 IV 09/21/25 12:00 09/25/25 11:59 09/21/25 13:06 110 MLS/HR Morphine Sulfate 2 mg Q6HPRN PRN IV 09/20/25 17:30 09/21/25 16:02 2 MG Dexamethasone 4 mg Q12HR PO 09/22/25 10:00 UNV Examination General: The patient awake, follows commands, only respond her name when asked and otherwise states she wants to be with her family. Patient following commands HEENT: Normocephalic, atraumatic, normal reactive pupils, EOM intact, pink conjunctiva, pink moist mucous membrane Respiratory/pulmonary: Bilateral chest expansion, no pain on palpation of chest wall, clear lungs bilaterally, vesicular murmurs present in almost all lung lynn, no associated crackles or wheezes. Cardiovascular: Normal RRR, normal S1 and S2, no murmurs, pitting edema 2+ mainly in left ankle region Abdomen: Abdomen nondistended, normal bowel sounds, soft, there is no pain to palpation in any of the abdominal quadrants, no palpable masses. Extremities: No deformities, there is no peripheral edema present at the lower extremities, normal pulses Skin: No rashes or pruritus, there is no sacral edema present at this time. Neurological: Intact cranial nerves with no focal neurologic deficits laboratory and microbiology Laboratory Tests 09/22/25 03:45 Test 09/22/25 03:45 Range/Units Serum Glucose 95 74-106 mg/dL Microbiology Date/Time Source Procedure Growth Status 09/11/25 19:11 Abdomen Gram Stain - Final Complete 09/11/25 19:11 Wound Culture - Final Acinetobacter baumannii Proteus mirabilis Complete 09/10/25 19:28 Blood Blood Culture - Final NO GROWTH AFTER 5 DAYS OF INCUBATION. Complete 09/10/25 17:50 Urine - Dumont Port Urine Culture - Final Presumptive Frida albicans Complete Problem List/Assessment/Plan Problem List/Assessment/Plan Neurology # Acute metabolic encephalopathy secondary to sepsis # Metastasis CA to Brain - MRI brain: Nondiagnostic evaluation for intracranial metastases on this noncontrast MRI brain. Recommend brain MRI with and without contrast for further evaluation. - Mental status improving slowly but still confused. - Neuro checks q2h. - CT head negative. Cardiovascular # Septic shock due to UTI and Wound Infection # HFpEF, EF 60 % - Continue norepinephrine drip , titrate to maintain MAP > 65. - Avoid excess fluids due to CHF on CXR. -ECHO: LVEF 60%, RV enlarged. monitor for RV failure. Respiratory - On room air, saturating 96% - 98%. - No respiratory distress. - Incentive spirometry. Gastrointestinal # Post sx Abdomina Wound - Monitor albumin; nutritional support as needed. - Bowel regimen PRN. - Monitor abdominal wound with jewell. # Complicated UTI # Acute kidney injury on CKD due to VMN hemodynamically mediated SONDRA due to hypotension. # Oliguric renal failure due to septic shock # Metabolic acidosis due to sepsis/septic shock # Complicated UTI with Yeast >100,000 - Continue micafungin - no emergent HD indication per nephrology. - Continue strict I/O, daily weights. - Nephrology following - Avoid nephrotoxins. # Infectious Disease - Septic shock, - AMS, hypotension requiring norepinephrine, - Complicated UTI - Postoperative open wound with significant drainage - Possible early cellulitis or surgical site infection. - Wound Infection - Continue IV Meropenem - Wound care - Wound culture: Positive for Acinebacter Baumanni and Proteous Mirabilis - MRSA screen NEGATIVE. - Urine culture: >100,000 yeast (Frida species likely). - Continue micafungin - Blood cultures: negative. Endocrine # Hypothyroidism - TSH 11.7 undertreated. # Type 2 diabetes with fluctuating glucose # Morbid obesity - Increases risk for wound complications, sepsis. - Hyper-TSH: Increase levothyroxine dose; - Glucose management with insulin sliding scale; avoid hypoglycemia. Hematology / Oncology # Metastatic melanoma lungs, adrenal gland, brain and peritoneum. # Symptomatic anemia, acute on chronic # Iron deficiency # Anemia of chronic disease + acute blood loss - monitor; transfuse PRBC if Hgb<7 or symptomatic. - Iron deficiency: patient is NPO intermittently, poor PO intake - IV iron sucrose 200 mg daily 3 doses. - Hold Eliquis temporarily due to anemia and ongoing wound drainage; reassess daily. 10. Lines / Drips / Devices * PICC line in left arm Prophylaxis * DVT prophylaxis: SCD * GI prophylaxis: IV pantoprazole daily. * Pressure ulcer prevention: Turn q2h. Nutrition # Malnutrition/Hypoalbuminemia * High-protein diet when safe. 14. Social Work / Care Management * Engage social work for discharge planning and family support. * Talked to Dr. Patient's niece and daughter, patient's daughter is decision maker. Updated her about patient's condition and prognosis. * had a long discussion about goals of care, Pt's sister and Daughter wants to follow up with [facility] for Mets melanoma. - switched Decadron IV 8 mg b.i.d. to Decadron 2 mg p.o. b.i.d. plan to discharge home with home health for IV antibiotic meropenem 1 gm b.i.d. patient is still edematous and urine output significantly decreased. CODE STATUS * Full code Critical Care time spent 47 minutes including patient care, chart review and updating family, excluding procedure. Plan discussed with Dr. Ahmadi Plan discussed with: Patient, RN Plan discussed with: Patient, Other (Sister, Daughter, RN) My Orders My Orders Orders - MARITZA MAYO RESIDENT Procedure Category Date Status Time Dexamethasone Tablet PHA 09/22/25 Logged (Decadron Tablet) 10:00 Dietary Evaluation Review Comments: Nutrition Recommendation: 1) Avinash 1 pk daily, Nephro-issac 1 tab daily 2) Discontinue MVI 3) Ergocalciferol 50,000IU weekly 4) Monitor PO intake, lab values, weight trend, and I/O Expected Outcomes/Goals: Wound to improve Intake to meet >75% estimated needs Lab values to improve FU 3-5 days Date of Service: Sep 22, 2025 Billing Provider: JESU AHMADI MD Common Visit Codes: [id number] CARE 30-74 MIN MARITZA MAYO RESIDENT Sep 22, 2025 07:22 JESU AHMADI MD Sep 24, 2025 11:57
--- NOTE | 2025-09-22 13:40 | DVHPN2 ---
Subjective History from RN and chart Patient consumed about 10-15% of diet only No family at bedside Changes from previous H/P or p: No Changes Objective Vitals Vital Signs Date Time Temp Pulse Resp B/P (MAP) Pulse Ox O2 Delivery O2 Flow Rate FiO2 09/22/25 08:00 15 96 Nasal Cannula* 2 28 09/22/25 08:00 97.6 79 100/58 (72) 97.6 Intake/Output Intake and Output 09/22/25 06:59 Intake Total 2120 ml Output Total 50 ml Balance 2070 ml Intake Oral 10 ml IV Total 2110 ml Output Urine Total 50 ml Exam General: Patient is awake Chest: lung lynn clear to auscultation Heart: RRR, no murmur Abdomen: Mild generalized abdominal tenderness to palpation, +BS Medications Current Medications Medications Dose Ordered Sig/Elissa Route Start Time Stop Time Status Last Admin Dose Admin Levothyroxine Sodium 150 mcg QAM@0600 PO 09/11/25 06:00 09/19/25 06:02 150 MCG Ondansetron HCl 4 mg Q4HP PRN IV 09/10/25 20:30 09/19/25 09:25 4 MG Docusate Sodium 100 mg BIDPRN PRN PO 09/10/25 20:30 Acetaminophen 650 mg Q6HP PRN PO 09/10/25 20:30 09/19/25 06:05 650 MG Nitroglycerin 0.4 mg Q5MINP PRN SL 09/10/25 21:00 Diagnostic Test (Pha) 1 strip ACHS 09/11/25 07:00 09/22/25 11:30 1 STRIP Insulin Human Regular ACHS SC 09/11/25 07:00 09/15/25 22:00 2 UNITS Dextrose 50 ml UD PRN IV 09/10/25 22:45 Furosemide 80 mg BIDD IV 09/16/25 18:00 09/22/25 06:00 80 MG Morphine Sulfate 2 mg Q30M PRN IV 09/16/25 12:45 09/21/25 10:47 2 MG Meropenem 50 ml @ 17 mls/hr Q12HR IV 09/17/25 22:00 09/22/25 10:00 17 MLS/HR Dextrose/Sodium Chloride 1,000 ml @ 100 mls/hr Q10H IV 09/19/25 10:45 Cancel Pantoprazole Sodium 40 mg BID IV 09/19/25 22:00 09/22/25 10:00 40 MG Dextrose/Sodium Chloride 1,000 ml @ 75 mls/hr [id number] IV 09/19/25 16:45 09/21/25 22:05 75 MLS/HR Micafungin Sodium 100 mg/Sodium Chloride 100 ml @ 100 mls/hr DAILY IV 09/20/25 10:00 09/22/25 10:00 100 MLS/HR Iron Sucrose 110 ml @ 110 mls/hr DAILY@1200 IV 09/21/25 12:00 09/25/25 11:59 09/22/25 12:07 110 MLS/HR Morphine Sulfate 2 mg Q6HPRN PRN IV 09/20/25 17:30 09/21/25 16:02 2 MG Dexamethasone 2 mg Q12HR PO 09/22/25 22:00 Laboratory Results Laboratory Tests 09/22/25 03:45 Chemistry Test 09/22/25 03:45 Albumin 2.2 g/dL (3.2-4.8) L Calcium Level 8.3 mg/dL (8.7-10.4) L Total Protein 3.9 g/dL (5.7-8.2) L LFT Test 09/22/25 03:45 Alanine Aminotransferase (ALT) < 9 U/L (7-40) Alkaline Phosphatase 65 U/L (46-116) Aspartate Amino Transferase (AST) 14 U/L (13-40) Total Bilirubin 0.3 mg/dL (0.2-1.0) Urinalysis Test 09/10/25 17:50 09/12/25 11:47 Urine Hyaline Casts Mod /lpf (0 - 2) Urine Mucus Few (None Seen) Urine Color Light-orange (Yellow) Urine Clarity Ex.turbid (Clear) Urine pH 7.0 (5.0-9.0) Urine Specific [place] 1.019 (1.001-1.035) Urine Protein 2+ (Negative) H Urine Ketones Negative (Negative) Urine Blood 1+ /uL (Negative) H Urine Nitrite Negative (Negative) Urine Bilirubin Negative (Negative) Urine Urobilinogen Normal mg/dL (Negative) Urine Leukocyte Esterase 3+ /uL (Negative) Urine RBC 68 /hpf (0 - 4) Urine WBC Clumps Present /hpf (None Seen) Urine Microscopic WBC 2862 /HPF (0-5) H Urine Squamous Epithelial Cells Few /hpf (<5) Urine Transitional Epithelial Cells Mod /hpf (<2) Urine Bacteria Mod /hpf (None Seen) H Urine Yeast (Budding) Many /hpf (None Seen) Urine Creatinine 228.66 mg/dL (30.0-125.0) H Urine Protein/Creatinine Ratio 1.55 Urine Sodium 17 mmol/L (40-220) L Urine Glucose Normal mg/dL (Normal) Urine Total Protein 353.5 mg/dL (1-14) H Microbiology Microbiology Date/Time Source Procedure Growth Status 09/11/25 19:11 Abdomen Gram Stain - Final Complete 09/11/25 19:11 Wound Culture - Final Acinetobacter baumannii Proteus mirabilis Complete 09/10/25 19:28 Blood Blood Culture - Final NO GROWTH AFTER 5 DAYS OF INCUBATION. Complete 09/10/25 17:50 Urine - Dumont [place] Urine Culture - Final Presumptive Frida albicans Complete Assessment/Plan Assessment/Plan Possible GI bleed Anemia Metabolic encephalopathy Metastatic melanoma Abdominal pain Persistent nausea vomiting Plan: Discussed with Dr. Kem Choudhury At this time patient does not have any signs of active bleeding, we will recommend conservative treatment Clear liquid diet Possible consideration for tube feeding or IV Clinimix recommended Patient family debating for higher level of care versus hospice care We will continue to monitor patient Plan discussed with: Other (RN) Date of Service: Sep 22, 2025 Billing Provider: RYAN NI Common Visit Codes: [id number] INP/OBS CARE(HIGH) RYAN NI Sep 22, 2025 13:40
--- NOTE | 2025-09-22 17:13 | DVHPN2 ---
Progress Note - Dictate Date Seen: Sep 22, 2025 Has the PT tested + for MRSA If YES, has PT been informed?: No Medical Necessity Reason Pt with a Central, PICC or Fol: Yes The following are medically ne: PICC Line, Dumont Catheter Subjective Patient seen earlier today, responsive to this investigative writer. vital signs Vital Sign Date Time Temp Pulse Resp B/P (MAP) Pulse Ox O2 Delivery O2 Flow Rate FiO2 09/22/25 16:40 78 19 103/65 (78) 95 09/22/25 14:00 Nasal Cannula* 2 28 09/22/25 12:00 97.6 97.6 Total Intake and Output 09/21/25 09/21/25 09/22/25 14:59 22:59 06:59 Intake Total 860 ml 600 ml 660 ml Output Total 20 ml 30 ml Balance 860 ml 580 ml 630 ml medications Current Medications Medications Dose Ordered Sig/Elissa Route Start Time Stop Time Status Last Admin Dose Admin Levothyroxine Sodium 150 mcg QAM@0600 PO 09/11/25 06:00 09/19/25 06:02 150 MCG Ondansetron HCl 4 mg Q4HP PRN IV 09/10/25 20:30 09/19/25 09:25 4 MG Docusate Sodium 100 mg BIDPRN PRN PO 09/10/25 20:30 Acetaminophen 650 mg Q6HP PRN PO 09/10/25 20:30 09/19/25 06:05 650 MG Nitroglycerin 0.4 mg Q5MINP PRN SL 09/10/25 21:00 Diagnostic Test (Pha) 1 strip ACHS 09/11/25 07:00 09/22/25 16:56 1 STRIP Insulin Human Regular ACHS SC 09/11/25 07:00 09/15/25 22:00 2 UNITS Dextrose 50 ml UD PRN IV 09/10/25 22:45 Morphine Sulfate 2 mg Q30M PRN IV 09/16/25 12:45 09/21/25 10:47 2 MG Meropenem 50 ml @ 17 mls/hr Q12HR IV 09/17/25 22:00 09/22/25 10:00 17 MLS/HR Dextrose/Sodium Chloride 1,000 ml @ 100 mls/hr Q10H IV 09/19/25 10:45 Cancel Pantoprazole Sodium 40 mg BID IV 09/19/25 22:00 09/22/25 10:00 40 MG Dextrose/Sodium Chloride 1,000 ml @ 75 mls/hr [id number] IV 09/19/25 16:45 09/22/25 15:28 75 MLS/HR Micafungin Sodium 100 mg/Sodium Chloride 100 ml @ 100 mls/hr DAILY IV 09/20/25 10:00 09/22/25 10:00 100 MLS/HR Iron Sucrose 110 ml @ 110 mls/hr DAILY@1200 IV 09/21/25 12:00 09/25/25 11:59 09/22/25 12:07 110 MLS/HR Morphine Sulfate 2 mg Q6HPRN PRN IV 09/20/25 17:30 09/21/25 16:02 2 MG Dexamethasone 2 mg Q12HR PO 09/22/25 22:00 objective Gen: nad heent: nc/at, mmm lungs: cta anteriorly cvs: no rub abd: soft, bowel sounds audible ext: +edema skin: no rash laboratory and microbiology Laboratory Tests 09/22/25 03:45 Test 09/22/25 03:45 Range/Units Serum Glucose 95 74-106 mg/dL Assessment/Plan Problem List/Assessment/Plan Acute kidney injury superimposed Chronic Kidney Disease secondary hemodynamic mediated Baselined creatinine is unknown Vancomycin toxicity Urinary tract infection Metabolic acidosis Encephalopathy h/o melanoma on treatment [facility] Anemia of chronic kidney disease Vitamin D deficiency Hypoalbuminemia Hypokalemia Recommendations: - we will temporarily hold loop diuretic and reassess. - kidney function continues to decline suspect ongoing relative hypotension A contributing factor. - urine electrolytes still pending. Dietary Evaluation Review Comments: Nutrition Recommendation: 1) Avinash 1 pk daily, Nephro-issac 1 tab daily 2) Discontinue MVI 3) Ergocalciferol 50,000IU weekly 4) Monitor PO intake, lab values, weight trend, and I/O Expected Outcomes/Goals: Wound to improve Intake to meet >75% estimated needs Lab values to improve FU 3-5 days Plan discussed with: VICTORIANO Maddox MD Sep 22, 2025 17:13
[2025-09-23] VITALS (8 sets, daily range): BP systolic 92–104; BP diastolic 48–65; PULSE 78–98; RESP 18–19; TEMP 97.9–99; O2SAT 91–100
[2025-09-23 06:58] LABS: Anion Gap 12 (5-15); Chloride 102 mmol/L (98-107); Potassium 4.6 mmol/L (3.5-5.1)
[2025-09-23 07:04] LABS: BUN/Creatinine Ratio 12.4 (10.0-20.0); Glucose 77 mg/dL (74-106)
[2025-09-23 07:05] LABS: Blood Urea Nitrogen 44 mg/dL (9-23); Calcium 8.5 mg/dL (8.7-10.4); Carbon Dioxide 20 mmol/L (20-31); Sodium 134 mmol/L (136-145)
--- NOTE | 2025-09-23 12:52 | DVHDSRES ---
Discharge Summary Date of Admission Resident Creating Document: MARITZA MAYO RESIDENT Sep 10, 2025 at 20:56 Date of Discharge: Sep 23, 2025 Admitting Diagnosis Septic shock Labs/Diagnostic Data: Laboratory Results Test 09/23/25 11:47 09/23/25 06:24 09/22/25 03:45 09/19/25 03:19 POC Glucose 79 mg/dl (70-106) Sodium Level 134 mmol/L (136-145) Potassium Level 4.6 mmol/L (3.5-5.1) Chloride Level 102 mmol/L (98-107) Carbon Dioxide Level 20 mmol/L (20-31) Anion Gap 12 (5-15) Blood Urea Nitrogen 44 mg/dL (9-23) Creatinine 3.54 mg/dL (0.550-1.02) Glomerular Filtration Rate Calc 14 mL/min (>90) BUN/Creatinine Ratio 12.4 (10.0-20.0) Serum Glucose 77 mg/dL (74-106) Calcium Level 8.5 mg/dL (8.7-10.4) White Blood Count 23.2 10^3/uL (4.4-10.8) Red Blood Count 2.63 10^6/uL (4.0-5.20) Hemoglobin 7.3 g/dL (12.2-16.2) Hematocrit 25.6 % (36.0-46.0) Mean Corpuscular Volume 97.1 fL (80.0-100.0) Mean Corpuscular Hemoglobin 27.7 pg (28.0-32.0) Mean Corpuscular Hemoglobin Concent 28.6 g/dL (32.0-36.0) Red Cell Distribution Width 19.2 % (11.8-14.3) Platelet Count 238 10^3/uL (140-450) Mean Platelet Volume 8.3 fL (6.9-10.8) Neutrophils (%) (Auto) 93.1 % (37.0-80.0) Lymphocytes (%) (Auto) 4.9 % (10.0-50.0) Monocytes (%) (Auto) 2.0 % (0.0-12.0) Eosinophils (%) (Auto) 0.0 % (0.0-7.0) Basophils (%) (Auto) 0.0 % (0.0-2.0) Neutrophils # (Auto) 21.6 10 ^3/uL (1.6-8.6) Lymphocytes # (Auto) 1.1 10 ^3/uL (0.4-5.4) Monocytes # (Auto) 0.5 10 ^3/uL (0-1.3) Eosinophils # (Auto) 0 10 ^3/uL (0-0.8) Basophils # (Auto) 0 10 ^3/uL (0-0.2) Nucleated Red Blood Cells 0.5 % Total Bilirubin 0.3 mg/dL (0.2-1.0) Aspartate Amino Transferase (AST) 14 U/L (13-40) Alanine Aminotransferase (ALT) < 9 U/L (7-40) Alkaline Phosphatase 65 U/L (46-116) Total Protein 3.9 g/dL (5.7-8.2) Albumin 2.2 g/dL (3.2-4.8) Magnesium Level 1.8 mg/dL (1.6-2.6) Test 09/18/25 23:05 09/18/25 03:35 09/17/25 02:31 09/13/25 10:37 Stool Occult Blood Positive (Negative) Stool Occult Blood Sample #3 (Negative) Ammonia 29 umol/L (11-32) Phosphorus Level 3.6 mg/dL (2.4-5.1) Blood Gas Specimen Type Arterial Blood Gas Sample Site Left radial Blood Gas Patient Temperature 37.0 Arterial Blood Date Drawn [id number] Arterial Blood pH 7.397 (7.350-7.450) Arterial Blood Partial Pressure CO2 23.0 mmHg (32.0-45.0) Arterial Blood Partial Pressure O2 82.9 mmHg (83.0-108.0) Arterial Blood HCO3 13.8 mmol/L (21.0-28.0) Arterial Blood Oxygen Saturation 95.6 % (94.0-98.0) Arterial Blood Base Excess -9.6 mmol/L (-2.0-3.0) Arterial Blood Oxyhemoglobin 94.5 % (94.0-98.0) Arterial Blood Carboxyhemoglobin 0.4 % (0.5-1.5) Arterial Blood Methemoglobin 0.8 % (0.0-1.5) Arterial Blood Deoxyhemoglobin 4.3 % (0.0-5.0) Juan Jose Test Yes Blood Gas Total Hemoglobin 9.10 g/dL (12.0-16.0) Blood Gas Liter Flow 0.00 Blood Gas Modality Room air FiO2 % 21.0 Test 09/12/25 12:23 09/12/25 11:47 09/12/25 04:48 09/10/25 18:05 Parathyroid Hormone (Intact) 57.0 pg/mL (18.4-80.1) Urine Color Light-orange (Yellow) Urine Clarity Ex.turbid (Clear) Urine pH 7.0 (5.0-9.0) Urine Specific [place] 1.019 (1.001-1.035) Urine Protein 2+ (Negative) Urine Ketones Negative (Negative) Urine Blood 1+ /uL (Negative) Urine Nitrite Negative (Negative) Urine Bilirubin Negative (Negative) Urine Urobilinogen Normal mg/dL (Negative) Urine Leukocyte Esterase 3+ /uL (Negative) Urine RBC 68 /hpf (0 - 4) Urine WBC Clumps Present /hpf (None Seen) Urine Microscopic WBC 2862 /HPF (0-5) Urine Squamous Epithelial Cells Few /hpf (<5) Urine Transitional Epithelial Cells Mod /hpf (<2) Urine Bacteria Mod /hpf (None Seen) Urine Yeast (Budding) Many /hpf (None Seen) Urine Creatinine 228.66 mg/dL (30.0-125.0) Urine Protein/Creatinine Ratio 1.55 Urine Sodium 17 mmol/L (40-220) Urine Glucose Normal mg/dL (Normal) Urine Total Protein 353.5 mg/dL (1-14) Iron Level 13 ug/dL (50-170) Total Iron Binding Capacity 161 ug/dL (250-425) Percent Iron Saturation 8.1 % (15-50) Ferritin 89.7 ng/mL (10-291) Vitamin D 25-Hydroxy 17.0 ng/mL (30.0-100) Random Vancomycin Level 23.0 ug/mL (5-10) Prothrombin Time 10.4 sec (9.3-11.8) Prothrombin Time INR 0.98 (0.9-1.15) Activated Partial Thromboplast Time 28.1 SEC (24.5-34.5) Hemoglobin A1c < 3.8 % A1C (<5.7) Lactic Acid Level 1.0 mmol/L (0.4-2.0) B-Type Natriuretic Peptide 62.07 pg/mL (0-100) Thyroid Stimulating Hormone (TSH) 11.74 uIU/mL (0.55-4.78) Test 09/10/25 17:50 Urine Hyaline Casts Mod /lpf (0 - 2) Urine Mucus Few (None Seen) Other Laboratory Tests 09/23/25 06:24 09/22/25 03:45 Brief Hx & Hospital Course: The patient is a 64-year-old female morbidly obese with past medical history of melanoma cancer, currently receiving treatment at [facility], hypothyroidism, hypertension, chronic kidney failure, and diabetes mellitus who presented to [facility] ED for evaluation of altered level of consciousness. As reported by daughter patient was experiencing confusion state, became altered from usual baseline, associated with generalized weakness, getting worse that EMS were called. When EMS arrived on the scene, the patient's blood glucose was 78 mg/dL, oriented x2, EN route to our facility ED. Patient was seen and evaluated in the ED with left thigh open wound from cysts removal, laboratory data shows WBC 9.4, hemoglobin 7.0, hematocrit 22.7, platelets 379, sodium 141, potassium 5.2, BUN 50, creatinine 4.45, GFR 11, glucose 63, calcium 8.5, albumin 2.4, BNP 62.07, blood pressure 79/61 trending up to 106/76, heart rate 90, temperature 98.3 F, O2 saturation 98% on room air. Urinalysis positive for urinary tract infection. Patient was started on IV antibiotic regimen vancomycin, please see medication orders section in the computer. On my assessment, daughter at bedside, patient remains altered, no diaphoresis, shortness of breaths, loss of consciousness, no diarrhea, nausea, vomiting, fever, no chills. Patient was admitted for further evaluation and medical management. patient was on Levophed drip 10 mcg/min, nephrology on board, cont. Lasix 40 mg IV b.i.d., dopamine, continue fluconazole and start Meropenem as wound culture is Positive for Acinebacter Baumanni and Proteous Mirabilis Patient has started to metronidazole and hydrocortisone. Started Hydrocortisone, then D/C Hydrocortisone start Decadron, Chest CT shows: Multiple oval-shaped cannonball lesions with primarily lower lobe / inferior thoracic distribution compatible with metastatic disease, Small to medium right-sided pleural effusion. Significant peritoneal carcinomatosis with the areas of nodularity primarily overlying the perihepatic space. Small right adrenal gland mass/ nodule measuring 1.7 cm likely compatible with metastatic disease. MRI shows: No evidence of acute infarct or intracranial hemorrhage. Nondiagnostic evaluation for intracranial metastases on this noncontrast MRI brain. Recommend brain MRI with and without contrast for further evaluation. Pt has SONDRA on CKD, and kidney funtion worsen so No MRI with contrast. Discussed with family aboyut the condition and prognosis of the pt and they agrred about Hospice, Discharge pt Hospice when hospice is arranged. 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 # Septic shock due to UTI and Wound Infection # HFpEF, EF 60 % # Post sx Abdomina Wound # Complicated UTI # Acute kidney injury on CKD due to VMN hemodynamically mediated SONDRA due to hypotension. # Oliguric renal failure due to septic shock # Metabolic acidosis due to sepsis/septic shock # Hypothyroidism # Type 2 diabetes with fluctuating glucose # Morbid obesity # Symptomatic anemia, acute on chronic # Iron deficiency # Anemia of chronic disease + acute blood loss Discharge Disposition: Hospice - Home SNF Discharge Will this Physician continue t: No Discharge Instruct/Medications Diet: See Comment Diet comment: As tolerated Activity: No Restrictions, As Tolerated Follow Up/Referral: Per hospice Medications: As per hospice Discharge Statement: "Patient was advised to return to the ER or call 911 if any headaches, dizziness, shortness of breath, chest pain, abdominal pain, bleeding, fevers, or worsening of medical condition. Patient was counseled about treatment plan, medications, possible side effects, patientverbalized understanding. All questions were answered to the best of my ability. 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 # Septic shock due to UTI and Wound Infection # HFpEF, EF 60 % # Post sx Abdomina Wound # Complicated UTI # Acute kidney injury on CKD due to VMN hemodynamically mediated SONDRA due to hypotension. # Oliguric renal failure due to septic shock # Metabolic acidosis due to sepsis/septic shock # Hypothyroidism # Type 2 diabetes with fluctuating glucose # Morbid obesity # Symptomatic anemia, acute on chronic # Iron deficiency # Anemia of chronic disease + acute blood loss Visit Coding STANDARD RES Billing Provider: AYSE MARTE MD Date of Service if different f: Sep 23, 2025 MARITZA MAYO RESIDENT Sep 23, 2025 12:52
--- NOTE | 2025-09-23 13:47 | DVHPN2 ---
Subjective History from RN , sitter and chart No family at bedside Patient refusing to swallow recommended diet Changes from previous H/P or p: No Changes Objective Vitals Vital Signs Date Time Temp Pulse Resp B/P (MAP) Pulse Ox O2 Delivery O2 Flow Rate FiO2 09/23/25 13:07 99.0 83 18 94/48 (63) 100 99.0 09/23/25 08:00 Room Air* 0 21 Intake/Output Intake and Output 09/23/25 07:00 Intake Total 785 ml Balance 785 ml Intake Oral 0 ml IV Total 785 ml Exam General: Patient is awake Chest: lung lynn clear to auscultation Heart: RRR, no murmur Abdomen: Mild generalized abdominal tenderness to palpation, +BS Medications Current Medications Medications Dose Ordered Sig/Elissa Route Start Time Stop Time Status Last Admin Dose Admin Levothyroxine Sodium 150 mcg QAM@0600 PO 09/11/25 06:00 09/23/25 06:00 150 MCG Ondansetron HCl 4 mg Q4HP PRN IV 09/10/25 20:30 09/19/25 09:25 4 MG Docusate Sodium 100 mg BIDPRN PRN PO 09/10/25 20:30 Acetaminophen 650 mg Q6HP PRN PO 09/10/25 20:30 09/23/25 00:13 650 MG Nitroglycerin 0.4 mg Q5MINP PRN SL 09/10/25 21:00 Diagnostic Test (Pha) 1 strip ACHS 09/11/25 07:00 09/23/25 11:45 1 STRIP Insulin Human Regular ACHS SC 09/11/25 07:00 09/15/25 22:00 2 UNITS Dextrose 50 ml UD PRN IV 09/10/25 22:45 Morphine Sulfate 2 mg Q30M PRN IV 09/16/25 12:45 09/21/25 10:47 2 MG Meropenem 50 ml @ 17 mls/hr Q12HR IV 09/17/25 22:00 09/23/25 09:13 17 MLS/HR Dextrose/Sodium Chloride 1,000 ml @ 100 mls/hr Q10H IV 09/19/25 10:45 Cancel Pantoprazole Sodium 40 mg BID IV 09/19/25 22:00 09/23/25 09:04 40 MG Dextrose/Sodium Chloride 1,000 ml @ 75 mls/hr [id number] IV 09/19/25 16:45 09/23/25 12:21 75 MLS/HR Micafungin Sodium 100 mg/Sodium Chloride 100 ml @ 100 mls/hr DAILY IV 09/20/25 10:00 09/23/25 09:05 100 MLS/HR Iron Sucrose 110 ml @ 110 mls/hr DAILY@1200 IV 09/21/25 12:00 09/25/25 11:59 09/23/25 12:20 110 MLS/HR Morphine Sulfate 2 mg Q6HPRN PRN IV 09/20/25 17:30 09/23/25 03:06 2 MG Dexamethasone 2 mg Q12HR PO 09/22/25 22:00 09/23/25 09:02 2 MG Laboratory Results Laboratory Tests 09/22/25 03:45 09/23/25 06:24 Chemistry Test 09/23/25 06:24 Calcium Level 8.5 mg/dL (8.7-10.4) L Urinalysis Test 09/10/25 17:50 09/12/25 11:47 Urine Hyaline Casts Mod /lpf (0 - 2) Urine Mucus Few (None Seen) Urine Color Light-orange (Yellow) Urine Clarity Ex.turbid (Clear) Urine pH 7.0 (5.0-9.0) Urine Specific [place] 1.019 (1.001-1.035) Urine Protein 2+ (Negative) H Urine Ketones Negative (Negative) Urine Blood 1+ /uL (Negative) H Urine Nitrite Negative (Negative) Urine Bilirubin Negative (Negative) Urine Urobilinogen Normal mg/dL (Negative) Urine Leukocyte Esterase 3+ /uL (Negative) Urine RBC 68 /hpf (0 - 4) Urine WBC Clumps Present /hpf (None Seen) Urine Microscopic WBC 2862 /HPF (0-5) H Urine Squamous Epithelial Cells Few /hpf (<5) Urine Transitional Epithelial Cells Mod /hpf (<2) Urine Bacteria Mod /hpf (None Seen) H Urine Yeast (Budding) Many /hpf (None Seen) Urine Creatinine 228.66 mg/dL (30.0-125.0) H Urine Protein/Creatinine Ratio 1.55 Urine Sodium 17 mmol/L (40-220) L Urine Glucose Normal mg/dL (Normal) Urine Total Protein 353.5 mg/dL (1-14) H Microbiology Microbiology Date/Time Source Procedure Growth Status 09/11/25 19:11 Abdomen Gram Stain - Final Complete 09/11/25 19:11 Wound Culture - Final Acinetobacter baumannii Proteus mirabilis Complete 09/10/25 19:28 Blood Blood Culture - Final NO GROWTH AFTER 5 DAYS OF INCUBATION. Complete 09/10/25 17:50 Urine - [place] Urine Culture - Final Presumptive Frida albicans Complete Labs and/or images reviewed: Labs reviewed by me, Image(s) reviewed by me Assessment/Plan Assessment/Plan Possible GI bleed Anemia Metabolic encephalopathy Metastatic melanoma Abdominal pain Persistent nausea vomiting Plan: Discussed with Dr. eKm Choudhury Patient is being discharged on hospice care Further treatment per hospice Plan discussed with: Other (RN) My Orders Orders - RYAN NI Procedure Category Date Status Time Full Liq Diet DIET 09/22/25 Transmitted Dinner Date of Service: Sep 23, 2025 Billing Provider: RYAN NI Common Visit Codes: [id number] INP/OBS CARE(HIGH) RYAN NI Sep 23, 2025 13:47
--- NOTE | 2025-09-23 14:24 | DVHPN2 ---
Progress Note Date Seen: Sep 23, 2025 Has the PT tested + for MRSA If YES, has PT been informed?: No Medical Necessity Reason Pt with a Central, PICC or Fol: Yes The following are medically ne: PICC Line, [place] Catheter Subjective Patient reports: No new complaints Objective vital signs Vital Sign Date Time Temp Pulse Resp B/P (MAP) Pulse Ox O2 Delivery O2 Flow Rate FiO2 09/23/25 13:07 99.0 83 18 94/48 (63) 100 99.0 09/23/25 08:00 Room Air* 0 21 Total Intake and Output 09/22/25 09/22/25 09/23/25 15:00 23:00 07:00 Intake Total 785 ml 0 ml Balance 785 ml 0 ml medications Current Medications Medications Dose Ordered Sig/Elissa Route Start Time Stop Time Status Last Admin Dose Admin Levothyroxine Sodium 150 mcg QAM@0600 PO 09/11/25 06:00 09/23/25 06:00 150 MCG Ondansetron HCl 4 mg Q4HP PRN IV 09/10/25 20:30 09/19/25 09:25 4 MG Docusate Sodium 100 mg BIDPRN PRN PO 09/10/25 20:30 Acetaminophen 650 mg Q6HP PRN PO 09/10/25 20:30 09/23/25 00:13 650 MG Nitroglycerin 0.4 mg Q5MINP PRN SL 09/10/25 21:00 Diagnostic Test (Pha) 1 strip ACHS 09/11/25 07:00 09/23/25 11:45 1 STRIP Insulin Human Regular ACHS SC 09/11/25 07:00 09/15/25 22:00 2 UNITS Dextrose 50 ml UD PRN IV 09/10/25 22:45 Morphine Sulfate 2 mg Q30M PRN IV 09/16/25 12:45 09/21/25 10:47 2 MG Meropenem 50 ml @ 17 mls/hr Q12HR IV 09/17/25 22:00 09/23/25 09:13 17 MLS/HR Dextrose/Sodium Chloride 1,000 ml @ 100 mls/hr Q10H IV 09/19/25 10:45 Cancel Pantoprazole Sodium 40 mg BID IV 09/19/25 22:00 09/23/25 09:04 40 MG Dextrose/Sodium Chloride 1,000 ml @ 75 mls/hr [id number] IV 09/19/25 16:45 09/23/25 12:21 75 MLS/HR Micafungin Sodium 100 mg/Sodium Chloride 100 ml @ 100 mls/hr DAILY IV 09/20/25 10:00 09/23/25 09:05 100 MLS/HR Iron Sucrose 110 ml @ 110 mls/hr DAILY@1200 IV 09/21/25 12:00 09/25/25 11:59 09/23/25 12:20 110 MLS/HR Morphine Sulfate 2 mg Q6HPRN PRN IV 09/20/25 17:30 09/23/25 03:06 2 MG Dexamethasone 2 mg Q12HR PO 09/22/25 22:00 09/23/25 09:02 2 MG Examination Gen: NAD Lungs: Bilateral air entry, no rales Heart: RRR, normal S1 and S2 Ext: + generalized edema Neuro: Awake and alert laboratory and microbiology Laboratory Tests 09/23/25 06:24 09/22/25 03:45 Test 09/23/25 06:24 Range/Units Serum Glucose 77 74-106 mg/dL Microbiology Date/Time Source Procedure Growth Status 09/11/25 19:11 Abdomen Gram Stain - Final Complete 09/11/25 19:11 Wound Culture - Final Acinetobacter baumannii Proteus mirabilis Complete 09/10/25 19:28 Blood Blood Culture - Final NO GROWTH AFTER 5 DAYS OF INCUBATION. Complete 09/10/25 17:50 Urine - [place] Urine Culture - Final Presumptive Frida albicans Complete Labs and/or images reviewed: Labs reviewed by me Problem List/Assessment/Plan Problem List/Assessment/Plan IMP Acute kidney injury superimposed Chronic Kidney Disease secondary hemodynamic mediated- overall decline in kidney function suspected ongoing relative hypotension as a contributing factor Baselined creatinine is unknown Vancomycin toxicity Urinary tract infection Metabolic acidosis Encephalopathy h/o melanoma on treatment at [facility] Anemia of chronic kidney disease Vitamin D deficiency Hypoalbuminemia Hypokalemia- resolved REC - BMP in am - Strict I&Os - Diuretics currently on hold will reassess daily - Avoidance of RAAS inhibition, NSAIDS and contrast studies if able - Will continue to monitor Plan discussed with: Patient Dietary Evaluation Review Comments: Nutrition Recommendation: 1) Avinash 1 pk daily, Nephro-issac 1 tab daily 2) Discontinue MVI 3) Ergocalciferol 50,000IU weekly 4) Monitor PO intake, lab values, weight trend, and I/O Expected Outcomes/Goals: Wound to improve Intake to meet >75% estimated needs Lab values to improve FU 3-5 days DOMO DUNBAR Sep 23, 2025 14:24
--- NOTE | 2025-09-23 23:33 | DVHPN2 ---
Subjective DOS: 09/23/2025 Patient seen and examined at bedside. Remains on supplemental oxygen. Overnight events reviewed. Changes from previous H/P or p: No Changes Objective Vitals Vital Signs Date Time Temp Pulse Resp B/P (MAP) Pulse Ox O2 Delivery O2 Flow Rate FiO2 09/23/25 17:56 99.0 85 18 95/57 (70) 95 99.0 09/23/25 08:00 Room Air* 0 21 Intake/Output Intake and Output 09/23/25 07:00 Intake Total 785 ml Balance 785 ml Intake Oral 0 ml IV Total 785 ml Exam Gen.: Patient lying in bed in no apparent distress. On supplemental oxygen. Head: Normocephalic, atraumatic. Eyes: EOMI/PERRLA. Ears: Normal hearing. Normal anatomy. Neck/trachea: Trachea midline, supple. Nose: Normal external anatomy. Mouth: Moist mucous membranes. Chest: Decreased air entry bilaterally. No wheezing or rhonchi. Cardiovascular: Positive S1, positive S2. Regular rate and rhythm. Abdomen: Positive bowel sounds in all 4 quadrants. Soft, non-tender, non- distended. : Deferred. Rectal: Deferred. Skin: Warm, dry. Intact. Extremities: 2+ radial pulses bilaterally. No lower extremity edema. Neuro: Awake, alert, oriented x3. No gross motor or sensory deficits. Cranial nerves II through XII intact. Gait not assessed. Medications Current Medications Medications Dose Ordered Sig/Elissa Route Start Time Stop Time Status Last Admin Dose Admin Levothyroxine Sodium 150 mcg QAM@0600 PO 09/11/25 06:00 09/23/25 06:00 150 MCG Ondansetron HCl 4 mg Q4HP PRN IV 09/10/25 20:30 09/19/25 09:25 4 MG Docusate Sodium 100 mg BIDPRN PRN PO 09/10/25 20:30 Acetaminophen 650 mg Q6HP PRN PO 09/10/25 20:30 09/23/25 00:13 650 MG Nitroglycerin 0.4 mg Q5MINP PRN SL 09/10/25 21:00 Diagnostic Test (Pha) 1 strip ACHS 09/11/25 07:00 09/23/25 22:10 1 STRIP Insulin Human Regular ACHS SC 09/11/25 07:00 09/15/25 22:00 2 UNITS Dextrose 50 ml UD PRN IV 09/10/25 22:45 Morphine Sulfate 2 mg Q30M PRN IV 09/16/25 12:45 09/21/25 10:47 2 MG Meropenem 50 ml @ 17 mls/hr Q12HR IV 09/17/25 22:00 09/23/25 22:10 17 MLS/HR Dextrose/Sodium Chloride 1,000 ml @ 100 mls/hr Q10H IV 09/19/25 10:45 Cancel Pantoprazole Sodium 40 mg BID IV 09/19/25 22:00 09/23/25 22:09 40 MG Dextrose/Sodium Chloride 1,000 ml @ 75 mls/hr [id number] IV 09/19/25 16:45 09/23/25 12:21 75 MLS/HR Micafungin Sodium 100 mg/Sodium Chloride 100 ml @ 100 mls/hr DAILY IV 09/20/25 10:00 09/23/25 09:05 100 MLS/HR Iron Sucrose 110 ml @ 110 mls/hr DAILY@1200 IV 09/21/25 12:00 09/25/25 11:59 09/23/25 12:20 110 MLS/HR Morphine Sulfate 2 mg Q6HPRN PRN IV 09/20/25 17:30 09/23/25 03:06 2 MG Dexamethasone 2 mg Q12HR PO 09/22/25 22:00 09/23/25 22:10 2 MG Laboratory Results Laboratory Tests 09/22/25 03:45 09/23/25 06:24 Chemistry Test 09/23/25 06:24 Calcium Level 8.5 mg/dL (8.7-10.4) L Urinalysis Test 09/10/25 17:50 09/12/25 11:47 Urine Hyaline Casts Mod /lpf (0 - 2) Urine Mucus Few (None Seen) Urine Color Light-orange (Yellow) Urine Clarity Ex.turbid (Clear) Urine pH 7.0 (5.0-9.0) Urine Specific [place] 1.019 (1.001-1.035) Urine Protein 2+ (Negative) H Urine Ketones Negative (Negative) Urine Blood 1+ /uL (Negative) H Urine Nitrite Negative (Negative) Urine Bilirubin Negative (Negative) Urine Urobilinogen Normal mg/dL (Negative) Urine Leukocyte Esterase 3+ /uL (Negative) Urine RBC 68 /hpf (0 - 4) Urine WBC Clumps Present /hpf (None Seen) Urine Microscopic WBC 2862 /HPF (0-5) H Urine Squamous Epithelial Cells Few /hpf (<5) Urine Transitional Epithelial Cells Mod /hpf (<2) Urine Bacteria Mod /hpf (None Seen) H Urine Yeast (Budding) Many /hpf (None Seen) Urine Creatinine 228.66 mg/dL (30.0-125.0) H Urine Protein/Creatinine Ratio 1.55 Urine Sodium 17 mmol/L (40-220) L Urine Glucose Normal mg/dL (Normal) Urine Total Protein 353.5 mg/dL (1-14) H Microbiology Microbiology Date/Time Source Procedure Growth Status 09/11/25 19:11 Abdomen Gram Stain - Final Complete 09/11/25 19:11 Wound Culture - Final Acinetobacter baumannii Proteus mirabilis Complete 09/10/25 19:28 Blood Blood Culture - Final NO GROWTH AFTER 5 DAYS OF INCUBATION. Complete 09/10/25 17:50 Urine - [place] Urine Culture - Final Presumptive Frida albicans Complete Assessment/Plan Assessment/Plan Impression: Acute metabolic encephalopathy Septic shock Acute kidney injury on chronic kidney disease Complicated UTI Anemia Morbid obesity Events: Remains on supplemental oxygen On 2 LPM NC Taper O2 as tolerated Remains off pressors, hemodynamically stable. IV fluids with D5W and 1/2 NS. Continue antibiotics Continue dexamethasone Continue antifungal Incentive spirometry Midodrine for BP support Monitor hemoglobin Iron supplementation Pain control Avoid oversedation Wound care Labs and imaging reviewed. Rest of plan as noted below. Plan: Supplemental oxygen Titrate to keep O2 sats above 92%. Pressors as necessary for hemodynamic support Titrate to keep mean arterial pressure greater than 65 mmHg Continue antibiotics Incentive spirometry Stress dose steroids - tapered. Monitor renal function. Monitor electrolytes. Supplement as necessary. Monitor ins and outs. Monitor hemoglobin Transfuse if less than 7.0 g/dL. Wound care Recommend diet and lifestyle modifications for weight reduction Obesity complicates all care DVT prophylaxis. Prognosis: Poor given patient's multiple co-morbidities. Rest of plan per hospitalist and other consultants. Thank you, Dr. Stewart, for allowing me to participate in this patient's care. Further recommendations will depend on the patient's clinical course. Please do not hesitate to contact me if you have any questions or concerns. This medical document was created using an electronic medical record system with [employer] dictation system. Although these documentations are being carefully reviewed, there may still be some phonetic and typographical changes. The errors are purely typographical, due to imperfection on the software program, and do not reflect any compromise in the patient's medical care. Plan discussed with: Patient, Other (RN) Visit Coding Pulmonary Billing Provider: AYSE MARTE MD Date of Service if different f: Sep 23, 2025 Common Visit Codes: [id number] INP/OBS CARE(HIGH) AYSE MARTE MD Sep 23, 2025 23:33
[2025-09-24] VITALS (7 sets, daily range): BP systolic 89–108; BP diastolic 54–86; PULSE 86–104; RESP 17–18; TEMP 98.3–99.2; O2SAT 95–98
[2025-09-24 06:19] LABS: Hematocrit 22.9 % (36.0-46.0); Mean Corpuscular Hemoglobin 29.1 pg (28.0-32.0); Mean Corpuscular Volume 96.9 fL (80.0-100.0)
[2025-09-24 06:22] LABS: Chloride 103 mmol/L (98-107); Potassium 4.2 mmol/L (3.5-5.1)
[2025-09-24 06:23] LABS: Anion Gap 12 (5-15)
[2025-09-24 06:28] LABS: Calcium 8.4 mg/dL (8.7-10.4); Carbon Dioxide 19 mmol/L (20-31); Glucose 51 mg/dL (74-106); Sodium 134 mmol/L (136-145)
[2025-09-24 06:29] LABS: BUN/Creatinine Ratio 20.1 (10.0-20.0); Blood Urea Nitrogen 71 mg/dL (9-23)
[2025-09-24 06:32] LABS: Hemoglobin 6.9 g/dL (12.2-16.2)
[2025-09-24 06:45] LABS: Nucleated Red Blood Cells % 4.0 %; Total Cells Counted 100.0 (100)
--- NOTE | 2025-09-24 12:52 | DVH ---
CLINICAL INFORMATION: PICC LINE CONFIRMATION. TECHNIQUE: Single AP portable chest radiograph was obtained. COMPARISON: XY CHEST XRAY 1 VIEW on DOS: 09/20/25, CT CHEST WITHOUT CONTRAST on DOS: 09/13/25, XY CHEST XRAY 1 VIEW on DOS: 09/13/25 FINDINGS: Left PICC distal tip is near the junction of the left subclavian and brachiocephalic veins. There are low lung volumes with bibasilar atelectasis. No focal consolidation visualized. No pneumothorax. No other significant interval change. IMPRESSION: Distal tip of the left PICC does not reach the SVC. The tip is near the junction of the left subclavian and brachiocephalic veins
--- NOTE | 2025-09-24 13:24 | DVHPN2 ---
Progress Note Date Seen: Sep 24, 2025 Has the PT tested + for MRSA If YES, has PT been informed?: No Medical Necessity Reason Pt with a Central, PICC or Fol: Yes The following are medically ne: PICC Line, Dumont Catheter Subjective Patient reports: No new complaints Objective vital signs Vital Sign Date Time Temp Pulse Resp B/P (MAP) Pulse Ox O2 Delivery O2 Flow Rate FiO2 09/24/25 12:44 102 18 103/86 (92) 97 09/24/25 08:50 98.6 98.6 09/24/25 07:30 Room Air* 0 21 Total Intake and Output 09/23/25 09/23/25 09/24/25 15:00 23:00 07:00 Intake Total 368 ml Output Total 50 ml Balance -50 ml 368 ml medications Current Medications Medications Dose Ordered Sig/Elissa Route Start Time Stop Time Status Last Admin Dose Admin Levothyroxine Sodium 150 mcg QAM@0600 PO 09/11/25 06:00 09/24/25 06:00 150 MCG Ondansetron HCl 4 mg Q4HP PRN IV 09/10/25 20:30 09/19/25 09:25 4 MG Docusate Sodium 100 mg BIDPRN PRN PO 09/10/25 20:30 Acetaminophen 650 mg Q6HP PRN PO 09/10/25 20:30 09/23/25 00:13 650 MG Nitroglycerin 0.4 mg Q5MINP PRN SL 09/10/25 21:00 Diagnostic Test (Pha) 1 strip ACHS 09/11/25 07:00 09/24/25 11:28 1 STRIP Insulin Human Regular ACHS SC 09/11/25 07:00 09/15/25 22:00 2 UNITS Dextrose 50 ml UD PRN IV 09/10/25 22:45 Morphine Sulfate 2 mg Q30M PRN IV 09/16/25 12:45 09/21/25 10:47 2 MG Meropenem 50 ml @ 17 mls/hr Q12HR IV 09/17/25 22:00 09/23/25 22:10 17 MLS/HR Dextrose/Sodium Chloride 1,000 ml @ 100 mls/hr Q10H IV 09/19/25 10:45 Cancel Pantoprazole Sodium 40 mg BID IV 09/19/25 22:00 09/23/25 22:09 40 MG Dextrose/Sodium Chloride 1,000 ml @ 75 mls/hr [id number] IV 09/19/25 16:45 09/24/25 04:02 75 MLS/HR Micafungin Sodium 100 mg/Sodium Chloride 100 ml @ 100 mls/hr DAILY IV 09/20/25 10:00 09/23/25 09:05 100 MLS/HR Iron Sucrose 110 ml @ 110 mls/hr DAILY@1200 IV 09/21/25 12:00 09/25/25 11:59 09/23/25 12:20 110 MLS/HR Morphine Sulfate 2 mg Q6HPRN PRN IV 09/20/25 17:30 09/23/25 03:06 2 MG Dexamethasone 2 mg Q12HR PO 09/22/25 22:00 09/23/25 22:10 2 MG Examination Gen: NAD Lungs: Bilateral air entry, no rales Heart: RRR, normal S1 and S2 Ext: + generalized edema Neuro: Awake and alert laboratory and microbiology Laboratory Tests 09/24/25 05:18 Test 09/24/25 05:18 Range/Units Serum Glucose 51 L 74-106 mg/dL Microbiology Date/Time Source Procedure Growth Status 09/11/25 19:11 Abdomen Gram Stain - Final Complete 09/11/25 19:11 Wound Culture - Final Acinetobacter baumannii Proteus mirabilis Complete 09/10/25 19:28 Blood Blood Culture - Final NO GROWTH AFTER 5 DAYS OF INCUBATION. Complete 09/10/25 17:50 Urine - Dumont Port Urine Culture - Final Presumptive Frida albicans Complete Labs and/or images reviewed: Labs reviewed by me Problem List/Assessment/Plan Problem List/Assessment/Plan IMP Acute kidney injury superimposed Chronic Kidney Disease secondary hemodynamic mediated- overall decline in kidney function suspected ongoing relative hypotension as a contributing factor Baselined creatinine is unknown Vancomycin toxicity Urinary tract infection Metabolic acidosis Encephalopathy h/o melanoma on treatment at [facility] Anemia of chronic kidney disease Vitamin D deficiency Hypoalbuminemia Hypokalemia- resolved REC - BMP in am - Essentially stable kidney function - Strict I&Os - Diuretics currently on hold will reassess daily - Avoidance of RAAS inhibition, NSAIDS and contrast studies if able - Will continue to monitor Plan discussed with: Patient, Other Dietary Evaluation Review Comments: Nutrition Recommendation: 1) Avinash 1 pk daily, Nephro-issac 1 tab daily 2) Discontinue MVI 3) Ergocalciferol 50,000IU weekly 4) Monitor PO intake, lab values, weight trend, and I/O Expected Outcomes/Goals: Wound to improve Intake to meet >75% estimated needs Lab values to improve FU 3-5 days DOMO DUNBAR Sep 24, 2025 13:24
--- NOTE | 2025-09-24 16:47 | DVHPNRES ---
Progress Note Date Seen: Sep 24, 2025 Resident Creating Document: KETAN KERR RESIDENT Has the PT tested + for MRSA If YES, has PT been informed?: No Medical Necessity Reason Pt with a Central, PICC or Fol: Yes The following are medically ne: PICC Line, Dumont Catheter Subjective Review of Systems The patient is a 64-year-old female morbidly obese with past medical history of melanoma cancer, currently receiving treatment at [facility], hypothyroidism, hypertension, chronic kidney failure, and diabetes mellitus who presented to [facility] ED for evaluation of altered level of consciousness. As reported by daughter patient was experiencing confusion state, became altered from usual baseline, associated with generalized weakness, getting worse that EMS were called. When EMS arrived on the scene, the patient's blood glucose was 78 mg/dL, oriented x2, EN route to our facility ED. Patient was seen and evaluated in the ED with left thigh open wound from cysts removal, laboratory data shows WBC 9.4, hemoglobin 7.0, hematocrit 22.7, platelets 379, sodium 141, potassium 5.2, BUN 50, creatinine 4.45, GFR 11, glucose 63, calcium 8.5, albumin 2.4, BNP 62.07, blood pressure 79/61 trending up to 106/76, heart rate 90, temperature 98.3 F, O2 saturation 98% on room air. Urinalysis positive for urinary tract infection. Patient was started on IV antibiotic regimen vancomycin, please see medication orders section in the computer. On my assessment, daughter at bedside, patient remains altered, no diaphoresis, shortness of breaths, loss of consciousness, no diarrhea, nausea, vomiting, fever, no chills. Patient was admitted for further evaluation and medical management. PAST MEDICAL HISTORY * * Metastatic melanoma (brain and lung metastases per family([facility]) * Hypothyroidism * Diabetes mellitus type 2 * Chronic kidney disease (baseline unknown) * Hypertension * Morbid obesity * Recent surgical wounds (abdomen + left thigh) * Former smoker (quit Sep 2024) PAST SURGICAL HISTORY * Left abdominal melanoma excision * Left proximal thigh melanoma excision * Prior oncologic resections SOCIAL HISTORY * Quit smoking 2023 * No EtOH/drugs * Lives with family REVIEW OF SYSTEMS (limited due to confusion) * Constitutional: Patient is oriented in self, when asked further questions to determine mentation she replies she just wanted to be with her family * Neuro: Confusion, ; follows commands * Resp: No cough, wheezing, SOB * CV: No chest pain; soft BPs * GI: No abdominal pain, tolerating minimal PO * : Very low urine output * Skin: Denies any symptoms * Endo: Denies symptoms * MSK: States she feels weak 09/11/25 * Patient is awake, alert, following commands, but confused and poorly oriented. * Left thigh postoperative wound continues to drain moderately, dressing changed, and wound culture obtained. * Dumont catheter in place; urine output remains very low (UOP 0.11 mL/kg/hr) despite IV fluids. * Still requiring vasopressor support (norepinephrine 6 mcg/min) to maintain MAP > 65. * Hemodynamics stable but soft, BP fluctuating 28129 systolic. * No respiratory distress; oxygen saturation 9698% on room air. * She remains on NS at 100 mL/hr for hemodynamic support. * Nephrology evaluated: No emergent indication for dialysis at this time. * Open abdominal wound with jewell appears intact. * No sedation; remains able to follow simple commands. * Confusion improving slightly but still present. * Thyroid function abnormal requires adjustment. * Postoperative wound continues to drain; wound culture sent; ID coverage continued. * Cefadroxil (home ABX) NOT appropriate for current septic presentation ? continue broad-spectrum IV therapy. * No respiratory failure; stable on room air. * Requires continued ICU-level care. 09/12/25 * Patient remains alert but confused, disoriented, intermittently agitated, weak, with poor appetite. * continues on norepinephrine infusion at 2 mcg/min.UOP 0.15 mL/kg/hr via Dumont. oliguric. * Wound culture: Gram-positive cocci in pairs; gram-negative rods. * Urine culture: >100,000 yeast. * Blood cultures negative. * CT head: no acute findings. * CXR: bilateral pulmonary opacities, pulmonary vascular congestion, stable right pleural effusion. * Echo: LVEF 60%; RV enlarged. * Kidney ultrasound: increased echogenicity consistent with medical renal disease. * Vancomycin discontinued due to SONDRA and toxicity risk. * Started D5 NS + 50 mEq sodium bicarb at 100 mL/hr for metabolic acidosis. * 1 unit PRBC transfused yesterday; Hgb up to 7.9 * Daughter now reports brain metastases previously treated and lung metastases untreated.Records requested. 09/12/25: Patient seen and examined at bedside, patient was on Levophed drip 10 mcg/min, nephrology on board, started bicarbonate drip, we ordered chest CT without contrast, reviewed chest x-ray. 09/13/25: Patient seen and examined at bedside, patient was on Levophed drip 10 mcg/min, nephrology on board, started Lasix 40 mg IV b.i.d., dopamine, changed antibiotic to fluconazole. Patient has started to metronidazole and hydrocortisone. 09/14/25: Patient seen and examined at bedside, patient was on Levophed drip 10 mcg/min, nephrology on board, started Lasix 40 mg IV b.i.d., dopamine, changed antibiotic to fluconazole. Patient has started to metronidazole and hydrocortisone. 09/15/25: Patient seen and examined at bedside, patient was on Levophed drip 10 mcg/min, nephrology on board, cont. Lasix 40 mg IV b.i.d., dopamine, continue fluconazole and start Meropenem as wound culture is Positive for Acinebacter Baumanni and Proteous Mirabilis Patient has started to metronidazole and hydrocortisone. 09/16/25: Patient seen and examined at bedside, patient was on Levophed drip 10 mcg/min, nephrology on board, cont. Lasix 40 mg IV b.i.d., dopamine, continue fluconazole and start Meropenem as wound culture is Positive for Acinebacter Baumanni and Proteous Mirabilis Patient has started to metronidazole and hydrocortisone - Decrease Hydrocortison to 50 mg BID. 09/17/25: Patient seen and examined at bedside, patient was on Levophed drip 10 mcg/min, nephrology on board, cont. Lasix 40 mg IV b.i.d., dopamine, continue fluconazole and start Meropenem as wound culture is Positive for Acinebacter Baumanni and Proteous Mirabilis. 09/18/2025: Patient seen in the ICU, patient is currently off vasopressors, nephrology is on board and recommending continuation of dopamine. Labs show an increase in WBCs, renal function with minor improvement. Patient will continue on meropenem and fluconazole due to results of cultures. Due to progressively decrease Hb, stool occult blood test has been ordered. 09/20/25: Patient seen and examined at bedside, patient has no new complaint, Dr. Patient's niece and daughter, patient's daughter is decision maker. Updated her about patient's condition and prognosis. 09/20/25: Patient seen and examined at bedside, switched Decadron IV 8 mg b.i.d. to Decadron 2 mg p.o. b.i.d. plan to discharge home with home health for IV antibiotic meropenem 1 gm b.i.d. patient is still edematous and urine output significantly decreased. 09/24/2025: Patient was discharged yesterday. Patient seen at bedside. She is afebrile, normocardic, blood pressure within normal range, saturating adequately on room air. Labs were significant for WBCs of 30.2, and hemoglobin of 6.9. On examination she is disoriented, will look at a person when spoken too but will only groan in response. PICC was found to be pulled, CXR shows that it is dislodged tip is currently between left subclavian and left brachiocephalic vein. On trial, it did not pull, for which it was discontinued. Peripheral lines have been placed, and blood transfusion has been ordered. Her family has agreed to hospice. Objective vital signs Vital Sign Date Time Temp Pulse Resp B/P (MAP) Pulse Ox O2 Delivery O2 Flow Rate FiO2 09/24/25 12:44 102 18 103/86 (92) 97 09/24/25 08:50 98.6 98.6 09/24/25 07:30 Room Air* 0 21 Total Intake and Output 09/23/25 09/23/25 09/24/25 15:00 23:00 07:00 Intake Total 368 ml Output Total 50 ml Balance -50 ml 368 ml medications Current Medications Medications Dose Ordered Sig/Elissa Route Start Time Stop Time Status Last Admin Dose Admin Levothyroxine Sodium 150 mcg QAM@0600 PO 09/11/25 06:00 09/24/25 06:00 150 MCG Ondansetron HCl 4 mg Q4HP PRN IV 09/10/25 20:30 09/19/25 09:25 4 MG Docusate Sodium 100 mg BIDPRN PRN PO 09/10/25 20:30 Acetaminophen 650 mg Q6HP PRN PO 09/10/25 20:30 09/23/25 00:13 650 MG Nitroglycerin 0.4 mg Q5MINP PRN SL 09/10/25 21:00 Diagnostic Test (Pha) 1 strip ACHS 09/11/25 07:00 09/24/25 11:28 1 STRIP Insulin Human Regular ACHS SC 09/11/25 07:00 09/15/25 22:00 2 UNITS Dextrose 50 ml UD PRN IV 09/10/25 22:45 Morphine Sulfate 2 mg Q30M PRN IV 09/16/25 12:45 09/21/25 10:47 2 MG Meropenem 50 ml @ 17 mls/hr Q12HR IV 09/17/25 22:00 09/23/25 22:10 17 MLS/HR Dextrose/Sodium Chloride 1,000 ml @ 100 mls/hr Q10H IV 09/19/25 10:45 Cancel Pantoprazole Sodium 40 mg BID IV 09/19/25 22:00 09/23/25 22:09 40 MG Dextrose/Sodium Chloride 1,000 ml @ 75 mls/hr [id number] IV 09/19/25 16:45 09/24/25 04:02 75 MLS/HR Micafungin Sodium 100 mg/Sodium Chloride 100 ml @ 100 mls/hr DAILY IV 09/20/25 10:00 09/23/25 09:05 100 MLS/HR Iron Sucrose 110 ml @ 110 mls/hr DAILY@1200 IV 09/21/25 12:00 09/25/25 11:59 09/23/25 12:20 110 MLS/HR Morphine Sulfate 2 mg Q6HPRN PRN IV 09/20/25 17:30 09/23/25 03:06 2 MG Dexamethasone 2 mg Q12HR PO 09/22/25 22:00 09/23/25 22:10 2 MG Examination General: The patient awake, follows commands, only respond her name when asked and otherwise states she wants to be with her family. Patient following commands HEENT: Normocephalic, atraumatic, normal reactive pupils, EOM intact, pink conjunctiva, pink moist mucous membrane Respiratory/pulmonary: Bilateral chest expansion, no pain on palpation of chest wall, clear lungs bilaterally, vesicular murmurs present in almost all lung lynn, no associated crackles or wheezes. Cardiovascular: Normal RRR, normal S1 and S2, no murmurs, pitting edema 2+ mainly in left ankle region Abdomen: Abdomen nondistended, normal bowel sounds, soft, there is no pain to palpation in any of the abdominal quadrants, no palpable masses, in left groin there is a large deshinced wound, that is erythematous without suppuration Extremities: No deformities, there is no peripheral edema present at the lower extremities, normal pulses Skin: No rashes or pruritus, there is no sacral edema present at this time. Neurological: Intact cranial nerves with no focal neurologic deficits laboratory and microbiology Laboratory Tests 09/24/25 05:18 Test 09/24/25 05:18 Range/Units Serum Glucose 51 L 74-106 mg/dL Microbiology Date/Time Source Procedure Growth Status 09/23/25 15:45 Nose MRSA Screen - Final Complete 09/10/25 19:28 Blood Blood Culture - Final NO GROWTH AFTER 5 DAYS OF INCUBATION. Complete 09/10/25 17:50 Urine - Dumont Port Urine Culture - Final Presumptive Frida albicans Complete Problem List/Assessment/Plan Problem List/Assessment/Plan 1. Neurology Acute metabolic encephalopathy Multifactorial: sepsis, uremia, hypothyroidism, anemia. * Mental status improving slowly but still confused. * No sedation onboard. * Neuro checks q2h. * * CT head negative. * Treat metabolic contributors (TSH, acidosis, renal failure, infection). 2. Cardiovascular Septic shock CHF on chest X-ray Likely fluid-mediated; not in overt respiratory failure. * Continue norepinephrine drip at 6 mcg/min, titrate to maintain MAP > 65. Avoid excess fluids due to CHF on CXR. * ECHO: LVEF 60%, RV enlarged. monitor for RV failure. * Continuous telemetry. * Order echocardiogram (already ordered) to evaluate EF and CHF contribution. 3. Respiratory (NOT mechanically ventilated) * On room air, saturating 96% - 98%. * No respiratory distress. * Incentive spirometry. * Daily CXR PRN for volume status. 4. Gastrointestinal / Nutrition * Soft diet as tolerated once fully oriented. * Monitor albumin; nutritional support as needed. * Bowel regimen PRN. * Monitor abdominal wound with jewell. 5. / Renal (Nephrology following) Acute kidney injury on CKD due to VMN hemodynamically mediated SONDRA due to hypotension. Oliguric renal failure Metabolic acidosis Complicated UTI with Yeast >100,000 * SONDRA on CKD; no emergent HD indication per nephrology. * Continue strict I/O, daily weights. * Nephrology following * Avoid nephrotoxins. 6. Infectious Disease Septic shock, unspecified organism AMS, hypotension requiring norepinephrine, Complicated UTI Postoperative open wound with significant drainage Possible early cellulitis or surgical site infection. Wound Infection * Continue IV ceftriaxone * Follow wound cultures, urine culture, blood cultures. * Wound care nurse to evaluate twice daily. * Wound culture: Positive for Acinebacter Baumanni and Proteous Mirabilis * MRSA screen NEGATIVE. * Urine culture: >100,000 yeast (Frida species likely). * Blood cultures: negative. * Start Meropenem 7. Endocrine Hypothyroidism TSH 11.7 undertreated. Type 2 diabetes with fluctuating glucose Morbid obesity Increases risk for wound complications, sepsis. * Hyper-TSH: Increase levothyroxine dose; * Glucose management with insulin sliding scale; avoid hypoglycemia. * Accu-checks q2h. 8. Hematology / Oncology Symptomatic anemia, acute on chronic Iron deficiency Anemia of chronic disease + acute blood loss monitor; transfuse PRBC if Hgb<7 or symptomatic. * Iron deficiency: patient is NPO intermittently, poor PO intake * IV iron sucrose 200 mg daily 3 doses. * Oncology consult needed (brain mets, lung mets). * Hold Eliquis temporarily due to anemia and ongoing wound drainage; reassess daily. * Today HB was 6.9, for which 1 PRBC will be transfused 9. Psychiatry * Monitor for delirium; ensure sleepwake cycle. * Reorient frequently. * No antipsychotics unless agitation. 10. Lines / Drips / Devices * PICC line in left arm: tip in SVC, functioning. * Dumont catheter in place for strict I/O. * Limb restrictions on PICC arm. 11. Prophylaxis * DVT prophylaxis: SCD (temporarily hold Eliquis and lovenox due to anemia) * GI prophylaxis: IV pantoprazole daily. * Pressure ulcer prevention: Turn q2h. * Fall precautions: Bed alarm. 12. Nutrition Malnutrition/Hypoalbuminemia * High-protein diet when safe. * If intake inadequate consider nutrition consult for supplements. 13. Physical / Occupational Therapy * PT/OT evaluation once hemodynamically stable. * Daily mobility as tolerated. 14. Social Work / Care Management * Engage social work for discharge planning and family support. * Provide updates to daughter. CODE STATUS * Full code Critical Care time spent 60 minutes including patient care, chart review and updating family, excluding procedure. Plan discussed with Dr. Raman Plan discussed with: Daughter, Other (Nurse (Danyelle) ) My Orders My Orders Orders - KETAN KERR RESIDENT Procedure Category Date Status Time Chest Portable XY 09/24/25 Resulted 09:49 D/C Picc Line ORDERS 09/24/25 Transmitted 14:52 Packedcell-Noactive BBK 09/24/25 Verified Bleeding 16:34 Dietary Evaluation Review Comments: Nutrition Recommendation: 1) Avinash 1 pk daily, Nephro-issac 1 tab daily 2) Discontinue MVI 3) Ergocalciferol 50,000IU weekly 4) Monitor PO intake, lab values, weight trend, and I/O Expected Outcomes/Goals: Wound to improve Intake to meet >75% estimated needs Lab values to improve FU 3-5 days Visit Coding STANDARD RES Billing Provider: AYSE RAMAN MD Date of Service if different f: Sep 24, 2025 Common Visit Codes: [id number] CARE 30-74 MIN KETAN KERR RESIDENT Sep 24, 2025 16:47
--- NOTE | 2025-09-24 23:03 | DVHPN2 ---
Subjective DOS: 09/24/2025 Patient seen and examined at bedside. On room air Overnight events reviewed. Changes from previous H/P or p: No Changes Objective Vitals Vital Signs Date Time Temp Pulse Resp B/P (MAP) Pulse Ox O2 Delivery O2 Flow Rate FiO2 09/24/25 21:15 98.3 104 17 89/57 (68) 98 98.3 09/24/25 20:00 Room Air* 0 21 Intake/Output Intake and Output 09/24/25 07:00 Intake Total 368 ml Output Total 50 ml Balance 318 ml Intake Oral 368 ml Output Urine Total 50 ml Exam Gen.: Patient lying in bed in no apparent distress. On room air. Head: Normocephalic, atraumatic. Eyes: EOMI/PERRLA. Ears: Normal hearing. Normal anatomy. Neck/trachea: Trachea midline, supple. Nose: Normal external anatomy. Mouth: Moist mucous membranes. Chest: Decreased air entry bilaterally. No wheezing or rhonchi. Cardiovascular: Positive S1, positive S2. Regular rate and rhythm. Abdomen: Positive bowel sounds in all 4 quadrants. Soft, non-tender, non- distended. : Deferred. Rectal: Deferred. Skin: Warm, dry. Intact. Extremities: 2+ radial pulses bilaterally. No lower extremity edema. Neuro: Awake, alert, oriented x3. No gross motor or sensory deficits. Cranial nerves II through XII intact. Gait not assessed. Medications Current Medications Medications Dose Ordered Sig/Elissa Route Start Time Stop Time Status Last Admin Dose Admin Levothyroxine Sodium 150 mcg QAM@0600 PO 09/11/25 06:00 09/24/25 06:00 150 MCG Ondansetron HCl 4 mg Q4HP PRN IV 09/10/25 20:30 09/19/25 09:25 4 MG Docusate Sodium 100 mg BIDPRN PRN PO 09/10/25 20:30 Acetaminophen 650 mg Q6HP PRN PO 09/10/25 20:30 09/23/25 00:13 650 MG Nitroglycerin 0.4 mg Q5MINP PRN SL 09/10/25 21:00 Diagnostic Test (Pha) 1 strip ACHS 09/11/25 07:00 09/24/25 21:18 1 STRIP Insulin Human Regular ACHS SC 09/11/25 07:00 09/15/25 22:00 2 UNITS Dextrose 50 ml UD PRN IV 09/10/25 22:45 Morphine Sulfate 2 mg Q30M PRN IV 09/16/25 12:45 09/21/25 10:47 2 MG Meropenem 50 ml @ 17 mls/hr Q12HR IV 09/17/25 22:00 09/23/25 22:10 17 MLS/HR Dextrose/Sodium Chloride 1,000 ml @ 100 mls/hr Q10H IV 09/19/25 10:45 Cancel Pantoprazole Sodium 40 mg BID IV 09/19/25 22:00 09/24/25 22:21 40 MG Dextrose/Sodium Chloride 1,000 ml @ 75 mls/hr [id number] IV 09/19/25 16:45 09/24/25 04:02 75 MLS/HR Micafungin Sodium 100 mg/Sodium Chloride 100 ml @ 100 mls/hr DAILY IV 09/20/25 10:00 09/23/25 09:05 100 MLS/HR Iron Sucrose 110 ml @ 110 mls/hr DAILY@1200 IV 09/21/25 12:00 09/25/25 11:59 09/23/25 12:20 110 MLS/HR Morphine Sulfate 2 mg Q6HPRN PRN IV 09/20/25 17:30 09/24/25 17:53 2 MG Dexamethasone 2 mg Q12HR PO 09/22/25 22:00 09/23/25 22:10 2 MG Laboratory Results Laboratory Tests 09/24/25 05:18 Chemistry Test 09/24/25 05:18 Calcium Level 8.4 mg/dL (8.7-10.4) L Urinalysis Test 09/10/25 17:50 09/12/25 11:47 Urine Hyaline Casts Mod /lpf (0 - 2) Urine Mucus Few (None Seen) Urine Color Light-orange (Yellow) Urine Clarity Ex.turbid (Clear) Urine pH 7.0 (5.0-9.0) Urine Specific [place] 1.019 (1.001-1.035) Urine Protein 2+ (Negative) H Urine Ketones Negative (Negative) Urine Blood 1+ /uL (Negative) H Urine Nitrite Negative (Negative) Urine Bilirubin Negative (Negative) Urine Urobilinogen Normal mg/dL (Negative) Urine Leukocyte Esterase 3+ /uL (Negative) Urine RBC 68 /hpf (0 - 4) Urine WBC Clumps Present /hpf (None Seen) Urine Microscopic WBC 2862 /HPF (0-5) H Urine Squamous Epithelial Cells Few /hpf (<5) Urine Transitional Epithelial Cells Mod /hpf (<2) Urine Bacteria Mod /hpf (None Seen) H Urine Yeast (Budding) Many /hpf (None Seen) Urine Creatinine 228.66 mg/dL (30.0-125.0) H Urine Protein/Creatinine Ratio 1.55 Urine Sodium 17 mmol/L (40-220) L Urine Glucose Normal mg/dL (Normal) Urine Total Protein 353.5 mg/dL (1-14) H Microbiology Microbiology Date/Time Source Procedure Growth Status 09/23/25 15:45 Nose MRSA Screen - Final Complete 09/10/25 19:28 Blood Blood Culture - Final NO GROWTH AFTER 5 DAYS OF INCUBATION. Complete 09/10/25 17:50 Urine - [place] Urine Culture - Final Presumptive Frida albicans Complete Assessment/Plan Assessment/Plan Impression: Acute metabolic encephalopathy Septic shock Acute kidney injury on chronic kidney disease Complicated UTI Anemia Morbid obesity Events: On room air Supplemental oxygen PRN Remains off pressors, hemodynamically stable. Head of bed elevation Aspiration precautions Hemoglobin of 6.9 g/dL Plan for 1 unit PRBC transfusion OK to give via PICC line OK to remove PICC line prior to discharge. Continue to monitor hemoglobin Iron supplementation IV fluids with D5W and 1/2 NS. Continue antibiotics Continue dexamethasone Continue antifungal Incentive spirometry Midodrine for BP support Pain control Avoid oversedation Wound care Disposition: Home on hospice. Poor prognosis. Labs and imaging reviewed. Rest of plan as noted below. Plan: Supplemental oxygen PRN Titrate to keep O2 sats above 92%. Pressors as necessary for hemodynamic support Titrate to keep mean arterial pressure greater than 65 mmHg Continue antibiotics Incentive spirometry Stress dose steroids - tapered. Monitor renal function. Monitor electrolytes. Supplement as necessary. Monitor ins and outs. Monitor hemoglobin Transfuse if less than 7.0 g/dL. Wound care Recommend diet and lifestyle modifications for weight reduction Obesity complicates all care DVT prophylaxis. Prognosis: Poor given patient's multiple co-morbidities. Rest of plan per hospitalist and other consultants. Thank you, Dr. Stewart, for allowing me to participate in this patient's care. Further recommendations will depend on the patient's clinical course. Please do not hesitate to contact me if you have any questions or concerns. This medical document was created using an electronic medical record system with [employer] dictation system. Although these documentations are being carefully reviewed, there may still be some phonetic and typographical changes. The errors are purely typographical, due to imperfection on the software program, and do not reflect any compromise in the patient's medical care. Plan discussed with: Other (RN) Visit Coding Pulmonary Billing Provider: AYSE MARTE MD Date of Service if different f: Sep 24, 2025 Common Visit Codes: 89199-[id number] INP/OBS CARE(HIGH) AYSE MARTE MD Sep 24, 2025 23:03
[2025-09-25] VITALS (67 sets, daily range): BP systolic 0–283; BP diastolic 0–278; PULSE 59–102; RESP 10–23; TEMP 93–99.2; O2SAT 86–100
[2025-09-25] MEDS: ALBUMIN 25% 50 ML IV ONE (01:30)
[2025-09-25] MEDS: LACTATED RINGER'S 1,000 ML IV ONE (01:36)
[2025-09-25] MEDS: FLUCONAZOLE 200MG/100ML 100 ML IV ONE (03:38)
[2025-09-25] MEDS: FLUCONAZOLE 200MG/100ML 100 ML IV SCH (10:00)
[2025-09-25 11:13] LABS: Chloride 103 mmol/L (98-107); Potassium 5.0 mmol/L (3.5-5.1)
[2025-09-25 11:14] LABS: Anion Gap 16 (5-15)
[2025-09-25 11:17] LABS: Calcium 8.5 mg/dL (8.7-10.4); Carbon Dioxide 17 mmol/L (20-31); Sodium 136 mmol/L (136-145)
[2025-09-25 11:19] LABS: BUN/Creatinine Ratio 14.2 (10.0-20.0)
[2025-09-25 11:24] LABS: Blood Urea Nitrogen 59 mg/dL (9-23)
[2025-09-25 11:26] LABS: Glucose 48 mg/dL (74-106)
[2025-09-25] MEDS: SODIUM CHLORIDE 0.9% 250 ML IV ONE (12:15)
[2025-09-25] MEDS: NOREPINEPHRINE 8 MG/250ML KIT 250 ML IV ONE (12:19)
[2025-09-25] MEDS: NOREPINEPHRINE 8 MG/250ML KIT 250 ML IV SCH (12:20)
--- NOTE | 2025-09-25 12:27 | DVHPN2 ---
Progress Note Date Seen: Sep 25, 2025 Has the PT tested + for MRSA If YES, has PT been informed?: No Medical Necessity Reason Pt with a Central, PICC or Fol: Yes The following are medically ne: PICC Line, [place] Catheter Subjective Review of Systems Pt seen earlier today. Pt resting in bed Objective vital signs Vital Sign Date Time Temp Pulse Resp B/P (MAP) Pulse Ox O2 Delivery O2 Flow Rate FiO2 09/25/25 10:52 97.7 83 20 102/53 (69) 100 97.7 09/24/25 20:00 Room Air* 0 21 Total Intake and Output 09/24/25 09/24/25 09/25/25 15:00 23:00 07:00 Intake Total 150 ml Output Total 25 ml Balance 125 ml medications Current Medications Medications Dose Ordered Sig/Elissa Route Start Time Stop Time Status Last Admin Dose Admin Levothyroxine Sodium 150 mcg QAM@0600 PO 09/11/25 06:00 09/24/25 06:00 150 MCG Ondansetron HCl 4 mg Q4HP PRN IV 09/10/25 20:30 09/19/25 09:25 4 MG Docusate Sodium 100 mg BIDPRN PRN PO 09/10/25 20:30 Acetaminophen 650 mg Q6HP PRN PO 09/10/25 20:30 09/23/25 00:13 650 MG Nitroglycerin 0.4 mg Q5MINP PRN SL 09/10/25 21:00 Diagnostic Test (Pha) 1 strip ACHS 09/11/25 07:00 09/25/25 06:03 1 STRIP Insulin Human Regular ACHS SC 09/11/25 07:00 09/15/25 22:00 2 UNITS Dextrose 50 ml UD PRN IV 09/10/25 22:45 Morphine Sulfate 2 mg Q30M PRN IV 09/16/25 12:45 09/21/25 10:47 2 MG Meropenem 50 ml @ 17 mls/hr Q12HR IV 09/17/25 22:00 09/23/25 22:10 17 MLS/HR Dextrose/Sodium Chloride 1,000 ml @ 100 mls/hr Q10H IV 09/19/25 10:45 Cancel Pantoprazole Sodium 40 mg BID IV 09/19/25 22:00 09/24/25 22:21 40 MG Dextrose/Sodium Chloride 1,000 ml @ 75 mls/hr [id number] IV 09/19/25 16:45 09/24/25 04:02 75 MLS/HR Micafungin Sodium 100 mg/Sodium Chloride 100 ml @ 100 mls/hr DAILY IV 09/20/25 10:00 09/23/25 09:05 100 MLS/HR Morphine Sulfate 2 mg Q6HPRN PRN IV 09/20/25 17:30 09/24/25 17:53 2 MG Dexamethasone 2 mg Q12HR PO 09/22/25 22:00 09/23/25 22:10 2 MG Fluconazole 100 ml @ 100 mls/hr DAILY IV 09/25/25 10:00 Norepinephrine Bitartrate 250 ml @ 3.75 mls/hr Q24H IV 09/25/25 12:15 Examination Gen: NAD Heart: RRR, normal S1 and S2 Lungs: Bilateral air entry, no rales Ext: + generalized edema Neuro: awake and alert laboratory and microbiology Laboratory Tests 09/25/25 10:34 09/24/25 05:18 Test 09/25/25 10:34 Range/Units Serum Glucose 48 *L 74-106 mg/dL Microbiology Date/Time Source Procedure Growth Status 09/23/25 15:45 Nose MRSA Screen - Final Complete 09/10/25 19:28 Blood Blood Culture - Final NO GROWTH AFTER 5 DAYS OF INCUBATION. Complete 09/10/25 17:50 Urine - [place] Urine Culture - Final Presumptive Frida albicans Complete Labs and/or images reviewed: Labs reviewed by me Problem List/Assessment/Plan Problem List/Assessment/Plan IMP Acute kidney injury superimposed Chronic Kidney Disease secondary hemodynamic mediated- overall decline in kidney function suspected ongoing relative hypotension as a contributing factor Baselined creatinine is unknown Vancomycin toxicity Urinary tract infection Metabolic acidosis Encephalopathy h/o melanoma on treatment at [facility] Anemia of chronic kidney disease Vitamin D deficiency Hypoalbuminemia Hypokalemia- resolved REC - BMP in am - Strict I&Os - Diuretics currently on hold will reassess daily - NS 1L IV bolus x 1 - Agree with blood transfusion - Avoidance of RAAS inhibition, NSAIDS and IV contrast studies if able - Will continue to monitor Case discussed with Dr. Drew Coates Plan discussed with: Other Dietary Evaluation Review Comments: Nutrition Recommendation: 1) Avinash 1 pk daily, Nephro-issac 1 tab daily 2) Discontinue MVI 3) Ergocalciferol 50,000IU weekly 4) Monitor PO intake, lab values, weight trend, and I/O Expected Outcomes/Goals: Wound to improve Intake to meet >75% estimated needs Lab values to improve FU 3-5 days DOMO DUNBAR Sep 25, 2025 12:27
[2025-09-25] MEDS: DEXTROSE (50%) 50ML SYRG IV ONE (12:42)
[2025-09-25] MEDS: DEXTROSE 50% SYRINGE 50 ML IV ONE (13:03)
[2025-09-25] MEDS: PHENYLEPHRINE IV 250 ML IV SCH (13:30)
[2025-09-25] MEDS: HYDROCORTISONE SOD SUCC 100 MG/2ML INJ VIAL IV ONE (13:48)
[2025-09-25] MEDS: VASOPRESSIN 20 UNIT/ML ONE (13:49)
[2025-09-25] MEDS: VASOPRESSIN 20 UNITS in SODIUM CHL 0.9% 99 ML IV SCH (13:49)
[2025-09-25] MEDS: HYDROCORTISONE SOD SUCC 100 MG/2ML INJ VIAL ONE (13:49)
[2025-09-25] MEDS: PHENYLEPHRINE IV 250 ML IV ONE (13:50)
--- NOTE | 2025-09-25 13:56 | DVHPNRES ---
Progress Note Date Seen: Sep 25, 2025 Resident Creating Document: AUGUSTA GONZALEZ RESIDENT Has the PT tested + for MRSA If YES, has PT been informed?: No Medical Necessity Reason Pt with a Central, PICC or Fol: Yes The following are medically ne: PICC Line, Dumont Catheter Subjective Review of Systems The patient is a 64-year-old female morbidly obese with past medical history of melanoma cancer, currently receiving treatment at [facility], hypothyroidism, hypertension, chronic kidney failure, and diabetes mellitus who presented to [facility] ED for evaluation of altered level of consciousness. As reported by daughter patient was experiencing confusion state, became altered from usual baseline, associated with generalized weakness, getting worse that EMS were called. When EMS arrived on the scene, the patient's blood glucose was 78 mg/dL, oriented x2, EN route to our facility ED. Patient was seen and evaluated in the ED with left thigh open wound from cysts removal, laboratory data shows WBC 9.4, hemoglobin 7.0, hematocrit 22.7, platelets 379, sodium 141, potassium 5.2, BUN 50, creatinine 4.45, GFR 11, glucose 63, calcium 8.5, albumin 2.4, BNP 62.07, blood pressure 79/61 trending up to 106/76, heart rate 90, temperature 98.3 F, O2 saturation 98% on room air. Urinalysis positive for urinary tract infection. Patient was started on IV antibiotic regimen vancomycin, please see medication orders section in the computer. On my assessment, daughter at bedside, patient remains altered, no diaphoresis, shortness of breaths, loss of consciousness, no diarrhea, nausea, vomiting, fever, no chills. Patient was admitted for further evaluation and medical management. PAST MEDICAL HISTORY * * Metastatic melanoma (brain and lung metastases per family([facility]) * Hypothyroidism * Diabetes mellitus type 2 * Chronic kidney disease (baseline unknown) * Hypertension * Morbid obesity * Recent surgical wounds (abdomen + left thigh) * Former smoker (quit Sep 2024) PAST SURGICAL HISTORY * Left abdominal melanoma excision * Left proximal thigh melanoma excision * Prior oncologic resections SOCIAL HISTORY * Quit smoking 2023 * No EtOH/drugs * Lives with family REVIEW OF SYSTEMS (limited due to confusion) * Constitutional: Patient is oriented in self, when asked further questions to determine mentation she replies she just wanted to be with her family * Neuro: Confusion, ; follows commands * Resp: No cough, wheezing, SOB * CV: No chest pain; soft BPs * GI: No abdominal pain, tolerating minimal PO * : Very low urine output * Skin: Denies any symptoms * Endo: Denies symptoms * MSK: States she feels weak 09/11/25 * Patient is awake, alert, following commands, but confused and poorly oriented. * Left thigh postoperative wound continues to drain moderately, dressing changed, and wound culture obtained. * Dumont catheter in place; urine output remains very low (UOP 0.11 mL/kg/hr) despite IV fluids. * Still requiring vasopressor support (norepinephrine 6 mcg/min) to maintain MAP > 65. * Hemodynamics stable but soft, BP fluctuating 58786 systolic. * No respiratory distress; oxygen saturation 9698% on room air. * She remains on NS at 100 mL/hr for hemodynamic support. * Nephrology evaluated: No emergent indication for dialysis at this time. * Open abdominal wound with jewell appears intact. * No sedation; remains able to follow simple commands. * Confusion improving slightly but still present. * Thyroid function abnormal requires adjustment. * Postoperative wound continues to drain; wound culture sent; ID coverage continued. * Cefadroxil (home ABX) NOT appropriate for current septic presentation ? continue broad-spectrum IV therapy. * No respiratory failure; stable on room air. * Requires continued ICU-level care. 09/12/25 * Patient remains alert but confused, disoriented, intermittently agitated, weak, with poor appetite. * continues on norepinephrine infusion at 2 mcg/min.UOP 0.15 mL/kg/hr via Dumont. oliguric. * Wound culture: Gram-positive cocci in pairs; gram-negative rods. * Urine culture: >100,000 yeast. * Blood cultures negative. * CT head: no acute findings. * CXR: bilateral pulmonary opacities, pulmonary vascular congestion, stable right pleural effusion. * Echo: LVEF 60%; RV enlarged. * Kidney ultrasound: increased echogenicity consistent with medical renal disease. * Vancomycin discontinued due to SONDRA and toxicity risk. * Started D5 NS + 50 mEq sodium bicarb at 100 mL/hr for metabolic acidosis. * 1 unit PRBC transfused yesterday; Hgb up to 7.9 * Daughter now reports brain metastases previously treated and lung metastases untreated.Records requested. 09/12/25: Patient seen and examined at bedside, patient was on Levophed drip 10 mcg/min, nephrology on board, started bicarbonate drip, we ordered chest CT without contrast, reviewed chest x-ray. 09/13/25: Patient seen and examined at bedside, patient was on Levophed drip 10 mcg/min, nephrology on board, started Lasix 40 mg IV b.i.d., dopamine, changed antibiotic to fluconazole. Patient has started to metronidazole and hydrocortisone. 09/14/25: Patient seen and examined at bedside, patient was on Levophed drip 10 mcg/min, nephrology on board, started Lasix 40 mg IV b.i.d., dopamine, changed antibiotic to fluconazole. Patient has started to metronidazole and hydrocortisone. 09/15/25: Patient seen and examined at bedside, patient was on Levophed drip 10 mcg/min, nephrology on board, cont. Lasix 40 mg IV b.i.d., dopamine, continue fluconazole and start Meropenem as wound culture is Positive for Acinebacter Baumanni and Proteous Mirabilis Patient has started to metronidazole and hydrocortisone. 09/16/25: Patient seen and examined at bedside, patient was on Levophed drip 10 mcg/min, nephrology on board, cont. Lasix 40 mg IV b.i.d., dopamine, continue fluconazole and start Meropenem as wound culture is Positive for Acinebacter Baumanni and Proteous Mirabilis Patient has started to metronidazole and hydrocortisone - Decrease Hydrocortison to 50 mg BID. 09/17/25: Patient seen and examined at bedside, patient was on Levophed drip 10 mcg/min, nephrology on board, cont. Lasix 40 mg IV b.i.d., dopamine, continue fluconazole and start Meropenem as wound culture is Positive for Acinebacter Baumanni and Proteous Mirabilis. 09/18/2025: Patient seen in the ICU, patient is currently off vasopressors, nephrology is on board and recommending continuation of dopamine. Labs show an increase in WBCs, renal function with minor improvement. Patient will continue on meropenem and fluconazole due to results of cultures. Due to progressively decrease Hb, stool occult blood test has been ordered. 09/20/25: Patient seen and examined at bedside, patient has no new complaint, DrSincere Patient's niece and daughter, patient's daughter is decision maker. Updated her about patient's condition and prognosis. 09/21/25: Patient seen and examined at bedside, switched Decadron IV 8 mg b.i.d. to Decadron 2 mg p.o. b.i.d. plan to discharge home with home health for IV antibiotic meropenem 1 gm b.i.d. patient is still edematous and urine output significantly decreased. 09/24/2025: Patient was discharged yesterday. Patient seen at bedside. She is afebrile, normocardic, blood pressure within normal range, saturating adequately on room air. Labs were significant for WBCs of 30.2, and hemoglobin of 6.9. On examination she is disoriented, will look at a person when spoken too but will only groan in response. PICC was found to be pulled, CXR shows that it is dislodged tip is currently between left subclavian and left brachiocephalic vein. On trial, it did not pull, for which it was discontinued. Peripheral lines have been placed, and blood transfusion has been ordered. Her family has agreed to hospice. 09/25/2025 Overnight, the patient experienced acute hemodynamic decompensation with profound hypotension to 66/37 mmHg (MAP 47), associated with worsening leukocytosis, metabolic acidosis, hypoglycemia, In response to the acute deterioration: * The patient was upgraded back to ICU * Received NS 250 mL bolus * Norepinephrine infusion initiated * Subsequently required vasopressin, phenylephrine, epinephrine, and dopamine * Stress-dose steroids initiated (hydrocortisone) * Arterial line (right radial) and right IJ central venous catheter placed * Chest X-ray confirmed central line placement (tip in right atrium) Despite maximal vasopressor support, the patient demonstrated refractory septic shock with multiorgan failure. Following extensive discussions with the family and care team, the patients code status was changed from Full Code to DNR/DNI, and the decision was made to transition to comfort-focused care. The patient is currently receiving morphine and lorazepam for comfort, with family present at bedside. Objective vital signs Vital Sign Date Time Temp Pulse Resp B/P (MAP) Pulse Ox O2 Delivery O2 Flow Rate FiO2 09/25/25 13:02 68/32 09/25/25 10:52 97.7 83 20 100 97.7 09/25/25 07:30 Room Air* 0 21 Total Intake and Output 09/24/25 09/24/25 09/25/25 15:00 23:00 07:00 Intake Total 150 ml Output Total 25 ml Balance 125 ml medications Current Medications Medications Dose Ordered Sig/Elissa Route Start Time Stop Time Status Last Admin Dose Admin Levothyroxine Sodium 150 mcg QAM@0600 PO 09/11/25 06:00 09/24/25 06:00 150 MCG Ondansetron HCl 4 mg Q4HP PRN IV 09/10/25 20:30 09/19/25 09:25 4 MG Docusate Sodium 100 mg BIDPRN PRN PO 09/10/25 20:30 Acetaminophen 650 mg Q6HP PRN PO 09/10/25 20:30 09/23/25 00:13 650 MG Nitroglycerin 0.4 mg Q5MINP PRN SL 09/10/25 21:00 Diagnostic Test (Pha) 1 strip ACHS 09/11/25 07:00 09/25/25 11:30 1 STRIP Insulin Human Regular ACHS SC 09/11/25 07:00 09/15/25 22:00 2 UNITS Dextrose 50 ml UD PRN IV 09/10/25 22:45 Morphine Sulfate 2 mg Q30M PRN IV 09/16/25 12:45 09/21/25 10:47 2 MG Meropenem 50 ml @ 17 mls/hr Q12HR IV 09/17/25 22:00 09/23/25 22:10 17 MLS/HR Dextrose/Sodium Chloride 1,000 ml @ 100 mls/hr Q10H IV 09/19/25 10:45 Cancel Pantoprazole Sodium 40 mg BID IV 09/19/25 22:00 09/24/25 22:21 40 MG Dextrose/Sodium Chloride 1,000 ml @ 75 mls/hr [id number] IV 09/19/25 16:45 09/24/25 04:02 75 MLS/HR Micafungin Sodium 100 mg/Sodium Chloride 100 ml @ 100 mls/hr DAILY IV 09/20/25 10:00 09/23/25 09:05 100 MLS/HR Morphine Sulfate 2 mg Q6HPRN PRN IV 09/20/25 17:30 09/24/25 17:53 2 MG Dexamethasone 2 mg Q12HR PO 09/22/25 22:00 09/23/25 22:10 2 MG Fluconazole 100 ml @ 100 mls/hr DAILY IV 09/25/25 10:00 Norepinephrine Bitartrate 250 ml @ 3.75 mls/hr Q24H IV 09/25/25 12:15 09/25/25 12:20 3.75 MLS/HR Vasopressin 20 units/Sodium Chloride 100 ml @ 9 mls/hr Q11H7M IV 09/25/25 13:30 Hydrocortisone Sodium Succinate 50 mg Q6HR IV 09/25/25 18:00 Phenylephrine HCl 250 ml @ 30 mls/hr Q8H20M IV 09/25/25 13:30 Examination General: The patient awake, Critically ill, minimally responsive HEENT: Normocephalic, atraumatic, normal reactive pupils, EOM intact, pink conjunctiva, pink moist mucous membrane Respiratory/pulmonary: Bilateral chest expansion, no pain on palpation of chest wall, clear lungs bilaterally, vesicular murmurs present in almost all lung lynn, no associated crackles or wheezes. Cardiovascular: Normal RRR, normal S1 and S2, no murmurs, Profound hypotension, weak pulses Abdomen: Abdomen nondistended, normal bowel sounds, soft, there is no pain to palpation in any of the abdominal quadrants, no palpable masses, in left groin there is a large deshinced wound, that is erythematous without suppuration Extremities: No deformities, there is no peripheral edema present at the lower extremities Skin: No rashes or pruritus, there is no sacral edema present at this time.Cool extremities Neurological: Intact cranial nerves with no focal neurologic deficits * Right IJ CVC * Right radial arterial line * Dumont catheter Right side Midline laboratory and microbiology Laboratory Tests 09/25/25 10:34 09/24/25 05:18 Test 09/25/25 10:34 Range/Units Serum Glucose 48 *L 74-106 mg/dL Microbiology Date/Time Source Procedure Growth Status 09/23/25 15:45 Nose MRSA Screen - Final Complete 09/10/25 19:28 Blood Blood Culture - Final NO GROWTH AFTER 5 DAYS OF INCUBATION. Complete 09/10/25 17:50 Urine - Dumont [place] Urine Culture - Final Presumptive Frida albicans Complete Problem List/Assessment/Plan Problem List/Assessment/Plan PLAN SYSTEMWISE 1. Neurology Acute metabolic encephalopathy Comfort-focused sedation Multifactorial: sepsis, uremia, hypothyroidism, anemia. * Mental status improving slowly but still confused. * No sedation onboard. * Neuro checks q2h. * * CT head negative. Metastasis CA to Brain - MRI brain: Nondiagnostic evaluation for intracranial metastases on this noncontrast MRI brain. Recommend brain MRI with and without contrast for further evaluation. - Mental status improving slowly but still confused. * Comfort-focused sedation * Lorazepam 12 mg IV q2h PRN agitation * Morphine 2 mg IV q1h PRN pain/dyspnea switched Decadron IV 8 mg b.i.d. to Decadron 2 mg p.o. b.i.d. 2. Cardiovascular Refractory Septic Shock due to UTI and Wound Infection * Hypotension requiring >4 vasopressors * Stress-dose steroids initiated (hydrocortisone) * Received NS 250 mL bolus * Worsening leukocytosis * Continue norepinephrine drip at 6 mcg/min, titrate to maintain MAP > 65. Avoid excess fluids due to CHF on CXR. * ECHO: LVEF 60%, RV enlarged. monitor for RV failure. * Continuous telemetry. * All vasopressors discontinued per comfort care 3. Respiratory (NOT mechanically ventilated) Acute Hypoxic Respiratory Failure (J96.01) * Increasing oxygen requirement on 4L NC. * Oxygen for comfort only * No intubation per DNR/DNI 4. Gastrointestinal / Nutrition Post sx Abdomina Wound * Monitor albumin; nutritional support as needed. * Bowel regimen PRN. * Monitor abdominal wound with ejwell. 5. / Renal (Nephrology following) Acute kidney injury on CKD due to VMN hemodynamically mediated SONDRA due to hypotension. Oliguric renal failure Metabolic acidosis Complicated UTI with Yeast >100,000 * SONDRA on CKD; no emergent HD indication per nephrology. * Continue strict I/O, daily weights. * Nephrology following * Monitor electrolytes q6h. * Avoid nephrotoxins. * Dumont catheter remains necessary for strict I/O; ensure daily Dumont evaluation. 6. Infectious Disease Septic shock, unspecified organism AMS, hypotension requiring norepinephrine, Complicated UTI with Yeast >100,000 Postoperative open wound with significant drainage Possible early cellulitis or surgical site infection. * - Wound culture: Positive for Acinebacter Baumanni and Proteous Mirabilis * MRSA screen NEGATIVE. * Urine culture: >100,000 yeast (Frida species likely). * Blood cultures: negative. Because wound infection shows mixed gram-positive + gram-negative organisms, and UTI shows yeast, coverage must include: Continue IV Meropenem Continue micafungin * Follow wound cultures, urine culture, blood cultures. * Wound care nurse to evaluate twice daily. * Hypotension requiring >4 vasopressors * Stress-dose steroids initiated (hydrocortisone) * Received NS 250 mL bolus * Worsening leukocytosis 7. Endocrine Hypothyroidism TSH 11.7 undertreated. Type 2 diabetes with fluctuating glucose Morbid obesity Hypoglycemia Increases risk for wound complications, sepsis. * Hyper-TSH: Increase levothyroxine dose; * Glucose management with insulin sliding scale; avoid hypoglycemia. * Hypoglycemia treated symptomatically only * Accu-checks q2h. 8. Hematology / Oncology Metastatic melanoma lungs, adrenal gland, brain and peritoneum, Advanced Metastatic Malignancy Symptomatic anemia, acute on chronic Iron deficiency Anemia of chronic disease + acute blood loss monitor; transfuse PRBC if Hgb<7 or symptomatic. * Iron deficiency: patient is NPO intermittently, poor PO intake * IV iron sucrose 200 mg daily 3 doses. * Oncology consult needed (brain mets, lung mets). * Hold Eliquis temporarily due to anemia and ongoing wound drainage; reassess daily. 9. Psychiatry * Terminal agitation managed with benzodiazepines/opioids * Palliative care actively involved 10. Lines / Drips / Devices * PICC line in left arm:DC Right wrist Arterial line 09/25 RIJ CVC 09/25 * Dumont catheter in place for strict I/O. Midline 09/25 11. Prophylaxis * DVT prophylaxis: SCD (temporarily hold Eliquis and lovenox due to anemia) * GI prophylaxis: IV pantoprazole daily. * Pressure ulcer prevention: Turn q2h. * Fall precautions: Bed alarm. 12. Nutrition Malnutrition/Hypoalbuminemia * High-protein diet when safe. * If intake inadequate consider nutrition consult for supplements. 13. Physical / Occupational Therapy * PT/OT evaluation once hemodynamically stable. * Daily mobility as tolerated. 14. Social Work / Care Management End-of-Life Care / Hospice Status * Engage social work for discharge planning and family support. * Provide updates to daughter. Following extensive discussions with the family and care team, the patients code status was changed from Full Code to DNR/DNI, and the decision was made to transition to comfort-focused care. The patient is currently receiving morphine and lorazepam for comfort, with family present at bedside. CRITICAL CARE TIME 83 minutes of critical care time spent today, excluding all procedures, directly managing hemodynamics, vasopressors, renal failure, encephalopathy, sepsis, and high-risk postoperative wound. CODE STATUS *DNR / DNI. Extensive [id number] discussion (>20 minutes) held with family. Family understands grave prognosis and agrees with comfort-focused approach. FINAL STATEMENT Case discussed in detail with the attending physician , including the clinical presentation, diagnostic workup, and comprehensive management plan. The patient was present for the discussion and demonstrated understanding of her condition and the proposed plan. PROGRESS NOTE. Plan discussed with: Daughter, Other (RN) My Orders My Orders Orders - AUGUSTA GONZALEZ Procedure Category Date Status Time Norepinephrine 8 PHA 09/25/25 In Process Mg/250ml Kit 12:15 Transfer Orders XFER 09/25/25 Transmitted 12:09 Complete Blood Count LAB 09/25/25 Logged 12:12 Chest Xray 1 View XY 09/25/25 Logged 12:22 Abg W/ Co-Ox RT 09/25/25 Logged 12:22 Lactic Acid W/ Reflex LAB 09/25/25 Logged Order 12:31 Complete Blood Count LAB 09/26/25 Verified 04:00 Comprehensive LAB 09/26/25 Verified Metabolic Panel 04:00 Abg W/ Co-Ox RT 09/26/25 Logged 04:00 Lactic Acid W/ Reflex LAB 09/26/25 Verified Order 04:00 Chest Xray 1 View XY 09/26/25 Logged 04:00 Phosphorus LAB 09/26/25 Verified 04:00 Dietary Evaluation Review Comments: Nutrition Recommendation: 1) Avinash 1 pk daily, Nephro-issac 1 tab daily 2) Discontinue MVI 3) Ergocalciferol 50,000IU weekly 4) Monitor PO intake, lab values, weight trend, and I/O Expected Outcomes/Goals: Wound to improve Intake to meet >75% estimated needs Lab values to improve FU 3-5 days Visit Coding STANDARD RES Billing Provider: AYSE MARTE MD Date of Service if different f: Sep 25, 2025 AUGUSTA GONZALEZ RESIDENT Sep 25, 2025 13:56
[2025-09-25] MEDS: SODIUM CHLORIDE 0.9% 1,000 ML IV ONE (14:30)
[2025-09-25] MEDS ORDERED: DOPamine 1600MCG/ML D5W 250 ML IV SCH (15:30)
[2025-09-25] MEDS ORDERED: EPINEPHrine HCL 250 ML IV SCH (15:30)
--- NOTE | 2025-09-25 15:41 | DVHNC2 ---
Other Procedure Notes Radial arterial line procedure note Indication: Hemodynamic monitoring, frequent blood ABG draws. Glass Cut Off Supervisor: Dr. Raman Date: 09/25/25 Time: 1541 Consent: Consent was obtained from patient's healthcare proxy prior to procedure. Indications, risks, and benefits were explained at length. Procedure summary: A time-out was performed. My hands were washed immediately prior to the procedure. I wore surgical cap, mask with protective eyewear, sterile gown and sterile gloves throughout the procedure. After an Juan Jose test was performed to ensure adequate perfusion, the RIGHT wrist was prepped using chlorhexidine scrub and draped in sterile fashion using sterile towels. The radial pulse was identified with the use of ultrasound. The wrist was positioned in the usual fashion. Anesthesia was achieved using 1% lidocaine. Using the radial arterial line kit, needle was inserted into the radial artery using ultrasound guidance. Arterial blood flow was seen to pulsate in the flash chamber. The internal guidewire was advanced easily into the radial artery. The catheter was then advanced over the wire and the needle and wire were withdrawn. The catheter was sutured into place with 1 sutures. A sterile Biopatch and Tegaderm was placed over the catheter at the insertion site. The patient tolerated the procedure without any hemodynamic compromise. At the time of procedure completion, the catheter was connected to the monitoring specialist and calibrated. Appropriate wa veform and blood pressure tracing was observed. Estimated blood loss is less than 5 mL. CPT: 40925 Arterial line insertion CPT: 16714 US add-on Date of Service: Sep 25, 2025 Billing Provider: AYSE RAMAN MD Common Visit Codes: PROCEDURE ONLY Procedure Codes: 63511-[id number] LINE AUGUSTA GONZALEZ RESIDENT Sep 25, 2025 15:41
--- NOTE | 2025-09-25 15:42 | DVHNC2 ---
Other Procedure Notes ULTRASOUND-GUIDED RIGHT INTERNAL JUGULAR CENTRAL VENOUS CANNULATION Time out time: Yes Patient medications and allergies reviewed. The risks and benefits of the procedure and the sedation options and risk were discussed with the patient's healthcare proxy. All questions were answered and informed consent was obtained. Patient identification and proposed procedure were verified prior to the procedure by the physician, and a nurse in the patient's room. The heart rate, respiratory rate, oxygen saturations, blood pressure, adequacy of pulmonary ventilation, and response to care were monitored throughout the procedure. The physical status of the patient was reassessed after the procedu re. DATE: 09/25/25 PHYSICIAN: Ayse Raman PREOPERATIVE DIAGNOSIS: Septic Shock POSTOPERATIVE DIAGNOSIS: Septic shock PROCEDURE PERFORMED: Limited Ultrasound-guided Right internal jugular central line placement. ANESTHESIA: 2 mL of 1% lidocaine plain. ESTIMATED BLOOD LOSS: less than 5 mL. SPECIMENS: None. COMPLICATIONS: None. INDICATIONS FOR PROCEDURE: The patient is in need of large bore IV access for administration of fluids, including blood products and vasoactive drugs, po ssible transvenous cardiac pacing and CVP monitoring for hemodynamic instability. DESCRIPTION OF PROCEDURE IN DETAIL: The patient was lying in the Trendelenburg position with head turned 30 degrees away from the insertion site. The skin was thoroughly sponged with chlorhexidine and allowed to dry. All persons involved were shielded with hair nets, face m asks and sterile gowns. With sterile-gloved hands the right neck area was draped with the large disposable sterile field provided in the pre-manufactured kit. The skin and subcutaneous tissues superficial to the RIGHT internal jugular vein were anesthetized with 2 mL of 1% lidocaine. The RIGHT internal jugular vein was identified on ultrasound from the angle of the mandible down into the supraclavicular fossa using the linear ultrasound probe in the transverse orientation. The carotid artery was identified and avoided utilizing color-flow. The internal jugular vein was then placed in the center of the ultrasound field and compressed for patency. A movement artifact was identified as the needle was advanced through the skin and advanced toward the vessel. A real time hyperechoic signal revealed visualization of vascular needle entry into the lumen as blood was noted to flashback in the syringe. The needle was then held in place while the guide wire was advanced. The needle was then removed. Direct visualization of guide wire location within the vein was noted on ultrasound indicating proper placement and was document in the electronic medical record chart. A skin dilator was advanced over the guidewire and removed, and the triple-lumen catheter was then advanced over the guide wire into proper position. The guide wire was removed and discarded. The ports were aspirated which showed good blood return and then carefully flushed with normal saline. The catheter was stabilized and sutured to the skin with 2-0 silk at 4 anchor points. A sterile bio-patch and dressing was placed over the catheter, including the insertion site. The patient tolerated the procedure well. A chest x-ray was ordered for position confirmation. I reviewed the image immediately after it was taken at bedside. Post-procedure chest x-ray demonstrates the central line in the superior vena and no evidence of any pneumothorax. An image recording of the procedure accompanies the chart. CPT Codes: 13709 (ultrasound guidance) 57388 (insertion of non-tunneled centrally inserted central venous catheter) 29340 (CXR interpretation) Date of Service: Sep 25, 2025 Billing Provider: AYSE RAMAN MD Common Visit Codes: PROCEDURE ONLY Procedure Codes: 83269-VQDQUU NON-TUNNEL CV CATH, 97313-HE GUIDE VASCULAR ACCESS A[place]A GONZALEZ RESIDENT Sep 25, 2025 15:42
[2025-09-25 15:43] LABS: Hemoglobin 7.7 g/dL (12.2-16.2)
[2025-09-25 15:45] LABS: Hematocrit 25.3 % (36.0-46.0); Mean Corpuscular Hemoglobin 29.1 pg (28.0-32.0); Mean Corpuscular Volume 96.0 fL (80.0-100.0)
[2025-09-25 16:52] LABS: Nucleated Red Blood Cells % 1.0 %; Smudge Cells 2 /100 WBC; Total Cells Counted 100.0 (100)
[2025-09-25 16:53] LABS: Anisocytosis Moderate; Ovalocytes FEW
[2025-09-25 16:54] LABS: Stomatocytes Few
[2025-09-25 16:57] LABS: Base Excess -14.5 mmol/L (-2.0-3.0)
[2025-09-25] MEDS: HYDROCORTISONE SOD SUCC 100 MG/2ML INJ VIAL IV SCH (17:40)
--- NOTE | 2025-09-25 17:46 | DVH ---
CHEST RADIOGRAPH INDICATION: acute hypoxic respiratory failure TECHNIQUE: Single frontal view of the chest was obtained COMPARISON: XY CHEST PORTABLE on DOS: 09/24/25, XY CHEST XRAY 1 VIEW on DOS: 09/20/25, XY CHEST XRAY 1 VIEW on DOS: 09/13/25 FINDINGS: Lines and Tubes: Central catheter in place from the right internal jugular vein with the tip in the right atrium. Lungs: No focal consolidation. Pleura: No effusion. No pneumothorax. Cardiomediastinal contours: Unremarkable Bones: No acute osseous abnormality. IMPRESSION: 1. RIGHT INTERNAL JUGULAR CATHETER WITH THE TIP IN THE RIGHT ATRIUM.
[2025-09-25] MEDS ORDERED: MORPHINE SULFATE INJ 2 MG/ml SYRG IV PRN (18:00)
--- NOTE | 2025-09-25 18:27 | DVHPN2 ---
Progress Note - Dictate Date Seen: Sep 25, 2025 Has the PT tested + for MRSA If YES, has PT been informed?: No Medical Necessity Reason Pt with a Central, PICC or Fol: Yes The following are medically ne: PICC Line, Dumont Catheter Subjective Patient was disoriented and altered and agitated Her blood pressure was running low requiring pressors Patient was transferred back to [place] 265 She required a central line and an a line placement vital signs Vital Sign Date Time Temp Pulse Resp B/P (MAP) Pulse Ox O2 Delivery O2 Flow Rate FiO2 09/25/25 18:13 18 100 Nasal Cannula* 4 36 09/25/25 18:00 101 86/58 (67) 09/25/25 17:15 93.6 200.5 Total Intake and Output 09/24/25 09/24/25 09/25/25 15:00 23:00 07:00 Intake Total 150 ml Output Total 25 ml Balance 125 ml medications Current Medications Medications Dose Ordered Sig/Elissa Route Start Time Stop Time Status Last Admin Dose Admin Levothyroxine Sodium 150 mcg QAM@0600 PO 09/11/25 06:00 09/24/25 06:00 150 MCG Ondansetron HCl 4 mg Q4HP PRN IV 09/10/25 20:30 09/19/25 09:25 4 MG Docusate Sodium 100 mg BIDPRN PRN PO 09/10/25 20:30 Acetaminophen 650 mg Q6HP PRN PO 09/10/25 20:30 09/23/25 00:13 650 MG Nitroglycerin 0.4 mg Q5MINP PRN SL 09/10/25 21:00 Diagnostic Test (Pha) 1 strip ACHS 09/11/25 07:00 09/25/25 17:27 1 STRIP Insulin Human Regular ACHS SC 09/11/25 07:00 09/15/25 22:00 2 UNITS Dextrose 50 ml UD PRN IV 09/10/25 22:45 Meropenem 50 ml @ 17 mls/hr Q12HR IV 09/17/25 22:00 09/23/25 22:10 17 MLS/HR Dextrose/Sodium Chloride 1,000 ml @ 100 mls/hr Q10H IV 09/19/25 10:45 Cancel Pantoprazole Sodium 40 mg BID IV 09/19/25 22:00 09/24/25 22:21 40 MG Dextrose/Sodium Chloride 1,000 ml @ 75 mls/hr [id number] IV 09/19/25 16:45 09/25/25 17:39 75 MLS/HR Micafungin Sodium 100 mg/Sodium Chloride 100 ml @ 100 mls/hr DAILY IV 09/20/25 10:00 09/23/25 09:05 100 MLS/HR Morphine Sulfate 2 mg Q6HPRN PRN IV 09/20/25 17:30 09/24/25 17:53 2 MG Dexamethasone 2 mg Q12HR PO 09/22/25 22:00 09/23/25 22:10 2 MG Fluconazole 100 ml @ 100 mls/hr DAILY IV 09/25/25 10:00 Hydrocortisone Sodium Succinate 50 mg Q6HR IV 09/25/25 18:00 09/25/25 17:40 50 MG Morphine Sulfate 2 mg Q1HP PRN IV 09/25/25 18:00 Lorazepam 1 mg Q2HP PRN IV 09/25/25 18:00 objective Gen: NAD Heart: RRR, normal S1 and S2 Lungs: Bilateral air entry, no rales Ext: + generalized edema Neuro: awake altered laboratory and microbiology Laboratory Tests 09/25/25 15:33 09/25/25 10:34 Test 09/25/25 10:34 Range/Units Serum Glucose 48 *L 74-106 mg/dL Problems(with codes): (1) Symptomatic anemia (2) Open wound of left thigh (3) Urinary tract infection (4) Acute on chronic renal failure (5) Hypothyroidism (6) Metabolic encephalopathy (7) Sepsis, unspecified organism (8) Elevated liver enzymes (9) Generalized weakness Prognosis Plan Patient currently on IV antibiotics Continue to monitor labs Discharge planning to hospice Prognosis remains poor Consider comfort care Dietary Evaluation Review Comments: Nutrition Recommendation: 1) Avinash 1 pk daily, Nephro-issac 1 tab daily 2) Discontinue MVI 3) Ergocalciferol 50,000IU weekly 4) Monitor PO intake, lab values, weight trend, and I/O Expected Outcomes/Goals: Wound to improve Intake to meet >75% estimated needs Lab values to improve FU 3-5 days Plan discussed with: Patient, Other (Nurse at bedside) CISCO MARKHAM MD Sep 25, 2025 18:27
[2025-09-25] MEDS: MORPHINE SULFATE 4 MG/ML SYR/VIAL IV PRN (18:37)
[2025-09-25] MEDS: LORazepam 2MG/ML-1ML VIAL IV PRN (19:38)
--- NOTE | 2025-09-26 00:28 | DVHPN2 ---
Subjective DOS: 09/25/2025 Patient seen and examined at bedside. Currently on supplemental oxygen Overnight events reviewed. Changes from previous H/P or p: No Changes Objective Vitals Vital Signs Date Time Temp Pulse Resp B/P (MAP) Pulse Ox O2 Delivery O2 Flow Rate FiO2 09/25/25 23:20 97.6 77 14 0/0 (0) 99 97.6 09/25/25 22:30 Nasal Cannula* 4 36 Intake/Output Intake and Output 09/26/25 07:00 Intake Total 2603.50 ml Output Total 50 ml Balance 2553.50 ml IV Total 2002.50 ml Blood Product 300 ml Other 300 ml Output Urine Total 50 ml Exam Gen.: Patient lying in bed in no apparent distress. On supplemental oxygen Head: Normocephalic, atraumatic. Eyes: EOMI/PERRLA. Ears: Normal hearing. Normal anatomy. Neck/trachea: Trachea midline, supple. Nose: Normal external anatomy. Mouth: Moist mucous membranes. Chest: Decreased air entry bilaterally. No wheezing or rhonchi. Cardiovascular: Positive S1, positive S2. Regular rate and rhythm. Abdomen: Positive bowel sounds in all 4 quadrants. Soft, non-tender, non- distended. : Deferred. Rectal: Deferred. Skin: Warm, dry. Intact. Extremities: 2+ radial pulses bilaterally. No lower extremity edema. Neuro: Awake, alert, oriented x3. No gross motor or sensory deficits. Cranial nerves II through XII intact. Gait not assessed. Medications Current Medications Medications Dose Ordered Sig/[facility] Route Start Time Stop Time Status Last Admin Dose Admin Dextrose/Sodium Chloride 1,000 ml @ 100 mls/hr Q10H IV 09/19/25 10:45 Cancel Micafungin Sodium 100 mg/Sodium Chloride 100 ml @ 100 mls/hr DAILY IV 09/20/25 10:00 09/23/25 09:05 100 MLS/HR Morphine Sulfate 2 mg Q6HPRN PRN IV 09/20/25 17:30 09/25/25 21:43 2 MG Lorazepam 1 mg Q2HP PRN IV 09/25/25 18:00 09/25/25 19:38 1 MG Morphine Sulfate 2 mg Q1HP PRN IV 09/25/25 18:30 09/25/25 18:37 2 MG Laboratory Results Laboratory Tests 09/25/25 10:34 09/25/25 15:33 Chemistry Test 09/25/25 10:34 Calcium Level 8.5 mg/dL (8.7-10.4) L Urinalysis Test 09/10/25 17:50 09/12/25 11:47 Urine Hyaline Casts Mod /lpf (0 - 2) Urine Mucus Few (None Seen) Urine Color Light-orange (Yellow) Urine Clarity Ex.turbid (Clear) Urine pH 7.0 (5.0-9.0) Urine Specific [place] 1.019 (1.001-1.035) Urine Protein 2+ (Negative) H Urine Ketones Negative (Negative) Urine Blood 1+ /uL (Negative) H Urine Nitrite Negative (Negative) Urine Bilirubin Negative (Negative) Urine Urobilinogen Normal mg/dL (Negative) Urine Leukocyte Esterase 3+ /uL (Negative) Urine RBC 68 /hpf (0 - 4) Urine WBC Clumps Present /hpf (None Seen) Urine Microscopic WBC 2862 /HPF (0-5) H Urine Squamous Epithelial Cells Few /hpf (<5) Urine Transitional Epithelial Cells Mod /hpf (<2) Urine Bacteria Mod /hpf (None Seen) H Urine Yeast (Budding) Many /hpf (None Seen) Urine Creatinine 228.66 mg/dL (30.0-125.0) H Urine Protein/Creatinine Ratio 1.55 Urine Sodium 17 mmol/L (40-220) L Urine Glucose Normal mg/dL (Normal) Urine Total Protein 353.5 mg/dL (1-14) H Blood Gas Results Test 09/25/25 16:49 Arterial Blood pH 7.336 (7.350-7.450) FiO2 % 36.0 Microbiology Microbiology Date/Time Source Procedure Growth Status 09/23/25 15:45 Nose MRSA Screen - Final Complete 09/10/25 19:28 Blood Blood Culture - Final NO GROWTH AFTER 5 DAYS OF INCUBATION. Complete 09/10/25 17:50 Urine - [place] Urine Culture - Final Presumptive Frida albicans Complete Assessment/Plan Assessment/Plan Impression: Acute metabolic encephalopathy Septic shock Acute kidney injury on chronic kidney disease Complicated UTI Anemia Morbid obesity Events: Overnight, patient experienced acute hemodynamic decompensation with profound hypotension to 66/37 mmHg (MAP 47), associated with worsening leukocytosis, metabolic acidosis, hypoglycemia. Patient received packed red blood cells. Patient with hypotension this PM - called code assist. Started on Levophed 2 mcg/min Titrate to keep MAP above 65 mmHg/SBP above 90 mmHg. STAT ABG/chest x-ray was ordered Pt was upgraded to ICU for administration of pressors. Patient was placed on supplemental oxygen, on 2 LPM NC Taper O2 as tolerated Head of bed elevation Aspiration precautions Hemoglobin currently 7.7 g/dL - continue to monitor OK to give PRBC transfusion via PICC line OK to remove PICC line prior to discharge. Continue to monitor hemoglobin Iron supplementation IV fluids with D5W and 1/2 NS. Continue antibiotics Continue dexamethasone Continue antifungal Incentive spirometry Midodrine for BP support Pain control Avoid oversedation Wound care Disposition: Home on hospice. Poor prognosis. Labs and imaging reviewed. Rest of plan as noted below. Plan: Supplemental oxygen PRN Titrate to keep O2 sats above 92%. Pressors as necessary for hemodynamic support Titrate to keep mean arterial pressure greater than 65 mmHg Continue antibiotics Incentive spirometry Stress dose steroids - tapered. Monitor renal function. Monitor electrolytes. Supplement as necessary. Monitor ins and outs. Monitor hemoglobin Transfuse if less than 7.0 g/dL. Wound care Recommend diet and lifestyle modifications for weight reduction Obesity complicates all care DVT prophylaxis. Prognosis: Poor given patient's multiple co-morbidities. Rest of plan per hospitalist and other consultants. Thank you, Dr. Stewart, for allowing me to participate in this patient's care. Further recommendations will depend on the patient's clinical course. Please do not hesitate to contact me if you have any questions or concerns. This medical document was created using an electronic medical record system with [employer] dictation system. Although these documentations are being carefully reviewed, there may still be some phonetic and typographical changes. The errors are purely typographical, due to imperfection on the software program, and do not reflect any compromise in the patient's medical care. Plan discussed with: Other (COMPLIANCE PROFESSIONALGUERA Ledezma/GUERA Bassett) My Orders Orders - AYSE MARTE MD Procedure Category Date Status Time Urine Bacterial CRISTIANA 09/25/25 In Process Culture 18:20 Visit Coding Pulmonary Billing Provider: AYSE MARTE MD Date of Service if different f: Sep 25, 2025 Common Visit Codes: [id number] INP/OBS CARE(HIGH), [id number] CARE 30-74 MIN AYSE MARTE MD Sep 26, 2025 00:28
--- NOTE | 2025-09-26 05:41 | DVH ---
CHEST RADIOGRAPH INDICATION: Evaluate for Pulmonary vascular congetion TECHNIQUE: Single frontal view of the chest was obtained COMPARISON: XY CHEST XRAY 1 VIEW on DOS: 09/25/25, XY CHEST PORTABLE on DOS: 09/24/25, XY CHEST XRAY 1 VIEW on DOS: 09/20/25, CT CHEST WITHOUT CONTRAST on DOS: 09/13/25, XY CHEST XRAY 1 VIEW on DOS: 09/13/25 FINDINGS: Lines and Tubes: Right internal jugular central venous catheter unchanged. Lungs: Clear Pleura: No effusion. No pneumothorax. Cardiomediastinal contours: Unremarkable Bones: Unremarkable IMPRESSION: 1. No acute cardiopulmonary disease. 2. Right IJ catheter unchanged.
[2025-09-26 05:43] LABS: Alkaline Phosphatase 81 U/L (46-116); Anion Gap 19.00001 (5-15); BUN/Creatinine Ratio 13.3 (10.0-20.0); Bilirubin, Total 0.5 mg/dL (0.2-1.0); Chloride 104 mmol/L (98-107); Glucose 84 mg/dL (74-106)
[2025-09-26 05:48] LABS: Alanine Aminotransferase < 9 U/L (7-40); Albumin 2.0 g/dL (3.2-4.8); Blood Urea Nitrogen 58 mg/dL (9-23); Calcium 8.0 mg/dL (8.7-10.4); Lactic Acid w/Reflex 8.9 mmol/L (0.4-2.0); Sodium 133 mmol/L (136-145); Total Protein 3.9 g/dL (5.7-8.2)
[2025-09-26 05:55] LABS: Carbon Dioxide < 10 mmol/L (20-31); Potassium 5.8 mmol/L (3.5-5.1)
[2025-09-26] MEDS ORDERED: ALBUTEROL SULF 2.5 MG/0.5ML(0.5%) NEB SOLN NEB ONE (07:30)
[2025-09-26] MEDS: DEXTROSE (50%) 50ML SYRG IV ONE (07:30)
[2025-09-26] MEDS: InsuLIN REG 1unit/0.01ml Soln (100units/ml) IV ONE (07:30)
[2025-09-26 07:45] VITALS: PULSE 78; RESP 15
[2025-09-26 08:44] VITALS: PULSE 67; RESP 22; TEMP 96.7
[2025-09-26 09:36] LABS: Hematocrit 31.2 % (36.0-46.0); Hemoglobin 8.4 g/dL (12.2-16.2); Mean Corpuscular Hemoglobin 28.2 pg (28.0-32.0); Mean Corpuscular Volume 104.5 fL (80.0-100.0)
[2025-09-26 10:57] LABS: Anisocytosis Slight; Macrocytosis Slight; Nucleated Red Blood Cells % 1.0 %; Total Cells Counted 100.0 (100)
[2025-09-26 13:38] LABS: Hepatitis A Total Antibody Positive (Negative); Hepatitis B Surface Antigen Negative (Negative); Hepatitis C Antibody Negative (Negative)
--- NOTE | 2025-09-26 17:55 | DVHDSRES ---
Discharge Summary Date of Admission Resident Creating Document: XIAO DOUGLAS RESIDENT Sep 10, 2025 at 20:56 Date of Discharge: Sep 26, 2025 Labs/Diagnostic Data: Laboratory Results Test 09/26/25 08:14 09/26/25 04:47 09/25/25 17:26 09/25/25 16:55 White Blood Count 72.5 10^3/uL (4.4-10.8) Red Blood Count 2.98 10^6/uL (4.0-5.20) Hemoglobin 8.4 g/dL (12.2-16.2) Hematocrit 31.2 % (36.0-46.0) Mean Corpuscular Volume 104.5 fL (80.0-100.0) Mean Corpuscular Hemoglobin 28.2 pg (28.0-32.0) Mean Corpuscular Hemoglobin Concent 27.0 g/dL (32.0-36.0) Red Cell Distribution Width 22.5 % (11.8-14.3) Platelet Count 94 10^3/uL (140-450) Mean Platelet Volume 9.6 fL (6.9-10.8) Neutrophils (%) (Auto) % (37.0-80.0) Lymphocytes (%) (Auto) % (10.0-50.0) Monocytes (%) (Auto) % (0.0-12.0) Basophils (%) (Auto) % (0.0-2.0) Neutrophils # (Auto) 10 ^3/uL (1.6-8.6) Lymphocytes # (Auto) 10 ^3/uL (0.4-5.4) Monocytes # (Auto) 10 ^3/uL (0-1.3) Differential Total Cells Counted 100.0 (100) Neutrophils % (Manual) 90 (37.0-80.0) Band Neutrophils % (Manual) 1 Lymphocytes % (Manual) 5 (10.0-50.0) Monocytes % (Manual) 4 (0-12) Eosinophils % (Manual) 0 (0-7) Basophils % (Manual) 0 (0.0-2.0) Metamyelocytes % (manual) 0 Myelocytes % (Manual) 0 Promyelocytes % (Manual) 0 Blast Cells % (Manual) 0 Nucleated Red Blood Cells 1.0 % Reactive Lymphocytes 0 Platelet Estimate Decreased Anisocytosis (manual) Slight Macrocytosis Slight [place] Cells Few Lactic Acid Level 12.0 mmol/L (0.4-2.0) Sodium Level 133 mmol/L (136-145) Potassium Level 5.8 mmol/L (3.5-5.1) Chloride Level 104 mmol/L (98-107) Carbon Dioxide Level < 10 mmol/L (20-31) Anion Gap 19.99658 (5-15) Blood Urea Nitrogen 58 mg/dL (9-23) Creatinine 4.37 mg/dL (0.550-1.02) Glomerular Filtration Rate Calc 11 mL/min (>90) BUN/Creatinine Ratio 13.3 (10.0-20.0) Serum Glucose 84 mg/dL (74-106) Calcium Level 8.0 mg/dL (8.7-10.4) Phosphorus Level 6.7 mg/dL (2.4-5.1) Total Bilirubin 0.5 mg/dL (0.2-1.0) Aspartate Amino Transferase (AST) 54 U/L (13-40) Alanine Aminotransferase (ALT) < 9 U/L (7-40) Alkaline Phosphatase 81 U/L (46-116) Total Protein 3.9 g/dL (5.7-8.2) Albumin 2.0 g/dL (3.2-4.8) POC Glucose 110 mg/dl (70-106) Hepatitis A Antibody Total Positive (Negative) Hepatitis B Surface Antigen Negative (Negative) Hepatitis B Surface Antibody Negative (Negative) Hepatitis B Core Total Antibody Negative (Negative) Hepatitis C Antibody Negative (Negative) HIV (1&2) Antibody Negative (Negative) Test 09/25/25 16:49 09/25/25 15:33 09/22/25 03:45 09/19/25 03:19 Blood Gas Specimen Type Arterial Blood Gas Sample Site Arterial line Blood Gas Patient Temperature 37.0 Arterial Blood Date Drawn [id number] Arterial Blood pH 7.336 (7.350-7.450) Arterial Blood Partial Pressure CO2 18.6 mmHg (32.0-45.0) Arterial Blood Partial Pressure O2 81.7 mmHg (83.0-108.0) Arterial Blood HCO3 9.7 mmol/L (21.0-28.0) Arterial Blood Oxygen Saturation 93.6 % (94.0-98.0) Arterial Blood Base Excess -14.5 mmol/L (-2.0-3.0) Arterial Blood Oxyhemoglobin 93.0 % (94.0-98.0) Arterial Blood Carboxyhemoglobin 0.0 % (0.5-1.5) Arterial Blood Methemoglobin 0.6 % (0.0-1.5) Arterial Blood Deoxyhemoglobin 6.4 % (0.0-5.0) Juan Jose Test N/a Blood Gas Total Hemoglobin 8.10 g/dL (12.0-16.0) Blood Gas Liter Flow 4.00 Blood Gas Modality Nasal cannula FiO2 % 36.0 Blood Gas Critical Value Read Back Yes Blood Gas Notified Whom Shon ospina Blood Gas Notified Time [id number] Blood Gas Notified By Mildred parsons Smudge Cells 2 /100 WBC Large Platelets Few Poikilocytosis (manual) Slight Ovalocytes Few Stomatocytes Few Eosinophils (%) (Auto) 0.0 % (0.0-7.0) Eosinophils # (Auto) 0 10 ^3/uL (0-0.8) Basophils # (Auto) 0 10 ^3/uL (0-0.2) Magnesium Level 1.8 mg/dL (1.6-2.6) Test 09/18/25 23:05 09/18/25 03:35 09/12/25 12:23 09/12/25 11:47 Stool Occult Blood Positive (Negative) Stool Occult Blood Sample #3 (Negative) Ammonia 29 umol/L (11-32) Parathyroid Hormone (Intact) 57.0 pg/mL (18.4-80.1) Urine Color Light-orange (Yellow) Urine Clarity Ex.turbid (Clear) Urine pH 7.0 (5.0-9.0) Urine Specific [place] 1.019 (1.001-1.035) Urine Protein 2+ (Negative) Urine Ketones Negative (Negative) Urine Blood 1+ /uL (Negative) Urine Nitrite Negative (Negative) Urine Bilirubin Negative (Negative) Urine Urobilinogen Normal mg/dL (Negative) Urine Leukocyte Esterase 3+ /uL (Negative) Urine RBC 68 /hpf (0 - 4) Urine WBC Clumps Present /hpf (None Seen) Urine Microscopic WBC 2862 /HPF (0-5) Urine Squamous Epithelial Cells Few /hpf (<5) Urine Transitional Epithelial Cells Mod /hpf (<2) Urine Bacteria Mod /hpf (None Seen) Urine Yeast (Budding) Many /hpf (None Seen) Urine Creatinine 228.66 mg/dL (30.0-125.0) Urine Protein/Creatinine Ratio 1.55 Urine Sodium 17 mmol/L (40-220) Urine Glucose Normal mg/dL (Normal) Urine Total Protein 353.5 mg/dL (1-14) Test 09/12/25 04:48 09/10/25 18:05 09/10/25 17:50 Iron Level 13 ug/dL (50-170) Total Iron Binding Capacity 161 ug/dL (250-425) Percent Iron Saturation 8.1 % (15-50) Ferritin 89.7 ng/mL (10-291) Vitamin D 25-Hydroxy 17.0 ng/mL (30.0-100) Random Vancomycin Level 23.0 ug/mL (5-10) Prothrombin Time 10.4 sec (9.3-11.8) Prothrombin Time INR 0.98 (0.9-1.15) Activated Partial Thromboplast Time 28.1 SEC (24.5-34.5) Hemoglobin A1c < 3.8 % A1C (<5.7) B-Type Natriuretic Peptide 62.07 pg/mL (0-100) Thyroid Stimulating Hormone (TSH) 11.74 uIU/mL (0.55-4.78) Urine Hyaline Casts Mod /lpf (0 - 2) Urine Mucus Few (None Seen) Other Laboratory Tests 09/26/25 08:14 09/26/25 04:47 Brief Hx & Hospital Course: Declaration Summary: Patient Particulars: Lesly Gilbert, a 64-year-old female was brought to the [facility] ED for altered level of consciousness. Ms Gilbert was seen and evaluated in the ED with left thigh open wound. She had significant medical history of metastatic melanoma, hypothyroidism, hypertension, chronic kidney failure, and diabetes mellitus. Initial presentation revealed low blood pressure, tachycardia, with initial laboratory data significant of anemia, acute kidney injury. Urinalysis positive for urinary tract infection. Patient was started on IV antibiotic regimen vancomycin. She experienced acute hemodynamic decompensation with profound hypotension, associated with worsening leukocytosis, metabolic acidosis, hypoglycemia. Her chest CT showed multiple oval-shaped cannonball lesions with primarily lower lobe / inferior thoracic distribution compatible with metastatic disease, small to medium right-sided pleural effusion, significant peritoneal carcinomatosis with the areas of nodularity primarily overlying the perihepatic space; Small right adrenal gland mass/ nodule measuring 1.7 cm likely compatible with metastatic disease. Medical condition and prognosis discussed with family and Ms Gilbert's family opted for comfort care measures. Preceding Event: Ms Gilbert was pending discharge to Hospice for end-of-life care. Her monitor car operator showed Asystole. The patient remained in asystole and hemodynamically did not respond. BLS/ACLS protocol was not initiated to honor family's wishes of DNR/DNI with comfort measures only. Detailed bedside examination revealed: -The patient was unresponsive to verbal or painful stimuli. -Spontaneous Heart and lung sounds are absent. -No spontaneous cardiac or respiratory activity noted over 5 minutes. -No corneal pupillary reflex present while checked twice. -Pupils are fixed and dilated over the examination period. Code timeout performed. The patient was pronounced clinically at 10:21 AM of date 09/26/[address] Ahmadi. Patient's family and patient's nurse were updated by the healthcare team. Appropriate and empathic condolences were provided to the patient's dear ones. 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 Metabolic acidosis Oliguric renal failure due to septic shock Hypothyroidism Type 2 diabetes with fluctuating glucose Morbid obesity Symptomatic anemia, acute on chronic Anemia of chronic disease + acute blood loss Iron deficiency Generalized weakness Vitamin D deficiency Hypoalbuminemia Hypokalemia- resolved Morbid obesity Discharge Disposition: at Hospital SNF Discharge Will this Physician continue t: No Discharge Instruct/Medications Diet comment: Follow Up/Referral: Discharge Statement: "Patient was advised to return to the ER or call 911 if any headaches, dizziness, shortness of breath, chest pain, abdominal pain, bleeding, fevers, or worsening of medical condition. Patient was counseled about treatment plan, medications, possible side effects, patientverbalized understanding. All questions were answered to the best of my ability. 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 # Septic shock due to UTI and Wound Infection # HFpEF, EF 60 % # Post sx Abdomina Wound # Complicated UTI # Acute kidney injury on CKD due to VMN hemodynamically mediated SONDRA due to hypotension. # Oliguric renal failure due to septic shock # Metabolic acidosis due to sepsis/septic shock # Hypothyroidism # Type 2 diabetes with fluctuating glucose # Morbid obesity # Symptomatic anemia, acute on chronic # Iron deficiency # Anemia of chronic disease + acute blood loss Visit Coding STANDARD RES Billing Provider: JESU AHMADI MD Date of Service if different f: Sep 26, 2025 XIAO DOUGLAS RESIDENT Sep 26, 2025 17:55
== END 2025-09-26 10:21 | DRG 720 ==
LOC: EDBD 16:21 → ER 16:21 → OVERFLOW 20:56 → ICU CENTRL 09-13 04:56 → TELE-WESTW 09-22 14:31 → ICU CENTRL 09-25 14:07 → CENTRAL 09-25 23:01
PROVIDERS: ADMIT Internal Medicine; ATTEND Internal Medicine
PROC: 30233N1 Transfusion of Nonautologous Red Blood Cells into Peripheral Vein, Percutaneous Approach (ICD-10-PCS; principal; 2025-09-10)
PROC: 03HY32Z Insertion of Monitoring Device into Upper Artery, Percutaneous Approach (ICD-10-PCS; 2025-09-25)
PROC: 05HM33Z Insertion of Infusion Device into Right Internal Jugular Vein, Percutaneous Approach (ICD-10-PCS; 2025-09-25)
PROC: B543ZZA Ultrasonography of Right Jugular Veins, Guidance (ICD-10-PCS; 2025-09-25)
DX: A41.9 Sepsis, unspecified organism (principal); R65.21 Severe sepsis with septic shock; N17.0 Acute kidney failure with tubular necrosis; J96.01 Acute respiratory failure with hypoxia; G93.41 Metabolic encephalopathy; C78.00 Secondary malignant neoplasm of unspecified lung; E88.09 Other disorders of plasma-protein metabolism, not elsewhere classified; C79.31 Secondary malignant neoplasm of brain; N39.0 Urinary tract infection, site not specified; C43.9 Malignant melanoma of skin, unspecified; L08.9 Local infection of the skin and subcutaneous tissue, unspecified; T81.49XA Infection following a procedure, other surgical site, initial encounter; Z68.37 Body mass index [BMI] 37.0-37.9, adult; D63.1 Anemia in chronic kidney disease; E11.22 Type 2 diabetes mellitus with diabetic chronic kidney disease; E03.9 Hypothyroidism, unspecified; N18.9 Chronic kidney disease, unspecified; I12.9 Hypertensive chronic kidney disease with stage 1 through stage 4 chronic kidney disease, or unspecified chronic kidney disease; I50.32 Chronic diastolic (congestive) heart failure; D62 Acute posthemorrhagic anemia; T36.8X5A Adverse effect of other systemic antibiotics, initial encounter; Y92.89 Other specified places as the place of occurrence of the external cause; E66.01 Morbid (severe) obesity due to excess calories; E87.20 Acidosis, unspecified; D50.9 Iron deficiency anemia, unspecified; E11.649 Type 2 diabetes mellitus with hypoglycemia without coma; E55.9 Vitamin D deficiency, unspecified; K59.00 Constipation, unspecified; E87.6 Hypokalemia; Z87.891 Personal history of nicotine dependence; X58.XXXA Exposure to other specified factors, initial encounter; Y93.89 Activity, other specified
CPT/HCPCS: 36415; 36556; 36600; 36620; 70450; 70551; 71045; 71250; 76775; 80048; 80053; 80202; 81001; 82140; 82270; 82306; 82570; 82728; 82805; 82962; 83036; 83540; 83550; 83605; 83735; 83880; 83970; 84100; 84156; 84300; 84443; 85007; 85025; 85027; 85610; 85730; 86703; 86704; 86706; 86708; 86803; 86850; 86900; 86901; 86920; 87040; 87077; 87081; 87086; 87088; 87186; 87205; 87340; 87536; 93005; 93306; 96365; 99291; G0378; J1100; J1450; J1756; J1815; J2185; J2248; J2250; J2405; J2470; J3480; J3490; P9047